=== PATIENT | male | born 1960 | race Caucasian/White ===

== ENCOUNTER 2020-04-05 13:10 | Emergency (ER) | payer SELFPAY ==
[2020-04-05] VITALS (7 sets, daily range): BP systolic 124–168; BP diastolic 69–89; PULSE 72–89; RESP 16–20; TEMP 36.7; O2SAT 94–98; BMI 24.3
--- NOTE | 2020-04-05 13:42 | CTR_ITS ---
PROCEDURE INFORMATION: Exam: CT Angiography Head With Contrast Exam date and time: 04/05/2020 1:56 PM Age: 59 years old Clinical indication: Pain; Headache; Additional info: Syncope/ h/o aneurysms TECHNIQUE: Imaging protocol: Computed tomography angiography of the head with intravenous contrast. 3D rendering (Not supervised by radiologist): MIP and/or 3D reconstructed images were created by the technologist. Radiation optimization: All CT scans at this facility use at least one of these dose optimization techniques: automated exposure control; mA and/or kV adjustment per patient size (includes targeted exams where dose is matched to clinical indication); or iterative reconstruction. Contrast material: OMNI 350; Contrast volume: 95 ml; Contrast route: INTRAVENOUS (IV); COMPARISON: CTA Head/Neck [id number] 01/26/2018 6:49 PM RADIATION DOSE METRICS: Total DLP (mGy-cm): 2137.6 FINDINGS: ANTERIOR CIRCULATION: Right internal carotid artery: Calcified plaques in the right pre cavernous and cavernous carotid produces mild stenosis. Right middle cerebral artery: Unremarkable. No occlusion or significant stenosis. No aneurysm. Right anterior cerebral artery: Unremarkable. No occlusion or significant stenosis. No aneurysm. Left internal carotid artery: Calcified plaque in the left pre cavernous internal carotid produces mild stenosis. The Left middle cerebral artery: Unremarkable. No occlusion or significant stenosis. No aneurysm. Left anterior cerebral artery: Unremarkable. No occlusion or significant stenosis. No aneurysm. POSTERIOR CIRCULATION: Right vertebral artery: Unremarkable. No occlusion or significant stenosis. No aneurysm. Left vertebral artery: Unremarkable. No occlusion or significant stenosis. No aneurysm. Basilar artery: The distal vertebral arteries are patent and join to form a normal basilar artery. Right posterior cerebral artery: The right P1 segment is small. Left posterior cerebral artery: The left P1 segment is widely patent. Right posterior communicating artery: The right posterior communicating artery is patent. Left posterior communicating artery: The left posterior communicating artery is very small. Brain: No definite mass, mass effect, or midline shift. Cerebral ventricles: No ventriculomegaly. Bones/joints: Unremarkable. No acute fracture. Soft tissues: Unremarkable. IMPRESSION: No significant intracranial vascular findings. PROCEDURE INFORMATION: Exam: CT Angiography Neck With Contrast Exam date and time: 04/05/2020 1:56 PM Age: 59 years old Clinical indication: Pain; Headache; Additional info: Syncope/ h/o aneurysms TECHNIQUE: Imaging protocol: Computed tomography angiography of the neck with intravenous contrast. 3D rendering (Not supervised by radiologist): MIP and/or 3D reconstructed images were created by the technologist. Radiation optimization: All CT scans at this facility use at least one of these dose optimization techniques: automated exposure control; mA and/or kV adjustment per patient size (includes targeted exams where dose is matched to clinical indication); or iterative reconstruction. Contrast material: OMNI 350; Contrast volume: 95 ml; Contrast route: INTRAVENOUS (IV); COMPARISON: CTA Head/Neck [id number] 01/26/2018 6:49 PM RADIATION DOSE METRICS: Total DLP (mGy-cm): 2137.6 FINDINGS: Right common carotid artery: No stenosis. No dissection or occlusion. Right internal carotid artery: Insignificant calcified plaque in the right carotid bifurcation. No measurable stenosis. Right external carotid artery: No occlusion or stenosis of the origin. Right vertebral artery: Both vertebral arteries are patent and symmetric. The vessels join to form a normal basilar artery. Left common carotid artery: No stenosis. No dissection or occlusion. Left internal carotid artery: Insignificant calcified plaque in the proximal left internal carotid artery without measurable stenosis. Left external carotid artery: No occlusion or stenosis of the origin. Left vertebral artery: No stenosis. No dissection or occlusion. Subclavian arteries: Since 2018 a focal stenosis in the proximal left subclavian artery has increased from moderate to severe, now 80-89% based on minimum diameter criteria. The stenosis occurs proximal to the vertebral artery origin. Sinuses: Fluid and mucosal thickening is noted in the left maxillary sinus. Nasal cavity: Numerous mid cervical disc spur complexes producing mild central stenosis. No high-grade stenosis. Thyroid: Chronic mixed cystic and solid left thyroid nodule measures up to 1.6 cm. Dental: There are numerous bilateral dental caries. Bones/joints: No acute fracture. Soft tissues: Normal. No significant soft tissue swelling. Lungs: Paraseptal emphysema occurs in the upper lobes. CT/CT angio headneck* [id number] IMPRESSION: 1. Patent carotid and vertebral arteries. 2. Proximal left subclavian artery stenosis is severe, 80-89% 3. Chronic left thyroid nodule, 1.6 cm. Consider ultrasound follow-up if not previously evaluated COMMENTS: Consistent with the [employer]'s Incidental Findings Committee white paper (J Am Jaret Radiol 2015): In patients aged 35 years and older with an incidental thyroid nodule equal to or greater than 1.[address], MRI or extrathyroidal US, further evaluation with dedicated thyroid US is recommended for patients with normal life expectancy and without comorbidities. For smaller nodules without suspicious features, no further evaluation or follow up is recommended. REFERENCES: NASCET CRITERIA. The degree of internal carotid artery stenosis is based on NASCET criteria. Normal is no stenosis. Mild is less than 50% stenosis. Moderate is 50-69% stenosis. Severe is 70% to 99% stenosis. Total occlusion is no detectable patent lumen. Radiation Dose CTDIVOL = (mGy): DLP = 2137.6~2137.6 (mGy-cm)
--- NOTE | 2020-04-05 13:42 | XRR_ITS ---
PROCEDURE INFORMATION: Exam: XR Chest, 1 View Exam date and time: 04/05/2020 2:10 PM Age: 59 years old Clinical indication: Shortness of breath; Additional info: Syncope TECHNIQUE: Imaging protocol: XR of the chest Views: 1 view. COMPARISON: CR Chest 1 [place] [id number] 08/10/2018 6:20 PM FINDINGS: Lungs: Unremarkable. No consolidation. Pleural space: Unremarkable. No pleural effusion. No pneumothorax. Heart/Mediastinum: Unremarkable. No cardiomegaly. Bones/joints: Metallic hardware is seen in the humeral head. No interval changes are present comparing to prior examination. XR/XR chest 1V portable [id number] IMPRESSION: No acute findings.
--- NOTE | 2020-04-05 13:42 | CT_ITS ---
WS: [id number] CT HEAD NONCONTRAST HISTORY: syncope. h/o aneurysms TECHNIQUE: Contiguous axial imaging performed through the brain in 2.5 mm imaging. Bone and soft tiss ue windows. Sagittal and coronal reformats reviewed. All CT scans at [facility] use at le ast one of these dose optimization techniques: automated exposure control; mA and/or kV adjustment pe r patient size (includes targeted exams where dose is matched to clinical indication); or iterative r econstruction. DLP: 863.9 mGy.cm COMPARISON: 09/03/2018 No acute intracranial hemorrhage, midline shift or mass effect. Mild atrophy and mild chronic microvascular ischemic disease. No prior infarcts. Ventricles: Normal size with no hydrocephalus. Paranasal sinuses: Mucoperiosteal thickening in the LEFT maxillary sinus. No air-fluid levels. Mastoid air cells: Well pneumatized. Calvarium and scalp: Skull is intact with no soft tissue edema or swelling. CT/CT head wo con* [id number] IMPRESSION: 1. No acute intracranial edema or hemorrhage. 2. Mild atrophy and mild chronic ischemic disease. Similar to 09/03/2018.
--- NOTE | 2020-04-05 13:44 | ECG_ITS ---
[facility] Test Date: 2020-04-05 Pat Name: Geremias Delatorre Department: Room: Gender: Male Field Hand: : 1960 Requested By: Vidal Marinelli Order Number: [id number] Adelaida MD: Lucrecia Street M.D. Measurements Intervals [place] Rate: 70 P: 75 ME: 155 QRS: 95 QRSD: 86 T: 82 QT: 394 QTc: 425 Interpretive Statements SINUS RHYTHM BORDERLINE RIGHT AXIS DEVIATION [QRS AXIS > 90] Compared to ECG 09/03/2018 15:36:35 No significant changes Electronically Signed On 04-05-2020 21:26:31 MARKET MANAGER by Lucrecia Street M.D. [id number]
--- NOTE | 2020-04-05 14:24 | ED_ITS ---
HPI - Syncope General: Chief Complaint: Syncope Stated Complaint: LOSING VISION, FAINTING Time Seen by Provider: 04/05/20 13:33 History of Present Illness: HPI narrative: The patient is a 59-year-old male with history of multiple brain aneurysms. He comes to the ER today after multiple syncopal episodes today where he says 2 or 3 times today he passed out for 45 minutes. He says he lays there until he can move again and has been told to come into the ER if this happens. He says he has brain surgery scheduled in [place] when he gets his insurance. He noticed pressure in his head and loss of vision and then he passed out. In the ER he is calm and cooperative, A&O x4. He admitted nausea and one vomiting episode during this morning syncopal event MD complaint: loss of consciousness and collapsed Onset (ago): minute(s) (45) Duration of episode: 45 Associated symptoms: Deny abdominal pain, chest pain or headache(s) Review of Systems General: Reports: 10 or more systems reviewed and unremarkable except in HPI and below Const: Denies: fatigue Eyes: Denies: change in vision, blurry vision or eye redness ENMT: Denies: throat pain, swelling of lips/tongue, ear or mastoid pain or nasal congestion Card: Denies: chest pain, palpitations, irregular heart rhythm, edema, dyspnea on exertion or orthopnea Resp: Denies: dyspnea, productive cough or non-productive cough GI: Denies: abdominal pain, diarrhea or GI cramping : Denies: flank pain, urinary frequency or urinary urgency Musc: Denies: neck pain, back pain, extremity pain, joint pain, joint redness, limited range of motion or muscle weakness Skin/Breast: Denies: rash, pruritus, erythema, skin pain or skin tenderness Neuro: Denies: headache(s), numbness in extremities, weakness in extremities, sensory changes, difficulty walking, dizziness, confusion or Slurred speech present Psych: Denies: anxiety or depression Endo: Denies: polyuria All/Imm: Denies: urticaria, throat swelling or tongue swelling Physical Exam Const: COMMON NORMALS: no acute distress, average body habitus, patient oriented x3, no limitations, healthy appearing, alert and well nourished GENERAL APPEARANCE: cooperative, comfortable, well kempt and well developed ORIENTATION/CONSCIOUSNESS: Yes awake, Yes oriented to person, Yes oriented to place and Yes oriented to time HENMT: COMMON NORMALS: normocephalic, external ears normal and Normal external nose present HEAD & SCALP: normal to inspection and normocephalic NOSE: Normal external nose present EXTERNAL EAR: Yes external ears normal MOUTH: Normal oral and palatal mucosa present THROAT: posterior oropharynx normal Eye: COMMON NORMALS: Equal, round and reactive pupils present and EOMs intact bilaterally GENERAL EYE: appearance normal, both eyes and all related structures PUPIL: Yes Equal, round and reactive pupils present Neck/C-Spine: COMMON NORMALS: full ROM, no lymphadenopathy, no meningeal signs and no JVD GENERAL: Yes normal visual inspection Lymph: LYMPHATIC: no lymphadenopathy noted Chest: COMMONS NORMALS: normal inspection of the chest and normal palpation of entire chest wall Resp: COMMON NORMALS: normal respiratory effort, No retractions, No use of accessory muscles, clear to auscultation bilaterally and percussion normal EFFORT & INSPECTION: Yes able to speak in complete sentences AUSCULTATION: clear to auscultation bilaterally PERCUSSION: percussion normal Cardio: COMMON NORMALS: no JVD, regular rate, regular rhythm, S1 normal heart sound present, S2 normal heart sound present and Peripheral pulses 2+ throughout RATE: regular rate RHYTHM: regular rhythm HEART SOUNDS: S1 normal heart sound present and S2 normal heart sound present PERIPHERAL PULSES: Peripheral pulses 2+ throughout GI: COMMON NORMALS: Normal to inspection, nondistended, normoactive bowel sounds present, Soft to palpation, non-tender and no masses INSPECTION: Yes normal to inspection PALPATION: Yes Soft to palpation : COMMON NORMALS: Yes no CVA tenderness BLADDER/KIDNEY EXAM: Yes no CVA tenderness Back/Pelvis: COMMON NORMALS: no CVA tenderness, thoracic and lumbar spine normal to inspection, no thoracic nor lumbar tenderness and thoraco-lumbar ROM normal Extremity: COMMON NORMALS: normal to inspection, full ROM, capillary refill normal, no joint enlargement and no pedal edema GENERAL: Yes normal exam except as noted Neuro: COMMON NORMALS: patient oriented x3, CN's II-XII intact bilaterally, moves all extremities, no focal motor deficits, no sensory deficits noted and gait normal SENSORIUM/ORIENTATION: Yes alert, Yes oriented to person, Yes oriented to place and Yes oriented to time MENINGEAL SIGNS: Yes no meningeal signs Psych: COMMON NORMALS: mental status grossly normal, Normal thought process present, cooperative, normal affect and speech normal APPEARANCE: Yes well kempt ATTITUDE: Yes calm SPEECH: Yes normal speech THOUGHT PROCESS: Normal thought process present Skin: COMMON NORMALS: no rashes or lesions noted GENERAL SKIN EXAM: no rashes or lesions noted Course ED course: The patient says he has aneurysms. Imaging does not show aneurysms but it does show a significant stenosis of his left carotid artery to 90%. This could be a possible cause of his syncopal episodes. We do not have cardiovascular surgery nor vascular surgery upstairs. [facility] un available for transfer. Awaiting [facility] for transfer right now. He has been accepted at [facility] and is awaiting ALS transfer. Reevaluation(s): Reevaluation #1: Patient has been comfortable in room with no syncope. Vital Signs: Vital signs: Vital Signs Temperature 98.1 F 04/05/20 13:17 Pulse Rate 89 04/05/20 19:48 Respiratory Rate 16 04/05/20 19:48 Blood Pressure 131/79 04/05/20 19:48 Pulse Oximetry 96 04/05/20 19:48 MDM - Syncope Lab Data: Labs: Lab Results 04/05/20 04/05/20 04/05/20 Range/Units 14:15 14:15 14:15 WBC 9.0 (4.0-10.0) 10^3/ uL RBC 4.40 (4.1-5.3) 10^6/u L Hgb 14.4 (11.7-16.6) g/dL Hct 43.3 (42.0-52.0) % MCV 98.4 H (80-94) fL MCH 32.7 (28.0-34.0) pg MCHC 33.3 (30.0-36.0) g/dL RDW 14.4 (12.1-15.1) % Plt Count 173 (130-400) 10^3/c mm MPV 11.4 H (7.4-10.4) fL Neut % (Auto) 44.2 % Lymph % (Auto) 33.9 % [place] % (Auto) 10.5 % Eos % (Auto) 10.1 % Baso % (Auto) 1.1 % Neut # (Auto) 3.96 (1.8-7.7) 10^3/u L Lymph # (Auto) 3.0 (0.8-4.8) 10^3/u L [place] # (Auto) 0.9 (0.2-0.9) 10^3/u L Eos # (Auto) 0.9 H (0.0-0.8) 10^3/u L Baso # (Auto) 0.1 (0.0-0.1) 10^3/u L Nucleated RBC % (a uto) 0 % Nucleated RBCs # 0.0 /100WBC Sodium Cancelled Potassium Cancelled Chloride Cancelled Carbon Dioxide Cancelled Anion Gap Cancelled BUN Cancelled Creatinine Cancelled GFR Calculation Cancelled Glucose Cancelled Calculated Osmolal ity Cancelled Calcium Cancelled Total Bilirubin Cancelled AST Cancelled ALT Cancelled Alkaline Phosphata se Cancelled Troponin T Baselin e Cancelled Troponin T 120 Min mohegan (0-15) ng/L Delta Troponin T (0-10) ABS# Total Protein Cancelled Albumin Cancelled Globulin Cancelled TSH Cancelled Urine Color (Yellow) Urine Appearance (CLEAR) Urine pH (5-7) Ur Specific Gravit y (1.005-1.030) Urine Protein (Negative) Urine Glucose (UA) (Normal) Urine Ketones (Negative) Urine Blood (Negative) Urine Nitrate (Negative) Urine Bilirubin (Negative) Urine Urobilinogen (Negative) mg/dL Ur Leukocyte Becca ase (Negative) Urine Opiates Scre en (Negative) ng/mL Ur Barbiturates Sc reen (Negative) ng/mL Ur Phencyclidine S crn (Negative) ng/mL Ur Amphetamines Sc reen (Negative) ng/mL U Benzodiazepines Scrn (Negative) ng/mL Urine Cocaine Scre en (Negative) ng/mL U Marijuana (THC) Screen (Negative) ng/mL Ethyl Alcohol Cancelled 04/05/20 04/05/20 04/05/20 Range/Units 14:55 14:55 15:14 WBC (4.0-10.0) 10^3/ uL RBC (4.1-5.3) 10^6/u L Hgb (11.7-16.6) g/dL Hct (42.0-52.0) % MCV (80-94) fL MCH (28.0-34.0) pg MCHC (30.0-36.0) g/dL RDW (12.1-15.1) % Plt Count (130-400) 10^3/c mm MPV (7.4-10.4) fL Neut % (Auto) % Lymph % (Auto) % [place] % (Auto) % Eos % (Auto) % Baso % (Auto) % Neut # (Auto) (1.8-7.7) 10^3/u L Lymph # (Auto) (0.8-4.8) 10^3/u L [place] # (Auto) (0.2-0.9) 10^3/u L Eos # (Auto) (0.0-0.8) 10^3/u L Baso # (Auto) (0.0-0.1) 10^3/u L Nucleated RBC % (a uto) % Nucleated RBCs # /100WBC Sodium 136 Potassium 4.0 Chloride 101 Carbon Dioxide 27 Anion Gap 12.0 BUN 21 H Creatinine 0.7 GFR Calculation 115.4 Glucose 118 H Calculated Osmolal ity 286 Calcium 9.0 Total Bilirubin 0.6 AST 91 H ALT 79 H Alkaline Phosphata se 131 H Troponin T Baselin e 31 H Troponin T 120 Min mohegan (0-15) ng/L Delta Troponin T (0-10) ABS# Total Protein 6.5 L Albumin 3.4 L Globulin 3.1 TSH 0.59 Urine Color Yellow (Yellow) Urine Appearance Clear (CLEAR) Urine pH 7 (5-7) Ur Specific Gravit y 1.015 (1.005-1.030) Urine Protein Neg (Negative) Urine Glucose (UA) Norm (Normal) Urine Ketones Negative (Negative) Urine Blood Neg (Negative) Urine Nitrate Negative (Negative) Urine Bilirubin Neg (Negative) Urine Urobilinogen Norm (Negative) mg/dL Ur Leukocyte Becca ase Negative (Negative) Urine Opiates Scre en (Negative) ng/mL Ur Barbiturates Sc reen (Negative) ng/mL Ur Phencyclidine S crn (Negative) ng/mL Ur Amphetamines Sc reen (Negative) ng/mL U Benzodiazepines Scrn (Negative) ng/mL Urine Cocaine Scre en (Negative) ng/mL U Marijuana (THC) Screen (Negative) ng/mL Ethyl Alcohol < 10 04/05/20 04/05/20 Range/Units 15:14 16:54 WBC (4.0-10.0) 10^3/ uL RBC (4.1-5.3) 10^6/u L Hgb (11.7-16.6) g/dL Hct (42.0-52.0) % MCV (80-94) fL MCH (28.0-34.0) pg MCHC (30.0-36.0) g/dL RDW (12.1-15.1) % Plt Count (130-400) 10^3/c mm MPV (7.4-10.4) fL Neut % (Auto) % Lymph % (Auto) % [place] % (Auto) % Eos % (Auto) % Baso % (Auto) % Neut # (Auto) (1.8-7.7) 10^3/u L Lymph # (Auto) (0.8-4.8) 10^3/u L [place] # (Auto) (0.2-0.9) 10^3/u L Eos # (Auto) (0.0-0.8) 10^3/u L Baso # (Auto) (0.0-0.1) 10^3/u L Nucleated RBC % (a uto) % Nucleated RBCs # /100WBC Sodium Potassium Chloride Carbon Dioxide Anion Gap BUN Creatinine GFR Calculation Glucose Calculated Osmolal ity Calcium Total Bilirubin AST ALT Alkaline Phosphata se Troponin T Baselin e Troponin T 120 Min mohegan 27.82 H (0-15) ng/L Delta Troponin T -3.18 L (0-10) ABS# Total Protein Albumin Globulin TSH Urine Color (Yellow) Urine Appearance (CLEAR) Urine pH (5-7) Ur Specific Gravit y (1.005-1.030) Urine Protein (Negative) Urine Glucose (UA) (Normal) Urine Ketones (Negative) Urine Blood (Negative) Urine Nitrate (Negative) Urine Bilirubin (Negative) Urine Urobilinogen (Negative) mg/dL Ur Leukocyte Becca ase (Negative) Urine Opiates Scre en Negative (Negative) ng/mL Ur Barbiturates Sc reen Negative (Negative) ng/mL Ur Phencyclidine S crn Negative (Negative) ng/mL Ur Amphetamines Sc reen Positive H (Negative) ng/mL U Benzodiazepines Scrn Negative (Negative) ng/mL Urine Cocaine Scre en Negative (Negative) ng/mL U Marijuana (THC) Screen Positive H (Negative) ng/mL Ethyl Alcohol Discharge Plan Discharge Patient Disposition: Transfer to ED Clinical Impression: Stenosis of left subclavian artery, Vasovagal syncope Condition: Stable Prescriptions: No Action Tylenol 325 mg Tablet 325 - 650 mg PO Q4H PRN (Reason: Pain) RF: 0 Referrals: Cecilia Treviño DO [Primary Care Provider] - Patient Instructions: Syncope Activity Restrictions/Additional Instructions: The patient will be transferred to [facility] for further evaluation by vascular surgeon Dr. Kirby Coding Level of Care Code ED Marketing Technology Specialist for Chg Fwd Exam Comprehensive
[2020-04-05 14:28] LABS: Basophils # 0.1 10^3/uL (0.0-0.1); Basophils % 1.1 %; Eosinophils # 0.9 10^3/uL (0.0-0.8); Eosinophils % 10.1 %; Hematocrit 43.3 % (42.0-52.0); Hemoglobin 14.4 g/dL (11.7-16.6); Lymphocytes % 33.9 %; Mean Corpuscular HGB Conc 33.3 g/dL (30.0-36.0); Mean Corpuscular Hemoglobin 32.7 pg (28.0-34.0); Mean Corpuscular Volume 98.4 fL (80-94); Mean Platelet Volume 11.4 fL (7.4-10.4); Monocytes # 0.9 10^3/uL (0.2-0.9); Monocytes % 10.5 %; Neutrophils # 3.96 10^3/uL (1.8-7.7); Neutrophils % 44.2 %; Nucleated Red Blood Cells % 0 %; Platelet Count 173 10^3/cmm (130-400); Red Cell Distribution Width 14.4 % (12.1-15.1)
[2020-04-05] MEDS: sodium chloride 0.9% 1,000 ML 999 ML IV (14:45)
[2020-04-05 15:31] LABS: Add Urine Microscopic? NO
--- NOTE | 2020-04-05 15:44 | ECG_ITS ---
[facility] Test Date: 2020-04-05 Pat Name: Geremias Delatorre Department: Room: Gender: Male Facilities Locator: : 1960 Requested By: Vidal Marinelli Order Number: [id number] Son MD: Lucrecia Street M.D. Measurements Intervals [place] Rate: 64 P: 75 AR: 158 QRS: 92 QRSD: 85 T: 81 QT: 408 QTc: 423 Interpretive Statements SINUS RHYTHM BORDERLINE RIGHT AXIS DEVIATION [QRS AXIS > 90] Compared to ECG 04/05/2020 13:58:58 No significant changes Electronically Signed On 04-05-2020 21:32:17 MONITOR WORKER by Lucrecia Street M.D. [id number]
[2020-04-05 15:45] LABS: Bilirubin Urine Neg (Negative); Blood Urine Neg (Negative); Glucose Urine UA Norm (Normal); Ketones Urine Negative (Negative); Leukocyte Esterase Urine Negative (Negative); Nitrate Urine Negative (Negative); Protein Urine Neg (Negative); Specific Gravity, Urine 1.015 (1.005-1.030); Urine Appearance Clear (CLEAR); Urine Color Yellow (Yellow); Urobilinogen Urine Norm (Negative); pH Urine 7 (5-7)
[2020-04-05 15:49] LABS: Amphetamines Screen Urine Positive (Negative); Barbiturates Screen Urine Negative (Negative); Benzodiazepines Screen Urine Negative (Negative); Cocaine Screen Urine Negative (Negative); Opiate Screen Urine Negative (Negative); PCP Screen Urine Negative (Negative); THC Screen Urine Positive (Negative)
[2020-04-05 16:06] LABS: Troponin(5th) Baseline 31 ng/L (0-15)
[2020-04-05 16:13] LABS: Alanine Aminotransferase 79 U/L (0-41); Albumin Level 3.4 g/dL (3.5-5.2); Alkaline Phosphatase 131 IU/L (40-130); Aspartate Amino Transferase 91 U/L (0-40); Blood Urea Nitrogen 21 mg/dL (6-20); Carbon Dioxide 27 mmol/L (22-29); Chloride 101 mmol/L (98-107); Globulin 3.1 g/dL (1.3-4.6); Glomerular Filtration Rate 115.4 mL/min (90-130); Glucose 118 mg/dL (65-115); Osmolality Calculated 286 mOsm/kg (285-295); Sodium 136 mmol/L (136-145); Thyroid Stimulating Hormone 0.59 uIU/mL (0.27-4.20); Total Bilirubin 0.6 mg/dL (0.15-1.2); Total Protein 6.5 g/dL (6.6-8.7)
[2020-04-05] MEDS: acetaminophen 325 mg Tablet 650 MG PO (16:16)
[2020-04-05 16:22] LABS: Alcohol Level < 10 mg/dL (0-10)
[2020-04-05] MEDS: iohexol 350 mg/mL 100 mL Btl IV (16:31)
[2020-04-05 17:34] LABS: Troponin 5 2HR 27.82 ng/L (0-15)
[2020-04-05 17:35] LABS: Troponin 5 2HR Delta -3.18 ABS# (0-10)
--- NOTE | 2020-04-05 19:42 | PC.NURSE ---
pt asleep during pt rounding
--- NOTE | 2020-04-05 19:56 | PC.NURSE ---
pt daughter Rafael updated on pt's status. contact # [phone]
[2020-04-05] MEDS: nicotine 21 mg Patch 1 PATCH TRANSDERMA (21:32)
[2020-04-06 00:09] VITALS: BP 117/80; PULSE 82; RESP 18; O2SAT 97
== END 2020-04-06 00:12 ==
PROVIDERS: Emergency Provider Family Medicine; PCP Family Medicine
DX: R55 Syncope and collapse (principal); I77.1 Stricture of artery
CPT/HCPCS: 12345; 70450; 70496; 70498; 71045; 80053; 80306; 80307; 81003; 84443; 84484; 85025; 93005; 96360; 99283; 99285; J7030; Q9967

== ENCOUNTER 2021-01-04 10:58 | Emergency (ER) | payer SELFPAY ==
[2021-01-04 11:18] VITALS: BP 128/75; PULSE 77; RESP 18; TEMP 36.1; O2SAT 98; BMI 26.1
--- NOTE | 2021-01-04 11:29 | XRR_ITS ---
PROCEDURE INFORMATION: Exam: XR Right Wrist Exam date and time: 01/04/2021 11:29 AM Age: 60 years old Clinical indication: Injury or trauma; Fall; Blunt trauma (contusions or hematomas); Wrist; Right; Additional info: Fall injury TECHNIQUE: Imaging protocol: XR Right wrist. Views: 3 or more views. COMPARISON: No relevant prior studies available. FINDINGS: Bones/joints: Right distal radius ORIF hardware noted. Old healed fracture deformity of distal radius seen. An unfused chronic fracture of the ulnar styloid is process is seen. Soft tissues: Normal. XR/XR wrist RT min 3V* [id number] IMPRESSION: Old healed fracture deformity and ORIF hardware noted in the distal radius. Old unfused chronic fracture deformity of the ulnar styloid process. No acute osseous injury.
--- NOTE | 2021-01-04 11:29 | XRR_ITS ---
PROCEDURE INFORMATION: Exam: XR Right Forearm Exam date and time: 01/04/2021 11:29 AM Age: 60 years old Clinical indication: Injury or trauma; Fall; Blunt trauma (contusions or hematomas); Arm, lower; Right; Prior surgery; Additional info: Fall injury TECHNIQUE: Imaging protocol: XR Right forearm. Views: 2 views. COMPARISON: No relevant prior studies available. FINDINGS: Bones/joints: Old healed fracture deformity of the distal radius with ORIF hardware in place noted. No evidence of hardware related complication. Old unfused chronic fracture of the ulnar styloid process is seen. No acute osseous injury identified. Soft tissues: Normal. XR/XR forearm RT 2V [id number] IMPRESSION: 1. Old healed fracture deformity of the distal radius with ORIF hardware in place. 2. Old unfused fracture deformity of the ulnar styloid process.
--- NOTE | 2021-01-04 11:38 | W.ED.EXTPRO ---
HPI - Extremity Problem General: Chief complaint: Extremity Injury, Upper Stated complaint: Pain & Injury to rgt arm Time Seen by Provider: 01/04/21 11:29 History of Present Illness: HPI Narrative: Patient is a 60-year-old male comes to the ED with forearm pain. Patient says just prior to arrival he was walking he tripped going up a step and caught himself with his right arm extended. He then felt pain in his right forearm. He rates the pain currently a 10 out of 10. He has movement in his wrist and fingers and elbow but does endorse some pain with supination and pronation of hand. Pain is located right in the middle of the forearm. Denies any head injury or loss of consciousness. Associated symptoms: Deny chest pain, fever(s) or rash Review of Systems Const: Denies: fever(s), chills or fatigue Eyes: Denies: change in vision or eye discomfort ENMT: Denies: throat pain, odynophagia, nasal discharge or nasal congestion Card: Denies: chest pain, palpitations, edema, swelling of feet/ankles, dyspnea on exertion or orthopnea Resp: Denies: dyspnea, productive cough or non-productive cough GI: Denies: abdominal pain, nausea, vomiting, diarrhea, constipation or hematochezia : Denies: flank pain, difficulty urinating, dysuria or hematuria Musc: Reports: extremity pain (Right forearm); Denies: neck pain, back pain or extremity swelling Skin/Breast: Denies: rash or new lesions Neuro: Denies: headache(s), numbness in extremities or weakness in extremities Physical Exam Const: COMMON NORMALS: no acute distress, patient oriented x3 and alert GENERAL APPEARANCE: cooperative and comfortable HENMT: COMMON NORMALS: normocephalic HEAD & SCALP: normocephalic MOUTH: Normal oral and palatal mucosa present THROAT: posterior oropharynx normal and uvula midline Neck/C-Spine: COMMON NORMALS: supple GENERAL: Yes normal visual inspection Resp: COMMON NORMALS: normal respiratory effort, No retractions, No use of accessory muscles and clear to auscultation bilaterally AUSCULTATION: clear to auscultation bilaterally Cardio: COMMON NORMALS: regular rate, regular rhythm, S1 normal heart sound present, S2 normal heart sound present, No gallops present (Cardio), No clicks present (Cardio), No murmurs present (Cardio) and Peripheral pulses 2+ throughout RATE: regular rate RHYTHM: regular rhythm HEART SOUNDS: S1 normal heart sound present and S2 normal heart sound present PERIPHERAL PULSES: Peripheral pulses 2+ throughout GI: COMMON NORMALS: Normal to inspection, nondistended, normoactive bowel sounds present, Soft to palpation, non-tender and no masses PALPATION: Yes Soft to palpation : COMMON NORMALS: Yes no CVA tenderness BLADDER/KIDNEY EXAM: Yes no CVA tenderness Back/Pelvis: COMMON NORMALS: no CVA tenderness Extremity: COMMON NORMALS: normal to inspection and full ROM Neuro: COMMON NORMALS: patient oriented x3 and moves all extremities SENSORIUM/ORIENTATION: Yes alert Skin: GENERAL SKIN EXAM: dry skin Course Vital Signs: Vital signs: Vital Signs Temperature 97.0 F L 01/04/21 11:18 Pulse Rate 54 L 01/04/21 11:53 Respiratory Rate 16 01/04/21 11:53 Blood Pressure 97/59 01/04/21 11:53 Pulse Oximetry 98 01/04/21 11:53 MDM - Extremity (Nontraumatic) MDM Narrative: Medical decision making narrative: Patient is a 60-year-old male comes to the ED with right forearm pain after fall. Exam was benign. X-ray of right wrist and right forearm showed no acute fractures initial old healing fractures with ORIF hardware in place. Patient was diagnosed with right forearm pain discharged home with Celebrex for pain. Return ED precautions given. Follow-up with PCP in 7 to 10 days for reevaluation. Patient understood agree with plan. Imaging Data^: Xray Ortho: Attestation: I personally reviewed and interpreted this imaging study as follows: Radiologist's impression: [address] [address] XRay Report Signed Patient: Geremias Delatorre Unit #: [id number] : 1960 Age/Sex: 60 / M ADM Date: 01/04/21 Loc: ER Room/Bed: Attending Dr: Ordering Provider/Ordering MD: Mehdi Monge Date of Service: 01/04/21 Procedure(s): XR forearm RT 2V 24793 Accession Number(s): [id number] Report Number: [id number] PROCEDURE INFORMATION: Exam: XR Right Forearm Exam date and time: 01/04/2021 11:29 AM Age: 60 years old Clinical indication: Injury or trauma; Fall; Blunt trauma (contusions or hematomas); Arm, lower; Right; Prior surgery; Additional info: Fall injury TECHNIQUE: Imaging protocol: XR Right forearm. Views: 2 views. COMPARISON: No relevant prior studies available. FINDINGS: Bones/joints: Old healed fracture deformity of the distal radius with ORIF hardware in place noted. No evidence of hardware related complication. Old unfused chronic fracture of the ulnar styloid process is seen. No acute osseous injury identified. Soft tissues: Normal. XR/XR forearm RT 2V 33286 IMPRESSION: 1. Old healed fracture deformity of the distal radius with ORIF hardware in place. 2. Old unfused fracture deformity of the ulnar styloid process. Dictated By: Everardo Hinton Signed By: Everardo Hinton Signed Date/Time: 01/04/21 1259 DD/ [address] [address] XRay Report Signed Patient: Geremias Delatorre Unit #: [id number] : 1960 Age/Sex: 60 / M ADM Date: 01/04/21 Loc: ER Room/Bed: Attending Dr: Ordering Provider/Ordering MD: Mehdi Monge Date of Service: 01/04/21 Procedure(s): XR wrist RT min 3V* 06707 Accession Number(s): [id number] Report Number: [id number] PROCEDURE INFORMATION: Exam: XR Right Wrist Exam date and time: 01/04/2021 11:29 AM Age: 60 years old Clinical indication: Injury or trauma; Fall; Blunt trauma (contusions or hematomas); Wrist; Right; Additional info: Fall injury TECHNIQUE: Imaging protocol: XR Right wrist. Views: 3 or more views. COMPARISON: No relevant prior studies available. FINDINGS: Bones/joints: Right distal radius ORIF hardware noted. Old healed fracture deformity of distal radius seen. An unfused chronic fracture of the ulnar styloid is process is seen. Soft tissues: Normal. XR/XR wrist RT min 3V* 85400 IMPRESSION: Old healed fracture deformity and ORIF hardware noted in the distal radius. Old unfused chronic fracture deformity of the ulnar styloid process. No acute osseous injury. Dictated By: Everardo Hinton Signed By: Everardo Hinton Signed Date/Time: 01/04/21 1256 DD/ 1255 Discharge Plan Discharge Patient Disposition: Home Clinical Impression: Pain in right forearm Condition: Stable Prescriptions: New Celebrex 100 mg capsule 100 mg PO BID PRN (Reason: pain) Qty: 20 RF: 0 No Action Tylenol 325 mg Tablet 325 - 650 mg PO Q4H PRN (Reason: Pain) RF: 0 Discharge Orders: Discharge ED (Routine); Ordered 01/04/21 Ordered By: Mehdi Monge Referrals: Cecilia Treviño DO [Primary Care Provider] - Discharge Diet: Regular Discharge Activity: Resume usual activity Activity Restrictions/Additional Instructions: Follow-up with medical provider as directed. Take medications as prescribed. Return to the ER or your medical provider if condition worsens. Please read and understand discharge instructions. Thank you for choosing [facility] for your healthcare needs today. Please realize this is an emergency room and that we are providing you with a medical screening exam and this may not be complete and all inclusive of all the testing and or work up that you may need to determine your ailment or severity of your illness. It is very important that you follow up as instructed or that you return to the Emergency Department should you have concerns or if your condition changes or worsens in any way. Coding Level of Care Code ED Burglar Alarm Inspector for Priyanka Nunez Exam Comprehensive
[2021-01-04] MEDS: HYDROcodone-acetaminophen 5-325 mg Tablet 1 TAB PO (11:50)
[2021-01-04 11:53] VITALS: BP 97/59; PULSE 54; RESP 16; O2SAT 98
== END 2021-01-04 13:10 | disposition home or self-care (01) ==
PROVIDERS: Emergency Provider Physician Assistant; PCP Family Medicine
DX: M79.631 Pain in right forearm (principal)
CPT/HCPCS: 73090; 73110; 99283

== ENCOUNTER 2021-02-07 23:10 | Emergency (ER) | payer SELFPAY ==
[2021-02-07 23:14] VITALS: BP 115/79; PULSE 74; RESP 18; TEMP 36.9; O2SAT 96; BMI 22.8
--- NOTE | 2021-02-07 23:15 | XRR_ITS ---
PROCEDURE INFORMATION: Exam: XR Chest Exam date and time: 02/07/2021 11:15 PM Age: 60 years old Clinical indication: Shortness of breath; Additional info: SOB TECHNIQUE: Imaging protocol: XR of the chest. Views: 1 view. COMPARISON: CR XR chest 1V portable [id number] 04/05/2020 1:59 PM FINDINGS: Lungs: Emphysematous changes. Bibasilar atelectasis versus minimal infiltrate. Pleural spaces: Unremarkable. No pleural effusion. No pneumothorax. Heart/Mediastinum: Unremarkable. No cardiomegaly. Bones/joints: Unremarkable. XR/XR chest 1V portable [id number] IMPRESSION: 1. Emphysematous changes. 2. Bibasilar atelectasis versus minimal infiltrate. Radiation Dose CTDIVOL = (mGy): DLP = (mGy-cm)
--- NOTE | 2021-02-07 23:16 | ECG_ITS ---
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 Measurements Intervals [place] Rate: 71 P: 63 PA: 159 QRS: 85 QRSD: 88 T: 81 QT: 382 QTc: 415 Interpretive Statements SINUS RHYTHM Compared to ECG 04/05/2020 16:25:41 No significant changes Electronically Signed On 02-08-2021 1:26:[address] M.D. [id number] f
--- NOTE | 2021-02-07 23:19 | ED_ITS ---
HPI - Chest Pain General: Chief Complaint: Chest Pain Stated Complaint: CP Time Seen by Provider: 02/07/21 23:12 Source: patient and EMS Mode of arrival: EMS Limitations: no limitations History of Present Illness: HPI narrative: 60-year-old male who is a chronic smoker history of COPD. He states he has a chronic cough states over last 4 hours been having a sharp left-sided chest pain with his cough. States it is point tender rates his pain a 9 out of 10 is much worse with coughing or deep inspiration. Denies any vomiting denies any shortness of breath and denies any diaphoresis. Associated symptoms: Deny abdominal pain, fever(s), nausea or vomiting Review of Systems Const: Denies: fever(s), chills, body aches or change in appetite Eyes: Denies: blurry vision or eye discomfort ENMT: Denies: throat pain or dental pain Card: Reports: chest pain Resp: Reports: non-productive cough GI: Denies: abdominal pain, nausea, vomiting or diarrhea : Denies: dysuria Musc: Denies: neck pain or back pain Skin/Breast: Denies: rash Neuro: Denies: headache(s) Psych: Denies: depression Venkata/Lymph: Denies: easy bruising All/Imm: Denies: urticaria Physical Exam Const: COMMON NORMALS: no acute distress, patient oriented x3 and healthy appearing HENMT: COMMON NORMALS: normocephalic and atraumatic HEAD & SCALP: normocephalic and atraumatic Eye: COMMON NORMALS: Equal, round and reactive pupils present and EOMs intact bilaterally PUPIL: Yes Equal, round and reactive pupils present Neck/C-Spine: COMMON NORMALS: full ROM and supple Chest: COMMONS NORMALS: normal inspection of the chest OTHER: point tender over left chest Resp: COMMON NORMALS: normal respiratory effort, No retractions, No use of accessory muscles and clear to auscultation bilaterally AUSCULTATION: clear to auscultation bilaterally Cardio: COMMON NORMALS: regular rate, regular rhythm and No murmurs present (Cardio) RATE: regular rate RHYTHM: regular rhythm GI: COMMON NORMALS: Normal to inspection, nondistended, normoactive bowel sounds present, Soft to palpation, non-tender and no masses PALPATION: Yes Soft to palpation Extremity: COMMON NORMALS: normal to inspection and full ROM Neuro: COMMON NORMALS: patient oriented x3, moves all extremities and no focal motor deficits Psych: COMMON NORMALS: mental status grossly normal, Normal thought process present and cooperative THOUGHT PROCESS: Normal thought process present Skin: COMMON NORMALS: no rashes or lesions noted and no wounds GENERAL SKIN EXAM: no rashes or lesions noted Course Vital Signs: Vital signs: Vital Signs Temperature 98.4 F 02/07/21 23:14 Pulse Rate 70 02/08/21 00:17 Respiratory Rate 15 02/08/21 00:17 Blood Pressure 115/79 02/07/21 23:14 Pulse Oximetry 97 02/08/21 00:17 MDM - Chest Pain MDM Narrative: Medical decision making narrative: Patient presents for chest pain that is atypical in nature likely from his chronic cough he has no signs of pneumonia here and is well-appearing with no respiratory distress troponins are negative. He is stable for discharge and is to follow-up PCP and return if worsening. Lab Data: Labs: Lab Results 02/07/21 02/07/21 02/07/21 23:15 23:15 23:15 WBC 10.9 10^3/uL H 10 ^3/uL (4.0-10.0) RBC 4.54 10^6/uL 10^6 /uL (4.1-5.3) Hgb 14.9 g/dL g/dL (11.7-16.6) Hct 44.9 % % (42.0-52.0) MCV 98.9 fl H fl (80-94) MCH 32.8 pg pg (28.0-34.0) MCHC 33.2 g/dL g/dL (30.0-36.0) RDW 13.8 % % (12.1-15.1) Plt Count 257 10^3/cmm 10^3 /cmm (130-400) MPV 11.7 fL H fL (7.4-10.4) Neut % (Auto) 53.0 % % Lymph % (Auto) 27.8 % % [place] % (Auto) 12.9 % % Eos % (Auto) 5.0 % % Baso % (Auto) 0.8 % % Neut # (Auto) 5.77 10^3/uL 10^3 /uL (1.8-7.7) Lymph # (Auto) 3.0 10^3/uL 10^3/ uL (0.8-4.8) [place] # (Auto) 1.4 10^3/uL H 10^ 3/uL (0.2-0.9) Eos # (Auto) 0.5 10^3/uL 10^3/ uL (0.0-0.8) Baso # (Auto) 0.1 10^3/uL 10^3/ uL (0.0-0.1) Nucleated RBC % (a uto) 0 % % Nucleated RBCs # 0.0 /100WBC /100W BC PT 14.30 SECONDS SEC ONDS (12.1-14.9) INR 1.08 (0.8-1.2) D-Dimer 2.07 ug/mIFEU H u g/mIFEU (0-0.59) Sodium 136 mmol/L mmol/L (136-145) Potassium 3.8 mmol/L mmol/L (3.5-5.1) Chloride 100 mmol/L mmol/L (98-107) Carbon Dioxide 26 mmol/L mmol/L (22-29) Anion Gap 13.8 (5-19) BUN 14 mg/dL mg/dL (8-23) Creatinine 0.7 mg/dL mg/dL (0.7-1.2) GFR Calculation 115.0 mL/min mL/m in (90-130) Glucose 105 mg/dL mg/dL (65-115) Calculated Osmolal ity 283 mOsm/kg L mOs m/kg (285-295) Calcium 8.9 mg/dL mg/dL (8.5-10.5) Total Bilirubin 0.6 mg/dL mg/dL (0.15-1.2) AST 57 U/L H U/L (0-40) ALT 45 U/L H U/L (0-41) Alkaline Phosphata se 102 IU/L IU/L (40-130) Troponin T Baselin e Troponin T 120 Min [place] Troponin T Total Protein 7.3 g/dL g/dL (6.6-8.7) Albumin 3.7 g/dL g/dL (3.5-5.2) Globulin 3.6 g/dL g/dL (1.3-4.6) 02/07/21 02/08/21 23:15 01:15 WBC RBC Hgb Hct MCV MCH MCHC RDW Plt Count MPV Neut % (Auto) Lymph % (Auto) [place] % (Auto) Eos % (Auto) Baso % (Auto) Neut # (Auto) Lymph # (Auto) [place] # (Auto) Eos # (Auto) Baso # (Auto) Nucleated RBC % (a uto) Nucleated RBCs # PT INR D-Dimer Sodium Potassium Chloride Carbon Dioxide Anion Gap BUN Creatinine GFR Calculation Glucose Calculated Osmolal ity Calcium Total Bilirubin AST ALT Alkaline Phosphata se Troponin T Baselin e 30 ng/L H ng/L (0-15) Troponin T 120 Min [place] 26.74 ng/L H ng/L (0-15) Delta Troponin T -3.26 ABS# L ABS# (0-10) Total Protein Albumin Globulin Imaging Data^: CT Chest: Attestation: I personally reviewed and interpreted this imaging study as follows: Radiologist's impression: [address] [address] [address] Scan Report Signed Patient: Geremias Delatorre Unit #: [id number] : 1960 Age/Sex: 60 / M ADM Date: 02/07/21 Loc: ER Room/Bed: Attending Dr: Ordering Provider/Ordering MD: Walter Alicia MD Date of Service: 02/07/21 Procedure(s): CT angio chest PE protcl [id number] Accession Number(s): [id number] Report Number: [id number] PROCEDURE INFORMATION: Exam: CTA Chest With Contrast Exam date and time: 02/07/2021 11:46 PM Age: 60 years old Clinical indication: Pain and abnormal findings; Abnormal diagnostic tests; Elevated d-dimer; Chest pressure; Patient HX: C/O chest pain. Elevated d dimer. ; Additional info: SOB TECHNIQUE: Imaging protocol: Computed tomographic angiography of the chest with contrast. 3D rendering (Not supervised by radiologist): MIP and/or 3D reconstructed images were created by the technologist. Radiation optimization: All CT scans at this facility use at least one of these dose optimization techniques: automated exposure control; mA and/or kV adjustment per patient size (includes targeted exams where dose is matched to clinical indication); or iterative reconstruction. Contrast material: OMNI 350; Contrast volume: 84 ml; Contrast route: INTRAVENOUS (IV); COMPARISON: CR (CHEST, ) 02/07/2021 11:30 PM RADIATION DOSE METRICS: Total DLP (mGy-cm): 536.66 FINDINGS: Pulmonary arteries: Normal. No pulmonary emboli. Aorta: Unremarkable. No aortic aneurysm. No aortic dissection. Lungs: Emphysematous changes. Bibasilar atelectasis versus infiltrate. Pleural spaces: Unremarkable. No pneumothorax. No pleural effusion. Heart: Unremarkable. No cardiomegaly. No pericardial effusion. Lymph nodes: Unremarkable. No enlarged lymph nodes. Bones/joints: Unremarkable. No acute fracture. Soft tissues: Unremarkable. CT/CT angio chest PE protcl [id number] IMPRESSION: 1. Negative for pulmonary embolus. 2. Emphysematous changes. 3. Bibasilar atelectasis versus infiltrate. Radiation Dose CTDIVOL = (mGy): DLP = 536.66 (mGy-cm) Dictated By: Scott Andres MD Signed By: Scott Andres MD Signed Date/Time: 02/08/21 0022 DD/ 2346 EKG Data^: EKG 1: Attestation: I personally reviewed and interpreted this EKG as follows: EKG interpretation date: 02/07/21 EKG interpretation time: 23:16 Interpretation: nsr hr [address] or t wave abnormalities qrs 88 qtc 404 Discharge Plan Discharge Patient Disposition: Home Clinical Impression: Chest pain Qualifiers: Chest pain type: unspecified Qualified Code(s): R07.9 - Chest pain, unspecified Condition: Stable Prescriptions: No Action Tylenol 325 mg Tablet 325 - 650 mg PO Q4H PRN (Reason: Pain) RF: 0 Celebrex 100 mg capsule 100 mg PO BID PRN (Reason: pain) Qty: 20 RF: 0 Discharge Orders: Discharge ED (Routine); Ordered 02/08/21 Ordered By: Walter Alicia Referrals: Cecilia Treviño DO [Primary Care Provider] - 1-3 days Discharge Diet: Advance as tolerated Discharge Activity: Resume usual activity Patient Instructions: Chest Pain (ED) Coding Level of Care Code ED Manager Income Tax for Chg Fwd Exam Comprehensive
[2021-02-07 23:26] LABS: Basophils # 0.1 10^3/uL (0.0-0.1); Basophils % 0.8 %; Eosinophils # 0.5 10^3/uL (0.0-0.8); Hematocrit 44.9 % (42.0-52.0); Hemoglobin 14.9 g/dL (11.7-16.6); Lymphocytes % 27.8 %; Mean Corpuscular HGB Conc 33.2 g/dL (30.0-36.0); Mean Corpuscular Hemoglobin 32.8 pg (28.0-34.0); Mean Corpuscular Volume 98.9 fl (80-94); Mean Platelet Volume 11.7 fL (7.4-10.4); Monocytes # 1.4 10^3/uL (0.2-0.9); Monocytes % 12.9 %; Neutrophils # 5.77 10^3/uL (1.8-7.7); Nucleated Red Blood Cells % 0 %; Platelet Count 257 10^3/cmm (130-400); Red Blood Count 4.54 10^6/uL (4.1-5.3); Red Cell Distribution Width 13.8 % (12.1-15.1); White Blood Count 10.9 10^3/uL (4.0-10.0)
[2021-02-07] MEDS: morphine 4 mg/mL SDV 1 mL IVP (23:26)
[2021-02-07] MEDS: ondansetron 2 mg/ML SDV 2 mL 4 MG IVP (23:26)
[2021-02-07 23:31] VITALS: PULSE 72; RESP 20; O2SAT 96
[2021-02-07 23:42] LABS: INR 1.08 (0.8-1.2)
[2021-02-07 23:44] LABS: D Dimer 2.07 ug/mIFEU (0-0.59)
[2021-02-07 23:45] LABS: Alanine Aminotransferase 45 U/L (0-41); Albumin Level 3.7 g/dL (3.5-5.2); Alkaline Phosphatase 102 IU/L (40-130); Anion Gap 13.8 (5-19); Aspartate Amino Transferase 57 U/L (0-40); Blood Urea Nitrogen 14 mg/dL (8-23); Calcium 8.9 mg/dL (8.5-10.5); Carbon Dioxide 26 mmol/L (22-29); Chloride 100 mmol/L (98-107); Globulin 3.6 g/dL (1.3-4.6); Glucose 105 mg/dL (65-115); Osmolality Calculated 283 mOsm/kg (285-295); Potassium 3.8 mmol/L (3.5-5.1); Sodium 136 mmol/L (136-145); Total Bilirubin 0.6 mg/dL (0.15-1.2); Total Protein 7.3 g/dL (6.6-8.7)
--- NOTE | 2021-02-07 23:46 | CTR_ITS ---
PROCEDURE INFORMATION: Exam: CTA Chest With Contrast Exam date and time: 02/07/2021 11:46 PM Age: 60 years old Clinical indication: Pain and abnormal findings; Abnormal diagnostic tests; Elevated d-dimer; Chest pressure; Patient HX: C/O chest pain. Elevated d dimer. ; Additional info: SOB TECHNIQUE: Imaging protocol: Computed tomographic angiography of the chest with contrast. 3D rendering (Not supervised by radiologist): MIP and/or 3D reconstructed images were created by the technologist. Radiation optimization: All CT scans at this facility use at least one of these dose optimization techniques: automated exposure control; mA and/or kV adjustment per patient size (includes targeted exams where dose is matched to clinical indication); or iterative reconstruction. Contrast material: OMNI 350; Contrast volume: 84 ml; Contrast route: INTRAVENOUS (IV); COMPARISON: CR (CHEST, ) 02/07/2021 11:30 PM RADIATION DOSE METRICS: Total DLP (mGy-cm): 536.66 FINDINGS: Pulmonary arteries: Normal. No pulmonary emboli. Aorta: Unremarkable. No aortic aneurysm. No aortic dissection. Lungs: Emphysematous changes. Bibasilar atelectasis versus infiltrate. Pleural spaces: Unremarkable. No pneumothorax. No pleural effusion. Heart: Unremarkable. No cardiomegaly. No pericardial effusion. Lymph nodes: Unremarkable. No enlarged lymph nodes. Bones/joints: Unremarkable. No acute fracture. Soft tissues: Unremarkable. CT/CT angio chest PE protcl [id number] IMPRESSION: 1. Negative for pulmonary embolus. 2. Emphysematous changes. 3. Bibasilar atelectasis versus infiltrate. Radiation Dose CTDIVOL = (mGy): DLP = 536.66 (mGy-cm)
[2021-02-08 00:04] LABS: Troponin(5th) Baseline 30 ng/L (0-15)
[2021-02-08] MEDS: iohexol 350 mg/mL 100 mL Btl IV (00:05)
[2021-02-08 00:17] VITALS: PULSE 70; RESP 15; O2SAT 97
[2021-02-08 01:44] LABS: Troponin 5 2HR 26.74 ng/L (0-15)
[2021-02-08 01:57] LABS: Troponin 5 2HR Delta -3.26 ABS# (0-10)
[2021-02-08 02:10] VITALS: BP 130/98; PULSE 80; RESP 22; O2SAT 92
== END 2021-02-08 02:34 | disposition home or self-care (01) ==
PROVIDERS: Emergency Provider Emergency Medicine; PCP Family Medicine
DX: R07.89 Other chest pain (principal); J44.9 Chronic obstructive pulmonary disease, unspecified; F17.210 Nicotine dependence, cigarettes, uncomplicated
CPT/HCPCS: 71045; 71275; 80053; 84484; 85025; 85378; 85610; 93005; 96374; 96375; 99283; J2270; J2405; Q9967

== ENCOUNTER 2021-02-28 19:34 | Emergency (ER) | payer SELFPAY ==
[2021-02-28 19:36] VITALS: BP 122/78; PULSE 80; RESP 22; TEMP 36.4; O2SAT 96; BMI 26.3
--- NOTE | 2021-02-28 19:43 | ECG_ITS ---
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 Measurements Intervals [place] Rate: 79 P: 76 MD: 151 QRS: 89 QRSD: 84 T: 85 QT: 380 QTc: 436 Interpretive Statements SINUS RHYTHM WITH OCCASIONAL SUPRAVENTRICULAR PREMATURE COMPLEXES POSSIBLE LEFT ATRIAL ENLARGEMENT [-0.1mV P-WAVE IN V1/V2] Compared to ECG 02/07/2021 23:16:30 No significant changes Electronically Signed On 02-28-2021 22:48:18 LABORATORY SAMPLER by Lucrecia Street M.D. [id number]
--- NOTE | 2021-02-28 19:51 | ED_ITS ---
HPI - Chest Pain General: Chief Complaint: Chest Pain Stated Complaint: CP Time Seen by Provider: 02/28/21 19:40 Source: patient and EMS Mode of arrival: EMS Limitations: no limitations History of Present Illness: HPI narrative: 60-year-old male who states he has a history of chronic pain and states he is unable to find a doc here given his pain meds he was getting in [place]. He states that he has been having chest pain over the last day. Patient was seen here 2 weeks ago for chest pain had normal troponins and normal CT of the chest. States pain sharp in nature rates a 10 out of 10 denies any worsening improving factors denies any vomiting or abdominal pain. Denies any diaphoresis or shortness of breath. Associated symptoms: Deny abdominal pain, dyspnea, fever(s), nausea or vomiting Review of Systems Const: Denies: fever(s), chills, body aches or change in appetite Eyes: Denies: blurry vision or eye discomfort ENMT: Denies: throat pain or dental pain Card: Reports: chest pain Resp: Denies: dyspnea GI: Denies: abdominal pain, nausea, vomiting or diarrhea : Denies: dysuria Musc: Denies: neck pain or back pain Skin/Breast: Denies: rash Neuro: Denies: headache(s) Psych: Denies: depression Venkata/Lymph: Denies: easy bruising All/Imm: Denies: urticaria Physical Exam Const: COMMON NORMALS: no acute distress, patient oriented x3 and healthy appearing HENMT: COMMON NORMALS: normocephalic and atraumatic HEAD & SCALP: normocephalic and atraumatic Eye: COMMON NORMALS: Equal, round and reactive pupils present and EOMs intact bilaterally PUPIL: Yes Equal, round and reactive pupils present Neck/C-Spine: COMMON NORMALS: full ROM and supple Chest: COMMONS NORMALS: normal inspection of the chest and normal palpation of entire chest wall Resp: COMMON NORMALS: normal respiratory effort, No retractions, No use of accessory muscles and clear to auscultation bilaterally AUSCULTATION: clear to auscultation bilaterally Cardio: COMMON NORMALS: regular rate, regular rhythm and No murmurs present (Cardio) RATE: regular rate RHYTHM: regular rhythm GI: COMMON NORMALS: Normal to inspection, nondistended, normoactive bowel sounds present, Soft to palpation, non-tender and no masses PALPATION: Yes Soft to palpation Extremity: COMMON NORMALS: normal to inspection and full ROM Neuro: COMMON NORMALS: patient oriented x3, moves all extremities and no focal motor deficits Psych: COMMON NORMALS: mental status grossly normal, Normal thought process present and cooperative THOUGHT PROCESS: Normal thought process present Skin: COMMON NORMALS: no rashes or lesions noted and no wounds GENERAL SKIN EXAM: no rashes or lesions noted Course Vital Signs: Vital signs: Vital Signs Temperature 97.6 F 02/28/21 19:36 Pulse Rate 79 02/28/21 19:54 Respiratory Rate 24 H 02/28/21 20:35 Blood Pressure 122/78 02/28/21 19:54 Pulse Oximetry 94 02/28/21 19:54 MDM - Chest Pain MDM Narrative: Medical decision making narrative: Patient presents here with chest pain atypical in nature he has no signs acute coronary syndrome troponins unchanged from his previous 2 he feels much improved here he is stable for discharge is to follow-up PCP and return if worsening. Lab Data: Labs: Lab Results 02/28/21 02/28/21 02/28/21 19:45 21:29 21:29 WBC 13.1 10^3/uL H 10 ^3/uL (4.0-10.0) RBC 4.94 10^6/uL 10^6 /uL (4.1-5.3) Hgb 15.8 g/dL g/dL (11.7-16.6) Hct 48.0 % % (42.0-52.0) MCV 97.2 fl H fl (80-94) MCH 32.0 pg pg (28.0-34.0) MCHC 32.9 g/dL g/dL (30.0-36.0) RDW 14.5 % % (12.1-15.1) Plt Count 185 10^3/cmm 10^3 /cmm (130-400) MPV 13.2 fL H fL (7.4-10.4) Neut % (Auto) 57.8 % % Lymph % (Auto) 24.7 % % Newberry % (Auto) 9.2 % % Eos % (Auto) 6.4 % % Baso % (Auto) 1.1 % % Neut # (Auto) 7.56 10^3/uL 10^3 /uL (1.8-7.7) Lymph # (Auto) 3.2 10^3/uL 10^3/ uL (0.8-4.8) Newberry # (Auto) 1.2 10^3/uL H 10^ 3/uL (0.2-0.9) Eos # (Auto) 0.8 10^3/uL 10^3/ uL (0.0-0.8) Baso # (Auto) 0.2 10^3/uL H 10^ 3/uL (0.0-0.1) Nucleated RBC % (a uto) 0 % % Nucleated RBCs # 0.0 /100WBC /100W BC Sodium 137 mmol/L mmol/L (136-145) Potassium 4.2 mmol/L mmol/L (3.5-5.1) Chloride 100 mmol/L mmol/L (98-107) Carbon Dioxide 23 mmol/L mmol/L (22-29) Anion Gap 18.2 (5-19) BUN 14 mg/dL mg/dL (8-23) Creatinine 0.7 mg/dL mg/dL (0.7-1.2) GFR Calculation 115.0 mL/min mL/m in (90-130) Glucose 101 mg/dL mg/dL (65-115) Calculated Osmolal ity 285 mOsm/kg mOsm/ kg (285-295) Calcium 7.9 mg/dL L mg/dL (8.5-10.5) Total Bilirubin 0.7 mg/dL mg/dL (0.15-1.2) AST 73 U/L H U/L (0-40) ALT 50 U/L H U/L (0-41) Alkaline Phosphata se 114 IU/L IU/L (40-130) Troponin T Baselin e 28 ng/L H ng/L (0-15) Total Protein 7.4 g/dL g/dL (6.6-8.7) Albumin 3.4 g/dL L g/dL (3.5-5.2) Globulin 4.0 g/dL g/dL (1.3-4.6) Imaging Data^: CXR: Radiologist's impression: [address] [address] XRay Report Signed Patient: Nandini,Eric Unit #: [id number] : [id number] Age/Sex: 60 / M ADM Date: 02/28/21 Loc: ER Room/Bed: Attending Dr: Ordering Provider/Ordering MD: Walter Alicia MD Date of Service: 02/28/21 Procedure(s): XR chest 1V portable [id number] Accession Number(s): [id number] Report Number: [id number] PROCEDURE INFORMATION: Exam: XR Chest Exam date and time: 02/28/2021 8:03 PM Age: 60 years old Clinical indication: Sternal or substernal pain; Prior surgery; Surgery type: Left shoulder; Additional info: Cp TECHNIQUE: Imaging protocol: XR of the chest. Views: 1 view. COMPARISON: CR (CHEST, ) 02/07/2021 11:30 PM FINDINGS: Lungs: Unremarkable. No consolidation. Pleural spaces: Unremarkable. No pleural effusion. No pneumothorax. Heart/Mediastinum: Unremarkable. No cardiomegaly. Bones/joints: Unremarkable. XR/XR chest 1V portable [id number] IMPRESSION: No acute findings. Radiation Dose CTDIVOL = (mGy): DLP = (mGy-cm) Dictated By: Scott Andres MD Signed By: Scott Andres MD Signed Date/Time: 02/28/212030 DD/ 02 EKG Data^: EKG 1: Attestation: I personally reviewed and interpreted this EKG as follows: EKG interpretation date: 02/28/21 EKG interpretation time: 19:40 Interpretation: nsr hr [address] or t wave abnormalities qrs 84 qtc 414 Discharge Plan Discharge Patient Disposition: Home Clinical Impression: Chest pain Qualifiers: Chest pain type: unspecified Qualified Code(s): R07.9 - Chest pain, unspecified Condition: Stable Prescriptions: No Action Tylenol 325 mg Tablet 325 - 650 mg PO Q4H PRN (Reason: Pain) RF: 0 Celebrex 100 mg capsule 100 mg PO BID PRN (Reason: pain) Qty: 20 RF: 0 Discharge Orders: Discharge ED (Routine); Ordered 02/28/21 Ordered By: Walter Alicia Referrals: Lambert,Cecilia, DO [Primary Care Provider] - 1-3 days Discharge Diet: Advance as tolerated Discharge Activity: Resume usual activity Patient Instructions: Chest Pain (ED) Coding Level of Care Code ED Preassembler Printed Circuit Board for Priyanka Fwd Exam Comprehensive
[2021-02-28 19:54] VITALS: BP 122/78; PULSE 79; RESP 19; O2SAT 94
--- NOTE | 2021-02-28 20:03 | XRR_ITS ---
PROCEDURE INFORMATION: Exam: XR Chest Exam date and time: 02/28/2021 8:03 PM Age: 60 years old Clinical indication: Sternal or substernal pain; Prior surgery; Surgery type: Left shoulder; Additional info: Cp TECHNIQUE: Imaging protocol: XR of the chest. Views: 1 view. COMPARISON: CR (CHEST, ) 02/07/2021 11:30 PM FINDINGS: Lungs: Unremarkable. No consolidation. Pleural spaces: Unremarkable. No pleural effusion. No pneumothorax. Heart/Mediastinum: Unremarkable. No cardiomegaly. Bones/joints: Unremarkable. XR/XR chest 1V portable [id number] IMPRESSION: No acute findings. Radiation Dose CTDIVOL = (mGy): DLP = (mGy-cm)
[2021-02-28] MEDS: ondansetron 2 mg/ML SDV 2 mL 4 MG IVP (20:33)
[2021-02-28 20:35] VITALS: RESP 24
[2021-02-28] MEDS: morphine 4 mg/mL SDV 1 mL IVP (20:35)
[2021-02-28 20:43] LABS: Basophils # 0.2 10^3/uL (0.0-0.1); Basophils % 1.1 %; Eosinophils # 0.8 10^3/uL (0.0-0.8); Eosinophils % 6.4 %; Hemoglobin 15.8 g/dL (11.7-16.6); Lymphocytes # 3.2 10^3/uL (0.8-4.8); Lymphocytes % 24.7 %; Mean Corpuscular HGB Conc 32.9 g/dL (30.0-36.0); Mean Corpuscular Volume 97.2 fl (80-94); Mean Platelet Volume 13.2 fL (7.4-10.4); Monocytes # 1.2 10^3/uL (0.2-0.9); Monocytes % 9.2 %; Neutrophils # 7.56 10^3/uL (1.8-7.7); Neutrophils % 57.8 %; Nucleated Red Blood Cells % 0 %; Platelet Count 185 10^3/cmm (130-400); Red Blood Count 4.94 10^6/uL (4.1-5.3); Red Cell Distribution Width 14.5 % (12.1-15.1); White Blood Count 13.1 10^3/uL (4.0-10.0)
[2021-02-28 22:17] LABS: Alanine Aminotransferase 50 U/L (0-41); Albumin Level 3.4 g/dL (3.5-5.2); Alkaline Phosphatase 114 IU/L (40-130); Aspartate Amino Transferase 73 U/L (0-40); Blood Urea Nitrogen 14 mg/dL (8-23); Calcium 7.9 mg/dL (8.5-10.5); Carbon Dioxide 23 mmol/L (22-29); Chloride 100 mmol/L (98-107); Glucose 101 mg/dL (65-115); Osmolality Calculated 285 mOsm/kg (285-295); Sodium 137 mmol/L (136-145); Total Bilirubin 0.7 mg/dL (0.15-1.2); Total Protein 7.4 g/dL (6.6-8.7)
[2021-02-28 22:20] LABS: Anion Gap 18.2 (5-19); Potassium 4.2 mmol/L (3.5-5.1)
[2021-02-28 22:22] LABS: Troponin(5th) Baseline 28 ng/L (0-15)
[2021-02-28 23:27] VITALS: BP 109/78; PULSE 96; RESP 19; O2SAT 96
== END 2021-02-28 23:29 | disposition home or self-care (01) ==
PROVIDERS: Emergency Provider Emergency Medicine; PCP Family Medicine
DX: R07.9 Chest pain, unspecified (principal)
CPT/HCPCS: 71045; 80053; 84484; 85025; 93005; 96374; 96375; 99284; J2270; J2405

== ENCOUNTER 2021-07-20 06:45 | Emergency (ER) | payer SELFPAY ==
[2021-07-20 06:48] VITALS: BP 97/75; PULSE 82; RESP 17; TEMP 36.4; O2SAT 93; BMI 25.1
--- NOTE | 2021-07-20 07:03 | XR_ITS ---
WS: [id number] XR shoulder RT min 2V* [id number] REASON FOR EXAM: pain FINDINGS: Changes of osteoarthritis in the acromioclavicular joint as previously described. Additionally sclerotic rimmed cystic area in the acromial process laterally, not significant. Humerus is intact, no fracture. No fracture of the glenoid or scapula. Glenohumeral joint is intact. There is mild to moderate narrowing with subchondral sclerosis and cyst ic change in the glenoid. There is extensive sclerosis and cystic change in the biceps tuberosity. XR/XR shoulder RT min 2V* [id number] IMPRESSION: No acute abnormality. Changes of osteoarthritis. Significant rotator cuff arthropathy.
--- NOTE | 2021-07-20 07:03 | XR_ITS ---
WS: [id number] [id number] REASON FOR EXAM: pain FINDINGS: No fracture or focal bone lesion. Normal alignment of the acromioclavicular joint. Changes of osteoarthritis in the acromioclavicular joint with joint space narrowing, cyst subchondral sclerosis, and small marginal osteophytes. XR/[place] [id number] IMPRESSION: No acute abnormality.
[2021-07-20 07:06] VITALS: BP 101/73; PULSE 85; RESP 18; O2SAT 96
--- NOTE | 2021-07-20 07:09 | W.ED.EXTPRO ---
HPI - Extremity Problem General: Chief complaint: Extremity Injury, Upper Stated complaint: FALL Time Seen by Provider: 07/20/21 06:58 Source: patient Mode of arrival: EMS Limitations: no limitations History of Present Illness: 60-year-old male presents emergency room via EMS after a fall at home. Patient states he stumbled over a cat complaining of right shoulder and clavicle pain. He states he did hurt his neck a little bit when he fell but he has chronic pain in his neck as well. He did hit his head he had no loss consciousness he does not take any anticoagulants. He was given 100 mcg of fentanyl in route by EMS for his pain and developed some hypoxia which was transient on arrival here when I came to see the patient he was on 2 L/min by nasal cannula we stopped the oxygen he maintained his sats in the mid 90s. He denies any other injuries. Patient reports when he fell he was down for about 15 minutes but he fell about 2 hours ago. MD Complaint: joint pain Onset (ago): hour(s) Pain Consistency: constant Location: right (Clavicle/shoulder) Quality: sharp Radiation: none Relieving factors: immobilization Exacerbating factors: range of motion and palpation Associated symptoms: Deny arthralgias, chest pain, fever(s), myalgias, rash or short of breath Review of Systems Const: Denies: fever(s) ENMT: Denies: throat pain, ear or mastoid pain, nasal discharge or nasal congestion Card: Denies: chest pain Resp: Denies: dyspnea, productive cough or non-productive cough GI: Denies: abdominal pain, nausea or vomiting : Denies: flank pain or dysuria Skin/Breast: Denies: rash PFS ED PFSH: Medical History (Updated 07/20/21 @ 08:12 by Dylan Mcknight DO) Osteoarthritis Surgical History (Updated 07/20/21 @ 07:21 by Dylan Mcknight DO) History of arthroplasty of left shoulder Physical Exam Const: COMMON NORMALS: no acute distress GENERAL APPEARANCE: cooperative and comfortable ORIENTATION/CONSCIOUSNESS: Yes awake, Yes oriented to person, Yes oriented to place and Yes oriented to time HENMT: COMMON NORMALS: normocephalic, atraumatic and hearing grossly normal bilaterally HEAD & SCALP: normocephalic and atraumatic Neck/C-Spine: COMMON NORMALS: no JVD Resp: COMMON NORMALS: normal respiratory effort, No retractions, No use of accessory muscles and clear to auscultation bilaterally AUSCULTATION: clear to auscultation bilaterally Cardio: COMMON NORMALS: no JVD, regular rate, regular rhythm and No murmurs present (Cardio) RATE: regular rate RHYTHM: regular rhythm GI: COMMON NORMALS: Soft to palpation and No hepatosplenomegaly present AUSCULTATION: Yes normoactive bowel sounds PALPATION: Yes Soft to palpation, No Tenderness to palpation present (GI), No Guarding due to palpation present (GI) and Yes No hepatosplenomegaly present Extremity: OTHER: Atrophy with scarring in the left shoulder from previous surgery. There is no deformity of the right shoulder clavicle palpably is intact. No evidence of dislocation no vascular right upper extremity intact pulses palpable sensation normal Neuro: SENSORIUM/ORIENTATION: Yes oriented to person, Yes oriented to place and Yes oriented to time Skin: COMMON NORMALS: no rashes or lesions noted GENERAL SKIN EXAM: no rashes or lesions noted Course Vital Signs: Vital signs: Vital Signs Temperature 97.6 F 07/20/21 06:48 Pulse Rate 92 07/20/21 08:30 Respiratory Rate 18 07/20/21 08:30 Blood Pressure 101/73 07/20/21 07:06 Pulse Oximetry 96 07/20/21 08:30 MDM - Extremity (Nontraumatic) Medical Decision Making No acute fractures on imaging. Patient advised to follow-up as needed return for further problems. Medical Records I reviewed the patient's medical records. Lab Data I reviewed the patient's lab results. Radiology Impressions Clavicle X-Ray 07/20/21 07:03 IMPRESSION: No acute abnormality. Shoulder X-Ray 07/20/21 07:03 IMPRESSION: No acute abnormality. Changes of osteoarthritis. Significant rotator cuff arthropathy. Cervical Spine X-Ray 07/20/21 07:12 IMPRESSION: No acute abnormality. Significant changes of degenerative spondylosis. Discharge Plan Discharge Patient Disposition: Home Clinical Impression: Fall, Acute shoulder pain Condition: Stable Prescriptions: No Action Tylenol 325 mg Tablet 325 - 650 mg PO Q4H PRN (Reason: Pain) 0RF Celebrex 100 mg capsule 100 mg PO BID PRN (Reason: pain) Qty: 20 0RF Discharge Orders: Discharge ED (Routine); Ordered 07/20/21 Ordered By: Dylan Mcknight Referrals: Cecilia Treviño DO [Physician] - Discharge Diet: Usual diet Discharge Activity: Resume usual activity Patient Instructions: Opioid Safety Activity Restrictions/Additional Instructions: Follow up with primary care physician as needed. Coding Level of Care Code ED Coding Machine Operator for Chg Fwd Exam Detailed
--- NOTE | 2021-07-20 07:12 | XR_ITS ---
WS: [id number] XR cervical spine 3V* [id number] REASON FOR EXAM: pain after fall FINDINGS: Straightening of the normal lordosis of the cervical spine. Mild left lateral curvature on the AP vie w. Normal normal odontoid. No vertebral body fracture. Normal facet joint alignment. 2 mm of anterolisthesis of C4 in relation to C3. Degenerative subluxati on. Moderately severe changes of degenerative spondylosis with disc space narrowing and vertebral body os teophytes C4-C7. Significant uncinate osteophytosis C3-C7. Calcified carotid plaque bilaterally. XR/XR cervical spine 3V* [id number] IMPRESSION: No acute abnormality. Significant changes of degenerative spondylosis.
[2021-07-20 08:30] VITALS: PULSE 92; RESP 18; O2SAT 96
== END 2021-07-20 08:31 | disposition home or self-care (01) ==
PROVIDERS: Emergency Provider Family Medicine
DX: M25.511 Pain in right shoulder (principal); W01.0XXA Fall on same level from slipping, tripping and stumbling without subsequent striking against object, initial encounter
CPT/HCPCS: 72040; 73000; 73030; 99283

== ENCOUNTER 2022-03-21 13:08 | Emergency (ER) | payer SELFPAY ==
[2022-03-21 14:36] VITALS: BP 114/78; PULSE 82; RESP 16; TEMP 36.3; O2SAT 97; BMI 22.0
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
== END 2022-03-21 15:35 | disposition home or self-care (01) ==
PROVIDERS: Emergency Provider Physician Assistant
DX: M79.672 Pain in left foot (principal); M79.671 Pain in right foot
CPT/HCPCS: 99282

== ENCOUNTER 2022-05-07 00:33 | Emergency (ER) | payer SELFPAY ==
[2022-05-07 00:35] VITALS: BP 137/100; PULSE 85; RESP 18; TEMP 36.4; O2SAT 96; BMI 16.2
--- NOTE | 2022-05-07 00:37 | USR_ITS ---
PROCEDURE INFORMATION: Exam: US Duplex Left Lower Extremity Veins, Limited Exam date and time: 05/07/2022 12:56 AM Age: 61 years old Clinical indication: Pain; Leg, lower; Left TECHNIQUE: Imaging protocol: Real-time duplex ultrasound of the Left extremity with 2-D vora scale, color Doppler flow and spectral waveform analysis including responses to compression and other maneuvers (when performed) with image documentation. Limited exam focused on the left lower extremity veins. COMPARISON: CR (LOW EXM, ) 05/07/2022 12:42 AM FINDINGS: Left deep veins: Unremarkable. The common femoral, femoral, proximal profunda femoral and popliteal veins are patent without thrombus. Normal Doppler waveforms. Normal compressibility and/or augmentation response. Left superficial veins: Unremarkable. Saphenofemoral junction is patent without thrombus. Soft tissues: Unremarkable. US/CV venous duplex [facility] [id number] IMPRESSION: No evidence of deep vein thrombosis.
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
[2022-05-07] MEDS: HYDROcodone-acetaminophen 7.5-325 mg Tablet 1 TAB PO (00:48)
[2022-05-07 02:04] VITALS: BP 122/94; PULSE 93; RESP 18; O2SAT 92
== END 2022-05-07 02:04 | disposition home or self-care (01) ==
PROVIDERS: Emergency Provider Emergency Medicine
DX: M79.605 Pain in left leg (principal)
CPT/HCPCS: 73562; 73590; 93971; 99284

== ENCOUNTER 2022-05-26 20:13 | Emergency (ER) | payer BC, MEDICAID, SELFPAY ==
[2022-05-26 20:24] VITALS: BP 133/82; PULSE 93; RESP 16; TEMP 36.8; O2SAT 93
--- NOTE | 2022-05-26 20:57 | CTR_ITS ---
PROCEDURE INFORMATION: Exam: CTA Abdominal Aorta and Bilateral Lower Extremities (Run-off) With Contrast Exam date and time: 05/26/2022 10:39 PM Age: 61 years old Clinical indication: Foot pain; Right; Additional info: Rle foot pain, diminished pulses TECHNIQUE: Imaging protocol: Computed tomographic angiography of the of the abdominal aorta, pelvis and bilateral lower extremities with contrast. 3D rendering (Not supervised by radiologist): MIP and/or 3D reconstructed images were created by the technologist. Radiation optimization: All CT scans at this facility use at least one of these dose optimization techniques: automated exposure control; mA and/or kV adjustment per patient size (includes targeted exams where dose is matched to clinical indication); or iterative reconstruction. Contrast material: OMNI 350; Contrast volume: 135 ml; Contrast route: INTRAVENOUS (IV); Other protocol: This patient has received 0 known CTs and 0 known cardiac nuclear medicine studies in the 12 months prior to the current study. COMPARISON: CT abdomen pelvis w con* [id number] 06/10/2018 3:12 PM RADIATION DOSE METRICS: Total DLP (mGy-cm): 1394.94 FINDINGS: Aorta: The infrarenal abdominal aorta measures 2.8 cm maximum size unchanged with stable moderate atherosclerotic changes. No dissection. Celiac trunk and mesenteric arteries: No occlusion or significant stenosis. Renal arteries: No occlusion or significant stenosis. Right iliac arteries: Right common iliac artery aneurysm to 2 cm is unchanged. The right external iliac artery has mild stenosis in its mid to distal portion due to calcified and noncalcified plaque. Right femoral/popliteal arteries: The right superficial femoral artery has multifocal [id number] stenoses in its proximal portion. Heavy calcified atherosclerotic plaque with superficial femoral artery occlusion just above the knee. At the level of the knee there is some opacification of the SFA lumen likely from collaterals . The distal SFA and popliteal artery are occluded. Right infrapopliteal arteries: The right infrapopliteal arteries appear reconstituted likely from collateral flow with adequate runoff to the foot. Left iliac arteries: There is high-grade stenosis of the distal left common iliac artery at the bifurcation. The left internal iliac artery is a small-caliber vessel proximally with more robust caliber distally likely from collateralization. This appears similar to the previous CT. The distal left external iliac artery has multifocal mild irregularity from atherosclerosis. Left femoral/popliteal arteries: The left SFA has mild multifocal irregularity related to atherosclerosis but is patent. There is moderate stenosis of the left popliteal artery focally. Left infrapopliteal arteries: The left infrapopliteal arteries are patent with adequate runoff to the foot. Lungs: There is bibasilar atelectasis or infiltrates. Correlate for pneumonia. Liver: No mass. Gallbladder and bile ducts: Status post cholecystectomy.Stool throughout the colon suggests constipation. No bowel obstruction. Pancreas: Unremarkable. No mass. No ductal dilation. Spleen: Normal. No splenomegaly. Adrenal glands: Normal. No mass. Kidneys and ureters: Normal. No mass. Stomach and bowel: See Gallbladder and bile ducts finding. Appendix: No evidence of appendicitis. Urinary bladder: Nonspecific bladder distention. Reproductive: Prostatomegaly. Intraperitoneal space: Unremarkable. No free air. No significant fluid collection. Lymph nodes: No lymphadenopathy. Bones/joints: No acute fracture. No dislocation. Soft tissues: Unremarkable. CT/CT angio abd aorta runof [id number] IMPRESSION: 1. Occlusion of the distal right superficial femoral artery and the right popliteal artery. The infrapopliteal arteries are reconstituted from collateral with adequate runoff to the foot. 2. Left lower extremity atherosclerotic disease as described without evidence of occlusion. 3. Stable infrarenal abdominal aortic ectasia with stable atherosclerosis. No dissection. 4. Stable right common iliac artery aneurysm. 5. Stable high-grade stenosis distal left common iliac artery at the bifurcation. Stable diminutive left internal iliac artery with distal collateralization. 6. There is bibasilar atelectasis or infiltrates. Correlate for pneumonia.
--- NOTE | 2022-05-26 20:59 | ED_ITS ---
Documented by User: Lew Do MD 05/26/22 23:50 HPI - Extremity Problem General: Chief complaint: Extremity Problem,Nontraumatic Stated complaint: Cramps in Rt leg Time Seen by Provider: 05/26/22 20:52 History of Present Illness: Patient is a 61-year-old male who presents to the ER for evaluation of sudden onset of right lower extremity pain in the distal lower leg and the right foot. Patient's pain started just an hour or 2 before arrival. He denies any known injury or trauma. He states he has had something similar occur in the past but it resolved. Associated symptoms: Deny fever(s) Review of Systems Const: Denies: fever(s), chills, body aches or change in appetite Resp: Denies: dyspnea GI: Denies: abdominal pain, nausea, vomiting or diarrhea PFSH ED PFSH: Medical History Osteoarthritis Surgical History History of arthroplasty of left shoulder Physical Exam Const: COMMON NORMALS: average body habitus, alert and well nourished GENERAL APPEARANCE: cooperative and comfortable HENMT: COMMON NORMALS: normocephalic and atraumatic HEAD & SCALP: normocephalic and atraumatic Eye: COMMON NORMALS: EOMs intact bilaterally and conjunctivae normal CONJUNCTIVA: Yes conjunctivae normal Neck/C-Spine: GENERAL: Yes normal visual inspection, No tracheal deviation and No submandibular swelling Chest: COMMONS NORMALS: normal inspection of the chest Resp: COMMON NORMALS: normal respiratory effort, No retractions and No use of accessory muscles Cardio: OTHER: Patient has strong radial pulses bilaterally and strong DP and PT pulses to the left lower extremity. I am unable to palpate pulses to the right DP and posterior tibialis. GI: COMMON NORMALS: Soft to palpation and non-tender PALPATION: Yes Soft to palpation Extremity: COMMON NORMALS: normal to inspection, full ROM and no pedal edema NARRATIVE EXTREMITY EXAM: Patient has tenderness to palpation to the right lower leg and foot. Neuro: COMMON NORMALS: no focal motor deficits SENSORIUM/ORIENTATION: Yes alert Skin: COMMON NORMALS: no rashes or lesions noted GENERAL SKIN EXAM: no rashes or lesions noted Course Vital Signs: Vital signs: Vital Signs Temperature 98.3 F 05/26/22 20:24 Pulse Rate 81 05/27/22 01:24 Respiratory Rate 18 05/26/22 23:52 Blood Pressure 108/75 05/27/22 01:24 Pulse Oximetry 92 05/27/22 01:24 Oxygen Delivery Me thod 05/27/22 01:24 MDM - Extremity (Nontraumatic) Medical Decision Making Patient is a 61-year-old male with acute onset of right lower extremity pain. On exam I am unable to palpate a pulse in the right lower extremity. He does have strong pulses in the other 3 extremities. Basic labs and a CT angiogram of the abdomen with runoff to the lower extremities was ordered. There was some delay in getting the CT angiogram performed due to patient's contrast allergy. He was premedicated with Solu-Medrol, Benadryl, and Pepcid. CTA was obtained which shows occlusion at the popliteal artery with some reconstitution distally. I do not have a formal read obtained at this time however heparin drip was initiated. Have contacted [facility] in [place] for transfer for acute arterial occlusion. After transmitting images to [facility], they notified us they do not have beds available for transfer. [facility] has been contacted. We will continue heparin drip and work on finding appropriate facility for transfer. Dr. Bowman to assume care pending accepting transfer to outside facility. Lab Data 05/26/22 21:05 05/26/22 21:05 Radiology Impressions Aorta w/Runoff CTA 05/26/22 20:57 IMPRESSION: 1. Occlusion of the distal right superficial femoral artery and the right popliteal artery. The infrapopliteal arteries are reconstituted from collateral with adequate runoff to the foot. 2. Left lower extremity atherosclerotic disease as described without evidence of occlusion. 3. Stable infrarenal abdominal aortic ectasia with stable atherosclerosis. No dissection. 4. Stable right common iliac artery aneurysm. 5. Stable high-grade stenosis distal left common iliac artery at the bifurcation. Stable diminutive left internal iliac artery with distal collateralization. 6. There is bibasilar atelectasis or infiltrates. Correlate for pneumonia. ADDENDUM: 05/26/22 [id number] THIS REPORT CONTAINS FINDINGS THAT MAY BE CRITICAL TO PATIENT CARE. The findings were verbally communicated via telephone conference with Dr. Bowman at 11:57 PM [employer] on 05/26/2022. The findings were acknowledged and understood. Vascuar surgery consultation is recommended. Laboratory Results WBC 13.2 10^3/uL (4.0-10.0) H 05/26/22 21:05 RBC 4.92 10^6/uL (4.1-5.3) 05/26/22 21:05 Hgb 15.4 g/dL (11.7-16.6) 05/26/22 21:05 Hct 47.2 % (42.0-52.0) 05/26/22 21:05 MCV 95.9 fl (80-94) H 05/26/22 21:05 MCH 31.3 pg (28.0-34.0) 05/26/22 21: MCHC 32.6 g/dL (30.0-36.0) 05/26/22 21:05 RDW 13.7 % (12.1-15.1) 05/26/22 21:05 Plt Count 246 10^3/cmm (130-400) 05/26/22 21:05 MPV 10.1 fL (7.4-10.4) 05/26/22 21:05 Neut % (Auto) 62.7 % 05/26/22 21: Lymph % (Auto) 19.8 % 05/26/22 21: Bremer % (Auto) 7.5 % 05/26/22 21: Eos % (Auto) 8.1 % 05/26/22 21: Baso % (Auto) 1.1 % 05/26/22 21: Neut # (Auto) 8.28 10^3/uL (1.8-7.7) H 05/26/22 21:05 Lymph # (Auto) 2.6 10^3/uL (0.8-4.8) 05/26/22 21:05 Bremer # (Auto) 1.0 10^3/uL (0.2-0.9) H 05/26/22 21:05 Eos # (Auto) 1.1 10^3/uL (0.0-0.8) H 05/26/22 21:05 Baso # (Auto) 0.1 10^3/uL (0.0-0.1) 05/26/22 21:05 Nucleated RBC % (auto) 0 % 05/26/22 21:05 Nucleated RBCs # 0.0 /100WBC 05/26/22 21:05 Sodium 131 mmol/L (136-145) L 05/26/22 21:05 Potassium 4.1 mmol/L (3.5-5.1) 05/26/22 21:05 Chloride 94 mmol/L (98-107) L 05/26/22 21:05 Carbon Dioxide 27 mmol/L (22-29) 05/26/22 21:05 Anion Gap 14.1 (5-19) 05/26/22 21:05 BUN 23 mg/dL (8-23) 05/26/22 21:05 Creatinine 0.9 mg/dL (0.7-1.2) 05/26/22 21:05 GFR Calculation 85.8 mL/min (90-130) L 05/26/22 21:05 Glucose 148 mg/dL (65-115) H 05/26/22 21:05 Calculated Osmolality 278 mOsm/kg (285-295) L 05/26/22 21:05 Lactate 1.4 mmol/L (0.5-2.2) 05/26/22 21:15 Calcium 9.1 mg/dL (8.5-10.5) 05/26/22 21:05 Total Bilirubin 0.4 mg/dL (0.15-1.2) 05/26/22 21:05 AST 60 U/L (0-40) H 05/26/22 21:05 ALT 36 U/L (0-41) 05/26/22 21:05 Alkaline Phosphatase 130 U/L (40-130) 05/26/22 21:05 Total Protein 8.1 g/dL (6.6-8.7) 05/26/22 21:05 Albumin 3.3 g/dL (3.5-5.2) L 05/26/22 21:05 Globulin 4.8 g/dL (1.3-4.6) H 05/26/22 21:05 Discharge Plan Discharge Patient Disposition: Xfer Short-Term Hosp Clinical Impression: Acute occlusion of artery of lower extremity Condition: Fair Coding Level of Care Code ED Forensic Specialist for Chg Fwd Documented by User: Bakari Bowman, DO 05/27/22 02:54 HPI - Extremity Problem General: Chief complaint: Extremity Problem,Nontraumatic Stated complaint: Cramps in Rt leg Time Seen by Provider: 05/26/22 20:52 PFSH ED PFSH: Medical History Osteoarthritis Surgical History History of arthroplasty of left shoulder Course Vital Signs: Vital signs: Vital Signs Temperature 98.3 F 05/26/22 20:24 Pulse Rate 81 05/27/22 01:24 Respiratory Rate 18 05/26/22 23:52 Blood Pressure 108/75 05/27/22 01:24 Pulse Oximetry 92 05/27/22 01:24 Oxygen Delivery Me thod 05/27/22 01:24 MDM - Extremity (Nontraumatic) Medical Decision Making Patient is a 61-year-old male with acute onset of right lower extremity pain. On exam I am unable to palpate a pulse in the right lower extremity. He does have strong pulses in the other 3 extremities. Basic labs and a CT angiogram of the abdomen with runoff to the lower extremities was ordered. There was some delay in getting the CT angiogram performed due to patient's contrast allergy. He was premedicated with Solu-Medrol, Benadryl, and Pepcid. CTA was obtained which shows occlusion at the popliteal artery with some reconstitution distally. I do not have a formal read obtained at this time however heparin drip was initiated. Have contacted [facility] in [place] for transfer for acute arterial occlusion. After transmitting images to [facility], they notified us they do not have beds available for transfer. [facility] [place] [facility] contacted. We will continue heparin drip and work on finding appropriate facility for transfer. Dr. Bowman to assume care pending accepting transfer to outside facility. 61-year-old male checked out to me at shift change by the previous physician. We have attempted to contact multiple facilities at this point regarding transfer, including both hospitals in [facility]. I have spoken with a vascular surgeon, Dr. Vázquez, at [facility] in [place] who is agreed to take the patient pending hospitalist acceptance. We will attempt air transfer given time sensitive transfer and long transport times to [place] when we have a bed. Spoke with Dr. Narayan, Hospitalist at [facility] who has accepted the patient. Lab Data 05/26/22 21:05 05/26/22 21:05 Radiology Impressions Aorta w/Runoff CTA 05/26/22 20:57 IMPRESSION: 1. Occlusion of the distal right superficial femoral artery and the right popliteal artery. The infrapopliteal arteries are reconstituted from collateral with adequate runoff to the foot. 2. Left lower extremity atherosclerotic disease as described without evidence of occlusion. 3. Stable infrarenal abdominal aortic ectasia with stable atherosclerosis. No dissection. 4. Stable right common iliac artery aneurysm. 5. Stable high-grade stenosis distal left common iliac artery at the bifurcation. Stable diminutive left internal iliac artery with distal collateralization. 6. There is bibasilar atelectasis or infiltrates. Correlate for pneumonia. ADDENDUM: 05/26/22 [id number] THIS REPORT CONTAINS FINDINGS THAT MAY BE CRITICAL TO PATIENT CARE. The findings were verbally communicated via telephone conference with Dr. Bowman at 11:57 PM [employer] on 05/26/2022. The findings were acknowledged and understood. Vascuar surgery consultation is recommended. Laboratory Results WBC 13.2 10^3/uL (4.0-10.0) H 05/26/22 21: RBC 4.92 10^6/uL (4.1-5.3) 05/26/22 21:05 Hgb 15.4 g/dL (11.7-16.6) 05/26/22 21:05 Hct 47.2 % (42.0-52.0) 05/26/22 21:05 MCV 95.9 fl (80-94) H 05/26/22 21:05 MCH 31.3 pg (28.0-34.0) 05/26/22 21:05 MCHC 32.6 g/dL (30.0-36.0) 05/26/22 21:05 RDW 13.7 % (12.1-15.1) 05/26/22 21:05 Plt Count 246 10^3/cmm (130-400) 05/26/22 21:05 MPV 10.1 fL (7.4-10.4) 05/26/22 21:05 Neut % (Auto) 62.7 % 05/26/22 21:05 Lymph % (Auto) 19.8 % 05/26/22 21:05 Bremer % (Auto) 7.5 % 05/26/22 21:05 Eos % (Auto) 8.1 % 05/26/22 21:05 Baso % (Auto) 1.1 % 05/26/22 21:05 Neut # (Auto) 8.28 10^3/uL (1.8-7.7) H 05/26/22 21:05 Lymph # (Auto) 2.6 10^3/uL (0.8-4.8) 05/26/22 21:05 Bremer # (Auto) 1.0 10^3/uL (0.2-0.9) H 05/26/22 21:05 Eos # (Auto) 1.1 10^3/uL (0.0-0.8) H 05/26/22 21:05 Baso # (Auto) 0.1 10^3/uL (0.0-0.1) 05/26/22 21:05 Nucleated RBC % (auto) 0 % 05/26/22 21:05 Nucleated RBCs # 0.0 /100WBC 05/26/22 21:05 Sodium 131 mmol/L (136-145) L 05/26/22 21:05 Potassium 4.1 mmol/L (3.5-5.1) 05/26/22 21:05 Chloride 94 mmol/L (98-107) L 05/26/22 21:05 Carbon Dioxide 27 mmol/L (22-29) 05/26/22 21:05 Anion Gap 14.1 (5-19) 05/26/22 21:05 BUN 23 mg/dL (8-23) 05/26/22 21:05 Creatinine 0.9 mg/dL (0.7-1.2) 05/26/22 21:05 GFR Calculation 85.8 mL/min (90-130) L 05/26/22 21:05 Glucose 148 mg/dL (65-115) H 05/26/22 21:05 Calculated Osmolality 278 mOsm/kg (285-295) L 05/26/22 21:05 Lactate 1.4 mmol/L (0.5-2.2) 05/26/22 21:15 Calcium 9.1 mg/dL (8.5-10.5) 05/26/22 21:05 Total Bilirubin 0.4 mg/dL (0.15-1.2) 05/26/22 21:05 AST 60 U/L (0-40) H 05/26/22 21:05 ALT 36 U/L (0-41) 05/26/22 21:05 Alkaline Phosphatase 130 U/L (40-130) 05/26/22 21:05 Total Protein 8.1 g/dL (6.6-8.7) 05/26/22 21:05 Albumin 3.3 g/dL (3.5-5.2) L 05/26/22 21:05 Globulin 4.8 g/dL (1.3-4.6) H 05/26/22 21:05 Critical Care Time Critical Care Time: Critical Care Time: Yes Total Critical Care Time: 40 Attestation: This case had a high probability of a clinically significant, sudden, or life threatening deterioration of this patient's condition which required my full and direct attention, intervention and personal management. Discharge Plan Discharge Patient Disposition: Xfer Short-Term Hosp Clinical Impression: Acute occlusion of artery of lower extremity Condition: Fair Coding Level of Care Code ED Forensic Specialist for Priyanka Nunez
[2022-05-26 21:14] LABS: Basophils # 0.1 10^3/uL (0.0-0.1); Basophils % 1.1 %; Eosinophils # 1.1 10^3/uL (0.0-0.8); Eosinophils % 8.1 %; Hematocrit 47.2 % (42.0-52.0); Hemoglobin 15.4 g/dL (11.7-16.6); Lymphocytes # 2.6 10^3/uL (0.8-4.8); Lymphocytes % 19.8 %; Mean Corpuscular HGB Conc 32.6 g/dL (30.0-36.0); Mean Corpuscular Hemoglobin 31.3 pg (28.0-34.0); Mean Corpuscular Volume 95.9 fl (80-94); Mean Platelet Volume 10.1 fL (7.4-10.4); Monocytes % 7.5 %; Neutrophils # 8.28 10^3/uL (1.8-7.7); Neutrophils % 62.7 %; Nucleated Red Blood Cells % 0 %; Platelet Count 246 10^3/cmm (130-400); Red Blood Count 4.92 10^6/uL (4.1-5.3); Red Cell Distribution Width 13.7 % (12.1-15.1); White Blood Count 13.2 10^3/uL (4.0-10.0)
[2022-05-26] MEDS: sodium chloride 0.9% 1,000 ML 999 ML IV (21:14)
[2022-05-26 21:15] VITALS: RESP 18
[2022-05-26] MEDS: morphine 4 mg/mL SDV 1 mL IVP (21:15)
[2022-05-26] MEDS: ondansetron 2 mg/ML SDV 2 mL 4 MG IVP (21:15)
[2022-05-26] MEDS: diphenhydrAMINE 50 mg/mL SDV 1mL IVP (21:21)
[2022-05-26] MEDS: famotidine 20 mg/2 mL INJ 40 MG IVP (21:26)
[2022-05-26 21:34] LABS: Alanine Aminotransferase 36 U/L (0-41); Albumin Level 3.3 g/dL (3.5-5.2); Alkaline Phosphatase 130 U/L (40-130); Anion Gap 14.1 (5-19); Aspartate Amino Transferase 60 U/L (0-40); Blood Urea Nitrogen 23 mg/dL (8-23); Calcium 9.1 mg/dL (8.5-10.5); Carbon Dioxide 27 mmol/L (22-29); Chloride 94 mmol/L (98-107); Globulin 4.8 g/dL (1.3-4.6); Glomerular Filtration Rate 85.8 mL/min (90-130); Glucose 148 mg/dL (65-115); Osmolality Calculated 278 mOsm/kg (285-295); Potassium 4.1 mmol/L (3.5-5.1); Sodium 131 mmol/L (136-145); Total Bilirubin 0.4 mg/dL (0.15-1.2); Total Protein 8.1 g/dL (6.6-8.7)
[2022-05-26 21:42] LABS: Lactate (Lactic Acid level) 1.4 mmol/L (0.5-2.2)
[2022-05-26 22:06] VITALS: BP 148/99; PULSE 85; RESP 18; O2SAT 94
[2022-05-26] MEDS: iohexol 350 mg/mL 500 mL Btl (per mL) IV (22:36)
[2022-05-26] MEDS: heparin drip 25,000 UNIT/500 ML PREMIX 18.48 UNIT IV (23:47)
[2022-05-26] MEDS: heparin 5,000 unit/mL INJ 1 mL IV (23:48)
[2022-05-26 23:52] VITALS: BP 111/89; PULSE 77; RESP 18; O2SAT 92
--- NOTE | 2022-05-26 23:53 | PC.NURSE ---
Patient resting in bed, asking for food and drink. Spoke to Dr. Do who stated patient needs to be NPO until patient is transferred. Patient advised and verbalized understanding.
[2022-05-27 00:46] VITALS: BP 102/77; PULSE 85; O2SAT 93
[2022-05-27 01:24] VITALS: BP 108/75; PULSE 81; O2SAT 92
--- NOTE | 2022-05-27 01:39 | PC.NURSE ---
THIS NURSE ASSUMED CARE AT 0139 05/27/22.
[2022-05-27 02:55] VITALS: BP 113/80; PULSE 84; RESP 16; O2SAT 93
== END 2022-05-27 04:21 | disposition short-term general hospital (02) ==
PROVIDERS: Student in an Organized Health Care Education/Training Program; Emergency Provider Emergency Medicine
DX: I70.201 Unspecified atherosclerosis of native arteries of extremities, right leg (principal)
CPT/HCPCS: 75635; 80053; 83605; 85025; 96365; 96366; 96375; 99285; J1200; J1644; J2270; J2405; J2930; J3490; J7030; Q9967

== ENCOUNTER 2022-06-14 13:31 | Emergency (ER) | payer BC, MEDICAID, SELFPAY ==
[2022-06-14 13:37] VITALS: BP 103/67; PULSE 85; RESP 18; TEMP 36.7; O2SAT 96
--- NOTE | 2022-06-14 14:55 | ED_ITS ---
HPI - Extremity Problem General: Chief complaint: Extremity Problem,Nontraumatic Stated complaint: Post leg surgery on Right leg/ pain Time Seen by Provider: 06/14/22 14:55 History of Present Illness: Mr. Delatorre is a 61-year-old gentleman presenting to the emergency department for concern over postoperative changes. He was transferred on 05/26/2022 for acute arterial occlusion and apparently and it appears underwent some sort bypass procedure. Per note review this was at [facility] in [place]. He underwent surgical procedure likely bypass graft and had been doing well postoperatively. This morning he woke up with increased redness, swelling, pain. He denies known provoking event. He denies signs of general illness. Intensity is moderate to severe. Worse with p alpation and movement. He does endorse worsening distal swelling as well. No other specific changes in health, exacerbating, or alleviating factors identified. Onset (ago): hour(s) Pain Consistency: constant Location: right and lower extremity Quality: aching Radiation: distal Exacerbating factors: range of motion, walking and palpation Associated symptoms: Reports other Review of Systems General: Reports: 10 or more systems reviewed and unremarkable except in HPI and below PFSH ED PFSH: Medical History Osteoarthritis Surgical History History of arthroplasty of left shoulder Physical Exam Const: COMMON NORMALS: alert GENERAL APPEARANCE: cooperative and well developed HENMT: COMMON NORMALS: normocephalic and atraumatic HEAD & SCALP: normocephalic and atraumatic Eye: COMMON NORMALS: conjunctivae normal CONJUNCTIVA: Yes conjunctivae normal SCLERA: sclerae normal Neck/C-Spine: COMMON NORMALS: supple GENERAL: Yes trachea midline Resp: COMMON NORMALS: normal respiratory effort EFFORT & INSPECTION: Yes able to speak in complete sentences Cardio: COMMON NORMALS: regular rate and regular rhythm RATE: regular rate RHYTHM: regular rhythm GI: COMMON NORMALS: Soft to palpation PALPATION: Yes Soft to palpation and No Tenderness to palpation present (GI) PERCUSSION: normal to percussion Extremity: NARRATIVE EXTREMITY EXAM: There are postsurgical changes in the right lower extremity with surgical shiv closure. There is erythema diffusely in addition to swelling and induration more proximally with what appears to be drainage. Erythema tracks superiorly to the top of the incision. Tender to palpation. Warm. Distally GENERAL: Yes normal exam except as noted and Yes edema Neuro: COMMON NORMALS: moves all extremities SENSORIUM/ORIENTATION: Yes alert and No Orientation impaired Psych: COMMON NORMALS: mental status grossly normal and Normal thought process present THOUGHT PROCESS: Normal thought process present Skin: NARRATIVE SKIN EXAM: See extremity Course Vital Signs: Vital signs: Vital Signs Temperature 98.0 F 06/14/22 13:37 Pulse Rate 85 06/14/22 13:37 Respiratory Rate 18 06/14/22 13:37 Blood Pressure 103/67 06/14/22 13:37 Pulse Oximetry 96 06/14/22 13:37 Oxygen Delivery Me thod 06/14/22 13:37 MDM - Extremity (Nontraumatic) Medical Decision Making 61-year-old gentleman with complex recent past medical history presenting with concern over increased pain, redness, swelling. Exam as above with erythema and induration with tenderness. Distal CMS intact. Patient is nontoxic in appearance. Labs notable for leukocytosis, normal hemoglobin and platelet count. Metabolic panel without significant derangement, transaminitis similar to prior. CRP is negative with elevated ESR. CTA demonstrates fluid collection without peripheral enhancement. No occlusion of graft. Incidental findings discussed with patient. I discussed this case with vascular surgery on-call at performing facility. No indication for transfer at this time. Plan to treat for superficial infection with strict return precautions and plan for follow-up. Patient improved with analgesia, also questionably has reaction to contrast and so received pretreatment without evidence of allergic reaction postcontrast administration, first dose of antibiotics given. Most likely etiology of patient's symptoms is superficial skin infection in a postoperative site. The results of ED evaluation were discussed with the patient including prescriptions and/or symptomatic cares (if applicable) including appropriate and responsible use, followup plan, and return precautions. The patient verbalized understanding and felt safe for discharge. Medical Records I reviewed the patient's medical records. Lab Data I reviewed the patient's lab results. 06/14/22 15:40 06/14/22 15:40 Radiology Impressions Aorta w/Runoff CTA 06/14/22 15:16 IMPRESSION: 1. Right inguinal surgical shiv with a 4.7 by 10 cm fluid collection in the right inguinal region subcutaneous fat without peripheral enhancement suggestive of a postsurgical seroma, infection is not excluded. Additionally, somewhat localized fluid is seen throughout the right medial thigh measuring up to 3.3 cm in diameter deep to surgical shiv in the subcutaneous fat likely reflecting a seroma, negative for peripheral contrast enhancement seen, infection is not excluded. 2. Right femoropopliteal bypass graft is seen which appears patent. 3. Left common iliac artery 60-70% luminal narrowing secondary to after plaque. 4. Right 6.8 cm Garza's cyst. 5. Emphysematous changes. 6. Bibasilar atelectasis versus infiltrate. 7. Hepatic steatosis. 8. Cholecystectomy. 9. Constipation. 10. Right [place] mid superficial femoral artery somewhat long segment large amount of eccentric atherosclerotic calcification with at least 90% luminal narrowing in places. Laboratory Results WBC 12.0 10^3/uL (4.0-10.0) H 06/14/22 15:40 RBC 4.39 10^6/uL (4.1-5.3) 06/14/22 15:40 Hgb 13.8 g/dL (11.7-16.6) 06/14/22 15:40 Hct 42.5 % (42.0-52.0) 06/14/22 15:40 MCV 96.8 fl (80-94) H 06/14/22 15:40 MCH 31.4 pg (28.0-34.0) 06/14/22 15:40 MCHC 32.5 g/dL (30.0-36.0) 06/14/22 15:40 RDW 15.1 % (12.1-15.1) 06/14/22 15:40 Plt Count 314 10^3/cmm (130-400) 06/14/22 15:40 MPV 10.1 fL (7.4-10.4) 06/14/22 15:40 Neut % (Auto) 62.8 % 06/14/22 15:40 Lymph % (Auto) 20.1 % 06/14/22 15:40 [place] % (Auto) 8.6 % 06/14/22 15:40 Eos % (Auto) 7.0 % 06/14/22 15:40 Baso % (Auto) 0.9 % 06/14/22 15:40 Neut # (Auto) 7.54 10^3/uL (1.8-7.7) 06/14/22 15:40 Lymph # (Auto) 2.4 10^3/uL (0.8-4.8) 06/14/22 15:40 [place]rill # (Auto) 1.0 10^3/uL (0.2-0.9) H 06/14/22 15:40 Eos # (Auto) 0.8 10^3/uL (0.0-0.8) 06/14/22 15:40 Baso # (Auto) 0.1 10^3/uL (0.0-0.1) 06/14/22 15:40 Nucleated RBC % (auto) 0 % 06/14/22 15:40 Nucleated RBCs # 0.0 /100WBC 06/14/22 15:40 ESR 30 mm/hr (0-10) H 06/14/22 15:40 PT 13.80 SECONDS (12.1-14.9) 06/14/22 15:40 INR 1.03 (0.8-1.2) 06/14/22 15:40 APTT 29.0 SECONDS (23.9-36.7) 06/14/22 15:40 Sodium 137 mmol/L (136-145) 06/14/22 15:40 Potassium 4.0 mmol/L (3.5-5.1) 06/14/22 15:40 Chloride 99 mmol/L (98-107) 06/14/22 15:40 Carbon Dioxide 26 mmol/L (22-29) 06/14/22 15:40 Anion Gap 16.0 (5-19) 06/14/22 15:40 BUN 15 mg/dL (8-23) 06/14/22 15:40 Creatinine 0.8 mg/dL (0.7-1.2) 06/14/22 15:40 GFR Calculation 98.3 mL/min (90-130) 06/14/22 15:40 Glucose 100 mg/dL (65-115) 06/14/22 15:40 Calculated Osmolality 285 mOsm/kg (285-295) 06/14/22 15:40 Lactic Acid 1.6 mmol/L (0.5-2.2) 06/14/22 15:40 Calcium 9.2 mg/dL (8.5-10.5) 06/14/22 15:40 Total Bilirubin 0.5 mg/dL (0.15-1.2) 06/14/22 15:40 AST 73 U/L (0-40) H 06/14/22 15:40 ALT 47 U/L (0-41) H 06/14/22 15:40 Alkaline Phosphatase 134 U/L (40-130) H 06/14/22 15:40 C-Reactive Protein 3.0 mg/L (0.0-4.9) 06/14/22 15:40 Total Protein 8.0 g/dL (6.6-8.7) 06/14/22 15:40 Albumin 3.5 g/dL (3.5-5.2) 06/14/22 15:40 Globulin 4.5 g/dL (1.3-4.6) 06/14/22 15:40 Discharge Plan Discharge Patient Disposition: Home Clinical Impression: Cellulitis, Post-operative state Condition: Stable Prescriptions: New oxycodone 5 mg tablet 5 mg PO Q4H PRN (Reason: pain) Qty: 20 0RF No Action Flexeril 10 mg Tablet 10 mg PO BID PRN (Reason: Muscle Spasm) Lipitor 40 mg Tablet 40 mg PO BEDTIME [place] 5-325 mg Tablet 1 tab PO TID PRN (Reason: Pain) Rx Instructions: RX FILLED 06/13/22 #12 4D/S amoxicillin-pot clavulanate 875-125 mg tablet 1 tab PO BID Qty: 14 0RF naproxen 500 mg tablet 500 mg PO BID Qty: 14 0RF hydrocodone-acetaminophen 5-325 mg tablet 1 tab PO Q8H PRN (Reason: pain (scale score 7-10)) Qty: 10 0RF Discharge Orders: Discharge ED (Routine); Ordered 06/14/22 Ordered By: Tai Mukherjee Discharge Diet: Usual diet Discharge Activity: Limit activity as instructed Patient Instructions: Cellulitis (ED), Opioid Safety Activity Restrictions/Additional Instructions: Thank you for visiting the emergency department. You were seen and evaluated for leg swelling and redness. The most likely cause of your symptoms is superficial infection. As discussed you do have some deeper fluid collections though these do not appear infected at this time. I will prescribe antibiotics. Take these as prescribed. I will also prescribe oxycodone for pain. Use this cautiously as it is an opioid. You may use [id number] medications such as acetaminophen and ibuprofen for pain however please do not exceed the daily recommended dosage as listed on the packaging and please keep in mind that many namebrand medications contain the same active ingredients. Please avoid these medications if previously instructed to do so by another physician due to other underlying medical condition. Please follow all instructions given previously by your operating surgeon and hospitalist. Please follow-up with vascular surgery, call on Friday for an appointment and update. Please return immediately to the emergency department for worsening symptoms, fevers or other signs of systemic illness, or anything else that you are concerned about and feel needs emergency department evaluation. Coding Level of Care Code ED [employer] for Priyanka Nunez
--- NOTE | 2022-06-14 15:16 | CTR_ITS ---
PROCEDURE INFORMATION: Exam: CTA Abdominal Aorta and Bilateral Lower Extremities (Run-off) With Contrast Exam date and time: 06/14/2022 4:24 PM Age: 61 years old Clinical indication: Other: Drainage at surgical site; Prior surgery; Surgery date: 3-7 days post-operative; Surgery type: Femoral stents; Additional info: Post bypass, rle pain, swelling, redness, ? post op infection TECHNIQUE: Imaging protocol: Computed tomographic angiography of the of the abdominal aorta, pelvis and bilateral lower extremities with contrast. 3D rendering (Not supervised by radiologist): MIP and/or 3D reconstructed images were created by the technologist. Radiation optimization: All CT scans at this facility use at least one of these dose optimization techniques: automated exposure control; mA and/or kV adjustment per patient size (includes targeted exams where dose is matched to clinical indication); or iterative reconstruction. Contrast material: OMNI 350; Contrast volume: 100 ml; Contrast route: INTRAVENOUS (IV); REPORTING DATA: Count of CT and Cardiac NM exams in prior 12 months: This patient has received [address] and 0 known cardiac nuclear medicine studies in the 12 months prior to the current study. COMPARISON: CT angio abd aorta runof [id number] 05/26/2022 10:39 PM RADIATION DOSE METRICS: Total DLP (mGy-cm): 606.69 FINDINGS: Aorta: No aortic aneurysm. No aortic dissection. Celiac trunk and mesenteric arteries: No occlusion or significant stenosis. Renal arteries: No occlusion or significant stenosis. Right iliac arteries: No occlusion or significant stenosis. Right femoral/popliteal arteries: Right [place] mid superficial femoral artery somewhat long segment large amount of eccentric atherosclerotic calcification with at least 90% luminal narrowing in places. Right infrapopliteal arteries: No occlusion or significant stenosis. Left iliac arteries: Left common iliac artery 60-70% luminal narrowing secondary to after plaque. Left femoral/popliteal arteries: No occlusion or significant stenosis. Left infrapopliteal arteries: No occlusion or significant stenosis. Other arteries: Right femoropopliteal bypass graft is seen which appears patent. Lungs: Emphysematous changes. Bibasilar atelectasis versus infiltrate. Liver: Hepatic steatosis. Gallbladder and bile ducts: Cholecystectomy. Pancreas: Unremarkable. No mass. No ductal dilation. Spleen: Normal. No splenomegaly. Adrenal glands: Normal. No mass. Kidneys and ureters: Normal. No mass. Stomach and bowel: Constipation. Appendix: No evidence of appendicitis. Urinary bladder: Unremarkable. No mass. Reproductive: Unremarkable as visualized. Intraperitoneal space: Unremarkable. No free air. No significant fluid collection. Lymph nodes: No lymphadenopathy. Bones/joints: No acute fracture. No dislocation. Soft tissues: Right inguinal surgical shiv with a 4.7 by 10 cm fluid collection in the right inguinal region subcutaneous fat without peripheral enhancement suggestive of a postsurgical seroma, infection is not excluded. Additionally, somewhat localized fluid is seen throughout the right medial thigh measuring up to 3.3 cm in diameter deep to surgical shiv in the subcutaneous fat likely reflecting a seroma, negative for peripheral contrast enhancement seen, infection is not excluded. Other findings: Right 6.[address]/CT angio abd aorta runof [id number] IMPRESSION: 1. Right inguinal surgical shiv with a 4.7 by 10 cm fluid collection in the right inguinal region subcutaneous fat without peripheral enhancement suggestive of a postsurgical seroma, infection is not excluded. Additionally, somewhat localized fluid is seen throughout the right medial thigh measuring up to 3.3 cm in diameter deep to surgical shiv in the subcutaneous fat likely reflecting a seroma, negative for peripheral contrast enhancement seen, infection is not excluded. 2. Right femoropopliteal bypass graft is seen which appears patent. 3. Left common iliac artery 60-70% luminal narrowing secondary to after plaque. 4. Right 6.8 cm Garza's cyst. 5. Emphysematous changes. 6. Bibasilar atelectasis versus infiltrate. 7. Hepatic steatosis. 8. Cholecystectomy. 9. Constipation. 10. Right unga mid superficial femoral artery somewhat long segment large amount of eccentric atherosclerotic calcification with at least 90% luminal narrowing in places.
[2022-06-14] MEDS: famotidine 20 mg/2 mL INJ 40 MG IVP (15:45)
[2022-06-14] MEDS: diphenhydrAMINE 50 mg/mL SDV 1mL IVP (15:45)
[2022-06-14] MEDS: morphine 4 mg/mL SDV 1 mL IVP (15:46)
[2022-06-14 15:48] LABS: Basophils # 0.1 10^3/uL (0.0-0.1); Basophils % 0.9 %; Eosinophils # 0.8 10^3/uL (0.0-0.8); Hematocrit 42.5 % (42.0-52.0); Hemoglobin 13.8 g/dL (11.7-16.6); Lymphocytes # 2.4 10^3/uL (0.8-4.8); Lymphocytes % 20.1 %; Mean Corpuscular HGB Conc 32.5 g/dL (30.0-36.0); Mean Corpuscular Hemoglobin 31.4 pg (28.0-34.0); Mean Corpuscular Volume 96.8 fl (80-94); Mean Platelet Volume 10.1 fL (7.4-10.4); Monocytes % 8.6 %; Neutrophils # 7.54 10^3/uL (1.8-7.7); Neutrophils % 62.8 %; Nucleated Red Blood Cells % 0 %; Platelet Count 314 10^3/cmm (130-400); Red Blood Count 4.39 10^6/uL (4.1-5.3); Red Cell Distribution Width 15.1 % (12.1-15.1)
--- NOTE | 2022-06-14 16:00 | PC.NURSE ---
Able to dopples pedal pulses
[2022-06-14 16:12] LABS: Lactic Sepsis W/Reflex 1.6 mmol/L (0.5-2.2)
[2022-06-14 16:13] LABS: Alanine Aminotransferase 47 U/L (0-41); Albumin Level 3.5 g/dL (3.5-5.2); Alkaline Phosphatase 134 U/L (40-130); Aspartate Amino Transferase 73 U/L (0-40); Blood Urea Nitrogen 15 mg/dL (8-23); Calcium 9.2 mg/dL (8.5-10.5); Carbon Dioxide 26 mmol/L (22-29); Chloride 99 mmol/L (98-107); Globulin 4.5 g/dL (1.3-4.6); Glomerular Filtration Rate 98.3 mL/min (90-130); Glucose 100 mg/dL (65-115); INR 1.03 (0.8-1.2); Osmolality Calculated 285 mOsm/kg (285-295); Sodium 137 mmol/L (136-145); Total Bilirubin 0.5 mg/dL (0.15-1.2)
[2022-06-14 16:23] LABS: Erythrocyte Sedimentation Rate 30 mm/hr (0-10)
[2022-06-14] MEDS: iohexol 350 mg/mL 500 mL Btl (per mL) IV (16:30)
[2022-06-14] MEDS: clindamycin 600 MG/50 ML PREMIX 100 MG IV (18:48)
--- NOTE | 2022-06-20 14:21 | DCPLANNER ---
Addendum entered by Charissa Stein 06/20/22 14:22: lodging facilities manager called patient due to no primary care physician. lodging facilities manager called phone number [phone], phone is not accepting calls at this time. Original Note: 06.19.22 - TCM called patient due to no primary care physician - no answer at this time
== END 2022-06-14 20:01 | disposition home or self-care (01) ==
PROVIDERS: Emergency Provider Emergency Medicine
DX: L03.115 Cellulitis of right lower limb (principal); Z98.890 Other specified postprocedural states
CPT/HCPCS: 36415; 75635; 80053; 83605; 85025; 85610; 85651; 85730; 86140; 87040; 96365; 96375; 99285; J1200; J2270; J2930; J3490; Q9967

== ENCOUNTER 2022-06-24 20:45 | Emergency (ER) | payer BC, MEDICAID, SELFPAY ==
[2022-06-24 21:01] VITALS: BP 112/64; PULSE 91; RESP 16; TEMP 36.6; O2SAT 92
--- NOTE | 2022-06-24 23:15 | W.ED.EXTPRO ---
HPI - Extremity Problem General: Chief complaint: Extremity Problem,Nontraumatic Stated complaint: 50 Jason in Leg Pain Time Seen by Provider: 06/24/22 22:57 History of Present Illness: 61-year-old male patient comes in today for complaints of tenderness along his incision line of his femoral bypass surgery of the right lower extremity. Patient denies any fever. Patient reports some mild redness. Patient appears nontoxic. Patient appears in no acute distress. Patient has a long history of osteoarthritis and peripheral vascular disease. Associated symptoms: Deny chest pain, fever(s) or rash Review of Systems Const: Denies: fever(s) ENMT: Denies: throat pain Card: Denies: chest pain Resp: Denies: dyspnea Musc: Reports: extremity pain Skin/Breast: Denies: rash Neuro: Denies: headache(s) PFSH ED PFSH: Medical History Osteoarthritis Surgical History History of arthroplasty of left shoulder Physical Exam Const: COMMON NORMALS: alert HENMT: COMMON NORMALS: normocephalic HEAD & SCALP: normocephalic Neck/C-Spine: COMMON NORMALS: full ROM Resp: COMMON NORMALS: normal respiratory effort and clear to auscultation bilaterally AUSCULTATION: clear to auscultation bilaterally Cardio: COMMON NORMALS: regular rate and regular rhythm RATE: regular rate RHYTHM: regular rhythm GI: COMMON NORMALS: non-tender Back/Pelvis: COMMON NORMALS: thoracic and lumbar spine normal to inspection Extremity: RIGHT LOWER EXTREMITY: Yes upper leg (Mild redness at the distal part of the upper leg along incision) Right upper leg: Yes inspection, Yes palpation and Yes neurovascular exam Neuro: SENSORIUM/ORIENTATION: Yes alert Skin: COMMON NORMALS: turgor normal GENERAL SKIN EXAM: turgor normal Course Vital Signs: Vital signs: Vital Signs Temperature 97.8 F 06/24/22 21:01 Pulse Rate 101 H 06/24/22 23:45 Respiratory Rate 18 06/24/22 23:45 Blood Pressure 112/64 06/24/22 21:01 Pulse Oximetry 97 06/24/22 23:45 Oxygen Delivery Me thod 06/24/22 21:01 MDM - Extremity (Nontraumatic) Medical Decision Making 61-year-old male patient comes in today for complaints of pain and discomfort along his incision line of his femoral bypass surgery. On exam the incision is well approximated. Redness extends approximately 1 cm on each side of the incision line. In the area patient has tenderness there is mild swelling which may be suggestive of abscess formation, seroma, or small hematoma. Vital signs are normal. Differential diagnosis includes abscess, seroma, hematoma, wound infection. We will go ahead and cover with Augmentin for possible wound infection. More likely suspect a seroma versus hematoma along the area of concern. Patient was written for some naproxen and hydrocodone for his discomfort. Patient is scheduled to see his surgeon this Friday. Recommend return to the ER for high fever or new concerns. Patient reported understanding and agreed to plan with need to keep appointment with surgeon. Discharge Plan Discharge Patient Disposition: Home Clinical Impression: Abnormal surgical wound Qualifiers: Encounter type: subsequent encounter Qualified Code(s): T81.9XXD - Unspecified complication of procedure, subsequent encounter Condition: Stable Prescriptions: New amoxicillin-pot clavulanate 875-125 mg tablet 1 tab PO BID Qty: 14 0RF naproxen 500 mg tablet 500 mg PO BID Qty: 14 0RF hydrocodone-acetaminophen 5-325 mg tablet 1 tab PO Q8H PRN (Reason: pain (scale score 7-10)) Qty: 10 0RF No Action Flexeril 10 mg Tablet 10 mg PO BID PRN (Reason: Muscle Spasm) Lipitor 40 mg Tablet 40 mg PO BEDTIME [place] 5-325 mg Tablet 1 tab PO TID PRN (Reason: Pain) Rx Instructions: RX FILLED 06/13/22 #12 4D/S oxycodone 5 mg tablet 5 mg PO Q4H PRN (Reason: pain) Qty: 20 0RF Discharge Orders: Discharge ED (Routine); Ordered 06/24/22 Ordered By: Hans Schultz Discharge Diet: Usual diet Discharge Activity: Increase activity as tolerated Patient Instructions: Opioid Safety, Pain Management Activity Restrictions/Additional Instructions: Continue medications as directed. Drink plenty of water and fluids. Follow-up with surgeon at scheduled appointment on Friday. Return to ED for new concerns. Coding Level of Care Code ED [employer] Worker for Priyanka Nunez
[2022-06-24] MEDS: amoxicillin-clav 875-125 mg Tablet 1 TAB PO (23:40)
[2022-06-24] MEDS: HYDROcodone-acetaminophen 5-325 mg Tablet 1 TAB PO (23:40)
[2022-06-24] MEDS: naproxen 500 mg Tablet PO (23:40)
[2022-06-24 23:45] VITALS: PULSE 101; RESP 18; O2SAT 97
--- NOTE | 2022-06-25 17:11 | DCPLANNER ---
Addendum entered by Charissa Stein 06/26/22 13:14: data systems manager called patient due to primary care physician - no answer at this time. Original Note: TCM called patient due to no primary care physician - no answer at this time
== END 2022-06-24 23:46 | disposition home or self-care (01) ==
PROVIDERS: Emergency Provider Nurse Practitioner Family
DX: T81.89XA Other complications of procedures, not elsewhere classified, initial encounter (principal); Y83.2 Surgical operation with anastomosis, bypass or graft as the cause of abnormal reaction of the patient, or of later complication, without mention of misadventure at the time of the procedure
CPT/HCPCS: 99283

== ENCOUNTER 2022-06-29 19:04 | Emergency (ER) | payer BC, MEDICAID, SELFPAY ==
[2022-06-29 19:09] VITALS: BP 132/101; PULSE 97; RESP 18; TEMP 36.6; O2SAT 96; BMI 24.0
--- NOTE | 2022-06-29 19:35 | ED_ITS ---
HPI - Extremity Problem General: Chief complaint: Extremity Injury, Lower Stated complaint: PAIN IN LEGS POST SURGERY Time Seen by Provider: 06/29/22 19:23 History of Present Illness: 61-year-old male patient comes in today for complaints of discomfort to his incision line from his surgery. Patient appears nontoxic. Patient appears no acute distress. Patient had a femoral bypass approximately 1 month ago. Jason have been removed. Patient reports some increased pain in the area of the incision of his mid thigh. Patient denied any fever. Patient reports no other discomfort. Associated symptoms: Deny chest pain or fever(s) Review of Systems General: Reports: 10 or more systems reviewed and unremarkable except in HPI and below Const: Denies: fever(s) Card: Denies: chest pain Resp: Denies: dyspnea Musc: Reports: extremity pain PFS ED PFSH: Medical History Osteoarthritis Surgical History History of arthroplasty of left shoulder Physical Exam Const: COMMON NORMALS: alert HENMT: COMMON NORMALS: normocephalic HEAD & SCALP: normocephalic Neck/C-Spine: COMMON NORMALS: full ROM Resp: COMMON NORMALS: normal respiratory effort Cardio: COMMON NORMALS: regular rate and regular rhythm RATE: regular rate RHYTHM: regular rhythm GI: COMMON NORMALS: Soft to palpation and non-tender PALPATION: Yes Soft to palpation Extremity: RIGHT LOWER EXTREMITY: Yes upper leg (Well-healed incision line with no redness or induration) Neuro: SENSORIUM/ORIENTATION: Yes alert Skin: WOUNDS: Yes wounds noted (Well-healed surgical incision) Course Vital Signs: Vital signs: Vital Signs Temperature 97.8 F 06/29/22 19:09 Pulse Rate 97 06/29/22 19:09 Respiratory Rate 18 06/29/22 19:09 Blood Pressure 132/101 06/29/22 19:09 Pulse Oximetry 96 06/29/22 19:09 MDM - Extremity (Nontraumatic) Medical Decision Making 61-year-old male patient comes in today with discomfort to the mid thigh on the right leg along his surgical incision line. On exam there is a dry scab to the area but no signs of induration or redness. Distal pulses intact. Differential diagnosis malingering, surgical incision infection, neuralgia. Suspect some mild neuralgia secondary to his surgical incision. Recommended tramadol 1 tablet 3 times a day as needed for severe pain. Recommend ice or heat for further comfort. Follow-up with primary care for further instructions. No signs of infection or serious illnesses noted. Discharge Plan Discharge Patient Disposition: Home Clinical Impression: Leg pain, right Condition: Stable Prescriptions: New tramadol 50 mg tablet 50 mg PO TID PRN (Reason: pain (scale score 7-10)) Qty: 10 0RF Discontinued hydrocodone-acetaminophen [[place]] 5-325 mg Tablet 1 tab PO TID PRN (Reason: Pain) Rx Instructions: RX FILLED 06/13/22 #12 4D/S oxycodone 5 mg tablet 5 mg PO Q4H PRN (Reason: pain) Qty: 20 0RF hydrocodone-acetaminophen 5-325 mg tablet 1 tab PO Q8H PRN (Reason: pain (scale score 7-10)) Qty: 10 0RF No Action Flexeril 10 mg Tablet 10 mg PO BID PRN (Reason: Muscle Spasm) Lipitor 40 mg Tablet 40 mg PO BEDTIME amoxicillin-pot clavulanate 875-125 mg tablet 1 tab PO BID Qty: 14 0RF naproxen 500 mg tablet 500 mg PO BID Qty: 14 0RF Discharge Orders: Discharge ED (Routine); Ordered 06/29/22 Ordered By: Hans Schultz Discharge Diet: Usual diet Discharge Activity: Increase activity as tolerated Patient Instructions: Opioid Safety, Pain Management Activity Restrictions/Additional Instructions: Home and rest. Activity as tolerated. Use acetaminophen or ibuprofen to control pain. Use tramadol for severe pain. Follow-up with primary care for further instruction. Return to ED for new concerns. Coding Level of Care Code ED Instructional Designer for Priyanka Nunez
[2022-06-29] MEDS: TRAMadol 50 mg Tablet PO (19:53)
--- NOTE | 2022-07-02 15:12 | DCPLANNER ---
Addendum entered by Charissa Stein 07/03/22 15:05: logistics engineering manager called patient due to no primary care physician - phone number [phone] - not accepting calls at this time Original Note: logistics engineering manager called patient due to no primary care physician - phone number [phone] - not accepting calls at this time
== END 2022-06-29 19:55 | disposition home or self-care (01) ==
PROVIDERS: Emergency Provider Nurse Practitioner Family
DX: M79.651 Pain in right thigh (principal); Z98.890 Other specified postprocedural states
CPT/HCPCS: 99283

== ENCOUNTER 2023-01-20 06:26 | Emergency (ER) | payer BC, MEDICAID, SELFPAY ==
[2023-01-20 06:27] VITALS: BP 145/90; PULSE 77; RESP 16; TEMP 36.7; O2SAT 96; BMI 24.0
--- NOTE | 2023-01-20 06:38 | ED_ITS ---
HPI - Syncope General: Chief Complaint: Syncope Stated Complaint: SYNCOPE Time Seen by Provider: 01/20/23 06:38 Source: patient Mode of arrival: EMS History of Present Illness: 62-year-old male presents emergency room with several syncopal episodes. States he passed out several times this morning and has a headache and head pressure. Reports he has been dizzy. He had 2 episodes ambulance was called. Patient states he have a history of brain aneurysm although there is no past medical history in our charts to support this. On arrival here he is awake and alert has no focal neurologic deficits. MD complaint: loss of consciousness Onset (ago): minute(s) Prodromal symptoms: headache and lightheaded Witnessed: Yes - by Bystander Injuries sustained associated with event: none Associated symptoms: Reports headache(s), lightheadedness and weakness; Deny abdominal pain, chest pain, fever(s) or nausea Treatments prior to arrival: none Review of Systems Const: Denies: fever(s) or chills Card: Reports: lightheadedness; Denies: chest pain Resp: Denies: dyspnea GI: Denies: abdominal pain or nausea : Denies: dysuria, urinary frequency or urinary urgency Musc: Denies: neck pain or back pain Skin/Breast: Denies: rash Neuro: Reports: headache(s) PFS ED PFSH: Medical History Osteoarthritis Surgical History History of arthroplasty of left shoulder Social History Substance/Drug Use: current Physical Exam Const: GENERAL APPEARANCE: cooperative and comfortable ORIENTATION/CONSCIOUSNESS: Yes awake, Yes oriented to person, Yes oriented to place and Yes oriented to time HENMT: COMMON NORMALS: normocephalic, atraumatic and hearing grossly normal bilaterally HEAD & SCALP: normocephalic and atraumatic Resp: COMMON NORMALS: normal respiratory effort, No retractions, No use of accessory muscles and clear to auscultation bilaterally AUSCULTATION: clear to auscultation bilaterally Cardio: COMMON NORMALS: regular rate, regular rhythm and No murmurs present (Cardio) RATE: regular rate RHYTHM: regular rhythm GI: COMMON NORMALS: Soft to palpation and No hepatosplenomegaly present AUSCULTATION: Yes normoactive bowel sounds PALPATION: Yes Soft to palpation, No Tenderness to palpation present (GI), No Guarding due to palpation present (GI) and Yes No hepatosplenomegaly present Extremity: COMMON NORMALS: normal to inspection, capillary refill normal, no clubbing, cyanosis or edema, no calf tenderness and no pedal edema Neuro: SENSORIUM/ORIENTATION: Yes oriented to person, Yes oriented to place and Yes oriented to time OTHER: Normal exam cranial nerves II 12 grossly intact no focal neurologic deficits are noted. Skin: COMMON NORMALS: no rashes or lesions noted GENERAL SKIN EXAM: no rashes or lesions noted Course Vital Signs: Vital signs: Vital Signs Temperature 98.1 F 01/20/23 06:27 Pulse Rate 66 01/20/23 07:15 Respiratory Rate 16 01/20/23 06:27 Blood Pressure 126/76 01/20/23 07:15 Pulse Oximetry 96 01/20/23 06:27 Oxygen Delivery Me thod Room Air 01/20/23 06:27 MDM - Syncope Medical Decision Making He has had similar episodes in the past this episode today occurred after he stood up shortly after he had woken up with. He is feeling much better his vital signs are stable. We will discharge patient home he is not having any chest discomfort. He no longer has the headache. Neurologically is intact return if he has further problems. He did have some mild hypokalemia which was treated with potassium supplement today. Differential Diagnosis Likely syncope due to orthostatic hypotension and vasovagal syncope Medical Records I reviewed the patient's medical records. Lab Data I reviewed the patient's lab results. 01/20/23 06:10 01/20/23 06:10 Laboratory Results WBC 8.46 10^3/uL (3.29-11.43) 01/20/23 06:10 RBC 4.88 10^6/uL (3.85-5.65) 01/20/23 06:10 Hgb 15.50 g/dL (11.27-16.99) 01/20/23 06:10 Hct 47.4 % (37-53) 01/20/23 06:10 MCV 97.1 fl (82-101) 01/20/23 06:10 MCH 31.8 pg (27-33) 01/20/23 06:10 MCHC 32.7 g/dL (30-55) 01/20/23 06:10 RDW 14.2 % (12.1-15.1) 01/20/23 06:10 Plt Count 233 10^3/cmm (157-399) 01/20/23 06:10 MPV 10.6 fL (7.4-10.4) H 01/20/23 06:10 Neut % (Auto) 61.8 % 01/20/23 06:10 Lymph % (Auto) 24.0 % 01/20/23 06:10 [place] % (Auto) 7.6 % 01/20/23 06:10 Eos % (Auto) 5.0 % 01/20/23 06:10 Baso % (Auto) 1.4 % 01/20/23 06:10 Neut # (Auto) 5.23 10^3/uL (1.8-7.7) 01/20/23 06:10 Lymph # (Auto) 2.0 10^3/uL (0.8-4.8) 01/20/23 06:10 [place] # (Auto) 0.6 10^3/uL (0.2-0.9) 01/20/23 06:10 Eos # (Auto) 0.4 10^3/uL (0.0-0.8) 01/20/23 06:10 Baso # (Auto) 0.1 10^3/uL (0.0-0.1) 01/20/23 06:10 Nucleated RBC % (auto) 0 % 01/20/23 06:10 Nucleated RBCs # 0.0 /100WBC 01/20/23 06:10 Sodium 134 mmol/L (136-145) L 01/20/23 06:10 Potassium 3.1 mmol/L (3.5-5.1) L 01/20/23 06:10 Chloride 94 mmol/L (98-107) L 01/20/23 06:10 Carbon Dioxide 31 mmol/L (22-29) H 01/20/23 06:10 Anion Gap 12.1 (5-19) 01/20/23 06:10 BUN 19 mg/dL (8-23) 01/20/23 06:10 Creatinine 1.1 mg/dL (0.7-1.2) 01/20/23 06:10 GFR Calculation 67.8 mL/min (90-130) L 01/20/23 06:10 Glucose 83 mg/dL (65-115) 01/20/23 06:10 Calculated Osmolality 279 mOsm/kg (285-295) L 01/20/23 06:10 Calcium 9.4 mg/dL (8.5-10.5) 01/20/23 06:10 Total Bilirubin 0.5 mg/dL (0.15-1.2) 01/20/23 06:10 AST 50 U/L (0-40) H 01/20/23 06:10 ALT 31 U/L (0-41) 01/20/23 06:10 Alkaline Phosphatase 120 U/L (40-130) 01/20/23 06:10 Troponin T Baseline 43 ng/L (0-15) H 01/20/23 06:10 Troponin T 120 Minute 35.52 ng/L (0-15) H 01/20/23 08:12 Delta Troponin T -7.48 ABS# (0-10) L 01/20/23 08:12 Total Protein 9.1 g/dL (6.6-8.7) H 01/20/23 06:10 Albumin 3.7 g/dL (3.5-5.2) 01/20/23 06:10 Globulin 5.4 g/dL (1.3-4.6) H 01/20/23 06:10 Urine Color Yellow (Yellow) 01/20/23 08:00 Urine Appearance Clear (CLEAR) 01/20/23 08:00 Urine pH 6 (5-7) 01/20/23 08:00 Ur Specific [place] 1.010 (1.005-1.030) 01/20/23 08:00 Urine Protein Neg (Negative) 01/20/23 08:00 Urine Glucose (UA) Norm (Normal) 01/20/23 08:00 Urine Ketones Negative (Negative) 01/20/23 08:00 Urine Blood Neg (Negative) 01/20/23 08:00 Urine Nitrate Negative (Negative) 01/20/23 08:00 Urine Bilirubin Neg (Negative) 01/20/23 08:00 Urine Urobilinogen 1 mg/dL (Negative) H 01/20/23 08:00 Ur Leukocyte Esterase Negative (Negative) 01/20/23 08:00 All radiology interpretation(s) finalized by discharge Discharge Plan Discharge Patient Disposition: Home Clinical Impression: Syncope due to orthostatic hypotension Condition: Stable Prescriptions: No Action Tylenol Ex Str Rapid Release 500 mg Tablet 1,000 mg PO Q6H PRN (Reason: Pain) Discharge Orders: Discharge ED (Routine); Ordered 01/20/23 Ordered By: Dylan Mcknight Discharge Diet: Usual diet Discharge Activity: Increase activity as tolerated Patient Instructions: Opioid Safety, Pain Management Activity Restrictions/Additional Instructions: Recommend you establish with a primary care doctor. If you have further problems return. Increase fluid intake. Coding Level of Care Code ED Pulverizer for Priyanka Nunez
[2023-01-20 06:56] LABS: Basophils # 0.1 10^3/uL (0.0-0.1); Basophils % 1.4 %; Eosinophils # 0.4 10^3/uL (0.0-0.8); Hematocrit 47.4 % (37-53); Mean Corpuscular HGB Conc 32.7 g/dL (30-55); Mean Corpuscular Hemoglobin 31.8 pg (27-33); Mean Corpuscular Volume 97.1 fl (82-101); Mean Platelet Volume 10.6 fL (7.4-10.4); Monocytes # 0.6 10^3/uL (0.2-0.9); Monocytes % 7.6 %; Neutrophils # 5.23 10^3/uL (1.8-7.7); Neutrophils % 61.8 %; Nucleated Red Blood Cells % 0 %; Platelet Count 233 10^3/cmm (157-399); Red Blood Count 4.88 10^6/uL (3.85-5.65); Red Cell Distribution Width 14.2 % (12.1-15.1); White Blood Count 8.46 10^3/uL (3.29-11.43)
--- NOTE | 2023-01-20 06:58 | CT_ITS ---
WS: [id number] CT HEAD NONCONTRAST HISTORY: Syncope TECHNIQUE: Contiguous axial imaging performed through the brain in 2.5 mm imaging. Bone and soft tiss ue windows. Sagittal and coronal reformats reviewed. All CT scans at [facility] use at least one of these dose optimization techniques: automated exposure control; mA and/or kV adjustment per pa tient size (includes targeted exams where dose is matched to clinical indication); or iterative recon struction. DLP: 1250.21 mGy.cm COMPARISON: 04/05/2020 No acute intracranial hemorrhage, midline shift or mass effect. Mild atrophy and small vessel ischemic disease. Note prior infarcts. Ventricles: Normal size with no hydrocephalus. No inferior displacement of the cerebellar tonsils. Paranasal sinuses: As visualized are clear. Mastoid air cells: Well pneumatized. Calvarium and scalp: Skull is intact with no soft tissue edema or swelling. IMPRESSION: 1. No acute intracranial hemorrhage or edema. 2. Mild atrophy and small vessel ischemic disease. Stable since 04/05/2020.
[2023-01-20 07:03] LABS: Alanine Aminotransferase 31 U/L (0-41); Albumin Level 3.7 g/dL (3.5-5.2); Alkaline Phosphatase 120 U/L (40-130); Anion Gap 12.1 (5-19); Aspartate Amino Transferase 50 U/L (0-40); Blood Urea Nitrogen 19 mg/dL (8-23); Calcium 9.4 mg/dL (8.5-10.5); Carbon Dioxide 31 mmol/L (22-29); Chloride 94 mmol/L (98-107); Globulin 5.4 g/dL (1.3-4.6); Glomerular Filtration Rate 67.8 mL/min (90-130); Glucose 83 mg/dL (65-115); Osmolality Calculated 279 mOsm/kg (285-295); Potassium 3.1 mmol/L (3.5-5.1); Sodium 134 mmol/L (136-145); Total Bilirubin 0.5 mg/dL (0.15-1.2); Total Protein 9.1 g/dL (6.6-8.7)
--- NOTE | 2023-01-20 07:06 | ECG_ITS ---
[facility] Test Date: 2023-01-20 Pat Name: Geremias Delatorre Department: Room: Gender: Male Cnmt: : 1960 Requested By: Dylan Castaneda Order Number: [id number] Adelaida MD: Chau Paulino M.D. Measurements Intervals [place] Rate: 65 P: 67 DC: 161 QRS: 89 QRSD: 88 T: 83 QT: 427 QTc: 446 Interpretive Statements SINUS RHYTHM Compared to ECG 01/20/2023 06:39:05 No significant changes Electronically Signed On 01-20-2023 8:23:42 CDT by Chau Paulino M.D. [id number]
[2023-01-20 07:07] LABS: Troponin(5th) Baseline 43 ng/L (0-15)
[2023-01-20 07:15] VITALS: BP 126/76; BP 126/80; BP 135/81; PULSE 66; PULSE 74; PULSE 77
[2023-01-20] MEDS: potassium chloride oral liq 20 mEq/15 mL UDC 40 MEQ PO (07:38)
[2023-01-20 08:11] LABS: Add Urine Microscopic? NO; Charge for UA Resulting for Rev
[2023-01-20 08:20] LABS: Bilirubin Urine Neg (Negative); Blood Urine Neg (Negative); Glucose Urine UA Norm (Normal); Ketones Urine Negative (Negative); Leukocyte Esterase Urine Negative (Negative); Nitrate Urine Negative (Negative); Protein Urine Neg (Negative); Urine Appearance Clear (CLEAR); Urine Color Yellow (Yellow); Urobilinogen Urine 1 mg/dL (Negative); pH Urine 6 (5-7)
--- NOTE | 2023-01-20 08:31 | PC.PHAR ---
PT STATES HE TAKES NO RX MEDICATIONS-
[2023-01-20 08:41] LABS: Troponin 5 2HR 35.52 ng/L (0-15)
--- NOTE | 2023-01-20 08:41 | ECG_ITS ---
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 Measurements Intervals [place] Rate: 66 P: 66 MN: 163 QRS: 89 QRSD: 91 T: 80 QT: 417 QTc: 437 Interpretive Statements SINUS RHYTHM Compared to ECG 02/28/2021 19:40:51 No significant changes Electronically Signed On 01-20-2023 10:00:08 CDT by Osiris Doherty M.D. [id number]
[2023-01-20 08:46] LABS: Troponin 5 2HR Delta -7.48 ABS# (0-10)
== END 2023-01-20 09:29 | disposition home or self-care (01) ==
PROVIDERS: Emergency Provider Family Medicine
DX: I95.1 Orthostatic hypotension (principal)
CPT/HCPCS: 70450; 80053; 81003; 84484; 85025; 93005; 99285

== ENCOUNTER 2023-02-09 17:09 | Emergency (ER) | payer BC, MEDICAID, SELFPAY ==
[2023-02-09 17:09] VITALS: BP 159/96; PULSE 87; TEMP 37.1; O2SAT 97; BMI 25.5
--- NOTE | 2023-02-09 17:12 | ECG_ITS ---
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 Measurements Intervals [place] Rate: 77 P: 74 RI: 160 QRS: 89 QRSD: 84 T: 84 QT: 389 QTc: 442 Interpretive Statements SINUS RHYTHM Compared to ECG 01/20/2023 07:06:58 No significant changes Electronically Signed On 02-10-2023 7:35:24 CDT by Chau Paulino M.D. [id number]
--- NOTE | 2023-02-09 17:13 | XRR_ITS ---
PROCEDURE INFORMATION: Exam: XR Chest Exam date and time: 02/09/2023 5:35 PM Age: 62 years old Clinical indication: Chest pressure; Patient HX: Left anterior chest pain; HTN TECHNIQUE: Imaging protocol: Radiologic exam of the chest. Views: 1 view. COMPARISON: CR XR chest 1V portable [id number] 02/28/2021 8:10 PM FINDINGS: Lungs: Emphysematous changes. Bibasilar atelectasis. Pleural spaces: Unremarkable. No pleural effusion. No pneumothorax. Heart/Mediastinum: Unremarkable. No cardiomegaly. Bones/joints: Unremarkable. XR/XR chest 1V portable [id number] IMPRESSION: 1. Emphysematous changes. 2. Bibasilar atelectasis.
--- NOTE | 2023-02-09 17:20 | ED_ITS ---
Documented by User: Joseph Carvajal MD 02/09/23 18:28 HPI - Chest Pain General: Chief Complaint: Chest Pain Stated Complaint: CHEST PAIN Time Seen by Provider: 02/09/23 17:13 History of Present Illness: 62-year-old male presents emerged department complaints of left anterior chest pain. He states that his chest pain started this morning when he woke up at approximately 9 AM. He states that his chest pain currently is a 7 out of 10 sharp and stabbing. He states that he did smoke marijuana yesterday and took Sudafed cold medicine 2 days ago. He does appear to be very nervous and jittery at present. He denies shortness of breath, he denies nausea or vomiting. He states he does not see doctors and does not take any other medications. Review of Systems General: Reports: 10 or more systems reviewed and unremarkable except in HPI and below Card: Reports: chest pain [facility] ED PFSH: Medical History Osteoarthritis Surgical History History of arthroplasty of left shoulder Social History Substance/Drug Use: current Physical Exam Const: COMMON NORMALS: no acute distress, patient oriented x3 and alert HENMT: COMMON NORMALS: normocephalic and moist oral mucous membranes HEAD & SCALP: normocephalic Eye: COMMON NORMALS: Equal, round and reactive pupils present and EOMs intact bilaterally PUPIL: Yes Equal, round and reactive pupils present Neck/C-Spine: COMMON NORMALS: full ROM and supple Chest: COMMONS NORMALS: normal inspection of the chest and normal palpation of entire chest wall Resp: COMMON NORMALS: normal respiratory effort and clear to auscultation bilaterally AUSCULTATION: clear to auscultation bilaterally Cardio: COMMON NORMALS: regular rate, regular rhythm, S1 normal heart sound present, S2 normal heart sound present and Peripheral pulses 2+ throughout RATE: regular rate RHYTHM: regular rhythm HEART SOUNDS: S1 normal heart sound present and S2 normal heart sound present PERIPHERAL PULSES: Peripheral pulses 2+ throughout GI: COMMON NORMALS: Normal to inspection, nondistended, normoactive bowel sounds present, Soft to palpation and non-tender PALPATION: Yes Soft to palpation : COMMON NORMALS: Yes no CVA tenderness BLADDER/KIDNEY EXAM: Yes no CVA t enderness Back/Pelvis: COMMON NORMALS: no CVA tenderness and thoracic and lumbar spine normal to inspection Extremity: COMMON NORMALS: normal to inspection, full ROM and capillary refill normal Neuro: COMMON NORMALS: patient oriented x3, moves all extremities, no focal motor deficits and no sensory deficits noted SENSORIUM/ORIENTATION: Yes alert Psych: MOOD & AFFECT: Yes anxious Skin: COMMON NORMALS: no rashes or lesions noted GENERAL SKIN EXAM: no rashes or lesions noted Course ED course: Remainder the patient's care transferred to Dr. Bowman the oncoming ER physician. Vital Signs: Vital signs: Vital Signs Temperature 98.7 F 02/09/23 17:09 Pulse Rate 70 02/09/23 19:56 Respiratory Rate 14 02/09/23 18:45 Blood Pressure 154/99 02/09/23 19:56 Pulse Oximetry 100 02/09/23 19:56 Oxygen Delivery Me thod Room Air 02/09/23 17:09 MDM - Chest Pain Medical Decision Making Physical exam completed and documented, given the patient's presentation I will obtain a twelve-lead EKG to evaluate for cardiac abnormality. I will obtain a CBC, CMP cardiac enzymes and a chest x-ray. I will provide him cardioprotective dose aspirin as well as an inch of nitroglycerin for vasodilatation-and attempts to help lower his blood pressure and increase coronary artery blood flow. Lab Data 02/09/23 17:00 02/09/23 17:46 Radiology Impressions Chest X-Ray 02/09/23 17:13 IMPRESSION: 1. Emphysematous changes. 2. Bibasilar atelectasis. Laboratory Results WBC 9.30 10^3/uL (3.29-11.43) 02/09/23 17:00 RBC 4.53 10^6/uL (3.85-5.65) 02/09/23 17:00 Hgb 14.50 g/dL (11.27-16.99) 02/09/23 17:00 Hct 43.4 % (37-53) 02/09/23 17:00 MCV 95.8 fl (82-101) 02/09/23 17:00 MCH 32.0 pg (27-33) 02/09/23 17:00 MCHC 33.4 g/dL (30-55) 02/09/23 17:00 RDW 14.8 % (12.1-15.1) 02/09/23 17:00 Plt Count 240 10^3/cmm (157-399) 02/09/23 17:00 MPV 10.9 fL (7.4-10.4) H 02/09/23 17:00 Neut % (Auto) 57.5 % 02/09/23 17:00 Lymph % (Auto) 24.5 % 02/09/23 17:00 [place] % (Auto) 8.8 % 02/09/23 17:00 Eos % (Auto) 7.7 % 02/09/23 17:00 Baso % (Auto) 1.2 % 02/09/23 17:00 Neut # (Auto) 5.34 10^3/uL (1.8-7.7) 02/09/23 17:00 Lymph # (Auto) 2.3 10^3/uL (0.8-4.8) 02/09/23 17:00 [place] # (Auto) 0.8 10^3/uL (0.2-0.9) 02/09/23 17:00 Eos # (Auto) 0.7 10^3/uL (0.0-0.8) 02/09/23 17:00 Baso # (Auto) 0.1 10^3/uL (0.0-0.1) 02/09/23 17:00 Nucleated RBC % (auto) 0 % 02/09/23 17:00 Nucleated RBCs # 0.0 /100WBC 02/09/23 17:00 PT 14.00 SECONDS (12.1-14.9) 02/09/23 17:46 INR 1.04 (0.8-1.2) 02/09/23 17:46 APTT 31.8 SECONDS (23.9-36.7) 02/09/23 17:46 Sodium 136 mmol/L (136-145) 02/09/23 17:46 Potassium 3.6 mmol/L (3.5-5.1) 02/09/23 17:46 Chloride 99 mmol/L (98-107) 02/09/23 17:46 Carbon Dioxide 28 mmol/L (22-29) 02/09/23 17:46 Anion Gap 12.6 (5-19) 02/09/23 17:46 BUN 12 mg/dL (8-23) 02/09/23 17:46 Creatinine 0.8 mg/dL (0.7-1.2) 02/09/23 17:46 GFR Calculation 98.0 mL/min (90-130) 02/09/23 17:46 Glucose 88 mg/dL (65-115) 02/09/23 17:46 Calculated Osmolality 281 mOsm/kg (285-295) L 02/09/23 17:46 Calcium 8.8 mg/dL (8.5-10.5) 02/09/23 17:46 Total Bilirubin 0.6 mg/dL (0.15-1.2) 02/09/23 17:46 AST 52 U/L (0-40) H 02/09/23 17:46 ALT 32 U/L (0-41) 02/09/23 17:46 Alkaline Phosphatase 126 U/L (40-130) 02/09/23 17:46 Troponin T Baseline 32 ng/L (0-15) H 02/09/23 17:46 Troponin T 120 Minute 32.21 ng/L (0-15) H 02/09/23 19:47 Delta Troponin T 0.21 ABS# (0-10) 02/09/23 19:47 NT-Pro-B Natriuret Pep 599 pg/mL (0-125) H 02/09/23 17:46 Total Protein 7.9 g/dL (6.6-8.7) 02/09/23 17:46 Albumin 3.3 g/dL (3.5-5.2) L 02/09/23 17:46 Globulin 4.6 g/dL (1.3-4.6) 02/09/23 17:46 Urine Color Yellow (Yellow) 02/09/23 18:38 Urine Appearance Clear (CLEAR) 02/09/23 18:38 Urine pH 7 (5-7) 02/09/23 18:38 Ur Specific [place] 1.005 (1.005-1.030) 02/09/23 18:38 Urine Protein Neg (Negative) 02/09/23 18:38 Urine Glucose (UA) Norm (Normal) 02/09/23 18:38 Urine Ketones Negative (Negative) 02/09/23 18:38 Urine Blood Neg (Negative) 02/09/23 18:38 Urine Nitrate Negative (Negative) 02/09/23 18:38 Urine Bilirubin Neg (Negative) 02/09/23 18:38 Urine Urobilinogen 1 mg/dL (Negative) H 02/09/23 18:38 Ur Leukocyte Esterase Negative (Negative) 02/09/23 18:38 Urine Opiates Screen Negative ng/mL (Negative) 02/09/23 18:38 Ur Barbiturates Screen Negative ng/mL (Negative) 02/09/23 18:38 Ur Phencyclidine Scrn Negative ng/mL (Negative) 02/09/23 18:38 Ur Amphetamines Screen Positive ng/mL (Negative) H 02/09/23 18:38 U Benzodiazepines Scrn Negative ng/mL (Negative) 02/09/23 18:38 Urine Cocaine Screen Negative ng/mL (Negative) 02/09/23 18:38 U Marijuana (THC) Screen Positive ng/mL (Negative) H 02/09/23 18:38 All radiology interpretation(s) finalized by discharge Discharge Plan Discharge Patient Disposition: Home Clinical Impression: Chest pain Condition: Stable Prescriptions: No Action Tylenol Ex Str Rapid Release 500 mg Tablet 1,000 mg PO Q6H PRN (Reason: Pain) Discharge Orders: Discharge ED (Routine); Ordered 02/09/23 Ordered By: Bakari Bowman Patient Instructions: Chest Pain (ED) Activity Restrictions/Additional Instructions: Abstain from the use of any stimulants such as amphetamines, pseudoephedrine, etc. as they can cause coronary artery spasm and give you chest pain. Follow-up with your doctor. Call tomorrow for an appointment. Return for any new symptoms. Coding Level of Care Code ED Solar Energy Technician for Chg Fwd Documented by User: Bakari Bowman DO 02/09/23 20:58 HPI - Chest Pain General: Chief Complaint: Chest Pain Stated Complaint: CHEST PAIN Time Seen by Provider: 02/09/23 17:13 [facility] ED [facility]: Medical History Osteoarthritis Surgical History History of arthroplasty of left shoulder Social History Substance/Drug Use: current Course Vital Signs: Vital signs: Vital Signs Temperature 98.7 F 02/09/23 17:09 Pulse Rate 70 02/09/23 19:56 Respiratory Rate 14 02/09/23 18:45 Blood Pressure 154/99 02/09/23 19:56 Pulse Oximetry 100 02/09/23 19:56 Oxygen Delivery Me thod Room Air 02/09/23 17:09 MDM - Chest Pain Medical Decision Making Physical exam completed and documented, given the patient's presentation I will obtain a twelve-lead EKG to evaluate for cardiac abnormality. I will obtain a CBC, CMP cardiac enzymes and a chest x-ray. I will provide him cardioprotective dose aspirin as well as an inch of nitroglycerin for vasodilatation-and attempts to help lower his blood pressure and increase coronary artery blood flow. 60-year-old male checked out to me by Dr. Carvajal at shift change. This gentleman has had chest discomfort. He was also complaining of muscle spasms. His drug screen is positive for methamphetamines. Marijuana as well. Otherwise his laboratory is not terribly remarkable. Baseline troponin was 32 with a 32 at 2 hours indicating a nonsignificant delta. EKG shows a normal sinus rhythm, rate of 75, normal axis and intervals with no acute ST changes. Chest x-ray is negative for acute change. He will be allowed discharge. Follow-up as an outpatient. Lab Data 02/09/23 17:00 02/09/23 17:46 Radiology Impressions Chest X-Ray 02/09/23 17:13 IMPRESSION: 1. Emphysematous changes. 2. Bibasilar atelectasis. Laboratory Results WBC 9.30 10^3/uL (3.29-11.43) 02/09/23 17:00 RBC 4.53 10^6/uL (3.85-5.65) 02/09/23 17:00 Hgb 14.50 g/dL (11.27-16.99) 02/09/23 17:00 Hct 43.4 % (37-53) 02/09/23 17:00 MCV 95.8 fl (82-101) 02/09/23 17:00 MCH 32.0 pg (27-33) 02/09/23 17:00 MCHC 33.4 g/dL (30-55) 02/09/23 17:00 RDW 14.8 % (12.1-15.1) 02/09/23 17:00 Plt Count 240 10^3/cmm (157-399) 02/09/23 17:00 MPV 10.9 fL (7.4-10.4) H 02/09/23 17:00 Neut % (Auto) 57.5 % 02/09/23 17:00 Lymph % (Auto) 24.5 % 02/09/23 17:00 [place] % (Auto) 8.8 % 02/09/23 17:00 Eos % (Auto) 7.7 % 02/09/23 17:00 Baso % (Auto) 1.2 % 02/09/23 17:00 Neut # (Auto) 5.34 10^3/uL (1.8-7.7) 02/09/23 17:00 Lymph # (Auto) 2.3 10^3/uL (0.8-4.8) 02/09/23 17:00 [place] # (Auto) 0.8 10^3/uL (0.2-0.9) 02/09/23 17:00 Eos # (Auto) 0.7 10^3/uL (0.0-0.8) 02/09/23 17:00 Baso # (Auto) 0.1 10^3/uL (0.0-0.1) 02/09/23 17:00 Nucleated RBC % (auto) 0 % 02/09/23 17:00 Nucleated RBCs # 0.0 /100WBC 02/09/23 17:00 PT 14.00 SECONDS (12.1-14.9) 02/09/23 17:46 INR 1.04 (0.8-1.2) 02/09/23 17:46 APTT 31.8 SECONDS (23.9-36.7) 02/09/23 17:46 Sodium 136 mmol/L (136-145) 02/09/23 17:46 Potassium 3.6 mmol/L (3.5-5.1) 02/09/23 17:46 Chloride 99 mmol/L (98-107) 02/09/23 17:46 Carbon Dioxide 28 mmol/L (22-29) 02/09/23 17:46 Anion Gap 12.6 (5-19) 02/09/23 17:46 BUN 12 mg/dL (8-23) 02/09/23 17:46 Creatinine 0.8 mg/dL (0.7-1.2) 02/09/23 17:46 GFR Calculation 98.0 mL/min (90-130) 02/09/23 17:46 Glucose 88 mg/dL (65-115) 02/09/23 17:46 Calculated Osmolality 281 mOsm/kg (285-295) L 02/09/23 17:46 Calcium 8.8 mg/dL (8.5-10.5) 02/09/23 17:46 Total Bilirubin 0.6 mg/dL (0.15-1.2) 02/09/23 17:46 AST 52 U/L (0-40) H 02/09/23 17:46 ALT 32 U/L (0-41) 02/09/23 17:46 Alkaline Phosphatase 126 U/L (40-130) 02/09/23 17:46 Troponin T Baseline 32 ng/L (0-15) H 02/09/23 17:46 Troponin T 120 Minute 32.21 ng/L (0-15) H 02/09/23 19:47 Delta Troponin T 0.21 ABS# (0-10) 02/09/23 19:47 NT-Pro-B Natriuret Pep 599 pg/mL (0-125) H 02/09/23 17:46 Total Protein 7.9 g/dL (6.6-8.7) 02/09/23 17:46 Albumin 3.3 g/dL (3.5-5.2) L 02/09/23 17:46 Globulin 4.6 g/dL (1.3-4.6) 02/09/23 17:46 Urine Color Yellow (Yellow) 02/09/23 18:38 Urine Appearance Clear (CLEAR) 02/09/23 18:38 Urine pH 7 (5-7) 02/09/23 18:38 Ur Specific [place] 1.005 (1.005-1.030) 02/09/23 18:38 Urine Protein Neg (Negative) 02/09/23 18:38 Urine Glucose (UA) Norm (Normal) 02/09/23 18:38 Urine Ketones Negative (Negative) 02/09/23 18:38 Urine Blood Neg (Negative) 02/09/23 18:38 Urine Nitrate Negative (Negative) 02/09/23 18:38 Urine Bilirubin Neg (Negative) 02/09/23 18:38 Urine Urobilinogen 1 mg/dL (Negative) H 02/09/23 18:38 Ur Leukocyte Esterase Negative (Negative) 02/09/23 18:38 Urine Opiates Screen Negative ng/mL (Negative) 02/09/23 18:38 Ur Barbiturates Screen Negative ng/mL (Negative) 02/09/23 18:38 Ur Phencyclidine Scrn Negative ng/mL (Negative) 02/09/23 18:38 Ur Amphetamines Screen Positive ng/mL (Negative) H 02/09/23 18:38 U Benzodiazepines Scrn Negative ng/mL (Negative) 02/09/23 18:38 Urine Cocaine Screen Negative ng/mL (Negative) 02/09/23 18:38 U Marijuana (THC) Screen Positive ng/mL (Negative) H 02/09/23 18:38 Discharge Plan Discharge Patient Disposition: Home Clinical Impression: Chest pain Condition: Stable Prescriptions: No Action Tylenol Ex Str Rapid Release 500 mg Tablet 1,000 mg PO Q6H PRN (Reason: Pain) Discharge Orders: Discharge ED (Routine); Ordered 02/09/23 Ordered By: Bakari Bowman Patient Instructions: Chest Pain (ED) Activity Restrictions/Additional Instructions: Abstain from the use of any stimulants such as amphetamines, pseudoephedrine, etc. as they can cause coronary artery spasm and give you chest pain. Follow-up with your doctor. Call tomorrow for an appointment. Return for any new symptoms. Coding Level of Care Code ED [employer] for Priyanka Nunez
[2023-02-09 17:34] LABS: Basophils # 0.1 10^3/uL (0.0-0.1); Basophils % 1.2 %; Eosinophils # 0.7 10^3/uL (0.0-0.8); Eosinophils % 7.7 %; Hematocrit 43.4 % (37-53); Lymphocytes # 2.3 10^3/uL (0.8-4.8); Lymphocytes % 24.5 %; Mean Corpuscular HGB Conc 33.4 g/dL (30-55); Mean Corpuscular Volume 95.8 fl (82-101); Mean Platelet Volume 10.9 fL (7.4-10.4); Monocytes # 0.8 10^3/uL (0.2-0.9); Monocytes % 8.8 %; Neutrophils # 5.34 10^3/uL (1.8-7.7); Neutrophils % 57.5 %; Nucleated Red Blood Cells % 0 %; Platelet Count 240 10^3/cmm (157-399); Red Blood Count 4.53 10^6/uL (3.85-5.65); Red Cell Distribution Width 14.8 % (12.1-15.1)
[2023-02-09 17:49] VITALS: BP 169/116; PULSE 89; RESP 22; O2SAT 98
[2023-02-09 18:03] LABS: INR 1.04 (0.8-1.2)
[2023-02-09 18:04] LABS: Partial Thromboplastin Time 31.8 SECONDS (23.9-36.7)
[2023-02-09 18:13] LABS: Troponin(5th) Baseline 32 ng/L (0-15)
[2023-02-09 18:25] LABS: Alanine Aminotransferase 32 U/L (0-41); Albumin Level 3.3 g/dL (3.5-5.2); Alkaline Phosphatase 126 U/L (40-130); Anion Gap 12.6 (5-19); Aspartate Amino Transferase 52 U/L (0-40); Blood Urea Nitrogen 12 mg/dL (8-23); Calcium 8.8 mg/dL (8.5-10.5); Carbon Dioxide 28 mmol/L (22-29); Chloride 99 mmol/L (98-107); Globulin 4.6 g/dL (1.3-4.6); Glucose 88 mg/dL (65-115); NT Pro B Type Natriuretic Pept 599 pg/mL (0-125); Osmolality Calculated 281 mOsm/kg (285-295); Potassium 3.6 mmol/L (3.5-5.1); Sodium 136 mmol/L (136-145); Total Bilirubin 0.6 mg/dL (0.15-1.2); Total Protein 7.9 g/dL (6.6-8.7)
[2023-02-09 18:45] VITALS: BP 142/84; PULSE 94; RESP 14; O2SAT 99
[2023-02-09 18:45] LABS: Add Urine Microscopic? NO; Charge for UA Resulting for Rev
[2023-02-09 18:57] LABS: Bilirubin Urine Neg (Negative); Blood Urine Neg (Negative); Glucose Urine UA Norm (Normal); Ketones Urine Negative (Negative); Leukocyte Esterase Urine Negative (Negative); Nitrate Urine Negative (Negative); Protein Urine Neg (Negative); Specific Gravity, Urine 1.005 (1.005-1.030); Urine Appearance Clear (CLEAR); Urine Color Yellow (Yellow); Urobilinogen Urine 1 mg/dL (Negative); pH Urine 7 (5-7)
[2023-02-09 19:07] LABS: Amphetamines Screen Urine Positive (Negative); Barbiturates Screen Urine Negative (Negative); Benzodiazepines Screen Urine Negative (Negative); Cocaine Screen Urine Negative (Negative); Opiate Screen Urine Negative (Negative); PCP Screen Urine Negative (Negative); THC Screen Urine Positive (Negative)
--- NOTE | 2023-02-09 19:13 | ECG_ITS ---
[facility] Test Date: 2023-02-09 Pat Name: Geremias Delatorre Department: Room: Gender: Male Licensed And Certified Midwife: : 1960 Requested By: Joseph Carvajal Order Number: [id number] Adelaida MD: Chau Paulino M.D. Measurements Intervals [place] Rate: 74 P: 66 [place]: 156 QRS: 84 QRSD: 86 T: 80 QT: 411 QTc: 458 Interpretive Statements SINUS RHYTHM Compared to ECG 01/20/2023 07:06:58 No significant changes Electronically Signed On 02-10-2023 7:36:47 CDT by Chau Paulino M.D. [id number]
[2023-02-09] MEDS: haloperidol inj 5 mg/mL INJ 1 mL IM (19:16)
[2023-02-09 19:56] VITALS: BP 154/99; PULSE 70; O2SAT 100
--- NOTE | 2023-02-09 19:59 | PC.NURSE ---
pt care this nurse took over car of pt at 1900
[2023-02-09 20:31] LABS: Troponin 5 2HR 32.21 ng/L (0-15)
[2023-02-09 20:33] LABS: Troponin 5 2HR Delta 0.21 ABS# (0-10)
[2023-02-09 21:00] VITALS: BP 154/99; PULSE 79; RESP 17; O2SAT 98
--- NOTE | 2023-02-09 21:17 | PC.NURSE ---
pt care this nurse spoke with blanka graves and since pt is lethargic from the haldol, she stated it was ok to wait for him to wake up. pt on monitor and resting with eyes closed with resp even.
[2023-02-09 23:25] VITALS: BP 134/81; PULSE 71; O2SAT 98
== END 2023-02-09 23:28 | disposition home or self-care (01) ==
PROVIDERS: Internal Medicine; Emergency Provider Emergency Medicine
DX: R07.9 Chest pain, unspecified (principal)
CPT/HCPCS: 36415; 71045; 80053; 80306; 81003; 83880; 84484; 85025; 85610; 85730; 93005; 96372; 99285; J1630

== ENCOUNTER 2023-02-20 08:00 | Emergency (ER) | payer BC, MEDICAID, SELFPAY ==
--- NOTE | 2023-02-20 07:59 | ED_ITS ---
HPI - SOB/Dyspnea General: Chief Complaint: Shortness of Breath/Dyspnea Stated Complaint: SOB Source: patient Mode of arrival: ambulatory History of Present Illness: HPI Narrative: 60-year-old male presents emergency room complaining of left-sided rib pain he fell yesterday. Landed on a pipe on his left ribs he has previously had injury to that. He did strike his head, states he was knocked out briefly. He told the nurses he had been knocked out he had told me he had no other injuries. He also told me it happened a week ago initially after the nurses note when I went back and talk to him he did state it happened yesterday when he tripped on some metal outside. He is worried because he previously had an injury to his left ribs. MD elicited complaint: shortness of breath Associated symptoms: Deny abdominal pain, chest pain or fever(s) Review of Systems Const: Denies: fever(s) or chills Card: Denies: chest pain Resp: Denies: dyspnea GI: Denies: abdominal pain : Denies: dysuria, urinary frequency or urinary urgency Musc: Denies: neck pain or back pain Skin/Breast: Denies: rash PFS ED PFSH: Medical History Osteoarthritis Surgical History History of arthroplasty of left shoulder Social History Substance/Drug Use: current Physical Exam Const: COMMON NORMALS: no acute distress GENERAL APPEARANCE: cooperative and comfortable ORIENTATION/CONSCIOUSNESS: Yes awake, Yes oriented to person, Yes oriented to place and Yes oriented to time HENMT: COMMON NORMALS: normocephalic, atraumatic and hearing grossly normal bilaterally HEAD & SCALP: normocephalic and atraumatic Resp: COMMON NORMALS: normal respiratory effort, No retractions, No use of accessory muscles and clear to auscultation bilaterally AUSCULTATION: clear to auscultation bilaterally Cardio: COMMON NORMALS: regular rate, regular rhythm and No murmurs present (Cardio) RATE: regular rate RHYTHM: regular rhythm GI: COMMON NORMALS: Soft to palpation and No hepatosplenomegaly present AUSCULTATION: Yes normoactive bowel sounds PALPATION: Yes Soft to palpation, No Tenderness to palpation present (GI), No Guarding due to palpation present (GI) and Yes No hepatosplenomegaly present Extremity: COMMON NORMALS: normal to inspection, capillary refill normal, no clubbing, cyanosis or edema, no calf tenderness and no pedal edema Neuro: SENSORIUM/ORIENTATION: Yes oriented to person, Yes oriented to place and Yes oriented to time Skin: COMMON NORMALS: no rashes or lesions noted GENERAL SKIN EXAM: no rash es or lesions noted Course Vital Signs: Vital signs: Vital Signs Pulse Rate 70 02/20/23 11:12 Respiratory Rate 16 02/20/23 11:12 Blood Pressure 125/89 02/20/23 11:12 Pulse Oximetry 95 02/20/23 11:12 Oxygen Delivery Me thod Room Air 02/20/23 09:57 MDM - SOB/Dyspnea Medical Decision Making No acute fractures no bruising no sign of laceration no rash no sign of zoster. We will discharge patient home diclofenac to use. Follow-up as needed. No instrumentation of the left wrist but there is instrumentation to to what appears to have been a proximal humerus fracture. I first went and seen the patient he had told me this it happened last week he had no other injuries in the nurses triage note which was placed later as I reviewed the chart and states that happened yesterday and he did hit his head and was knocked out. I discussed this with the patient he confirmed that his will CT head prior to discharge. CT done discussed with Dr. Sanchez there is an area in the frontal lobes that appears abnormal there is no active bleeding no skull fracture. He has no focal deficits at this time. His NIH score is 0. Start aspirin daily. I discussed Dr. Sanchez he has no focal deficits the fall yesterday hit the back of his head she said this is also possible this may be a mass. She recommends that we get an MRI with and without as an outpatient. Medical Records I reviewed the patient's medical records. Lab Data I reviewed the patient's lab results. 02/20/23 08:05 02/20/23 08:05 Labs/Radiology: Laboratory Results WBC 9.73 10^3/uL (3.29-11.43) 02/20/23 08:05 RBC 4.66 10^6/uL (3.85-5.65) 02/20/23 08:05 Hgb 14.70 g/dL (11.27-16.99) 02/20/23 08:05 Hct 45.5 % (37-53) 02/20/23 08:05 MCV 97.6 fl (82-101) 02/20/23 08:05 MCH 31.5 pg (27-33) 02/20/23 08:05 MCHC 32.3 g/dL (30-55) 02/20/23 08:05 RDW 14.8 % (12.1-15.1) 02/20/23 08:05 Plt Count 192 10^3/cmm (157-399) 02/20/23 08:05 MPV 10.4 fL (7.4-10.4) 02/20/23 08:05 Neut % (Auto) 47.8 % 02/20/23 08:05 Lymph % (Auto) 28.1 % 02/20/23 08:05 [place] % (Auto) 10.6 % 02/20/23 08:05 Eos % (Auto) 11.9 % 02/20/23 08:05 Baso % (Auto) 1.3 % 02/20/23 08:05 Neut # (Auto) 4.65 10^3/uL (1.8-7.7) 02/20/23 08:05 Lymph # (Auto) 2.7 10^3/uL (0.8-4.8) 02/20/23 08:05 [place] # (Auto) 1.0 10^3/uL (0.2-0.9) H 02/20/23 08:05 Eos # (Auto) 1.2 10^3/uL (0.0-0.8) H 02/20/23 08:05 Baso # (Auto) 0.1 10^3/uL (0.0-0.1) 02/20/23 08:05 Nucleated RBC % (auto) 0 % 02/20/23 08:05 Nucleated RBCs # 0.0 /100WBC 02/20/23 08:05 Sodium 135 mmol/L (136-145) L 02/20/23 08:05 Potassium 4.0 mmol/L (3.5-5.1) 02/20/23 08:05 Chloride 100 mmol/L (98-107) 02/20/23 08:05 Carbon Dioxide 28 mmol/L (22-29) 02/20/23 08:05 Anion Gap 11.0 (5-19) 02/20/23 08:05 BUN 18 mg/dL (8-23) 02/20/23 08:05 Creatinine 0.9 mg/dL (0.7-1.2) 02/20/23 08:05 GFR Calculation 85.5 mL/min (90-130) L 02/20/23 08:05 Glucose 116 mg/dL (65-115) H 02/20/23 08:05 Calculated Osmolality 283 mOsm/kg (285-295) L 02/20/23 08:05 Calcium 8.9 mg/dL (8.5-10.5) 02/20/23 08:05 Total Bilirubin 0.8 mg/dL (0.15-1.2) 02/20/23 08:05 AST 56 U/L (0-40) H 02/20/23 08:05 ALT 35 U/L (0-41) 02/20/23 08:05 Alkaline Phosphatase 111 U/L (40-130) 02/20/23 08:05 Total Protein 8.1 g/dL (6.6-8.7) 02/20/23 08:05 Albumin 3.4 g/dL (3.5-5.2) L 02/20/23 08:05 Globulin 4.7 g/dL (1.3-4.6) H 02/20/23 08:05 All radiology interpretation(s) finalized by discharge Discharge Plan Discharge Patient Disposition: Home Clinical Impression: Rib pain on left side, Abnormal CT of the head Condition: Stable Prescriptions: New diclofenac sodium 75 mg tablet,delayed release (DR/EC) 75 mg PO Q12H PRN (Reason: pain) Qty: 20 0RF albuterol sulfate 90 mcg/actuation HFA aerosol inhaler 2 inh INHALATION Q4H PRN (Reason: shortness of breath or wheezing) Qty: 18 0RF No Action acetaminophen [Tylenol Ex Str Rapid Release] 500 mg Tablet 1,000 mg PO Q6H PRN (Reason: Pain) Discharge Orders: Discharge ED (Routine); Ordered 02/20/23 Ordered By: Dylan Mcknight Discharge Diet: Usual diet Discharge Activity: Increase activity as tolerated Patient Instructions: Opioid Safety, Pain Management Activity Restrictions/Additional Instructions: Thank you for choosing [facility] for your healthcare needs today. Please realize this is an emergency room and that we are providing you with a medical screening exam and this may not be complete and all inclusive of all the testing and or work up that you may need to determine your ailment or severity of your illness. It is very important that you follow up as instructed or that you return to the Emergency Department should you have concerns or if your condition changes or worsens in any way. Use diclofenac ice or heat for the left-sided rib pain as needed Coding Level of Care Code ED Automobile Mechanic Radiator for Priyanka Nunez
[2023-02-20 08:00] VITALS: BP 162/109; PULSE 69; RESP 17; O2SAT 97; BMI 24.3
[2023-02-20 08:13] LABS: Basophils # 0.1 10^3/uL (0.0-0.1); Basophils % 1.3 %; Eosinophils # 1.2 10^3/uL (0.0-0.8); Eosinophils % 11.9 %; Hematocrit 45.5 % (37-53); Lymphocytes # 2.7 10^3/uL (0.8-4.8); Lymphocytes % 28.1 %; Mean Corpuscular HGB Conc 32.3 g/dL (30-55); Mean Corpuscular Hemoglobin 31.5 pg (27-33); Mean Corpuscular Volume 97.6 fl (82-101); Mean Platelet Volume 10.4 fL (7.4-10.4); Monocytes % 10.6 %; Neutrophils # 4.65 10^3/uL (1.8-7.7); Neutrophils % 47.8 %; Nucleated Red Blood Cells % 0 %; Platelet Count 192 10^3/cmm (157-399); Red Blood Count 4.66 10^6/uL (3.85-5.65); Red Cell Distribution Width 14.8 % (12.1-15.1); White Blood Count 9.73 10^3/uL (3.29-11.43)
--- NOTE | 2023-02-20 08:14 | XR_ITS ---
WS: [id number] Chest with left rib detail, 4 views, 02/20/2023 Clinical Data: pain Comparison: Portable chest, 02/09/2023 Findings: The lungs show no nodules, masses, or effusions. The heart is normal. No pneumonia or pneumothorax is seen. The aortic arch and descending thoracic aorta show tortuosity. There are monitor leads on the chest wall. There is internal fixation of an old fracture of the left humeral head and neck. There is deformity of the left glenohumeral articulation. There is deformity of the undersurface of t he midshaft of the left clavicle and the coracoid process. The ribs are intact. No rib fractures seen. No subcutaneous emphysema is present. Impression: 1. Atherosclerosis. 2. Negative for left rib fracture.
[2023-02-20 08:19] VITALS: BP 162/106; PULSE 65; RESP 18; O2SAT 96
[2023-02-20 08:25] VITALS: PULSE 81; RESP 16; O2SAT 96
[2023-02-20] MEDS: ipratropium-albuterol 3 mL Neb INHALATION (08:27)
[2023-02-20 08:28] VITALS: PULSE 76
[2023-02-20 08:35] LABS: Alanine Aminotransferase 35 U/L (0-41); Albumin Level 3.4 g/dL (3.5-5.2); Alkaline Phosphatase 111 U/L (40-130); Aspartate Amino Transferase 56 U/L (0-40); Blood Urea Nitrogen 18 mg/dL (8-23); Calcium 8.9 mg/dL (8.5-10.5); Carbon Dioxide 28 mmol/L (22-29); Chloride 100 mmol/L (98-107); Creatinine Clr Calc Pharmacy 87.0966; Globulin 4.7 g/dL (1.3-4.6); Glomerular Filtration Rate 85.5 mL/min (90-130); Glucose 116 mg/dL (65-115); Osmolality Calculated 283 mOsm/kg (285-295); Sodium 135 mmol/L (136-145); Total Bilirubin 0.8 mg/dL (0.15-1.2); Total Protein 8.1 g/dL (6.6-8.7)
[2023-02-20] MEDS: ketorolac 30 mg/mL INJ IVP (08:37)
[2023-02-20 09:57] VITALS: BP 162/109; PULSE 63; RESP 18; O2SAT 96
--- NOTE | 2023-02-20 10:14 | CT_ITS ---
WS: [id number] CT HEAD NONCONTRAST HISTORY: trauma TECHNIQUE: Contiguous axial imaging performed through the brain in 2.5 mm imaging. Bone and soft tiss ue windows. Sagittal and coronal reformats reviewed. All CT scans at [facility] use at least one of these dose optimization techniques: automated exposure control; mA and/or kV adjustment per pa tient size (includes targeted exams where dose is matched to clinical indication); or iterative recon struction. DLP: 1146.60 mGy.cm COMPARISON: 11/19/2017, 01/20/2023 No acute intracranial hemorrhage. There is a new area of decreased attenuation in the LEFT frontal lo be suspicious for a subacute to acute infarct. Mild atrophy and mild small vessel ischemic disease otherwise. Small lacunar infarcts in the internal capsules. Ventricles: Normal size with no hydrocephalus. No inferior displacement of the cerebellar tonsils. Tiny lacunar infarct in the LEFT cerebellum. Paranasal sinuses: Mucoperiosteal thickening in the LEFT maxillary sinus with air-fluid level. Mastoid air cells: Well pneumatized. Calvarium and scalp: Skull is intact with no soft tissue edema or swelling. IMPRESSION: 1. No acute intracranial hemorrhage or edema. 2. New area of decreased attenuation in the LEFT frontal lobe. Suspicious for acute to subacute infar ct. Recommend further evaluation by MRI brain with diffusion imaging. 3. Mild atrophy and small vessel ischemic disease.
[2023-02-20 11:12] VITALS: BP 125/89; PULSE 70; RESP 16; O2SAT 95
--- NOTE | 2023-02-20 11:15 | PC.NURSE ---
DR. GAFFNEY NOTIFIED OF CT RESULTS. ORDERED FOR PATIENT TO BE DISCHARGED HOME AND PATIENT TO HAVE OUTPATIENT MRI WITH PCP.
== END 2023-02-20 11:13 | disposition home or self-care (01) ==
PROVIDERS: Emergency Provider Family Medicine
DX: R07.81 Pleurodynia (principal); R93.0 Abnormal findings on diagnostic imaging of skull and head, not elsewhere classified
CPT/HCPCS: 70450; 71101; 80053; 85025; 94640; 96374; 99285; J1885

== ENCOUNTER 2023-05-30 07:41 | Observation (INO) | payer BC, MEDICAID, SELFPAY ==
[2023-05-30] VITALS (30 sets, daily range): BP systolic 86–136; BP diastolic 65–88; PULSE 69–109; RESP 14–31; TEMP 36.6–37; O2SAT 91–98
--- NOTE | 2023-05-30 07:45 | ED_ITS ---
HPI - Chest Pain 2 General: Chief Complaint: Chest Pain Stated Complaint: flu like symptoms, chest pain Time Seen by Provider: 05/30/23 07:43 Source: patient Mode of arrival: EMS History of Present Illness: 62-year-old male presents emergency room with increasing shortness of breath nausea vomiting some chest discomfort. Patient is not usually on oxygen not requiring 3 L by nasal cannula. Symptoms began yesterday has had some nausea vomiting and loose stool with that as well. On arrival he is wheezing and rhonchi. MD complaint: chest pain Onset (ago): day(s) (1) Timing of current episode: constant Onset: during rest Quality: tightness and aching Relieving factors: nothing Exacerbating factors: nothing Associated symptoms: Reports dyspnea and fever(s); Deny abdominal pain, diaphoresis, leg edema, nausea, palpitations, sense of impending doom, syncope or vomiting Review of Systems 2 Const: Reports: fever(s); Denies: chills or diaphoresis Card: Denies: chest pain, palpitations or syncope Resp: Reports: dyspnea GI: Denies: abdominal pain, nausea or vomiting : Denies: dysuria, urinary frequency or urinary urgency Musc: Denies: neck pain or back pain Skin/Breast: Denies: rash PFSH ED 2 PFSH: Medical History Methamphetamine use Elevated troponin Transaminitis Hyponatremia Influenza A COPD with acute exacerbation Acute respiratory failure with hypoxemia Irritable bowel syndrome Peripheral vascular disease CVA (cerebral vascular accident) Tobacco dependency Amphetamine use COPD (chronic obstructive pulmonary disease) Osteoarthritis Surgical History History of arthroplasty of left shoulder Family History Other Cancer Stroke Social History Smoking and tobacco/nicotine status: current every day tobacco/nicotine user Alcohol intake: never Substance/Drug Use: current Physical Exam 2 Const: GENERAL APPEARANCE: cooperative and comfortable O RIENTATION/CONSCIOUSNESS: Yes awake, Yes oriented to person, Yes oriented to place and Yes oriented to time HENMT: COMMON NORMALS: normocephalic, atraumatic and hearing grossly normal bilaterally HEAD & SCALP: normocephalic and atraumatic Resp: COMMON NORMALS: normal respiratory effort, No retractions and No use of accessory muscles AUSCULTATION: rhonchi and wheezes Cardio: COMMON NORMALS: regular rate, regular rhythm and No murmurs present (Cardio) RATE: regular rate RHYTHM: regular rhythm GI: COMMON NORMALS: Soft to palpation and No hepatosplenomegaly present A USCULTATION: Yes normoactive bowel sounds PALPATION: Yes Soft to palpation, No Tenderness to palpation present (GI), No Guarding due to palpation present (GI) and Yes No hepatosplenomegaly present Extremity: COMMON NORMALS: normal to inspection, capillary refill normal, no clubbing, cyanosis or edema, no calf tenderness and no pedal edema Neuro: SENSORIUM/ORIENTATION: Yes oriented to person, Yes oriented to place and Yes oriented to time Skin: COMMON NORMALS: no rashes or lesions noted GENERAL SKIN EXAM: no rashes or lesions noted Course 2 Vital Signs: Vital signs: Vital Signs Temperature 97.4 F L 05/31/23 11:26 Pulse Rate 73 05/31/23 11:26 Respiratory Rate 18 05/31/23 11:26 Blood Pressure 140/92 05/31/23 11:26 Pulse Oximetry 94 05/31/23 11:26 Oxygen Delivery Me thod Room Air 05/31/23 08:26 Oxygen Flow Rate 2 05/30/23 22:56 MDM - Chest Pain Medical Decision Making Influenza A With hypoxia no secondary pneumonias at this time. Suspect patient has some underlying COPD that complicating his influenza. Will admit started on Tamiflu he has been given Rocephin Zithromax also given nebulizers which did help. Discussed with hospitalist orders written Medical Records I reviewed the patient's medical records. Lab Data I reviewed the patient's lab results. 05/31/23 02:50 05/31/23 02:50 Laboratory Results WBC 8.80 10^3/uL (3.29-11.43) 05/30/23 07:53 RBC 5.34 10^6/uL (3.85-5.65) 05/30/23 07:53 Hgb 17.20 g/dL (11.27-16.99) H 05/30/23 07:53 Hct 50.7 % (37-53) 05/30/23 07:53 MCV 94.9 fl (82-101) 05/30/23 07:53 MCH 32.2 pg (27-33) 05/30/23 07:53 MCHC 33.9 g/dL (30-55) 05/30/23 07:53 RDW 14.4 % (12.1-15.1) 05/30/23 07:53 Plt Count 177 10^3/cmm (157-399) 05/30/23 07:53 MPV 11.1 fL (7.4-10.4) H 05/30/23 07:53 Neut % (Auto) 79.8 % 05/30/23 07:53 Lymph % (Auto) 11.6 % 05/30/23 07:53 [place] % (Auto) 7.4 % 05/30/23 07:53 Eos % (Auto) 0.2 % 05/30/23 07:53 Baso % (Auto) 0.7 % 05/30/23 07:53 Neut # (Auto) 7.02 10^3/uL (1.8-7.7) 05/30/23 07:53 Lymph # (Auto) 1.0 10^3/uL (0.8-4.8) 05/30/23 07:53 [place] # (Auto) 0.7 10^3/uL (0.2-0.9) 05/30/23 07:53 Eos # (Auto) 0.0 10^3/uL (0.0-0.8) 05/30/23 07:53 Baso # (Auto) 0.1 10^3/uL (0.0-0.1) 05/30/23 07:53 Nucleated RBC % (auto) 0 % 05/30/23 07:53 Nucleated RBCs # 0.0 /100WBC 05/30/23 07:53 Sodium 125 mmol/L (136-145) L 05/30/23 07:53 Potassium 3.8 mmol/L (3.5-5.1) 05/30/23 07:53 Chloride 87 mmol/L (98-107) L 05/30/23 07:53 Carbon Dioxide 25 mmol/L (22-29) 05/30/23 07:53 Anion Gap 16.8 (5-19) 05/30/23 07:53 BUN 24 mg/dL (8-23) H 05/30/23 07:53 Creatinine 1.1 mg/dL (0.7-1.2) 05/30/23 07:53 GFR Calculation 67.8 mL/min (90-130) L 05/30/23 07:53 Glucose 129 mg/dL (65-115) H 05/30/23 07:53 Calculated Osmolality 266 mOsm/kg (285-295) L 05/30/23 07:53 Lactic Acid 2.2 mmol/L (0.5-2.2) 05/30/23 09:50 Calcium 8.5 mg/dL (8.5-10.5) 05/30/23 07:53 Total Bilirubin 1.1 mg/dL (0.15-1.2) 05/30/23 07:53 AST 117 U/L (0-40) H 05/30/23 07:53 ALT 70 U/L (0-41) H 05/30/23 07:53 Alkaline Phosphatase 100 U/L (40-130) 05/30/23 07:53 Troponin T Baseline 51 ng/L (0-15) H 05/30/23 07:53 Troponin T 120 Minute 48.29 ng/L (0-15) H 05/30/23 09:50 Delta Troponin T -2.71 ABS# (0-10) L 05/30/23 09:50 NT-Pro-B Natriuret Pep 1236 pg/mL (0-125) H 05/30/23 07:53 Total Protein 8.3 g/dL (6.6-8.7) 05/30/23 07:53 Albumin 3.6 g/dL (3.5-5.2) 05/30/23 07:53 Globulin 4.7 g/dL (1.3-4.6) H 05/30/23 07:53 TSH 0.31 uIU/mL (0.27-4.20) 05/30/23 07:53 Random Cortisol 36.42 ug/dL (2.47-19.5) H 05/30/23 07:53 Urine Color Yellow (Yellow) 05/30/23 10:23 Urine Appearance Clear (CLEAR) 05/30/23 10:23 Urine pH 6 (5-7) 05/30/23 10:23 Ur Specific [place] 1.015 (1.005-1.030) 05/30/23 10:23 Urine Protein Neg (Negative) 05/30/23 10:23 Urine Glucose (UA) Norm (Normal) 05/30/23 10:23 Urine Ketones Negative (Negative) 05/30/23 10:23 Urine Blood Neg (Negative) 05/30/23 10:23 Urine Nitrate Negative (Negative) 05/30/23 10:23 Urine Bilirubin Neg (Negative) 05/30/23 10:23 Urine Urobilinogen 1 mg/dL (Negative) H 05/30/23 10:23 Ur Leukocyte Esterase Negative (Negative) 05/30/23 10:23 Coronavirus 229E (PCR) Not detected (NOT DETECT) 05/30/23 08:10 Hepatitis A IgM Ab Non-reactive (Nonreactive) 05/30/23 07:53 Hep Bs Antigen Non-reactive (Nonreactive) 05/30/23 07:53 Hep B Core IgM Ab Non-reactive (Nonreactive) 05/30/23 07:53 Hepatitis C Antibody Reactive (Nonreactive) H 05/30/23 07:53 HCV RNA (PCR) IUs/ml 4.43 Log IU/mL (NOT DETECTED) H 05/30/23 10:35 HCV RNA (PCR) IU log10 05186 IU/mL (NOT DETECTED) H 05/30/23 10:35 Influenza A (H1) PCR Not detected (NOT DETECT) 05/30/23 10:13 Influ A (H1/09) PCR Not detected (NOT DETECT) 05/30/23 10:13 Influenza A (H3) PCR Detected (NOT DETECT) A 05/30/23 10:13 Influenza Type A Ag positive (Negative) H 05/30/23 08:10 Influenza Type A (PCR) Detected (NOT DETECT) A 05/30/23 10:13 Influenza Type B Ag negative (Negative) 05/30/23 08:10 Influenza Type B (PCR) Not detected (NOT DETECT) 05/30/23 10:13 SARS-CoV-2 (PCR) Not detected (NOT DETECT) 05/30/23 08:10 All radiology interpretation(s) finalized by discharge Discharge Plan Discharge Patient Disposition: Placed in Observation Admit Provider: Antwon Monroy Clinical Impression: Influenza A, Acute exacerbation of chronic obstructive pulmonary disease, Elevated troponin I level, Transaminitis Coding Level of Care Code ED Front Office Manager for Priyanka Nunez
--- NOTE | 2023-05-30 07:47 | ECG_ITS ---
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 Measurements Intervals [place] Rate: 106 P: 83 [place]: 139 QRS: 91 QRSD: 86 T: 79 QT: 304 QTc: 404 Interpretive Statements SINUS TACHYCARDIA POSSIBLE LEFT ATRIAL ENLARGEMENT [-0.1mV P-WAVE IN V1/V2] BORDERLINE RIGHT AXIS DEVIATION [QRS AXIS > 90] ABNORMAL RHYTHM ECG Compared to ECG 02/09/2023 19:14:43 Sinus rhythm no longer present Electronically Signed On 05-30-2023 9:59:42 SOLID WASTE COLLECTION WORKER by Chau Paulino M.D. [id number]
--- NOTE | 2023-05-30 08:01 | XR_ITS ---
WS: [id number] Portable AP upright chest, 05/30/2023 Clinical Data: dyspnea/cough Comparison: Chest with left rib detail, 02/20/2023 Findings: No nodules, masses or effusions are seen. The heart is normal. The pulmonary vascularity is not increased. No pneumonia or pneumothorax is seen. The aortic arch and descending thoracic aorta s how tortuosity and calcification. There is internal fixation of an old left proximal humeral fracture . There is osteoarthritis of the left glenohumeral joint. Monitor leads are on the chest wall. Impression: Atherosclerosis.
[2023-05-30 08:05] LABS: Basophils # 0.1 10^3/uL (0.0-0.1); Basophils % 0.7 %; Eosinophils % 0.2 %; Hematocrit 50.7 % (37-53); Lymphocytes % 11.6 %; Mean Corpuscular HGB Conc 33.9 g/dL (30-55); Mean Corpuscular Hemoglobin 32.2 pg (27-33); Mean Corpuscular Volume 94.9 fl (82-101); Mean Platelet Volume 11.1 fL (7.4-10.4); Monocytes # 0.7 10^3/uL (0.2-0.9); Monocytes % 7.4 %; Neutrophils # 7.02 10^3/uL (1.8-7.7); Neutrophils % 79.8 %; Nucleated Red Blood Cells % 0 %; Platelet Count 177 10^3/cmm (157-399); Red Blood Count 5.34 10^6/uL (3.85-5.65); Red Cell Distribution Width 14.4 % (12.1-15.1)
[2023-05-30] MEDS: dexamethasone 10 mg/mL INJ IM (08:13)
[2023-05-30 08:24] LABS: Troponin(5th) Baseline 51 ng/L (0-15)
--- NOTE | 2023-05-30 08:24 | PC.NURSE ---
Medication Delay: antibiotics delayed d/t needing blood cultures @2084
[2023-05-30 08:26] LABS: Alanine Aminotransferase 70 U/L (0-41); Albumin Level 3.6 g/dL (3.5-5.2); Alkaline Phosphatase 100 U/L (40-130); Anion Gap 16.8 (5-19); Aspartate Amino Transferase 117 U/L (0-40); Blood Urea Nitrogen 24 mg/dL (8-23); Calcium 8.5 mg/dL (8.5-10.5); Carbon Dioxide 25 mmol/L (22-29); Chloride 87 mmol/L (98-107); Globulin 4.7 g/dL (1.3-4.6); Glomerular Filtration Rate 67.8 mL/min (90-130); Glucose 129 mg/dL (65-115); Osmolality Calculated 266 mOsm/kg (285-295); Potassium 3.8 mmol/L (3.5-5.1); Sodium 125 mmol/L (136-145); Total Bilirubin 1.1 mg/dL (0.15-1.2); Total Protein 8.3 g/dL (6.6-8.7)
[2023-05-30 08:29] LABS: Influenza A by IFA positive (Negative); Influenza B by IFA negative (Negative)
[2023-05-30] MEDS: ipratropium-albuterol 3 mL Neb INHALATION ×3 (08:52→20:51)
--- NOTE | 2023-05-30 09:14 | PC.NURSE ---
Medication Delay: antibiotics delayed d/t blood cultures not being drawn @3259
[2023-05-30] MEDS: cefTRIAXone 1,000 MG in sodium chloride 0.9% (plus) 50 ML 100 MG IV (09:42)
[2023-05-30] MEDS: azithromycin 500 MG in sodium chloride 0.9% 250 ML 250 MG IV (09:45)
--- NOTE | 2023-05-30 09:45 | ECG_ITS ---
[facility] Test Date: 2023-05-30 Pat Name: Geremias Delatorre Department: Room: Gender: Male Manager Apple: : 1960 Requested By: Dylan Castaneda Order Number: [id number] Adelaida MD: Chau Paulino M.D. Measurements Intervals [place] Rate: 89 P: 67 [place]: 158 QRS: 88 QRSD: 83 T: 81 QT: 346 QTc: 421 Interpretive Statements SINUS RHYTHM WITH OCCASIONAL SUPRAVENTRICULAR PREMATURE COMPLEXES Compared to ECG 05/30/2023 07:47:29 Sinus tachycardia no longer present Electronically Signed On 05-30-2023 10:22:46 INSIDE CHANNEL ACCOUNT MANAGER by Chau Paulino M.D. [id number]
--- NOTE | 2023-05-30 09:49 | PM.HP ---
Providers/Chief Complaint Admitting Physician: Antwon Monroy MD, hospitalist Chief Complaint: flu like symptoms, chest pain History of Present Illness Geremias Delatorre is a 62 year old male presented to the emergency department with 1 day history of cough, body aches including chest with coughing, chills, congestion. He denies any ill contacts. He was worried he had the flu. He reports he has been wheezing. Some vomiting, nausea, and loose stool. Reports past history of COPD. Does not typically use any oxygen. In the emergency department he was requiring 3 L. In the emergency department he received a shot of Rocephin, Tamiflu was ordered, dexamethasone was given, a breathing treatment was given, and a fluid bolus was given. Zithromax was also initiated. Review of Systems General: Reports: 10 or more systems reviewed and unremarkable except in HPI and below Card: Reports: chest pain (With coughing and with palpation) Resp: Reports: productive cough GI: Reports: nausea and vomiting; Denies: abdominal pain Medications/Allergies Home Medications Medication Instructions Recorded Confirmed Last Taken Type acetaminophen 500 mg tablet 1,000 mg PO Q6H PRN Pain 01/20/23 05/30/23 Unknown History albuterol sulfate 90 mcg/actuation 2 inh inhalation Q4H PRN shortness 02/20/23 Unknown Rx aerosol inhaler of breath or wheezing #18 grams diclofenac sodium 75 mg 75 mg PO Q12H PRN pain #20 tabs 02/20/23 Unknown Rx tablet,delayed release Allergies Allergy/AdvReac Type Severity Reaction Status Date / Time iodine Allergy ALGY-Anaphy Verified 05/30/23 07:50 laxis shellfish derived Allergy ALGY-Anaphy Verified 05/30/23 07:50 laxis PFSH Acute PFSH: Medical History (Updated 05/30/23 @ 10:02 by Antwon Monroy MD) Irritable bowel syndrome Peripheral vascular disease CVA (cerebral vascular accident) Tobacco dependency Amphetamine use COPD (chronic obstructive pulmonary disease) Osteoarthritis Surgical History History of arthroplasty of left shoulder Family History (Updated 05/30/23 @ 09:52 by Antwon Monroy MD) Other Cancer Stroke Social History (Updated 05/30/23 @ 09:53 by Antwon Monroy MD) Smoking and tobacco/nicotine status: current every day tobacco/nicotine user Alcohol intake: never Substance/Drug Use: current Substance/Drug use type: Marijuana and Methamphetamine Other PFSH information: Supplemental [facility] Information: History of right femoral-popliteal bypass Vitals/I&O/Wt Last Vital Signs Temp 98.6 F 05/30/23 07:42 Pulse 91 05/30/23 08:57 Resp 16 05/30/23 08:53 BP 115/88 05/30/23 08:38 Pulse Ox 94 05/30/23 08:53 O2 Del Method Nasal Cannula 05/30/23 08:53 O2 Flow Rate 3 05/30/23 08:53 Weight last 48 hrs Weight 73.936 kg Physical Exam Narrative: General exam demonstrates a white male, currently on 3 L of oxygen, in no distress HEENT: Atraumatic normocephalic. Oropharynx clear Neck is supple no lymphadenopathy thyromegaly Cardiovascular regular rate and rhythm, no murmur Lungs few faint expiratory wheezes. Diminished breath sounds are noted bilaterally Abdomen is soft nontender with positive bowel sounds. No obvious organomegaly exams deferred Extremities no sinus clubbing edema, cap refill brisk Skin no rash Neuro no obvious focal deficits. Data 05/30/23 07:53 05/30/23 07:53 Other Labs: I have ordered a cortisol, TSH, BNP on blood in lab LFTs demonstrated AST 117, ALT of 70 Troponin baseline is 51 Albumin and calcium are normal Influenza A is positive Urinalysis is ordered Coronavirus PCR is pending Chest x-ray by my read no infiltrate, hardware left shoulder, atherosclerosis EKG by my read sinus tachycardia with a rate of 105, borderline right axis deviation, biphasic P wave in V1 possibly consistent with left atrial enlargement. A&P Assessment and plan (1) Acute respiratory failure with hypoxemia: Patient presents with acute respiratory failure with hypoxemia requiring 3 L of oxygen Wean oxygen as tolerated This is likely secondary to COPD exacerbation, influenza Consider ABG should patient show any worsening (2) COPD with acute exacerbation: Continue prednisone 40 mg a day. He received dexamethasone in the emergency department IM DuoNeb every 6 hours scheduled Budesonide twice daily Encouraged abstaining from tobacco (3) Influenza A: Patient with positive influenza A Tylenol as needed Tamiflu twice daily for 5 days (4) Hyponatremia: Patient has hyponatremia. He has had some hyponatremia in the past. He appears hypovolemic currently, but does have a history of drug use and elevated BNP in the past. Check TSH and cortisol Check BMP He has received a fluid bolus in the ER Continue normal saline at 100 cc an hour and check BMP approximately 4 PM. CBC, CMP, magnesium in the morning (5) Transaminitis: Patient with significant transaminitis. Check hepatitis panel Recheck LFTs in the morning (6) Elevated troponin: I suspect this is a type II elevation Serial troponins (7) Methamphetamine use: Encourage him to discontinue methamphetamine use as well as tobacco use Monitor for withdrawal Plan Past history of CVA. Past history of vascular disease with peripheral vascular disease. Initiate statin, aspirin Other medical problems outlined in past medical history Full code Lovenox for DVT prophylaxis, Protonix for GI prophylaxis Attestations Medical Necessity Statement*: Will require less than 2 midnight stay for evaluation and treatment of influenza A, with hyponatremia. It is possible with his acute illness that he will improve to a degree he could be discharged tomorrow. Diagnoses Acute respiratory failure with hypoxemia J96.01 COPD with acute exacerbation J44.1 Influenza A J10.1 Hyponatremia E87.1 Transaminitis R74.01 Elevated troponin R79.89 Methamphetamine use F15.10 Time Spent (min) 64
[2023-05-30 10:09] LABS: Adenovirus Not Detected (NOT DETECT); Chlamydia Pneumoniae Not Detected (NOT DETECT); Coronavirus 229E,HKU1,NL63,OC4 Not Detected (NOT DETECT); Human Metapneumovirus Not Detected (NOT DETECT); Human Rhinovirus/Enterovirus Not Detected (NOT DETECT); Influenza A Detected (NOT DETECT); Influenza A H1 Not Detected (NOT DETECT); Influenza A H1-2009 Not Detected (NOT DETECT); Influenza A H3 Detected (NOT DETECT); Influenza B Not Detected (NOT DETECT); Mycoplasma Pneumoniae Not Detected (NOT DETECT); Parainfluenza Virus Type 1 Not Detected (NOT DETECT); Parainfluenza Virus Type 2 Not Detected (NOT DETECT); Parainfluenza Virus Type 3 Not Detected (NOT DETECT); Parainfluenza Virus Type 4 Not Detected (NOT DETECT); Respiratory Syncytial Virus A Not Detected (NOT DETECT); Respiratory Syncytial Virus B Not Detected (NOT DETECT); SARS-COV-2 Not Detected (NOT DETECT)
[2023-05-30 10:13] LABS: Influenza A Detected (NOT DETECT); Influenza A H1 Not Detected (NOT DETECT); Influenza A H1-2009 Not Detected (NOT DETECT); Influenza A H3 Detected (NOT DETECT); Influenza B Not Detected (NOT DETECT); Results from Genmark
[2023-05-30 10:21] LABS: Cortisol Random 36.42 ug/dL (2.47-19.5); NT Pro B Type Natriuretic Pept 1236 pg/mL (0-125); Thyroid Stimulating Hormone 0.31 uIU/mL (0.27-4.20)
[2023-05-30 10:28] LABS: Hepatitis A Antibody IgM Non-Reactive (Nonreactive); Hepatitis B Core IgM Non-Reactive (Nonreactive); Hepatitis B Surface Antigen Non-Reactive (Nonreactive); Hepatitis C Virus Antibody Reactive (Nonreactive)
[2023-05-30 10:30] LABS: Troponin 5 2HR 48.29 ng/L (0-15)
[2023-05-30 10:32] LABS: Add Urine Microscopic? NO; Charge for UA Resulting for Rev
[2023-05-30 10:33] LABS: Lactic Sepsis W/Reflex 2.2 mmol/L (0.5-2.2)
[2023-05-30 10:35] LABS: Troponin 5 2HR Delta -2.71 ABS# (0-10)
[2023-05-30 10:39] LABS: Bilirubin Urine Neg (Negative); Blood Urine Neg (Negative); Glucose Urine UA Norm (Normal); Ketones Urine Negative (Negative); Leukocyte Esterase Urine Negative (Negative); Nitrate Urine Negative (Negative); Protein Urine Neg (Negative); Specific Gravity, Urine 1.015 (1.005-1.030); Urine Appearance Clear (CLEAR); Urine Color Yellow (Yellow); Urobilinogen Urine 1 mg/dL (Negative); pH Urine 6 (5-7)
--- NOTE | 2023-05-30 11:36 | USCV_ITS ---
Geremias Delatorre Age: 62 Gender: M : 1960 Exam Date: 05/30/2023 18:15 Ordering Phys: Antwon Monroy MD Technologist: Jose R Tiwari [place]am [place] [facility] [place]ication: elevated bnp BP: 136 / 77 HR: Rhythm: Sinus Technical Quality: Adequate MEASUREMENTS (Male / Female) Normal Values DOPPLER AV Peak Velocity 104.0 cm/s MV Area PHT 3.5 cm squared Mitral E to A Ratio 0.7 PV Peak Velocity 44.7 cm/s FINDINGS Left Ventricle Normal left ventricular size, systolic function and wall thickness, with no regional wall motion abnormalities. Grade I/IV diastolic dysfunction (abnormal relaxation filling pattern), normal to mildly elevated filling pressures. Left ventricular ejection fraction is estimated at 65 %. Right Ventricle Normal right ventricular size and systolic function. Normal right ventricular systolic pressure. Right Atrium The right atrium is normal in size. Left Atrium The left atrium is normal in size. Mitral Valve Structurally normal mitral valve. Trace mitral valve regurgitation. Aortic Valve Structurally normal aortic valve without significant sclerosis or stenosis. There is no aortic regurgitation. Tricuspid Valve Structurally normal tricuspid valve without significant stenosis or regurgitation. Pulmonary artery systolic pressure is normal. Pulmonic Valve Pulmonic valve not well visualized. Pericardium Normal pericardium without effusion. Aorta Normal ascending aorta dimension. IVC The inferior vena cava appears normal. CONCLUSIONS Normal left ventricular size, systolic function and wall thickness, with no regional wall motion abnormalities. Grade I/IV diastolic dysfunction (abnormal relaxation filling pattern), normal to mildly elevated filling pressures. Left ventricular ejection fraction is estimated at 65 %. Structurally normal mitral valve. Trace mitral valve regurgitation. Previous study 01/27/2018. There has been no change. Dr. Amarjit Issa MD (Electronically Signed) Final Date: 31 May 2023 07:47 S
[2023-05-30 11:54] LABS: Reflex Lactate Order REFLEX LACTIC ORDERD
[2023-05-30] MEDS: sodium chloride 0.9% 1,000 ML 50 ML IV (12:41)
[2023-05-30] MEDS: enoxaparin 40 mg/0.4 mL Syringe SUBCUT (12:44)
[2023-05-30] MEDS: aspirin 81 mg EC Tablet PO (12:44)
[2023-05-30] MEDS: atorvastatin 40 mg Tablet PO (12:44)
--- NOTE | 2023-05-30 13:22 | ECG_ITS ---
[facility] Test Date: 2023-05-30 Pat Name: Geremias Delatorre Department: Room: 270 Gender: Male Preparer Making Department: : 1960 Requested By: Dylan Castaneda Order Number: [id number] Adelaida MD: Chau Paulino M.D. Measurements Intervals [place] Rate: 77 P: 74 [place]: 157 QRS: 88 QRSD: 88 T: 81 QT: 384 QTc: 436 Interpretive Statements SINUS RHYTHM Compared to ECG 05/30/2023 10:06:15 No significant changes Electronically Signed On 05-30-2023 14:01:19 ENGINEERING COORDINATOR by Chau Paulino M.D. [id number]
[2023-05-30 13:49] LABS: Lactic Acid level (Lactate) 2.3 mmol/L (0.5-2.2)
[2023-05-30 13:51] LABS: Troponin 5 6HR 41.02 ng/L (0-15)
[2023-05-30] MEDS: oseltamivir phosphate 75 mg Capsule PO (17:15)
[2023-05-30 18:32] LABS: Blood Urea Nitrogen 23 mg/dL (8-23); Calcium 8.1 mg/dL (8.5-10.5); Carbon Dioxide 22 mmol/L (22-29); Chloride 97 mmol/L (98-107); Glucose 204 mg/dL (65-115); Osmolality Calculated 278 mOsm/kg (285-295); Sodium 129 mmol/L (136-145)
[2023-05-30 18:38] LABS: Anion Gap 13.9 (5-19); Potassium 3.9 mmol/L (3.5-5.1)
[2023-05-30] MEDS: budesonide 0.5 mg/2 mL Neb INHALATION (20:51)
[2023-05-31] VITALS (8 sets, daily range): BP systolic 85–140; BP diastolic 59–92; PULSE 68–86; RESP 17–19; TEMP 36.3–36.6; O2SAT 91–96
[2023-05-31] MEDS: acetaminophen 325 mg Tablet 650 MG PO (02:40)
[2023-05-31 03:03] LABS: Basophils % 0.1 %; Hematocrit 45.2 % (37-53); Lymphocytes # 1.2 10^3/uL (0.8-4.8); Lymphocytes % 7.1 %; Mean Corpuscular HGB Conc 33.8 g/dL (30-55); Mean Corpuscular Volume 94.6 fl (82-101); Mean Platelet Volume 10.8 fL (7.4-10.4); Monocytes # 1.1 10^3/uL (0.2-0.9); Monocytes % 6.8 %; Neutrophils # 14.07 10^3/uL (1.8-7.7); Neutrophils % 85.6 %; Nucleated Red Blood Cells % 0 %; Platelet Count 174 10^3/cmm (157-399); Red Blood Count 4.78 10^6/uL (3.85-5.65); Red Cell Distribution Width 14.6 % (12.1-15.1); White Blood Count 16.42 10^3/uL (3.29-11.43)
[2023-05-31] MEDS: ipratropium-albuterol 3 mL Neb INHALATION ×2 (03:18→08:21)
[2023-05-31 03:25] LABS: Alanine Aminotransferase 52 U/L (0-41); Alkaline Phosphatase 81 U/L (40-130); Anion Gap 14.4 (5-19); Aspartate Amino Transferase 70 U/L (0-40); Blood Urea Nitrogen 23 mg/dL (8-23); Calcium 8.1 mg/dL (8.5-10.5); Carbon Dioxide 21 mmol/L (22-29); Chloride 99 mmol/L (98-107); Globulin 4.3 g/dL (1.3-4.6); Glucose 168 mg/dL (65-115); Osmolality Calculated 280 mOsm/kg (285-295); Potassium 3.4 mmol/L (3.5-5.1); Sodium 131 mmol/L (136-145); Total Bilirubin 0.5 mg/dL (0.15-1.2); Total Protein 7.3 g/dL (6.6-8.7)
[2023-05-31] MEDS: budesonide 0.5 mg/2 mL Neb INHALATION (08:21)
--- NOTE | 2023-05-31 09:28 | PM.DCS ---
Discharge Providers Date of Admission: 05/30/23 11:19 Date of Discharge: May 31, 2023 Attending Provider at Admission: Antwon Monroy MD Attending Provider at Discharge: Ida Salcedo MD Diagnoses at Discharge Discharge Diagnosis (1) Acute respiratory failure with hypoxemia: Status: Acute (2) COPD with acute exacerbation: Status: Acute (3) Influenza A: Status: Acute (4) Hyponatremia: Status: Acute (5) Transaminitis: Status: Acute (6) Elevated troponin: Status: Acute (7) Methamphetamine use: Status: Acute Reason for Visit Reason for Visit: flu like symptoms, chest pain Hospital Course Hospital Course 62-year male who was admitted for management evaluation of viral pneumonia he was requiring 2 to 3 L of oxygen during my evaluation he is on room air saturating well hemodynamically stable, patient is wanting to go home, he has been afebrile home oxygen evaluation unremarkable, I will discharge him home with antibiotics, Tamiflu he is very anxious wants to leave the hospital, has influenza A, echo shows preserved ejection fraction clinically he looks dehydrated no sign of heart failure, troponin trending down. His leukocytosis is likely steroid-induced. Patient does not want to stay 1 more day in the hospital it is in the best interest of patient that I prescribed him antibiotics and Tamiflu at the time of discharge. He has not qualified for oxygen at the time of discharge. He seems to have chronic abnormal transaminases, please note we have requested hepatitis panel which is pending I will ask him to follow-up with his PCP for this Physical Exam Narrative: Awake and alert Currently on room air Pleasant cooperative Dehydrated GCS 15 Nonfocal neuroexam Discharge Data Studies Completed and Pending Completed Studies During Hospitalization Category Date Time Status XR chest 1V portable [id number] Stat Exams 05/30/23 08:01 Completed CV. echo complete* [id number] Routine Ultrasound 05/30/23 11:36 Completed Pending at discharge Category Date Time Status Blood Culture Stat Lab 05/30/23 09:46 Results Hepatitis C RNA Viral Load Qnt Routine Lab 05/30/23 10:35 Received Sputum Culture and Gram Stain Stat Lab 05/30/23 12:49 Received Laboratory Results WBC 16.42 10^3/uL (3.29-11.43) H 05/31/23 02:50 RBC 4.78 10^6/uL (3.85-5.65) 05/31/23 02:50 Hgb 15.30 g/dL (11.27-16.99) 05/31/23 02:50 Hct 45.2 % (37-53) 05/31/23 02:50 MCV 94.6 fl (82-101) 05/31/23 02:50 MCH 32.0 pg (27-33) 05/31/23 02:50 MCHC 33.8 g/dL (30-55) 05/31/23 02:50 RDW 14.6 % (12.1-15.1) 05/31/23 02:50 Plt Count 174 10^3/cmm (157-399) 05/31/23 02:50 MPV 10.8 fL (7.4-10.4) H 05/31/23 02:50 Neut % (Auto) 85.6 % 05/31/23 02:50 Lymph % (Auto) 7.1 % 05/31/23 02:50 [place] % (Auto) 6.8 % 05/31/23 02:50 Eos % (Auto) 0.0 % 05/31/23 02:50 Baso % (Auto) 0.1 % 05/31/23 02:50 Neut # (Auto) 14.07 10^3/uL (1.8-7.7) H 05/31/23 02:50 Lymph # (Auto) 1.2 10^3/uL (0.8-4.8) 05/31/23 02:50 [place] # (Auto) 1.1 10^3/uL (0.2-0.9) H 05/31/23 02:50 Eos # (Auto) 0.0 10^3/uL (0.0-0.8) 05/31/23 02:50 Baso # (Auto) 0.0 10^3/uL (0.0-0.1) 05/31/23 02:50 Nucleated RBC % (auto) 0 % 05/31/23 02:50 Nucleated RBCs # 0.0 /100WBC 05/31/23 02:50 Sodium 131 mmol/L (136-145) L 05/31/23 02:50 Potassium 3.4 mmol/L (3.5-5.1) L 05/31/23 02:50 Chloride 99 mmol/L (98-107) 05/31/23 02:50 Carbon Dioxide 21 mmol/L (22-29) L 05/31/23 02:50 Anion Gap 14.4 (5-19) 05/31/23 02:50 BUN 23 mg/dL (8-23) 05/31/23 02:50 Creatinine 0.8 mg/dL (0.7-1.2) 05/31/23 02:50 GFR Calculation 98.0 mL/min (90-130) 05/31/23 02:50 Glucose 168 mg/dL (65-115) H 05/31/23 02:50 Calculated Osmolality 280 mOsm/kg (285-295) L 05/31/23 02:50 Lactic Acid 2.2 mmol/L (0.5-2.2) 05/30/23 09:50 Lactic Acid (Sepsis) 2.3 mmol/L (0.5-2.2) H 05/30/23 13:14 Calcium 8.1 mg/dL (8.5-10.5) L 05/31/23 02:50 Magnesium 2.0 mg/dL (1.7-2.3) 05/31/23 02:50 Total Bilirubin 0.5 mg/dL (0.15-1.2) 05/31/23 02:50 AST 70 U/L (0-40) H 05/31/23 02:50 ALT 52 U/L (0-41) H 05/31/23 02:50 Alkaline Phosphatase 81 U/L (40-130) 05/31/23 02:50 Troponin T Baseline 51 ng/L (0-15) H 05/30/23 07:53 Troponin T 120 Minute 48.29 ng/L (0-15) H 05/30/23 09:50 Delta Troponin T -2.71 ABS# (0-10) L 05/30/23 09:50 Troponin T Hi Sens 6Hr 41.02 ng/L (0-15) H 05/30/23 13:14 Troponin T Hi Sens 6Hr Delta -9.98 ng/L (0-12) L 05/30/23 13:14 NT-Pro-B Natriuret Pep 1236 pg/mL (0-125) H 05/30/23 07:53 Total Protein 7.3 g/dL (6.6-8.7) 05/31/23 02:50 Albumin 3.0 g/dL (3.5-5.2) L 05/31/23 02:50 Globulin 4.3 g/dL (1.3-4.6) 05/31/23 02:50 TSH 0.31 uIU/mL (0.27-4.20) 05/30/23 07:53 Random Cortisol 36.42 ug/dL (2.47-19.5) H 05/30/23 07:53 Urine Color Yellow (Yellow) 05/30/23 10:23 Urine Appearance Clear (CLEAR) 05/30/23 10:23 Urine pH 6 (5-7) 05/30/23 10:23 Ur Specific [place] 1.015 (1.005-1.030) 05/30/23 10:23 Urine Protein Neg (Negative) 05/30/23 10:23 Urine Glucose (UA) Norm (Normal) 05/30/23 10:23 Urine Ketones Negative (Negative) 05/30/23 10:23 Urine Blood Neg (Negative) 05/30/23 10:23 Urine Nitrate Negative (Negative) 05/30/23 10:23 Urine Bilirubin Neg (Negative) 05/30/23 10:23 Urine Urobilinogen 1 mg/dL (Negative) H 05/30/23 10:23 Ur Leukocyte Esterase Negative (Negative) 05/30/23 10:23 Coronavirus 229E (PCR) Not detected (NOT DETECT) 05/30/23 08:10 Hepatitis A IgM Ab Non-reactive (Nonreactive) 05/30/23 07:53 Hep Bs Antigen Non-reactive (Nonreactive) 05/30/23 07:53 Hep B Core IgM Ab Non-reactive (Nonreactive) 05/30/23 07:53 Hepatitis C Antibody Reactive (Nonreactive) H 05/30/23 07:53 Influenza A (H1) PCR Not detected (NOT DETECT) 05/30/23 10:13 Influ A (H1/09) PCR Not detected (NOT DETECT) 05/30/23 10:13 Influenza A (H3) PCR Detected (NOT DETECT) A 05/30/23 10:13 Influenza Type A Ag positive (Negative) H 05/30/23 08:10 Influenza Type A (PCR) Detected (NOT DETECT) A 05/30/23 10:13 Influenza Type B Ag negative (Negative) 05/30/23 08:10 Influenza Type B (PCR) Not detected (NOT DETECT) 05/30/23 10:13 SARS-CoV-2 (PCR) Not detected (NOT DETECT) 05/30/23 08:10 Vitals Last Vital Signs Temp 97.4 F L 05/31/23 08:26 Pulse 73 05/31/23 08:26 Resp 18 05/31/23 08:26 BP 140/92 05/31/23 08:26 Pulse Ox 96 05/31/23 08:32 O2 Del Method Room Air 05/31/23 08:26 O2 Flow Rate 2 05/30/23 22:56 Discharge Plan Discharge Patient Disposition: Home Condition: Stable Prescriptions: New oseltamivir 75 mg Capsule 75 mg PO BID Qty: 6 0RF levofloxacin 750 mg tablet 750 mg PO DAILY 3 Days Qty: 3 0RF Continued acetaminophen [Tylenol Ex Str Rapid Release] 500 mg Tablet 1,000 mg PO Q6H PRN (Reason: Pain) Discharge Orders: Discharge Order (Routine); Ordered 05/31/23 Ordered By: Ida Salcedo Referrals: Pramod Cross MD [Physician] - 7-10 days (We have notified your physician's clinic of the need for a follow-up appointment to be scheduled. If you have not heard from them within the next 2 business days, please call them directly. ) Patient Instructions: Opioid Safety Discharge Attestations Time Spent in Discharge Care*: greater than 30 min Quality Metrics Clinical Quality Measures [ No reported AMI, CVA or VTE this stay] Coding Level of Care Code Acute Code for [facility] Fwd Diagnoses Acute respiratory failure with hypoxemia J96.01 COPD with acute exacerbation J44.1 Influenza A J10.1 Hyponatremia E87.1 Transaminitis R74.01 Elevated troponin R79.89 Methamphetamine use F15.10
[2023-05-31] MEDS: predniSONE 20 mg Tablet 40 MG PO (09:37)
[2023-05-31] MEDS: pantoprazole DR 40 mg Tablet PO (09:37)
[2023-05-31] MEDS: aspirin 81 mg EC Tablet PO (09:37)
[2023-05-31] MEDS: oseltamivir phosphate 75 mg Capsule PO (09:37)
[2023-06-02 13:54] LABS: HEP C RNA Viral Load Quant 26900 IU/mL (NOT DETECTED); HEP C RNA Viral Load Quant 4.43 Log IU/mL (NOT DETECTED)
== END 2023-05-31 11:10 | disposition home or self-care (01) ==
LOC: ER 10:44 → MEDSURG 10:54
PROVIDERS: Admitting Provider Internal Medicine; Emergency Provider Family Medicine; Visit Provider Internal Medicine
DX: J10.1 Influenza due to other identified influenza virus with other respiratory manifestations (principal); J96.01 Acute respiratory failure with hypoxia; J44.1 Chronic obstructive pulmonary disease with (acute) exacerbation; E87.1 Hypo-osmolality and hyponatremia; R74.01 Elevation of levels of liver transaminase levels; R79.89 Other specified abnormal findings of blood chemistry; F15.10 Other stimulant abuse, uncomplicated; E86.0 Dehydration; Z86.73 Personal history of transient ischemic attack (TIA), and cerebral infarction without residual deficits
CPT/HCPCS: 36415; 71045; 80048; 80053; 80074; 81003; 82533; 83605; 83735; 83880; 84443; 84484; 85025; 87040; 87070; 87077; 87186; 87205; 87522; 87631; 87635; 87804; 93005; 93306; 94640; 94760; 96365; 96367; 96372; 99285; G0378; J0456; J0696; J1100; J1650; J7030; J7050; J7512; J7626

== ENCOUNTER 2023-07-07 12:19 | Observation (INO) | payer BC, MEDICAID, SELFPAY ==
[2023-07-07 12:24] VITALS: BP 127/87; PULSE 92; TEMP 37; O2SAT 92
--- NOTE | 2023-07-07 12:35 | CT_ITS ---
WS: [id number] Exam: CT head wo con* [id number] Date/Time of Exam: 07/07/2023 12:42 PM Reason For Exam: ams DLP: 1089.[address] scans at [facility] use at least one of these dose optimization techniques: automated e xposure control; mA and/or kV adjustment per patient size (includes targeted exams where dose is matc hed to clinical indication); or iterative reconstruction. Comparison 02/20/2023. No sign of space-occupying mass or acute intracranial bleed. The ventricles and basal cisterns are no rmal in appearance. No extra-axial fluid collections are seen. The paranasal sinuses are clear. The m astoids are unremarkable in appearance. The skull is intact. IMPRESSION: 1. No acute finding.
--- NOTE | 2023-07-07 12:45 | PC.PHAR ---
pt states takes no prescription medications pt states he no longer has the ventolin inhaler ext shows last filled 02/21/23 16d/s-pt had rxs written for lisinopril 10mg daily, levaquin 750mg daily for 3 days and tamiflu as directed all written 05/31/23 pt never picked up -
--- NOTE | 2023-07-07 12:46 | ECG_ITS ---
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 Measurements Intervals [place] Rate: 75 P: 62 [place]: 155 QRS: 84 QRSD: 85 T: 80 QT: 378 QTc: 425 Interpretive Statements SINUS RHYTHM POSSIBLE LEFT ATRIAL ENLARGEMENT [-0.1mV P-WAVE IN V1/V2] Compared to ECG 05/30/2023 13:22:04 No significant changes Electronically Signed On 07-07-2023 21:51:01 CDT by Chau Paulino M.D. [id number]
--- NOTE | 2023-07-07 12:49 | ED.C_ITS ---
HPI - Psych 2 General: Chief Complaint: Psychiatric Symptoms Stated Complaint: 96 hold Time Seen by Provider: 07/07/23 12:23 Source: patient and police Limitations: no limitations History of Present Illness: 63-year-old male is brought here by cristy llanes on a 96-hour hold. Per patient he states that he is confused this morning and did not know how to get home in place and found him and brought him over to [facility] was confused there and they put him under 96-hour hold and brought him here. Patient states he did take a nap and states he feels much improved he knows where he lives he knows his name knows the year. He denies any SI or HI. Associated symptoms: Deny depression Review of Systems 2 Const: Denies: fever(s), chills, body aches or change in appetite Eyes: Denies: blurry vision or eye discomfort ENMT: Denies: throat pain or dental pain Card: Denies: chest pain Resp: Denies: dyspnea GI: Denies: abdominal pain, nausea, vomiting or diarrhea Musc: Denies: neck pain or back pain Skin/Breast: Denies: rash Neuro: Reports: confusion; Denies: headache(s) Psych: Denies: depression PFSH ED 2 PFSH: Medical History Methamphetamine use Elevated troponin Transaminitis Hyponatremia Influenza A COPD with acute exacerbation Acute respiratory failure with hypoxemia Irritable bowel syndrome Peripheral vascular disease CVA (cerebral vascular accident) Tobacco dependency Amphetamine use COPD (chronic obstructive pulmonary disease) Osteoarthritis Surgical History History of arthroplasty of left shoulder Family History Other Cancer Stroke Social History Smoking and tobacco/nicotine status: current every day tobacco/nicotine user Alcohol intake: never Substance/Drug Use: current Course 2 Vital Signs: Vital signs: Vital Signs Temperature 98.6 F 07/07/23 12:24 Pulse Rate 92 07/07/23 12:24 Blood Pressure 127/87 07/07/23 12:24 Pulse Oximetry 92 07/07/23 12:24 Oxygen Delivery Me thod Room Air 07/07/23 12:24 MDM - Psych Medical Decision Making Patient presents here with. Confusion this morning patient is now awake and alert answering my questions appropriately he does have an elevated ammonia could be having some hepatic encephalopathy. He was placed on a 96-hour hold but has not psychotic suicidal or homicidal I am having psychiatry evaluate him as well I spoke to the hospitalist will admit for observation at this time. Medical Records I reviewed the patient's medical records. Lab Data I reviewed the patient's lab results. 07/07/23 13:26 07/07/23 13:26 Radiology Impressions Chest X-Ray 07/07/23 12:53 IMPRESSION: No acute findings. Laboratory Results WBC 10.26 10^3/uL (3.29-11.43) 07/07/23 13:26 RBC 4.93 10^6/uL (3.85-5.65) 07/07/23 13:26 Hgb 15.90 g/dL (11.27-16.99) 07/07/23 13:26 Hct 47.5 % (37-53) 07/07/23 13:26 MCV 96.3 fl (82-101) 07/07/23 13:26 MCH 32.3 pg (27-33) 07/07/23 13:26 MCHC 33.5 g/dL (30-55) 07/07/23 13:26 RDW 15.2 % (12.1-15.1) H 07/07/23 13:26 Plt Count 160 10^3/cmm (157-399) 07/07/23 13:26 MPV 11.1 fL (7.4-10.4) H 07/07/23 13:26 Neut % (Auto) 55.1 % 07/07/23 13:26 Lymph % (Auto) 24.1 % 07/07/23 13:26 [place] % (Auto) 9.6 % 07/07/23 13:26 Eos % (Auto) 9.8 % 07/07/23 13:26 Baso % (Auto) 1.1 % 07/07/23 13:26 Neut # (Auto) 5.66 10^3/uL (1.8-7.7) 07/07/23 13:26 Lymph # (Auto) 2.5 10^3/uL (0.8-4.8) 07/07/23 13:26 [place] # (Auto) 1.0 10^3/uL (0.2-0.9) H 07/07/23 13:26 Eos # (Auto) 1.0 10^3/uL (0.0-0.8) H 07/07/23 13:26 Baso # (Auto) 0.1 10^3/uL (0.0-0.1) 07/07/23 13:26 Nucleated RBC % (auto) 0 % 07/07/23 13:26 Nucleated RBCs # 0.0 /100WBC 07/07/23 13:26 Sodium 136 mmol/L (136-145) 07/07/23 13:26 Potassium 3.8 mmol/L (3.5-5.1) 07/07/23 13:26 Chloride 103 mmol/L (98-107) 07/07/23 13:26 Carbon Dioxide 24 mmol/L (22-29) 07/07/23 13:26 Anion Gap 12.8 (5-19) 07/07/23 13:26 BUN 16 mg/dL (8-23) 07/07/23 13:26 Creatinine 0.8 mg/dL (0.7-1.2) 07/07/23 13:26 GFR Calculation 98.0 mL/min (90-130) 07/07/23 13:26 Glucose 153 mg/dL (65-115) H 07/07/23 13:26 Calculated Osmolality 286 mOsm/kg (285-295) 07/07/23 13:26 Calcium 9.0 mg/dL (8.5-10.5) 07/07/23 13:26 Total Bilirubin 0.6 mg/dL (0.15-1.2) 07/07/23 13:26 AST 94 U/L (0-40) H 07/07/23 13:26 ALT 63 U/L (0-41) H 07/07/23 13:26 Alkaline Phosphatase 138 U/L (40-130) H 07/07/23 13:26 Ammonia 79 umol/L (16-60) H 07/07/23 13:26 Total Protein 7.7 g/dL (6.6-8.7) 07/07/23 13:26 Albumin 3.5 g/dL (3.5-5.2) 07/07/23 13:26 Globulin 4.2 g/dL (1.3-4.6) 07/07/23 13:26 Urine Color Yellow (Yellow) 07/07/23 14:34 Urine Appearance Hazy (CLEAR) A 07/07/23 14:34 Urine pH 6 (5-7) 07/07/23 14:34 Ur Specific [place] 1.025 (1.005-1.030) 07/07/23 14:34 Urine Protein Neg (Negative) 07/07/23 14:34 Urine Glucose (UA) Norm (Normal) 07/07/23 14:34 Urine Ketones 1+ (Negative) H 07/07/23 14:34 Urine Blood Neg (Negative) 07/07/23 14:34 Urine Nitrate Negative (Negative) 07/07/23 14:34 Urine Bilirubin Neg (Negative) 07/07/23 14:34 Urine Urobilinogen Norm mg/dL (Negative) 07/07/23 14:34 Ur Leukocyte Esterase 1+ (Negative) H 07/07/23 14:34 Urine RBC 0-4 /hpf (0-2) H 07/07/23 14:34 Urine WBC 5-10 /hpf (0-5) H 07/07/23 14:34 Ur Squamous Epith Cells 15-25 /hpf (0-5) H 07/07/23 14:34 Amorphous Sediment Trace /hpf 07/07/23 14:34 Urine Bacteria Trace /hpf (NONE) 07/07/23 14:34 Urine Mucus 1+ /hpf 07/07/23 14:34 Salicylates < 0.3 mg/dL (3-10) L 07/07/23 13:26 Urine Opiates Screen Negative ng/mL (Negative) 07/07/23 14:34 Acetaminophen < 5.0 ug/mL (10-30) L 07/07/23 13:26 Ur Barbiturates Screen Negative ng/mL (Negative) 07/07/23 14:34 Ur Phencyclidine Scrn Negative ng/mL (Negative) 07/07/23 14:34 Ur Amphetamines Screen Negative ng/mL (Negative) 07/07/23 14:34 U Benzodiazepines Scrn Negative ng/mL (Negative) 07/07/23 14:34 Urine Cocaine Screen Negative ng/mL (Negative) 07/07/23 14:34 U Marijuana (THC) Screen Positive ng/mL (Negative) H 07/07/23 14:34 Ethyl Alcohol < 10 mg/dL (0-10) 07/07/23 13:26 All radiology interpretation(s) finalized by discharge EKG Data EKG 1: I personally reviewed and interpreted this EKG as follows: EKG interpretation date: 07/07/23 EKG interpretation time: 12:46 Interpretation: nsr hr [address] or t wave abnormalities qrs 85 qtc 407 Discharge Plan Discharge Patient Disposition: Placed in Observation Clinical Impression: Encephalopathy, hepatic, Confusion Condition: Stable Prescriptions: No Action acetaminophen 500 mg Tablet 1,000 mg PO Q6H PRN (Reason: Pain) Coding Level of Care Code ED Liquor Grinding Mill Operator for Priyanka Nunez
--- NOTE | 2023-07-07 12:53 | XRR_ITS ---
PROCEDURE INFORMATION: Exam: XR Chest Exam date and time: 07/07/2023 1:14 PM Age: 62 years old Clinical indication: Shortness of breath; Additional info: SOB TECHNIQUE: Imaging protocol: Radiologic exam of the chest. Views: 1 view. COMPARISON: CR XR chest 1V portable [id number] 05/30/2023 8:14 AM FINDINGS: Lungs: Unremarkable. No consolidation. Pleural spaces: Unremarkable. No pleural effusion. No pneumothorax. Heart/Mediastinum: Unremarkable. No cardiomegaly. Bones/joints: Screw plate at proximal left humerus. Degenerative changes through the thoracic spine. Nonacute left rib fracture. XR/XR chest 1V portable [id number] IMPRESSION: No acute findings.
[2023-07-07 13:35] LABS: Basophils # 0.1 10^3/uL (0.0-0.1); Basophils % 1.1 %; Eosinophils % 9.8 %; Hematocrit 47.5 % (37-53); Lymphocytes # 2.5 10^3/uL (0.8-4.8); Lymphocytes % 24.1 %; Mean Corpuscular HGB Conc 33.5 g/dL (30-55); Mean Corpuscular Hemoglobin 32.3 pg (27-33); Mean Corpuscular Volume 96.3 fl (82-101); Mean Platelet Volume 11.1 fL (7.4-10.4); Monocytes % 9.6 %; Neutrophils # 5.66 10^3/uL (1.8-7.7); Neutrophils % 55.1 %; Nucleated Red Blood Cells % 0 %; Platelet Count 160 10^3/cmm (157-399); Red Blood Count 4.93 10^6/uL (3.85-5.65); Red Cell Distribution Width 15.2 % (12.1-15.1); White Blood Count 10.26 10^3/uL (3.29-11.43)
[2023-07-07 13:52] LABS: Alanine Aminotransferase 63 U/L (0-41); Albumin Level 3.5 g/dL (3.5-5.2); Alkaline Phosphatase 138 U/L (40-130); Aspartate Amino Transferase 94 U/L (0-40); Blood Urea Nitrogen 16 mg/dL (8-23); Carbon Dioxide 24 mmol/L (22-29); Chloride 103 mmol/L (98-107); Creatinine Clr Calc Pharmacy 97.4924; Globulin 4.2 g/dL (1.3-4.6); Glucose 153 mg/dL (65-115); Osmolality Calculated 286 mOsm/kg (285-295); Sodium 136 mmol/L (136-145); Total Bilirubin 0.6 mg/dL (0.15-1.2); Total Protein 7.7 g/dL (6.6-8.7)
[2023-07-07 13:53] LABS: Ammonia 79 umol/L (16-60); Salicylate < 0.3 mg/dL (3-10)
[2023-07-07 13:56] LABS: Acetaminophen < 5.0 ug/mL (10-30); Alcohol Level < 10 mg/dL (0-10)
[2023-07-07 13:59] LABS: Anion Gap 12.8 (5-19); Potassium 3.8 mmol/L (3.5-5.1)
--- NOTE | 2023-07-07 14:39 | P.HP_ITS ---
Providers/Chief Complaint 2 Chief Complaint: 96 hold History of Present Illness Geremias Delatorre is a 62 year old male Past medical history of irritable bowel syndrome, stroke, amphetamine use, COPD, peripheral vascular disease, smoker, known hepatitis C in the past presented to the hospital today after being sent from [facility] because he forgot where his home was. He was placed on a 96-hour hold by [facility] intent to the hospital since he was confused. He states that he was confused this morning and did not know how to get home and he was brought and took him to [facility] and from there he was sent to the ER. He took a nap and he says he feels a lot better. Patient is now alert oriented x 4. Denies any suicidal ideation. Denies chest pain, shortness of breath, depression, nausea, vomiting, diarrhea, constipation. ED course: 127/87, 92, 8.6, saturating 92% on room air. Alcohol level less than 10. White count normal, AST ALT 94, 63, alkaline phosphatase 138, ammonia 79, UA shows 5-10 WBC, 15-25 epithelial squamous cells. Urine drug screen positive for marijuana EKG shows sinus rhythm. Head CT negative for any acute intracranial process. Medications/Allergies Home Medications Medication Instructions Recorded Confirmed Last Taken Type acetaminophen 500 mg tablet 1,000 mg PO Q6H PRN Pain 01/20/23 07/07/23 Unknown History Allergies Allergy/AdvReac Type Severity Reaction Status Date / Time iodine Allergy ALGY-Anaphy Verified 05/30/23 07:50 laxis shellfish derived Allergy ALGY-Anaphy Verified 05/30/23 07:50 laxis PFSH Acute 2 PFSH: Medical History Methamphetamine use Elevated troponin Transaminitis Hyponatremia Influenza A COPD with acute exacerbation Acute respiratory failure with hypoxemia Irritable bowel syndrome Peripheral vascular disease CVA (cerebral vascular accident) Tobacco dependency Amphetamine use COPD (chronic obstructive pulmonary disease) Osteoarthritis Surgical History History of arthroplasty of left shoulder Family History Other Cancer Stroke Social History Smoking and tobacco/nicotine status: current every day tobacco/nicotine user Alcohol intake: never Substance/Drug Use: current Vitals/I&O/Wt Last Vital Signs Temp 98.6 F 07/07/23 12:24 Pulse 92 07/07/23 12:24 BP 127/87 07/07/23 12:24 Pulse Ox 92 07/07/23 12:24 O2 Del Method Room Air 07/07/23 12:24 Weight last 48 hrs Weight 73.936 kg Physical Exam 2 Narrative: General: Alert oriented x3, patient seen sitting up in bed appearing comfortable. HEENT: Normocephalic, atraumatic, EOMI, breathing room air Cardio: Regular rate rhythm, normal S1-S2, Respiratory: Good bilateral air entry, no wheezes no rhonchi appreciated GI: Abdomen soft, nontender, nondistended, bowel sounds + Behavior: Appropriate and cooperative Extremities: No edema bilateral lower extremities Data 07/07/23 13:26 07/07/23 13:26 A&P Assessment and plan (1) Transaminitis: (2) Altered mental status: (3) Increased ammonia level: Plan #Altered mental status/confusion earlier in the day which has self resolved without any intervention #Placed on 96-hour hold by [facility] #Elevated ammonia #History of hep C in the past #Chronic transaminitis #History of osteoarthritis #History of COPD #Smoker ? I will hold off on adding lactulose secondary to elevated ammonia since patient is asymptomatic. ? Psychiatry consulted. ? Will check hepatitis panel, hep C viral load ? Check CT abdomen pelvis with IV contrast ? With history of hep C most likely patient has underlying liver disease and that can explain elevated ammonia. ? Check vitamin B12 level ? Check TSH ? No home medications noted. ? Continue to monitor vitals in the hospital. ? Offer nicotine patch Full code DVT prophylaxis: Heparin SQ twice daily Attestations 2 Medical Necessity Statement*: Observation. Expect less than 48-hour stay. Diagnoses Transaminitis R74.01 Altered mental status R41.82 Increased ammonia level R79.89
[2023-07-07 14:52] LABS: Add Urine Microscopic? YES; Amorphous Sediment Urine TRACE /hpf; Amphetamines Screen Urine Negative (Negative); Bacteria Urine TRACE /hpf; Barbiturates Screen Urine Negative (Negative); Benzodiazepines Screen Urine Negative (Negative); Bilirubin Urine Neg (Negative); Blood Urine Neg (Negative); Cocaine Screen Urine Negative (Negative); Glucose Urine UA Norm (Normal); Ketones Urine 1+ (Negative); Leukocyte Esterase Urine 1+ (Negative); Mucus Urine 1+ /hpf; Nitrate Urine Negative (Negative); Opiate Screen Urine Negative (Negative); PCP Screen Urine Negative (Negative); Protein Urine Neg (Negative); RBC Urine 0-4 /hpf (0-2); Specific Gravity, Urine 1.025 (1.005-1.030); Squamous Epithelial Cell Urine 15-25 /hpf (0-5); THC Screen Urine Positive (Negative); Urine Appearance Hazy (CLEAR); Urine Color Yellow (Yellow); Urobilinogen Urine Norm (Negative); pH Urine 6 (5-7)
[2023-07-07 14:53] LABS: Add Urine Culture? No
--- NOTE | 2023-07-07 14:59 | CT_ITS ---
WS: [id number] Exam: CT abdomen pelvis wo alejo [id number] Date/Time of Exam: 07/07/2023 3:31 PM Reason For Exam: elevated ammonia, liver enzymes DLP: 507.[address] scans at [facility] use at least one of these dose optimization techniques: automated e xposure control; mA and/or kV adjustment per patient size (includes targeted exams where dose is matc hed to clinical indication); or iterative reconstruction. Lower lung zones are clear. The liver is somewhat lobulated in contour that might indicate hepatic ci rrhosis. No intrahepatic ductal dilatation. The stomach is distended with food and fluid. The pancrea s is unremarkable. The gallbladder is surgically absent. Adrenal glands and kidneys are unremarkable. The spleen is small. Small bowel loops are normal in caliber. Large amount of retained stool in the colon. Normal appendix visualized. No free air. No lymphadenopathy. No ascites. Mild aneurysmal dilat ation of the infrarenal abdominal aorta measuring 3.1 cm in greatest diameter. There is a graft in th e RIGHT external iliac artery. There is no mass or lymphadenopathy in the pelvis. Extensive atheroscl erotic disease of the abdominal aorta and major branches in the abdomen and pelvis. Moderate distenti on of urinary bladder. Vascular anastomosis at the RIGHT common femoral artery. Severe degenerative c hange and dextroscoliosis of the lumbar spine. IMPRESSION: 1. No mass, lymphadenopathy or ascites in the abdomen or pelvis. 2. Mild aneurysmal dilatation of the infrarenal abdominal aorta measuring 3.1 cm in greatest diameter . 3. A graft is noted in the RIGHT external iliac artery appearing to extend to the RIGHT common femora l artery. No obvious complication. 4. Constipation. Advanced degenerative change and scoliosis of the lumbar spine. 5. Findings in the liver that may indicate hepatic cirrhosis.
[2023-07-07 15:48] LABS: Thyroid Stimulating Hormone 1.28 uIU/mL (0.27-4.20); Vitamin B12 917 pg/mL (232-1245)
[2023-07-07 15:50] LABS: Hepatitis A Antibody IgM Non-Reactive (Nonreactive); Hepatitis B Core AB, Total Reactive (Nonreactive); Hepatitis B Surface AB 902.5 (11.5-1000); Hepatitis B Surface Antigen Non-Reactive (Nonreactive); Hepatitis C Virus Antibody Reactive (Nonreactive)
[2023-07-07 16:00] VITALS: BMI 24.0
--- NOTE | 2023-07-07 17:00 | PC.NURSE ---
Spoke with Senior Loss Control Specialist - Chelita about patient being on a 96 hour hold. Chelita states, That patient is not on a 96 hour hold. Patient was brought to the floor. Paperwork for resending of the 96 hour hold not with the patient. Patient placed with a one on one until paper work received on the floor.
[2023-07-07 17:27] VITALS: BP 120/78; PULSE 85; RESP 20; TEMP 36.5; O2SAT 95
[2023-07-07] MEDS: heparin 5,000 unit/mL INJ 1 mL 5000 UNIT SUBCUT (17:41)
[2023-07-07] MEDS: sodium chloride 0.9% 1,000 ML 75 ML IV (17:42)
[2023-07-07 18:15] VITALS: PULSE 96; RESP 16; O2SAT 93
[2023-07-07 18:48] LABS: Procalcitonin 0.17 ng/mL (0-0.5)
[2023-07-07 19:01] LABS: Add Urine Microscopic? NO; Charge for UA Resulting for Rev
[2023-07-07 19:09] LABS: Bilirubin Urine Neg (Negative); Blood Urine Neg (Negative); Glucose Urine UA Norm (Normal); Ketones Urine Negative (Negative); Leukocyte Esterase Urine Negative (Negative); Nitrate Urine Negative (Negative); Protein Urine Neg (Negative); Urine Appearance Clear (CLEAR); Urine Color Straw (Yellow); Urobilinogen Urine 1 mg/dL (Negative); pH Urine 7 (5-7)
[2023-07-07 19:47] VITALS: BP 125/79; PULSE 78; RESP 17; TEMP 37; O2SAT 96
[2023-07-08] VITALS: BP 111/74; PULSE 85; RESP 16; O2SAT 94
[2023-07-08 04:43] VITALS: BP 135/90; PULSE 62; RESP 18; O2SAT 97
[2023-07-08 05:17] LABS: Basophils # 0.2 10^3/uL (0.0-0.1); Basophils % 1.6 %; Eosinophils # 1.4 10^3/uL (0.0-0.8); Eosinophils % 12.2 %; Hematocrit 48.2 % (37-53); Lymphocytes # 3.3 10^3/uL (0.8-4.8); Lymphocytes % 29.8 %; Mean Corpuscular HGB Conc 33.8 g/dL (30-55); Mean Corpuscular Hemoglobin 32.3 pg (27-33); Mean Corpuscular Volume 95.4 fl (82-101); Mean Platelet Volume 10.5 fL (7.4-10.4); Monocytes # 1.1 10^3/uL (0.2-0.9); Monocytes % 9.6 %; Neutrophils # 5.19 10^3/uL (1.8-7.7); Neutrophils % 46.4 %; Nucleated Red Blood Cells % 0 %; Platelet Count 160 10^3/cmm (157-399); Red Blood Count 5.05 10^6/uL (3.85-5.65); Red Cell Distribution Width 15.4 % (12.1-15.1); White Blood Count 11.19 10^3/uL (3.29-11.43)
[2023-07-08 05:32] LABS: INR 1.01 (0.8-1.2)
[2023-07-08] MEDS: heparin 5,000 unit/mL INJ 1 mL 5000 UNIT SUBCUT (05:35)
[2023-07-08 05:46] LABS: Alanine Aminotransferase 66 U/L (0-41); Albumin Level 3.3 g/dL (3.5-5.2); Alkaline Phosphatase 136 U/L (40-130); Aspartate Amino Transferase 106 U/L (0-40); Blood Urea Nitrogen 15 mg/dL (8-23); Calcium 8.6 mg/dL (8.5-10.5); Carbon Dioxide 23 mmol/L (22-29); Chloride 104 mmol/L (98-107); Globulin 4.1 g/dL (1.3-4.6); Glucose 98 mg/dL (65-115); Osmolality Calculated 283 mOsm/kg (285-295); Phosphorus 2.7 mg/dL (2.5-4.5); Sodium 136 mmol/L (136-145); Total Bilirubin 0.7 mg/dL (0.15-1.2); Total Protein 7.4 g/dL (6.6-8.7)
[2023-07-08] MEDS: sodium chloride 0.9% 1,000 ML 75 ML IV (07:28)
[2023-07-08 08:00] VITALS: BP 131/82; PULSE 75; RESP 20; TEMP 36.2; O2SAT 94
[2023-07-08 10:00] VITALS: PULSE 90; RESP 16; O2SAT 96
--- NOTE | 2023-07-08 10:04 | PC.CHAP ---
Pastoral Care Encounter/Spiritual Assessment Type of Contact [] Declined load blocker visit [] Patient/Family/Request visit [] Outpatient visit [] Follow-up visit [] Physician referral [] Code/Alert [] Routine visit [] Staff referral [] Actively dying [x] Patient sleeping [] Family support [] [] Out of room [] Palliative care [] [] Receiving care in room [] Pre-surgical visit [] Trauma [] Long length of stay [] ICU visit [] Other: Relational/Emotional Strength [] Patient feels connected with others/family/visitors/staff [] Distress [] Loneliness/isolation [] Abandonment Spirituality of Patient [] Person of Bernadette [] Attends Religion of their Bernadette [] Believes in Prayer [] Reads Bible or Rastafari materials [] There are Spiritual issues to be addressed Underwriting Support Specialist Interventions [] Prayer [] Active listening [] Non-anxious presence [] Spiritual/emotional support [] Crisis/trauma care [] Spiritual counseling [] Bereavement support [] Provided bereavement packet [] Provided Bible/devotional materials [] Provided toy/stuffed animal, coloring book to patient or family member [] Provided Communion [] Anointing/[place] [] Salvation [] Completed spiritual assessment [] Other: Impact on Illness or Injury [] Angry [] Fearful [] Anxious [] Often cries [] Exhaustion [] Unable to work [] Unable to attend zoroastrian [] Unable to walk/stand [] Unable to read [] Unable to drive [] Unable to eat/drink [] Unable to sleep [] Unable to be with family [] Patient intubated [] Other: Summary Time spent with patient
--- NOTE | 2023-07-08 11:45 | P.DS_ITS ---
Discharge Providers Date of Admission: 07/07/23 17:27 Date of Discharge: July 08, 2023 Attending Provider at Admission: Heena Wang MD Attending Provider at Discharge: Heena Wang MD Diagnoses at Discharge Discharge Diagnosis (1) Transaminitis: Status: Acute (2) Altered mental status: Status: Acute (3) Increased ammonia level: Status: Acute Reason for Visit Reason for Visit: 96 hold Hospital Course Hospital Course Patient was admitted and he was wondering on the street and forgot where he lives. He was taken to [facility] and then from there placed on a 96-hour hold and brought to the hospital. After coming to hospital his ammonia level was noted to be 79. Patient demonstrated no episodes of confusion. He was alert and oriented x 4. After he took a nap and woke up he felt better and was back to his baseline. He was appropriate and had capacity to make his decisions. He was admitted for observation since he was on a 96-hour hold. The 96-hour hold was rescinded by ER doctor later on in the day. Patient does have a known history of hepatitis C which has been untreated in the past. CT abdomen pelvis was done which showed possible liver cirrhosis. He does have chronically elevated liver enzymes as well. He will need a primary care doctor and GI referral at discharge for further management of above. At this time he is well compensated. No sign of ascites. I have not started him on any medication. For his COPD I have given him albuterol inhaler at discharge. COPD is stable. Lungs are clear to auscultation bilaterally no wheezes no rhonchi. He is constipated for which I gave him lactulose x 1. Discussed with Dr. Bautista over the phone as well. Patient is not psychotic at this time. He has capacity to make his decisions. Upon my assessment he is not hallucinating and is very appropriate. He will be set up with a ride at discharge and will be straight in stable condition with follow-ups with primary care doctor. Primary care doctor has been set up for him. However I also noticed that at his last visit he was set up an appointment with but patient never showed up to the appointment. He again has been set up with Dr. Muñiz at discharge today. Patient is well aware that he needs further workup and treatment of his liver disease. He states he will see his primary care doctor and will discuss with them for further care. He would like to go home today. Physical Exam Narrative: General: Alert oriented x3, patient seen sitting up in bed appearing comfor table. HEENT: Normocephalic, atraumatic, EOMI, breathing room air Cardio: Regular rate rhythm, normal S1-S2, Respiratory: Good bilateral air entry, no wheezes no rhonchi appreciated GI: Abdomen soft, nontender, nondistended, bowel sounds + Behavior: Appropriate and cooperative Extremities: No edema bilateral lower extremities Discharge Data Studies Completed and Pending Completed Studies During Hospitalization Category Date Time Status CT abdomen pelvis wo con [id number] Stat Cat Scan 07/07/23 14:[address] head wo con* [id number] Stat Cat Scan 07/07/23 12:35 Completed CXRP [XR chest 1V portable [id number]] Stat Exams 07/07/23 12:53 Completed Pending at discharge Category Date Time Status Hepatitis C RNA Viral Load Qnt Routine Lab 07/07/23 13:26 Received Radiology Impressions Chest X-Ray 07/07/23 12:53 IMPRESSION: No acute findings. Laboratory Results WBC 11.19 10^3/uL (3.29-11.43) 07/08/23 05:07 RBC 5.05 10^6/uL (3.85-5.65) 07/08/23 05:07 Hgb 16.30 g/dL (11.27-16.99) 07/08/23 05:07 Hct 48.2 % (37-53) 07/08/23 05:07 MCV 95.4 fl (82-101) 07/08/23 05:07 MCH 32.3 pg (27-33) 07/08/23 05:07 MCHC 33.8 g/dL (30-55) 07/08/23 05:07 RDW 15.4 % (12.1-15.1) H 07/08/23 05:07 Plt Count 160 10^3/cmm (157-399) 07/08/23 05:07 MPV 10.5 fL (7.4-10.4) H 07/08/23 05:07 Neut % (Auto) 46.4 % 07/08/23 05:07 Lymph % (Auto) 29.8 % 07/08/23 05:07 Schleicher % (Auto) 9.6 % 07/08/23 05:07 Eos % (Auto) 12.2 % 07/08/23 05:07 Baso % (Auto) 1.6 % 07/08/23 05:07 Neut # (Auto) 5.19 10^3/uL (1.8-7.7) 07/08/23 05:07 Lymph # (Auto) 3.3 10^3/uL (0.8-4.8) 07/08/23 05:07 Schleicher # (Auto) 1.1 10^3/uL (0.2-0.9) H 07/08/23 05:07 Eos # (Auto) 1.4 10^3/uL (0.0-0.8) H 07/08/23 05:07 Baso # (Auto) 0.2 10^3/uL (0.0-0.1) H 07/08/23 05:07 Nucleated RBC % (auto) 0 % 07/08/23 05:07 Nucleated RBCs # 0.0 /100WBC 07/08/23 05:07 PT 13.60 SECONDS (12.1-14.9) 07/08/23 05:07 INR 1.01 (0.8-1.2) 07/08/23 05:07 Sodium 136 mmol/L (136-145) 07/08/23 05:07 Potassium 4.0 mmol/L (3.5-5.1) 07/08/23 05:07 Chloride 104 mmol/L (98-107) 07/08/23 05:07 Carbon Dioxide 23 mmol/L (22-29) 07/08/23 05:07 Anion Gap 13.0 (5-19) 07/08/23 05:07 BUN 15 mg/dL (8-23) 07/08/23 05:07 Creatinine 0.8 mg/dL (0.7-1.2) 07/08/23 05:07 GFR Calculation 98.0 mL/min (90-130) 07/08/23 05:07 Glucose 98 mg/dL (65-115) 07/08/23 05:07 Calculated Osmolality 283 mOsm/kg (285-295) L 07/08/23 05:07 Calcium 8.6 mg/dL (8.5-10.5) 07/08/23 05:07 Phosphorus 2.7 mg/dL (2.5-4.5) 07/08/23 05:07 Magnesium 2.0 mg/dL (1.7-2.3) 07/08/23 05:07 Total Bilirubin 0.7 mg/dL (0.15-1.2) 07/08/23 05:07 AST 106 U/L (0-40) H 07/08/23 05:07 ALT 66 U/L (0-41) H 07/08/23 05:07 Alkaline Phosphatase 136 U/L (40-130) H 07/08/23 05:07 Ammonia 79 umol/L (16-60) H 07/07/23 13:26 Total Protein 7.4 g/dL (6.6-8.7) 07/08/23 05:07 Albumin 3.3 g/dL (3.5-5.2) L 07/08/23 05:07 Globulin 4.1 g/dL (1.3-4.6) 07/08/23 05:07 Vitamin B12 917 pg/mL (232-1245) 07/07/23 13:26 Procalcitonin 0.17 ng/mL (0-0.5) 07/07/23 13:26 TSH 1.28 uIU/mL (0.27-4.20) 07/07/23 13:26 Urine Color Straw (Yellow) 07/07/23 18:56 Urine Appearance Clear (CLEAR) 07/07/23 18:56 Urine pH 7 (5-7) 07/07/23 18:56 Ur Specific Show Low 1.010 (1.005-1.030) 07/07/23 18:56 Urine Protein Neg (Negative) 07/07/23 18:56 Urine Glucose (UA) Norm (Normal) 07/07/23 18:56 Urine Ketones Negative (Negative) 07/07/23 18:56 Urine Blood Neg (Negative) 07/07/23 18:56 Urine Nitrate Negative (Negative) 07/07/23 18:56 Urine Bilirubin Neg (Negative) 07/07/23 18:56 Urine Urobilinogen 1 mg/dL (Negative) H 07/07/23 18:56 Ur Leukocyte Esterase Negative (Negative) 07/07/23 18:56 Urine RBC 0-4 /hpf (0-2) H 07/07/23 14:34 Urine WBC 5-10 /hpf (0-5) H 07/07/23 14:34 Ur Squamous Epith Cells 15-25 /hpf (0-5) H 07/07/23 14:34 Amorphous Sediment Trace /hpf 07/07/23 14:34 Urine Bacteria Trace /hpf (NONE) 07/07/23 14:34 Urine Mucus 1+ /hpf 07/07/23 14:34 Salicylates < 0.3 mg/dL (3-10) L 07/07/23 13:26 Urine Opiates Screen Negative ng/mL (Negative) 07/07/23 14:34 Acetaminophen < 5.0 ug/mL (10-30) L 07/07/23 13:26 Ur Barbiturates Screen Negative ng/mL (Negative) 07/07/23 14:34 Ur Phencyclidine Scrn Negative ng/mL (Negative) 07/07/23 14:34 Ur Amphetamines Screen Negative ng/mL (Negative) 07/07/23 14:34 U Benzodiazepines Scrn Negative ng/mL (Negative) 07/07/23 14:34 Urine Cocaine Screen Negative ng/mL (Negative) 07/07/23 14:34 U Marijuana (THC) Screen Positive ng/mL (Negative) H 07/07/23 14:34 Ethyl Alcohol < 10 mg/dL (0-10) 07/07/23 13:26 Hepatitis A IgM Ab Non-reactive (Nonreactive) 07/07/23 13:26 Hep Bs Antigen Non-reactive (Nonreactive) 07/07/23 13:26 Hep Bs Antibody 902.5 (11.5-1000) 07/07/23 13:26 Hep B Core Total Ab Reactive (Nonreactive) H 07/07/23 13:26 Hepatitis C Antibody Reactive (Nonreactive) H 07/07/23 13:26 HCV RNA Qnt PCR Amp&Det Cancelled 07/07/23 16:36 HCV RNA (PCR) IUs/ml Cancelled 07/07/23 16:36 HCV RNA (PCR) IU log10 Cancelled 07/07/23 16:36 Vitals Last Vital Signs Temp 97.1 F L 07/08/23 08:00 Pulse 90 07/08/23 10:00 Resp 16 07/08/23 10:00 BP 131/82 07/08/23 08:00 Pulse Ox 96 07/08/23 10:00 O2 Del Method Room Air 07/08/23 10:00 Discharge Plan Discharge Patient Disposition: Home Condition: Stable Prescriptions: New albuterol sulfate 90 mcg/actuation aerosol powdr breath activated 2 inh inhalation Q4H PRN (Reason: shortness of breath or wheezing) Qty: 1 0RF Discontinued acetaminophen 500 mg Tablet 1,000 mg PO Q6H PRN (Reason: Pain) Discharge Orders: Discharge Order (Routine); Ordered 07/08/23 Ordered By: Heena Wang Referrals: Alexy Muñiz MD [Physician] - 07/15/23 10:00 am Discharge Diet: Regular Discharge Activity: Resume usual activity Patient Instructions: Albuterol (By mouth), Hepatitis C, Hepatic Encephalopathy (GEN), Opioid Safety Activity Restrictions/Additional Instructions: Please follow up with your primary care doctor for further treatment option regarding hepatitis C. You may also need gastroenterology referral for further workup of liver disease. Discharge Attestations Time Spent in Discharge Care*: greater than 30 min Quality Metrics Clinical Quality Measures [ No reported AMI, CVA or VTE this stay] Coding Level of Care Code Acute Code for Chg Fwd Diagnoses Transaminitis R74.01 Altered mental status R41.82 Increased ammonia level R79.89
[2023-07-08 12:37] VITALS: BP 114/74; PULSE 76; RESP 18; TEMP 36.2; O2SAT 96
[2023-07-08] MEDS: lactulose oral liq 20 gm/30 mL UDC 10 GM PO (12:57)
--- NOTE | 2023-07-08 13:20 | PC.NURSE ---
D/C pending transportation and meds to beds.
--- NOTE | 2023-07-08 13:37 | PC.NURSE ---
Pt is also awaiting a change of clothes to be [facility].
--- NOTE | 2023-07-08 14:24 | PC.SOCIAL ---
Spoke with Dr. Wang about PA being needed for albuterol; telephone orders received to change medications to ventolin 2inhalations Q4H PRN for SOB. Telephone order given to [facility] pharmacy-[facility].
[2023-07-08 15:03] LABS: HEP C RNA Viral Load Quant 2380000 IU/mL (NOT DETECTED); HEP C RNA Viral Load Quant 6.38 Log IU/mL (NOT DETECTED)
== END 2023-07-08 15:04 | disposition home or self-care (01) ==
LOC: ER 15:03 → MEDSURG 07-08 06:45
PROVIDERS: Admitting Provider Internal Medicine; Emergency Provider Emergency Medicine; Visit Provider Internal Medicine
DX: R74.01 Elevation of levels of liver transaminase levels (principal); R41.82 Altered mental status, unspecified; R79.89 Other specified abnormal findings of blood chemistry; Z86.73 Personal history of transient ischemic attack (TIA), and cerebral infarction without residual deficits; F15.90 Other stimulant use, unspecified, uncomplicated; I73.9 Peripheral vascular disease, unspecified; F17.200 Nicotine dependence, unspecified, uncomplicated; Z86.19 Personal history of other infectious and parasitic diseases; M19.90 Unspecified osteoarthritis, unspecified site
CPT/HCPCS: 36415; 70450; 71045; 74176; 80053; 80306; 80307; 81001; 81003; 82140; 82607; 83735; 84100; 84145; 84443; 85025; 85610; 86705; 86706; 86709; 86803; 87340; 87522; 93005; 96360; 96361; 96372; 99285; G0378; J1644; J7030

== ENCOUNTER 2023-07-31 14:55 | Emergency (ER) | payer BC, MEDICAID, SELFPAY ==
[2023-07-31 15:07] VITALS: BP 148/84; PULSE 78; RESP 16; TEMP 36.7; O2SAT 94
--- NOTE | 2023-07-31 15:07 | CTR_ITS ---
PROCEDURE INFORMATION: Exam: CT Abdomen And Pelvis Without Contrast Exam date and time: 07/31/2023 3:24 PM Age: 62 years old Clinical indication: Abdominal pain; Flank; Right; Additional info: Flank pain TECHNIQUE: Imaging protocol: Computed tomography of the abdomen and pelvis without contrast. Radiation optimization: All CT scans at this facility use at least one of these dose optimization techniques: automated exposure control; mA and/or kV adjustment per patient size (includes targeted exams where dose is matched to clinical indication); or iterative reconstruction. COMPARISON: CT abdomen pelvis wo con [id number] 07/07/2023 3:31 PM RADIATION DOSE METRICS: Total DLP (mGy-cm): 417.23 FINDINGS: Lungs: There is subsegmental atelectasis in the lung bases. Liver: There is a nodular contour of the liver, most conspicuous along the left lobe on coronal images. There is no focal liver abnormality. The liver is mildly enlarged. Gallbladder and bile ducts: The gallbladder is absent. There is no intrahepatic or extrahepatic bile duct dilation. Pancreas: There is mild atrophy of the pancreas. Spleen: The spleen is unremarkable. Adrenal glands: The adrenal glands are unremarkable. Kidneys and ureters: There is no hydronephrosis or stones. There is a subcentimeter cyst in each kidney. Kidneys are otherwise morphologically normal. Stomach and bowel: The stomach is unremarkable. The small bowel is nondilated. The colon is diffusely mildly stool distended. There is no sign of colonic inflammation. Appendix: The appendix is normal. Intraperitoneal space: There is no free air or significant intraperitoneal free fluid. Vasculature: There is moderate aortic atherosclerotic disease. There is a 3.7 cm infrarenal abdominal aortic aneurysm, stable since 07/07/2023. There are small gastric and mesenteric varices. Right iliac artery graft noted. Lymph nodes: There is no lymphadenopathy in the retroperitoneum, mesentery, pelvis or inguinal regions. Urinary bladder: There is mild diffuse bladder wall thickening suggesting muscular hypertrophy. Reproductive: The prostate and seminal vesicles are unremarkable. Bones/joints: There is severe multilevel degenerative disease in the lumbar spine. There are chronic bilateral L5 pars defects with grade 1 anterolisthesis of L5 on S1. There is mild degenerative disease of both hips. The bony pelvis is intact. There is moderate broad-based convex right scoliosis of the lumbar spine centered at L2-L3. Soft tissues: The abdominal wall is intact. CT/CT kidney stone [id number] IMPRESSION: 1. Cirrhotic morphology of the liver. Mild hepatomegaly. 2. Probable portal hypertension. Upper abdominal varices are present. No splenomegaly. No ascites. 3. Mildly diffusely stool distended colon. This finding would support a clinical diagnosis of constipation. 4. Stable 3.7 cm infrarenal abdominal aortic aneurysm. Recommend follow-up imaging in 2 years. 5. Incidental findings above. COMMENTS: Consistent with the [employer]'s Incidental Findings Committee white paper (J Am Jaret Radiol 2018): Any incidental renal lesion less than 1 cm or classified as too small to characterize, or any incidental cystic renal lesion characterized as simple-appearing, is likely benign. No follow-up imaging is recommended for these lesions per consensus recommendations based on imaging criteria.
--- NOTE | 2023-07-31 15:08 | ED_ITS ---
HPI - Back Pain/Injury General: Chief Complaint: Back Pain/Injury Stated Complaint: low back pain Time Seen by Provider: 07/31/23 15:01 Source: patient and EMS Mode of arrival: EMS Limitations: no limitations History of Present Illness: 62-year-old male is here from [facility] he has had sharp right-sided low back pain the last 2 days he states he was worse today states that sharp stabbing pain denies any radiation denies any injuries and concerned he may have a kidney stone he had no vomiting diarrhea. He is resting comfortably currently Associated symptoms: Deny abdominal pain, chills, fever(s), nausea or vomiting Review of Systems Const: Denies: fever(s), chills, body aches or change in appetite ENMT: Denies: throat pain or dental pain Card: Denies: chest pain Resp: Denies: dyspnea GI: Denies: abdominal pain, nausea, vomiting or diarrhea Musc: Reports: back pain; Denies: neck pain Skin/Breast: Denies: rash Neuro: Denies: headache(s) PFSH ED PFSH: Medical History Hepatitis C test positive Methamphetamine use Elevated troponin Transaminitis Hyponatremia Influenza A COPD with acute exacerbation Acute respiratory failure with hypoxemia Irritable bowel syndrome Peripheral vascular disease CVA (cerebral vascular accident) Tobacco dependency Amphetamine use COPD (chronic obstructive pulmonary disease) Osteoarthritis Surgical History History of arthroplasty of left shoulder Family History Other Cancer Stroke Social History Smoking and tobacco/nicotine status: current every day tobacco/nicotine user Alcohol intake: never Substance/Drug Use: current Physical Exam Const: COMMON NORMALS: no acute distress, patient oriented x3 and healthy appearing HENMT: COMMON NORMALS: normocephalic and atraumatic HEAD & SCALP: normocephalic and atraumatic Eye: COMMON NORMALS: Equal, round and reactive pupils present and EOMs intact bilaterally PUPIL: Yes Equal, round and reactive pupils present Neck/C-Spine: COMMON NORMALS: full ROM and supple Chest: COMMONS NORMALS: normal inspection of the chest and normal palpation of entire chest wall Resp: COMMON NORMALS: normal respiratory effort, No retractions, No use of accessory muscles and clear to auscultation bilaterally AUSCULTATION: clear to auscultation bilaterally Cardio: COMMON NORMALS: regular rate, regular rhythm and No murmurs present (Cardio) RATE: regular rate RHYTHM: regular rhythm GI: COMMON NORMALS: Normal to inspection, nondistended, normoactive bowel sounds present, Soft to palpation, non-tender and no masses PALPATION: Yes Soft to palpation Extremity: COMMON NORMALS: normal to inspection and full ROM Neuro: COMMON NORMALS: patient oriented x3, moves all extremities and no focal motor deficits Psych: COMMON NORMALS: mental status grossly normal, Normal thought process present and cooperative THOUGHT PROCESS: Normal thought process present Skin: COMMON NORMALS: no rashes or lesions noted and no wounds GENERAL SKIN EXAM: no rashes or lesions noted Course Vital Signs: Vital signs: Vital Signs Temperature 98.0 F 07/31/23 15:07 Pulse Rate 78 07/31/23 15:07 Respiratory Rate 16 07/31/23 15:07 Blood Pressure 148/84 07/31/23 15:07 Pulse Oximetry 94 07/31/23 15:07 Oxygen Delivery Me thod Room Air 07/31/23 15:07 MDM - Back Pain/Injury Medical Decision Making Patient presents here with back pains likely muscular in nature CT showed no kidney stone he is well-appearing here he is stable for discharge back to [facility]. Medical Records I reviewed the patient's medical records. Labs Radiology Impressions Abdomen/Pelvis CT 07/31/23 15:07 IMPRESSION: 1. Cirrhotic morphology of the liver. Mild hepatomegaly. 2. Probable portal hypertension. Upper abdominal varices are present. No splenomegaly. No ascites. 3. Mildly diffusely stool distended colon. This finding would support a clinical diagnosis of constipation. 4. Stable 3.7 cm infrarenal abdominal aortic aneurysm. Recommend follow-up imaging in 2 years. 5. Incidental findings above. COMMENTS: Consistent with the [employer]'s Incidental Findings Committee white paper (J Am Jaret Radiol 2018): Any incidental renal lesion less than 1 cm or classified as too small to characterize, or any incidental cystic renal lesion characterized as simple-appearing, is likely benign. No follow-up imaging is recommended for these lesions per consensus recommendations based on imaging criteria. Laboratory Results Urine Color Yellow (Yellow) 07/31/23 15:15 Urine Appearance Sl hazy (CLEAR) A 07/31/23 15:15 Urine pH 6 (5-7) 07/31/23 15:15 Ur Specific [place] 1.015 (1.005-1.030) 07/31/23 15:15 Urine Protein Neg (Negative) 07/31/23 15:15 Urine Glucose (UA) Norm (Normal) 07/31/23 15:15 Urine Ketones Negative (Negative) 07/31/23 15:15 Urine Blood Neg (Negative) 07/31/23 15:15 Urine Nitrate Negative (Negative) 07/31/23 15:15 Urine Bilirubin Neg (Negative) 07/31/23 15:15 Urine Urobilinogen 8 mg/dL (Negative) H 07/31/23 15:15 Ur Leukocyte Esterase Negative (Negative) 07/31/23 15:15 Urine RBC 0-4 /hpf (0-2) H 07/31/23 15:15 Urine WBC 0-4 /hpf (0-5) H 07/31/23 15:15 Ur Squamous Epith Cells 5-10 /hpf (0-5) H 07/31/23 15:15 Amorphous Sediment Not Reportable 07/31/23 15:15 Urine Bacteria Trace /hpf (NONE) 07/31/23 15:15 All radiology interpretation(s) finalized by discharge Discharge Plan Discharge Patient Disposition: Home Clinical Impression: Low back pain Condition: Stable Prescriptions: No Action albuterol sulfate 90 mcg/actuation aerosol powdr breath activated 2 inh inhalation Q4H PRN (Reason: shortness of breath or wheezing) Qty: 1 0RF Discharge Orders: Discharge ED (Routine); Ordered 07/31/23 Ordered By: Walter Alicia Discharge Diet: Advance as tolerated Discharge Activity: Resume usual activity Patient Instructions: Back Pain (ED) Coding Level of Care Code ED Biomechanical Engineer for Priyanka Nunez
[2023-07-31] MEDS: ketorolac 30 mg/mL INJ IM (15:16)
[2023-07-31 15:45] LABS: Bilirubin Urine Neg (Negative); Blood Urine Neg (Negative); Glucose Urine UA Norm (Normal); Ketones Urine Negative (Negative); Leukocyte Esterase Urine Negative (Negative); Nitrate Urine Negative (Negative); Protein Urine Neg (Negative); Specific Gravity, Urine 1.015 (1.005-1.030); Urine Appearance SL Hazy (CLEAR); Urine Color Yellow (Yellow); Urobilinogen Urine 8 mg/dL (Negative); pH Urine 6 (5-7)
[2023-07-31 15:46] LABS: Add Urine Culture? No; Add Urine Microscopic? YES; Bacteria Urine TRACE /hpf; RBC Urine 0-4 /hpf (0-2); WBC Urine 0-4 /hpf (0-5)
== END 2023-07-31 16:18 | disposition home or self-care (01) ==
PROVIDERS: Emergency Provider Emergency Medicine
DX: M54.50 Low back pain, unspecified (principal); Z72.0 Tobacco use; Z86.19 Personal history of other infectious and parasitic diseases; J44.9 Chronic obstructive pulmonary disease, unspecified; Z86.73 Personal history of transient ischemic attack (TIA), and cerebral infarction without residual deficits
CPT/HCPCS: 74176; 81001; 96372; 99284; J1885

== ENCOUNTER 2023-08-25 23:42 | Emergency (ER) | payer BC, MEDICAID, SELFPAY ==
[2023-08-25 23:43] VITALS: BP 186/103; PULSE 74; RESP 15; TEMP 36.7; O2SAT 98; BMI 25.1
--- NOTE | 2023-08-26 00:07 | CTR_ITS ---
PROCEDURE INFORMATION: Exam: CT Abdomen And Pelvis Without Contrast Exam date and time: 08/26/2023 12:20 AM Age: 63 years old Clinical indication: Abdominal tenderness; Additional info: Abd pain TECHNIQUE: Imaging protocol: Computed tomography of the abdomen and pelvis without contrast. Radiation optimization: All CT scans at this facility use at least one of these dose optimization techniques: automated exposure control; mA and/or kV adjustment per patient size (includes targeted exams where dose is matched to clinical indication); or iterative reconstruction. COMPARISON: CT kidney stone [id number] 07/31/2023 3:24 PM RADIATION DOSE METRICS: Total DLP (mGy-cm): 467.8 FINDINGS: Lungs: Bibasilar scarring/atelectasis. Heart: Base of heart is unremarkable as visualized. Coronary arteries: Heavy coronary calcified atherosclerotic disease. Liver: Mild hepatomegaly. Undulating contour of the liver. Gallbladder and bile ducts: Status post cholecystectomy. Pancreas: Normal. No ductal dilation. Spleen: Normal. No splenomegaly. Adrenal glands: Normal. No mass. Kidneys and ureters: Stable bilateral benign renal cysts. Stomach and bowel: Moderate colonic stool burden. Fecalization of small bowel with scattered air-fluid levels. Appendix: No evidence of appendicitis. Intraperitoneal space: Unremarkable. No free air. No significant fluid collection. Vasculature: Severe calcified atherosclerotic disease of the visualized aorta and its major branches. Patient is status post right iliac bypass grafting. 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 Again demonstrated is infrarenal aortic aneurysm measuring 3.2 x 3.6 cm. There has been no change in short interval imaging. No significant surrounding inflammatory change. Stable upper abdominal varices. Lymph nodes: Unremarkable. No enlarged lymph nodes. Urinary bladder: Bladder is distended without focal wall abnormality. Reproductive: Unremarkable as visualized. Bones/joints: Severe degenerative change of the visualized osseous structures. Bilateral L5 pars defects. Grade 1 anterolisthesis of L5 on S1. Soft tissues: Unremarkable. CT/CT abdomen pelvis wo con [id number] IMPRESSION: 1. Nonspecific findings suggest gastroenteritis. Correlate with patient history and physical exam. 2. No nephrolithiasis. 3. Findings support cirrhosis and portal hypertension similar to prior comparisons. 4. Additional stable findings as above.
[2023-08-26] MEDS: ondansetron 2 mg/ML SDV 2 mL 4 MG IVP (00:29)
[2023-08-26] MEDS: ketorolac 60 mg/2 mL INJ 30 MG IVP (00:30)
[2023-08-26 00:35] LABS: Basophils # 0.1 10^3/uL (0.0-0.1); Basophils % 1.4 %; Eosinophils # 0.9 10^3/uL (0.0-0.8); Eosinophils % 10.3 %; Hematocrit 47.7 % (37-53); Lymphocytes # 3.5 10^3/uL (0.8-4.8); Lymphocytes % 38.8 %; Mean Corpuscular HGB Conc 34.4 g/dL (30-55); Mean Corpuscular Hemoglobin 32.9 pg (27-33); Mean Corpuscular Volume 95.8 fl (82-101); Mean Platelet Volume 11.4 fL (7.4-10.4); Monocytes % 11.3 %; Neutrophils # 3.47 10^3/uL (1.8-7.7); Nucleated Red Blood Cells % 0 %; Platelet Count 170 10^3/cmm (157-399); Red Blood Count 4.98 10^6/uL (3.85-5.65); Red Cell Distribution Width 14.3 % (12.1-15.1); White Blood Count 9.13 10^3/uL (3.29-11.43)
[2023-08-26 00:37] LABS: INR 0.97 (0.8-1.2)
[2023-08-26 00:37] LABS: Add Urine Microscopic? NO; Charge for UA Resulting for Rev
[2023-08-26 00:38] LABS: Partial Thromboplastin Time 28.4 SECONDS (23.9-36.7)
--- NOTE | 2023-08-26 00:40 | W.ED.BACK ---
Documented by User: BARBARA Perdomo 08/26/23 00:45 HPI - Back Pain/Injury General: Chief Complaint: Back Pain/Injury Stated Complaint: BACK PAIN Time Seen by Provider: 08/25/23 23:50 Source: patient Mode of arrival: ambulatory Limitations: no limitations History of Present Illness: Patient is a 63-year-old male who presents to the emergency department under police custody due to right back pain chronically. Was seen in July for the same complaint. He was discharged back to long-term at that time with low back pain as his condition was stable and abdominal CT at that time showed multiple chronic findings. He is not reporting any urinary symptoms at this time, and states that his pain is in his kidney or liver. He does have a history of hepatitis as well as cirrhosis and esophageal varices. He is noting some associated nausea at this time, denies any vomiting, changes in bowel habits, chest pain, shortness of breath, or other symptoms. He notes he has not taken anything for the pain. MD elicited complaint: back pain Pertinent past history: prior back pain Timing: constant Similar Symptoms Previously: Yes Location: right flank and right upper back Radiation: none Exacerbating factors: none Relieving factors: none Associated symptoms: Reports nausea; Deny abdominal pain, chills, dysuria, fever(s), urinary urgency or vomiting Review of Systems General: Reports: 10 or more systems reviewed and unremarkable except in HPI and below Const: Denies: fever(s), chills, change in appetite, change in weight or diaphoresis ENMT: Denies: throat pain or hoarseness Card: Denies: chest pain, palpitations or lightheadedness Resp: Denies: dyspnea, productive cough or wheezing GI: Reports: nausea; Denies: abdominal pain, vomiting, diarrhea, constipation, bloating, change in stool character or hematochezia : Reports: flank pain; Denies: difficulty urinating, dysuria, urinary frequency or urinary urgency Musc: Reports: back pain; Denies: neck pain Skin/Breast: Denies: rash or new lesions Neuro: Denies: headache(s) or dizziness PFS ED PFSH: Medical History Hepatitis C test positive Methamphetamine use Elevated troponin Transaminitis Hyponatremia Influenza A COPD with acute exacerbation Acute respiratory failure with hypoxemia Irritable bowel syndrome Peripheral vascular disease CVA (cerebral vascular accident) Tobacco dependency Amphetamine use COPD (chronic obstructive pulmonary disease) Osteoarthritis Surgical History History of arthroplasty of left shoulder Family History Other Cancer Stroke Social History Smoking and tobacco/nicotine status: current every day tobacco/nicotine user Alcohol intake: never Substance/Drug Use: current Physical Exam Const: COMMON NORMALS: no acute distress, average body habitus, patient oriented x3, no limitations and alert GENERAL APPEARANCE: cooperative, disheveled and appears older than stated age ORIENTATION/CONSCIOUSNESS: Yes awake HENMT: COMMON NORMALS: normocephalic, atraumatic, hearing grossly normal bilaterally, external ears normal, Normal external nose present, Normal nasal mucous membranes and turbinates present and moist oral mucous membranes HEAD & SCALP: normocephalic and atraumatic NOSE: Normal external nose present and Normal nasal mucous membranes and turbinates present EXTERNAL EAR: Yes external ears normal Eye: COMMON NORMALS: Equal, round and reactive pupils present, EOMs intact bilaterally, conjunctivae normal and normal visual duran by confrontation CONJUNCTIVA: Yes conjunctivae normal PUPIL: Yes Equal, round and reactive pupils present Neck/C-Spine: COMMON NORMALS: full ROM, supple, no meningeal signs and no JVD Resp: COMMON NORMALS: normal respiratory effort, No retractions, No use of accessory muscles and clear to auscultation bilaterally AUSCULTATION: clear to auscultation bilaterally, no crackles, no rales, no rhonchi and no wheezes Cardio: COMMON NORMALS: no JVD, regular rate, regular rhythm, S1 normal heart sound present, S2 normal heart sound present, No gallops present (Cardio), No clicks present (Cardio), No murmurs present (Cardio), No rub (Cardio) and Peripheral pulses 2+ throughout RATE: regular rate RHYTHM: regular rhythm HEART SOUNDS: S1 normal heart sound present and S2 normal heart sound present PERIPHERAL PULSES: Peripheral pulses 2+ throughout GI: COMMON NORMALS: Normal to inspection, nondistended, normoactive bowel sounds present, Soft to palpation, non-tender, No hepatosplenomegaly present and no masses AUSCULTATION: Yes normoactive bowel sounds PALPATION: Yes Soft to palpation, No Guarding due to palpation present (GI), No Rigid due to palpation and Yes No hepatosplenomegaly present RECTAL EXAM: Yes deferred : BLADDER/KIDNEY EXAM: Yes CVA tenderness on the right Back/Pelvis: GENERAL BACK: Yes CVA tenderness Extremity: COMMON NORMALS: normal to inspection and full ROM Neuro: COMMON NORMALS: patient oriented x3, moves all extremities, no focal motor deficits and no sensory deficits noted SENSORIUM/ORIENTATION: Yes alert MENINGEAL SIGNS: Yes no meningeal signs Psych: COMMON NORMALS: mental status grossly normal, cooperative and speech normal SPEECH: Yes normal speech Skin: COMMON NORMALS: no rashes or lesions noted GENERAL SKIN EXAM: no rashes or lesions noted Course Vital Signs: Vital signs: Vital Signs Temperature 98.1 F 08/25/23 23:43 Pulse Rate 72 08/26/23 03:57 Respiratory Rate 16 08/26/23 03:57 Blood Pressure 147/118 08/26/23 03:57 Pulse Oximetry 94 08/26/23 03:57 Oxygen Delivery Me thod Room Air 08/26/23 03:00 MDM - Back Pain/Injury Labs 08/26/23 00:17 08/26/23 00:17 Radiology Impressions Abdomen/Pelvis CT 08/26/23 00:07 IMPRESSION: 1. Nonspecific findings suggest gastroenteritis. Correlate with patient history and physical exam. 2. No nephrolithiasis. 3. Findings support cirrhosis and portal hypertension similar to prior comparisons. 4. Additional stable findings as above. Laboratory Results WBC 9.13 10^3/uL (3.29-11.43) 08/26/23 00:17 RBC 4.98 10^6/uL (3.85-5.65) 08/26/23 00:17 Hgb 16.40 g/dL (11.27-16.99) 08/26/23 00:17 Hct 47.7 % (37-53) 08/26/23 00:17 MCV 95.8 fl (82-101) 08/26/23 00:17 MCH 32.9 pg (27-33) 08/26/23 00:17 MCHC 34.4 g/dL (30-55) 08/26/23 00:17 RDW 14.3 % (12.1-15.1) 08/26/23 00:17 Plt Count 170 10^3/cmm (157-399) 08/26/23 00:17 MPV 11.4 fL (7.4-10.4) H 08/26/23 00:17 Neut % (Auto) 38.0 % 08/26/23 00:17 Lymph % (Auto) 38.8 % 08/26/23 00:17 [place] % (Auto) 11.3 % 08/26/23 00:17 Eos % (Auto) 10.3 % 08/26/23 00:17 Baso % (Auto) 1.4 % 08/26/23 00:17 Neut # (Auto) 3.47 10^3/uL (1.8-7.7) 08/26/23 00:17 Lymph # (Auto) 3.5 10^3/uL (0.8-4.8) 08/26/23 00:17 [place] # (Auto) 1.0 10^3/uL (0.2-0.9) H 08/26/23 00:17 Eos # (Auto) 0.9 10^3/uL (0.0-0.8) H 08/26/23 00:17 Baso # (Auto) 0.1 10^3/uL (0.0-0.1) 08/26/23 00:17 Nucleated RBC % (auto) 0 % 08/26/23 00:17 Nucleated RBCs # 0.0 /100WBC 08/26/23 00:17 PT 13.10 SECONDS (12.1-14.9) 08/26/23 00:17 INR 0.97 (0.8-1.2) 08/26/23 00:17 APTT 28.4 SECONDS (23.9-36.7) 08/26/23 00:17 Sodium 136 mmol/L (136-145) 08/26/23 00:17 Potassium 3.9 mmol/L (3.5-5.1) 08/26/23 00:17 Chloride 99 mmol/L (98-107) 08/26/23 00:17 Carbon Dioxide 26 mmol/L (22-29) 08/26/23 00:17 Anion Gap 14.9 (5-19) 08/26/23 00:17 BUN 19 mg/dL (8-23) 08/26/23 00:17 Creatinine 0.8 mg/dL (0.7-1.2) 08/26/23 00:17 GFR Calculation 97.6 mL/min (90-130) 08/26/23 00:17 Glucose 87 mg/dL (65-115) 08/26/23 00:17 Calculated Osmolality 284 mOsm/kg (285-295) L 08/26/23 00:17 Calcium 9.7 mg/dL (8.5-10.5) 08/26/23 00:17 Total Bilirubin 0.8 mg/dL (0.15-1.2) 08/26/23 00:17 AST 135 U/L (0-40) H 08/26/23 00:17 ALT 150 U/L (0-41) H 08/26/23 00:17 Alkaline Phosphatase 114 U/L (40-130) 08/26/23 00:17 Total Protein 8.7 g/dL (6.6-8.7) 08/26/23 00:17 Albumin 4.2 g/dL (3.5-5.2) 08/26/23 00:17 Globulin 4.5 g/dL (1.3-4.6) 08/26/23 00:17 Lipase 40 U/L (13-60) 08/26/23 00:17 Urine Color Light yellow (Yellow) 08/26/23 00:34 Urine Appearance Clear (CLEAR) 08/26/23 00:34 Urine pH 7 (5-7) 08/26/23 00:34 Ur Specific [place] 1.010 (1.005-1.030) 08/26/23 00:34 Urine Protein Neg (Negative) 08/26/23 00:34 Urine Glucose (UA) Norm (Normal) 08/26/23 00:34 Urine Ketones Negative (Negative) 08/26/23 00:34 Urine Blood Neg (Negative) 08/26/23:34 Urine Nitrate Negative (Negative) 08/26/23 00:34 Urine Bilirubin Neg (Negative) 08/26/23 00:34 Urine Urobilinogen Neg mg/dL (Negative) 08/26/23 00:34 Ur Leukocyte Esterase Negative (Negative) 08/26/23 00:34 Discharge Plan Discharge Patient Disposition: Home Clinical Impression: Back pain Condition: Stable Prescriptions: New meloxicam 15 mg tablet 15 mg PO DAILY Qty: 14 0RF No Action albuterol sulfate 90 mcg/actuation aerosol powdr breath activated 2 inh inhalation Q4H PRN (Reason: shortness of breath or wheezing) Qty: 1 0RF diclofenac sodium 50 mg tablet,delayed release (DR/EC) 50 mg PO Q12H Qty: 20 0RF Discharge Orders: Discharge ED (Routine); Ordered 08/26/23 Ordered By: Marky Perez Discharge Diet: Usual diet Discharge Activity: Resume usual activity Patient Instructions: Back Pain (ED) Sign Out Sign Out Data: Patient Sign Out occurred on 08/26/23 at 01:08. Patient's care was discussed, and care was transferred from BARBARA Perdomo to Marky Perez MD. Coding Level of Care Code ED Paratransit Operator for Chg Fwd Documented by User: Marky Perez MD 09/06/23 15:45 HPI - Back Pain/Injury General: Chief Complaint: Back Pain/Injury Stated Complaint: BACK PAIN Time Seen by Provider: 08/25/23 23:50 [facility] ED PFSH: Medical History Hepatitis C test positive Methamphetamine use Elevated troponin Transaminitis Hyponatremia Influenza A COPD with acute exacerbation Acute respiratory failure with hypoxemia Irritable bowel syndrome Peripheral vascular disease CVA (cerebral vascular accident) Tobacco dependency Amphetamine use COPD (chronic obstructive pulmonary disease) Osteoarthritis Surgical History History of arthroplasty of left shoulder Family History Other Cancer Stroke Social History Smoking and tobacco/nicotine status: current every day tobacco/nicotine user Alcohol intake: never Substance/Drug Use: current Course Vital Signs: Vital signs: Vital Signs Temperature 98.1 F 05/13/24 23:43 Pulse Rate 72 08/26/23 03:57 Respiratory Rate 16 08/26/23 03:57 Blood Pressure 147/118 08/26/23 03:57 Pulse Oximetry 94 08/26/23 03:57 Oxygen Delivery Me thod Room Air 08/26/23 03:00 MDM - Back Pain/Injury Medical Decision Making Patient here again with low back pain. CT scan unremarkable shows gastritis though personally reviewed it and think more of a constipation type issue. This is patient's third visit in a few months here in the ER for the same complaint. Will prescribe Mobic to try for take 2 weeks to see if it helps. Refills would need to be taken on by primary care. Differential Diagnosis Likely lumbar radiculopathy, strain of lumbar region, pyelonephritis, thoracic back pain, AAA and discitis; Unlikely sciatica or renal colic Medical Records I reviewed the patient's medical records. Labs I reviewed the patient's lab results. 08/26/23 00:17 08/26/23 00:17 Radiology Impressions Abdomen/Pelvis CT 08/26/23 00:07 IMPRESSION: 1. Nonspecific findings suggest gastroenteritis. Correlate with patient history and physical exam. 2. No nephrolithiasis. 3. Findings support cirrhosis and portal hypertension similar to prior comparisons. 4. Additional stable findings as above. Laboratory Results WBC 9.13 10^3/uL (3.29-11.43) 08/26/23 00:17 RBC 4.98 10^6/uL (3.85-5.65) 08/26/23 00:17 Hgb 16.40 g/dL (11.27-16.99) 08/26/23 00:17 Hct 47.7 % (37-53) 08/26/23 00:17 MCV 95.8 fl (82-101) 08/26/23 00:17 MCH 32.9 pg (27-33) 08/26/23 00:17 MCHC 34.4 g/dL (30-55) 08/26/23 00:17 RDW 14.3 % (12.1-15.1) 08/26/23 00:17 Plt Count 170 10^3/cmm (157-399) 08/26/23 00:17 MPV 11.4 fL (7.4-10.4) H 08/26/23 00:17 Neut % (Auto) 38.0 % 08/26/23 00:17 Lymph % (Auto) 38.8 % 08/26/23 00:17 [place] % (Auto) 11.3 % 08/26/23 00:17 Eos % (Auto) 10.3 % 08/26/23 00:17 Baso % (Auto) 1.4 % 08/26/23 00:17 Neut # (Auto) 3.47 10^3/uL (1.8-7.7) 08/26/23 00:17 Lymph # (Auto) 3.5 10^3/uL (0.8-4.8) 08/26/23 00:17 [place] # (Auto) 1.0 10^3/uL (0.2-0.9) H 08/26/23 00:17 Eos # (Auto) 0.9 10^3/uL (0.0-0.8) H 08/26/23 00:17 Baso # (Auto) 0.1 10^3/uL (0.0-0.1) 08/26/23 00:17 Nucleated RBC % (auto) 0 % 08/26/23 00:17 Nucleated RBCs # 0.0 /100WBC 08/26/23 00:17 PT 13.10 SECONDS (12.1-14.9) 08/26/23 00:17 INR 0.97 (0.8-1.2) 08/26/23 00:17 APTT 28.4 SECONDS (23.9-36.7) 08/26/23 00:17 Sodium 136 mmol/L (136-145) 08/26/23 00:17 Potassium 3.9 mmol/L (3.5-5.1) 08/26/23 00:17 Chloride 99 mmol/L (98-107) 08/26/23 00:17 Carbon Dioxide 26 mmol/L (22-29) 08/26/23 00:17 Anion Gap 14.9 (5-19) 08/26/23 00:17 BUN 19 mg/dL (8-23) 08/26/23 00:17 Creatinine 0.8 mg/dL (0.7-1.2) 08/26/23 00:17 GFR Calculation 97.6 mL/min (90-130) 08/26/23 00:17 Glucose 87 mg/dL (65-115) 08/26/23 00:17 Calculated Osmolality 284 mOsm/kg (285-295) L 08/26/23 00:17 Calcium 9.7 mg/dL (8.5-10.5) 08/26/23 00:17 Total Bilirubin 0.8 mg/dL (0.15-1.2) 08/26/23 00:17 AST 135 U/L (0-40) H 08/26/23 00:17 ALT 150 U/L (0-41) H 08/26/23 00:17 Alkaline Phosphatase 114 U/L (40-130) 08/26/23 00:17 Total Protein 8.7 g/dL (6.6-8.7) 08/26/23 00:17 Albumin 4.2 g/dL (3.5-5.2) 08/26/23 00:17 Globulin 4.5 g/dL (1.3-4.6) 08/26/23 00:17 Lipase 40 U/L (13-60) 08/26/23 00:17 Urine Color Light yellow (Yellow) 08/26/23 00:34 Urine Appearance Clear (CLEAR) 08/26/23 00:34 Urine pH 7 (5-7) 08/26/23 00:34 Ur Specific [place] 1.010 (1.005-1.030) 08/26/23 00:34 Urine Protein Neg (Negative) 08/26/23 00:34 Urine Glucose (UA) Norm (Normal) 08/26/23 00:34 Urine Ketones Negative (Negative) 08/26/23 00:34 Urine Blood Neg (Negative) 08/26/23 00:34 Urine Nitrate Negative (Negative) 08/26/23 00:34 Urine Bilirubin Neg (Negative) 08/26/23 00:34 Urine Urobilinogen Neg mg/dL (Negative) 08/26/23 00:34 Ur Leukocyte Esterase Negative (Negative) 08/26/23 00:34 All radiology interpretation(s) finalized by discharge ED provider radiology interpretation(s): Personal review of the CT abdomen pelvis shows no acute abnormality, Discharge Plan Discharge Patient Disposition: Home Clinical Impression: Back pain Condition: Stable Prescriptions: New meloxicam 15 mg tablet 15 mg PO DAILY Qty: 14 0RF No Action albuterol sulfate 90 mcg/actuation aerosol powdr breath activated 2 inh inhalation Q4H PRN (Reason: shortness of breath or wheezing) Qty: 1 0RF diclofenac sodium 50 mg tablet,delayed release (DR/EC) 50 mg PO Q12H Qty: 20 0RF Discharge Orders: Discharge ED (Routine); Ordered 08/26/23 Ordered By: Marky Perez Discharge Diet: Usual diet Discharge Activity: Resume usual activity Patient Instructions: Back Pain (ED) Sign Out Sign Out Data: Patient Sign Out occurred on 08/26/23 at 01:08. Patient's care was discussed, and care was transferred from BARBARA Perdomo to Marky Perez MD. Coding Level of Care Code ED Paratransit Operator for Priyanka Nunez
[2023-08-26 00:45] LABS: Bilirubin Urine Neg (Negative); Blood Urine Neg (Negative); Glucose Urine UA Norm (Normal); Ketones Urine Negative (Negative); Leukocyte Esterase Urine Negative (Negative); Nitrate Urine Negative (Negative); Protein Urine Neg (Negative); Urine Appearance Clear (CLEAR); Urine Color Light yellow (Yellow); Urobilinogen Urine Neg (Negative); pH Urine 7 (5-7)
[2023-08-26 00:46] VITALS: BP 164/98; PULSE 66; O2SAT 97
[2023-08-26 00:48] LABS: Alanine Aminotransferase 150 U/L (0-41); Albumin Level 4.2 g/dL (3.5-5.2); Alkaline Phosphatase 114 U/L (40-130); Anion Gap 14.9 (5-19); Aspartate Amino Transferase 135 U/L (0-40); Blood Urea Nitrogen 19 mg/dL (8-23); Calcium 9.7 mg/dL (8.5-10.5); Carbon Dioxide 26 mmol/L (22-29); Chloride 99 mmol/L (98-107); Creatinine Clr Calc Pharmacy 97.9403; Globulin 4.5 g/dL (1.3-4.6); Glomerular Filtration Rate 97.6 mL/min (90-130); Glucose 87 mg/dL (65-115); Lipase 40 U/L (13-60); Osmolality Calculated 284 mOsm/kg (285-295); Potassium 3.9 mmol/L (3.5-5.1); Sodium 136 mmol/L (136-145); Total Bilirubin 0.8 mg/dL (0.15-1.2); Total Protein 8.7 g/dL (6.6-8.7)
[2023-08-26 01:00] VITALS: BP 155/95; PULSE 73; O2SAT 93
[2023-08-26 02:30] VITALS: BP 146/102; PULSE 74; O2SAT 99
[2023-08-26 03:00] VITALS: BP 144/102; PULSE 78; O2SAT 96
[2023-08-26 03:57] VITALS: BP 147/118; PULSE 72; RESP 16; O2SAT 94
== END 2023-08-26 04:01 | disposition home or self-care (01) ==
PROVIDERS: Physician Assistant; Emergency Provider Emergency Medicine
DX: M54.50 Low back pain, unspecified (principal); Z86.19 Personal history of other infectious and parasitic diseases; J44.9 Chronic obstructive pulmonary disease, unspecified; Z86.73 Personal history of transient ischemic attack (TIA), and cerebral infarction without residual deficits; Z72.0 Tobacco use
CPT/HCPCS: 36415; 74176; 80053; 81003; 83690; 85025; 85610; 85730; 96374; 96375; 99285; J1885; J2405

== ENCOUNTER 2023-09-02 19:34 | Emergency (ER) | payer BC, MEDICAID, SELFPAY ==
[2023-09-02 19:37] VITALS: BP 143/87; PULSE 79; RESP 18; TEMP 36.6; O2SAT 96; BMI 25.1
--- NOTE | 2023-09-02 19:38 | CTR_ITS ---
PROCEDURE INFORMATION: Exam: CT Abdomen And Pelvis Without Contrast Exam date and time: 09/02/2023 7:58 PM Age: 63 years old Clinical indication: Abdominal pain; Additional info: Flank pain TECHNIQUE: Imaging protocol: Computed tomography of the abdomen and pelvis without contrast. Radiation optimization: All CT scans at this facility use at least one of these dose optimization techniques: automated exposure control; mA and/or kV adjustment per patient size (includes targeted exams where dose is matched to clinical indication); or iterative reconstruction. COMPARISON: CT abdomen pelvis wo con [id number] 08/26/2023 12:20 AM RADIATION DOSE METRICS: Total DLP (mGy-cm): 393.5 FINDINGS: Liver: Enlarged liver with lobular contours compatible with cirrh the osis. No definite focal intrahepatic lesions are seen on this noncontrast exam. Gallbladder and bile ducts: The gallbladder has been removed. Pancreas: No intraparenchymal lesions are seen. No ductal dilation. Spleen: No intraparenchymal lesions are seen. No splenomegaly. Adrenal glands: Normal. No mass. Kidneys and ureters: No solid intraparenchymal soft tissue lesion. No hydronephrosis. Similar appearing mild to moderate atrophic changes of the right kidney and benign-appearing subcentimeter low attenuating bilateral renal cysts. Stomach and bowel: No pathologic bowel dilatation. No obstruction. Redemonstration of moderate colonic stool burden along with fecalization of the small bowel contents. Appendix: The appendix is not inflamed. Intraperitoneal space: No free air. No abnormal walled-off fluid collection. Vasculature: The vasculature is incompletely and suboptimally evaluated on this noncontrast exam. Redemonstration of severe atheromatous changes within the aorta and its major branching vessels. Redemonstration of right iliac bypass graft. Redemonstration of similar-appearing periportal and perigastric varices. Lymph nodes: No pathologically enlarged lymph nodes. Urinary bladder: Unremarkable as visualized. Reproductive: Unremarkable as visualized. Bones/joints: Severe degenerative changes of the partially imaged spine resulting in up to severe stenosis of the neural foramina at multiple levels and severe spinal canal stenosis at L3-L4 and L4-L5. Redemonstration of bilateral L5 pars defects and grade 1 anterolisthesis of L5 in relation to S1. Soft tissues: Very small fat containing umbilical hernia. Other findings: No acute findings within the imaged portions of the lower thorax. CT/CT abdomen pelvis wo con [id number] IMPRESSION: 1. No acute findings within the abdomen or pelvis. 2. No renal, ureteral, or urinary bladder calculi. No hydroureter or hydronephrosis. No overt perinephric or periureteral stranding/inflammatory changes. 3. Redemonstration of moderate colonic stool burden along with fecalization of the small bowel contents. Findings are compatible with delayed transit time/constipation. Correlate and follow-up as clinically indicated. 4. Severe degenerative changes of the partially imaged spine and other chronic/incidental findings as described above. COMMENTS: Consistent with the [employer]'s Incidental Findings Committee white paper (J Am Jaret Radiol 2018): Any incidental renal lesion less than 1 cm or classified as too small to characterize, or any incidental cystic renal lesion characterized as simple-appearing, is likely benign. No follow-up imaging is recommended for these lesions per consensus recommendations based on imaging criteria.
[2023-09-02 19:44] VITALS: BP 143/87; RESP 16; O2SAT 97
--- NOTE | 2023-09-02 19:57 | W.ED.ABDPA2 ---
HPI - Abdominal Pain General: Chief Complaint: Abdominal Pain Stated Complaint: kidney pain Time Seen by Provider: 09/02/23 19:36 History of Present Illness: 53-year-old man who presents from [facility] with right-sided flank pain. He says he thinks it is his kidney. He says it feels deep. However he also says it hurts worse with different movements. No nausea or vomiting. No dysuria. No saddle numbness, no urinary retention or incontinence, no focal motor deficit, no sensory deficit. no recent fever. no cough. no shortness of breath. no chest pain. no abdominal pain. no nausea or vomiting. no dysuria. no altered mental status. no edema. Review of Systems Narrative: Constitutional symptoms: Negative except as documented in HPI. Skin symptoms: Negative except as documented in HPI. Eye symptoms: Negative except as documented in HPI. ENMT symptoms: Negative except as documented in HPI. Respiratory symptoms: Negative except as documented in HPI. Cardiovascular symptoms: Negative except as documented in HPI. Gastrointestinal symptoms: Negative except as documented in HPI. Genitourinary symptoms: Negative except as documented in HPI. Musculoskeletal symptoms: Negative except as documented in HPI. Neurologic symptoms: Negative except as documented in HPI. Psychiatric symptoms: Negative except as documented in HPI. Endocrine symptoms: Negative except as documented in HPI. PFSH ED PFSH: Medical History Hepatitis C test positive Methamphetamine use Elevated troponin Transaminitis Hyponatremia Influenza A COPD with acute exacerbation Acute respiratory failure with hypoxemia Irritable bowel syndrome Peripheral vascular disease CVA (cerebral vascular accident) Tobacco dependency Amphetamine use COPD (chronic obstructive pulmonary disease) Osteoarthritis Surgical History History of arthroplasty of left shoulder Family History Other Cancer Stroke Social History Smoking and tobacco/nicotine status: current every day tobacco/nicotine user Alcohol intake: never Substance/Drug Use: current Physical Exam Narrative: EXAM NARRATIVE: General: Alert, no acute distress. Skin: Warm, dry. Head: Normocephalic, atraumatic. Neck: Supple, trachea midline. Eye: Extraocular movements are intact. Ears, nose, mouth and throat: mucosa moist. Cardiovascular: Regular, Normal peripheral perfusion. Respiratory: Lungs are clear to auscultation, respirations are non-labored, breath sounds are equal, Symmetrical chest wall expansion. Gastrointestinal: Soft, Nontender, Non distended, Normal bowel sounds. Musculoskeletal: Normal ROM, no deformity. Neurological: Alert and oriented, No focal neurological deficit observed. Psychiatric: Cooperative, appropriate mood & affect. Course Vital Signs: Vital signs: Vital Signs Temperature 97.9 F 09/02/23 19:37 Pulse Rate 76 09/02/23 21:09 Respiratory Rate 18 09/02/23 21:09 Blood Pressure 143/87 09/02/23 19:44 Pulse Oximetry 96 09/02/23 21:09 Oxygen Delivery Me thod Room Air 09/02/23 21:09 MDM - Abdominal Pain Medical Decision Making Medical decision making: Differential diagnosis including but not limited to and based on the above HPI, review of systems and physical exam: Patient with flank pain which is most likely musculoskeletal but rule out UTI and kidney stones. Orders placed to evaluate differential diagnosis based on the above differential, HPI and physical exam Lab Review: Laboratory results were reviewed and interpreted by myself the emergency room physician. Lab work is unremarkable. No leukocytosis. No anemia. BUN and creatinine are 22 and 0.9. Urinalysis is negative. CT of the abdomen pelvis without contrast: No acute process. No stones. No hydronephrosis. This was reviewed and interpreted by myself the emergency room physician. I also reviewed the radiology report. I reviewed the patient's medical record. Reexamination: Patient remained stable. He is receiving Toradol in the emergency room. Home with some diclofenac. Assessment and plan: Musculoskeletal back pain - Discharged home - Discussed findings and plan with patient. Answered any questions. - All laboratory values were reviewed and interpreted personally by myself, the ER physician - All imaging was reviewed and interpreted personally by myself, the ER physician. - Evaluation and treatment of this problem were appropriate in the emergency setting Lab Data 09/02/23 20:55 09/02/23 20:55 Labs/Radiology: Radiology Impressions Abdomen/Pelvis CT 09/02/23 19:38 IMPRESSION: 1. No acute findings within the abdomen or pelvis. 2. No renal, ureteral, or urinary bladder calculi. No hydroureter or hydronephrosis. No overt perinephric or periureteral stranding/inflammatory changes. 3. Redemonstration of moderate colonic stool burden along with fecalization of the small bowel contents. Findings are compatible with delayed transit time/constipation. Correlate and follow-up as clinically indicated. 4. Severe degenerative changes of the partially imaged spine and other chronic/incidental findings as described above. COMMENTS: Consistent with the [employer]'s Incidental Findings Committee white paper (J Am Jaret Radiol 2018): Any incidental renal lesion less than 1 cm or classified as too small to characterize, or any incidental cystic renal lesion characterized as simple-appearing, is likely benign. No follow-up imaging is recommended for these lesions per consensus recommendations based on imaging criteria. Laboratory Results WBC 7.82 10^3/uL (3.29-11.43) 09/02/23 20:55 RBC 5.14 10^6/uL (3.85-5.65) 09/02/23 20:55 Hgb 16.80 g/dL (11.27-16.99) 09/02/23 20:55 Hct 49.3 % (37-53) 09/02/23 20:55 MCV 95.9 fl (82-101) 09/02/23 20:55 MCH 32.7 pg (27-33) 09/02/23 20:55 MCHC 34.1 g/dL (30-55) 09/02/23 20:55 RDW 14.1 % (12.1-15.1) 09/02/23 20:55 Plt Count 143 10^3/cmm (157-399) L 09/02/23 20:55 MPV 11.6 fL (7.4-10.4) H 09/02/23 20:55 Neut % (Auto) 38.9 % 09/02/23 20:55 Lymph % (Auto) 37.6 % 09/02/23 20:55 [place] % (Auto) 12.0 % 09/02/23 20:55 Eos % (Auto) 10.0 % 09/02/23 20:55 Baso % (Auto) 1.2 % 09/02/23 20:55 Neut # (Auto) 3.05 10^3/uL (1.8-7.7) 09/02/23 20:55 Lymph # (Auto) 2.9 10^3/uL (0.8-4.8) 09/02/23 20:55 [place] # (Auto) 0.9 10^3/uL (0.2-0.9) 09/02/23 20:55 Eos # (Auto) 0.8 10^3/uL (0.0-0.8) 09/02/23 20:55 Baso # (Auto) 0.1 10^3/uL (0.0-0.1) 09/02/23 20:55 Nucleated RBC % (auto) 0 % 09/02/23 20:55 Nucleated RBCs # 0.0 /100WBC 09/02/23 20:55 Sodium 138 mmol/L (136-145) 09/02/23 20:55 Potassium 4.1 mmol/L (3.5-5.1) 09/02/23 20:55 Chloride 103 mmol/L (98-107) 09/02/23 20:55 Carbon Dioxide 26 mmol/L (22-29) 09/02/23 20:55 Anion Gap 13.1 (5-19) 09/02/23 20:55 BUN 22 mg/dL (8-23) 09/02/23 20:55 Creatinine 0.9 mg/dL (0.7-1.2) 09/02/23 20:55 GFR Calculation 85.2 mL/min (90-130) L 09/02/23 20:55 Glucose 89 mg/dL (65-115) 09/02/23 20:55 Calculated Osmolality 289 mOsm/kg (285-295) 09/02/23 20:55 Calcium 9.3 mg/dL (8.5-10.5) 09/02/23 20:55 Total Bilirubin 0.5 mg/dL (0.15-1.2) 09/02/23 20:55 AST 134 U/L (0-40) H 09/02/23 20:55 ALT 153 U/L (0-41) H 09/02/23 20:55 Alkaline Phosphatase 127 U/L (40-130) 09/02/23 20:55 C-Reactive Protein 3.0 mg/L (0.0-4.9) 09/02/23 20:55 Total Protein 8.3 g/dL (6.6-8.7) 09/02/23 20:55 Albumin 4.0 g/dL (3.5-5.2) 09/02/23 20:55 Globulin 4.3 g/dL (1.3-4.6) 09/02/23 20:55 Urine Color Yellow (Yellow) 09/02/23 20:24 Urine Appearance Clear (CLEAR) 09/02/23 20:24 Urine pH 6 (5-7) 09/02/23 20:24 Ur Specific [place] 1.020 (1.005-1.030) 09/02/23 20:24 Urine Protein Neg (Negative) 09/02/23 20:24 Urine Glucose (UA) Norm (Normal) 09/02/23 20:24 Urine Ketones Negative (Negative) 09/02/23 20:24 Urine Blood Neg (Negative) 09/02/23 20:24 Urine Nitrate Negative (Negative) 09/02/23 20:24 Urine Bilirubin Neg (Negative) 09/02/23 20:24 Urine Urobilinogen 1 mg/dL (Negative) H 09/02/23 20:24 Ur Leukocyte Esterase Negative (Negative) 09/02/23 20:24 Urine RBC 0-4 /hpf (0-2) H 09/02/23 20:24 Urine WBC 0-4 /hpf (0-5) H 09/02/23 20:24 Ur Squamous Epith Cells 0-4 /hpf (0-5) H 09/02/23 20:24 Amorphous Sediment Not Reportable 09/02/23 20:24 Urine Bacteria Trace /hpf (NONE) 09/02/23 20:24 All radiology interpretation(s) finalized by discharge Discharge Plan Discharge Patient Disposition: Home Clinical Impression: Back pain Condition: Stable Prescriptions: New diclofenac sodium 50 mg tablet,delayed release (DR/EC) 50 mg PO Q12H Qty: 20 0RF No Action meloxicam 15 mg tablet 15 mg PO DAILY Qty: 14 0RF albuterol sulfate 90 mcg/actuation aerosol powdr breath activated 2 inh inhalation Q4H PRN (Reason: shortness of breath or wheezing) Qty: 1 0RF Discharge Orders: Discharge ED (Routine); Ordered 09/02/23 Ordered By: Ai Amezquita Discharge Diet: Usual diet Discharge Activity: Increase activity as tolerated Patient Instructions: Back Pain (ED) Activity Restrictions/Additional Instructions: Thank you for choosing [facility] for your healthcare needs today. Please realize this is an emergency room and that we are providing you with a medical screening exam and this may not be complete and all inclusive of all the testing and or work up that you may need to determine your ailment or severity of your illness. You have been screened and evaluated and felt safe for discharge. Health conditions do change or evolve sometimes and as such it is important that you follow up with your Primary Doctor to be re checked, 3-5 days is a general good time frame for follow up. You are always welcome to return to the ED for re assessment if your symptoms are worsening or you have new concerns Coding Level of Care Code ED Technical Adjuster for Priyanka Nunez
[2023-09-02 20:54] LABS: Bilirubin Urine Neg (Negative); Blood Urine Neg (Negative); Glucose Urine UA Norm (Normal); Ketones Urine Negative (Negative); Leukocyte Esterase Urine Negative (Negative); Nitrate Urine Negative (Negative); Protein Urine Neg (Negative); Urine Appearance Clear (CLEAR); Urine Color Yellow (Yellow); Urobilinogen Urine 1 mg/dL (Negative); pH Urine 6 (5-7)
[2023-09-02 20:55] LABS: Add Urine Culture? No; Bacteria Urine TRACE /hpf; RBC Urine 0-4 /hpf (0-2); Squamous Epithelial Cell Urine 0-4 /hpf (0-5); WBC Urine 0-4 /hpf (0-5)
[2023-09-02 21:06] LABS: Basophils # 0.1 10^3/uL (0.0-0.1); Basophils % 1.2 %; Eosinophils # 0.8 10^3/uL (0.0-0.8); Hematocrit 49.3 % (37-53); Lymphocytes # 2.9 10^3/uL (0.8-4.8); Lymphocytes % 37.6 %; Mean Corpuscular HGB Conc 34.1 g/dL (30-55); Mean Corpuscular Hemoglobin 32.7 pg (27-33); Mean Corpuscular Volume 95.9 fl (82-101); Mean Platelet Volume 11.6 fL (7.4-10.4); Monocytes # 0.9 10^3/uL (0.2-0.9); Neutrophils # 3.05 10^3/uL (1.8-7.7); Neutrophils % 38.9 %; Nucleated Red Blood Cells % 0 %; Platelet Count 143 10^3/cmm (157-399); Red Blood Count 5.14 10^6/uL (3.85-5.65); Red Cell Distribution Width 14.1 % (12.1-15.1); White Blood Count 7.82 10^3/uL (3.29-11.43)
[2023-09-02 21:09] VITALS: PULSE 76; RESP 18; O2SAT 96
[2023-09-02 21:23] LABS: Alanine Aminotransferase 153 U/L (0-41); Alkaline Phosphatase 127 U/L (40-130); Anion Gap 13.1 (5-19); Aspartate Amino Transferase 134 U/L (0-40); Blood Urea Nitrogen 22 mg/dL (8-23); Calcium 9.3 mg/dL (8.5-10.5); Carbon Dioxide 26 mmol/L (22-29); Chloride 103 mmol/L (98-107); Globulin 4.3 g/dL (1.3-4.6); Glomerular Filtration Rate 85.2 mL/min (90-130); Glucose 89 mg/dL (65-115); Osmolality Calculated 289 mOsm/kg (285-295); Potassium 4.1 mmol/L (3.5-5.1); Sodium 138 mmol/L (136-145); Total Bilirubin 0.5 mg/dL (0.15-1.2); Total Protein 8.3 g/dL (6.6-8.7)
[2023-09-02] MEDS: ketorolac 60 mg/2 mL INJ IM (21:38)
[2023-09-02 21:47] VITALS: PULSE 74; O2SAT 96
== END 2023-09-02 21:51 | disposition home or self-care (01) ==
PROVIDERS: Emergency Provider Emergency Medicine
DX: M54.9 Dorsalgia, unspecified (principal)
CPT/HCPCS: 36415; 74176; 80053; 81001; 85025; 86140; 96372; 99284; J1885

== ENCOUNTER 2023-09-12 18:50 | Emergency (ER) | payer BC, MEDICAID, SELFPAY ==
[2023-09-12 19:04] VITALS: PULSE 75; RESP 16; TEMP 36.7; O2SAT 94
--- NOTE | 2023-09-12 19:15 | XRR_ITS ---
PROCEDURE INFORMATION: Exam: XR Right Clavicle, Complete Exam date and time: 09/12/2023 7:18 PM Age: 63 years old Clinical indication: Injury or trauma; Patient HX: RT clavicle/shoulder pain post fall TECHNIQUE: Imaging protocol: Radiologic exam of the right clavicle. Complete exam. Views: Any number of views. COMPARISON: CR (CHEST, ) 09/12/2023 7:18 PM FINDINGS: Bones/joints: Moderate acromioclavicular joint osteoarthritis. Humeral head elevation likely reflecting rotator cuff pathology. Soft tissues: Normal. XR/[place] [id number] IMPRESSION: 1. Moderate acromioclavicular joint osteoarthritis. 2. Humeral head elevation likely reflecting rotator cuff pathology.
--- NOTE | 2023-09-12 19:15 | XRR_ITS ---
PROCEDURE INFORMATION: Exam: XR Right Shoulder Exam date and time: 09/12/2023 7:18 PM Age: 63 years old Clinical indication: Injury or trauma; Patient HX: RT clavicle/shoulder pain post fall TECHNIQUE: Imaging protocol: Radiologic exam of the right shoulder. Views: 2 or more views. COMPARISON: CR (CHEST, ) 09/12/2023 7:18 PM FINDINGS: Bones/joints: Moderate acromioclavicular joint osteoarthritis. Humeral head elevation likely reflecting rotator cuff pathology. Soft tissues: Normal. XR/XR shoulder RT min 2V* [id number] IMPRESSION: 1. Moderate acromioclavicular joint osteoarthritis. 2. Humeral head elevation likely reflecting rotator cuff pathology.
--- NOTE | 2023-09-12 19:21 | ED_ITS ---
Documented by User: BARBARA Perdomo 09/12/23 20:57 HPI - Extremity Problem General: Chief complaint: Extremity Injury, Upper Stated complaint: FALL Time Seen by Provider: 09/12/23 19:12 Source: patient Mode of arrival: EMS Limitations: no limitations History of Present Illness: Patient is a 63-year-old male brought into the emergency department accompanied by police for a fall in the shower tonight. Patient comes from skilled nursing where he states he slipped in the shower and struck his right shoulder on the metal bench. He arrives with obvious deformity to the right clavicle, no previous surgeries or injuries to that shoulder. No symptoms prior to fall, states he just simply slipped and fell. Has not taken anything for pain at this time. Pain worse with range of motion of the right extremity, as well as palpation. MD Complaint: joint pain (Plus deformity) Onset (ago): minute(s) Pain Consistency: constant Location: right Associated symptoms: Deny chest pain, fever(s) or rash Review of Systems General: Reports: 10 or more systems reviewed and unremarkable except in HPI and below Const: Denies: fever(s), chills or fatigue Eyes: Denies: change in vision ENMT: Denies: throat pain, ear or mastoid pain or nasal discharge Card: Denies: chest pain, palpitations, swelling of feet/ankles or lightheadedness Resp: Denies: dyspnea, productive cough or wheezing GI: Denies: abdominal pain, nausea, vomiting, diarrhea or constipation : Denies: flank pain, difficulty urinating, dysuria or urinary frequency Musc: Reports: joint pain (Right shoulder/clavicle); Denies: neck pain or back pain Skin/Breast: Denies: rash Neuro: Denies: headache(s), numbness in extremities or weakness in extremities PFSH ED PFSH: Medical History Hepatitis C test positive Methamphetamine use Elevated troponin Transaminitis Hyponatremia Influenza A COPD with acute exacerbation Acute respiratory failure with hypoxemia Irritable bowel syndrome Peripheral vascular disease CVA (cerebral vascular accident) Tobacco dependency Amphetamine use COPD (chronic obstructive pulmonary disease) Osteoarthritis Surgical History History of arthroplasty of left shoulder Family History Other Cancer Stroke Social History Smoking and tobacco/nicotine status: current every day tobacco/nicotine user Alcohol intake: never Substance/Drug Use: current Physical Exam Const: COMMON NORMALS: no acute distress, patient oriented x3 and no limitations GENERAL APPEARANCE: cooperative, comfortable and well developed ORIENTATION/CONSCIOUSNESS: Yes awake, Yes oriented to person, Yes oriented to place and Yes oriented to time HENMT: COMMON NORMALS: normocephalic, atraumatic and hearing grossly normal bilaterally HEAD & SCALP: normocephalic and atraumatic Eye: COMMON NORMALS: Equal, round and reactive pupils present, EOMs intact bilaterally and conjunctivae normal CONJUNCTIVA: Yes conjunctivae normal PUPIL: Yes Equal, round and reactive pupils present Neck/C-Spine: COMMON NORMALS: full ROM, supple and no JVD Resp: COMMON NORMALS: normal respiratory effort, No retractions, No use of accessory muscles and clear to auscultation bilaterally AUSCULTATION: clear to auscultation bilaterally Cardio: COMMON NORMALS: no JVD, regular rate, regular rhythm, No clicks present (Cardio), No murmurs present (Cardio) and No rub (Cardio) RATE: regular rate RHYTHM: regular rhythm Back/Pelvis: COMMON NORMALS: thoracic and lumbar spine normal to inspection, no thoracic nor lumbar tenderness and thoraco-lumbar ROM normal Extremity: NARRATIVE EXTREMITY EXAM: Limited range of motion of the right arm from pain. Obvious deformity noted to the right clavicle. Tender to palpation over this area. Neuro: COMMON NORMALS: patient oriented x3, moves all extremities, no focal motor deficits and no sensory deficits noted SENSORIUM/ORIENTATION: Yes oriented to person, Yes oriented to place and Yes oriented to time Psych: COMMON NORMALS: mental status grossly normal and Normal thought process present THOUGHT PROCESS: Normal thought process present Skin: COMMON NORMALS: no rashes or lesions noted GENERAL SKIN EXAM: no rashes or lesions noted Course Vital Signs: Vital signs: Vital Signs Temperature 98.1 F 09/12/23 21:14 Pulse Rate 75 09/12/23 21:14 Respiratory Rate 16 09/12/23 21:14 Pulse Oximetry 94 09/12/23 21:14 Oxygen Delivery Me thod Room Air 09/12/23 19:04 MDM - Extremity (Nontraumatic) Medical Decision Making Patient brought to the emergency department from skilled nursing for a fall in the shower, complaining of right shoulder pain. There was evidence on physical exam of deformity to the right clavicle, though upon further review this appears chronic in nature. He has recent imaging that, when comparing current imaging, there is no change from prior. However, will place him in a sling for comfort and have him follow-up with orthopedics. He will continue to take his pain medications at home. Reasons to return discussed and patient will be discharged back to skilled nursing. Lab Data Radiology Impressions Clavicle X-Ray 09/12/23 19:15 IMPRESSION: 1. Moderate acromioclavicular joint osteoarthritis. 2. Humeral head elevation likely reflecting rotator cuff pathology. Shoulder X-Ray 09/12/23 19:15 IMPRESSION: 1. Moderate acromioclavicular joint osteoarthritis. 2. Humeral head elevation likely reflecting rotator cuff pathology. Chest X-Ray 09/12/23 19:41 IMPRESSION: 1. Bibasilar atelectasis versus minimal infiltrate 2. Emphysematous changes. All radiology interpretation(s) finalized by discharge Discharge Plan Discharge Patient Disposition: Home Clinical Impression: Contusion of right shoulder Qualifiers: Encounter type: initial encounter Qualified Code(s): S40.011A - Contusion of right shoulder, initial encounter Condition: Stable Prescriptions: No Action meloxicam 15 mg tablet 15 mg PO DAILY Qty: 14 0RF albuterol sulfate 90 mcg/actuation aerosol powdr breath activated 2 inh inhalation Q4H PRN (Reason: shortness of breath or wheezing) Qty: 1 0RF diclofenac sodium 50 mg tablet,delayed release (DR/EC) 50 mg PO Q12H Qty: 20 0RF Discharge Orders: Discharge ED (Routine); Ordered 09/12/23 Ordered By: Marcelino Parker Discharge Diet: Usual diet Discharge Activity: Limit activity as instructed Patient Instructions: Shoulder Pain (ED) Activity Restrictions/Additional Instructions: Sling as instructed. Follow-up with orthopedics as discussed. Continue pain medications at home that you already have. Return with any new or worsening symptoms. Coding Level of Care Code ED Territory Sales Executive for Michelleg Fwd Documented by User: Dylan Mcknight DO 09/15/23 16:47 HPI - Extremity Problem General: Chief complaint: Extremity Injury, Upper Stated complaint: FALL Time Seen by Provider: 09/12/23 19:12 PFSH ED PFSH: Medical History Hepatitis C test positive Methamphetamine use Elevated troponin Transaminitis Hyponatremia Influenza A COPD with acute exacerbation Acute respiratory failure with hypoxemia Irritable bowel syndrome Peripheral vascular disease CVA (cerebral vascular accident) Tobacco dependency Amphetamine use COPD (chronic obstructive pulmonary disease) Osteoarthritis Surgical History History of arthroplasty of left shoulder Family History Other Cancer Stroke Social History Smoking and tobacco/nicotine status: current every day tobacco/nicotine user Alcohol intake: never Substance/Drug Use: current Course Vital Signs: Vital signs: Vital Signs Temperature 98.1 F 09/12/23 21:14 Pulse Rate 75 09/12/23 21:14 Respiratory Rate 16 09/12/23 21:14 Pulse Oximetry 94 09/12/23 21:14 Oxygen Delivery Me thod Room Air 09/12/23 19:04 MDM - Extremity (Nontraumatic) Medical Decision Making Patient brought to the emergency department from skilled nursing for a fall in the shower, complaining of right shoulder pain. There was evidence on physical exam of deformity to the right clavicle, though upon further review this appears chronic in nature. He has recent imaging that, when comparing current imaging, there is no change from prior. However, will place him in a sling for comfort and have him follow-up with orthopedics. He will continue to take his pain medications at home. Reasons to return discussed and patient will be discharged back to skilled nursing. Chart reviewed Lab Data Radiology Impressions Clavicle X-Ray 09/12/23 19:15 IMPRESSION: 1. Moderate acromioclavicular joint osteoarthritis. 2. Humeral head elevation likely reflecting rotator cuff pathology. Shoulder X-Ray 09/12/23 19:15 IMPRESSION: 1. Moderate acromioclavicular joint osteoarthritis. 2. Humeral head elevation likely reflecting rotator cuff pathology. Chest X-Ray 09/12/23 19:41 IMPRESSION: 1. Bibasilar atelectasis versus minimal infiltrate 2. Emphysematous changes. Discharge Plan Discharge Patient Disposition: Home Clinical Impression: Contusion of right shoulder Qualifiers: Encounter type: initial encounter Qualified Code(s): S40.011A - Contusion of ri ght shoulder, initial encounter Condition: Stable Prescriptions: No Action meloxicam 15 mg tablet 15 mg PO DAILY Qty: 14 0RF albuterol sulfate 90 mcg/actuation aerosol powdr breath activated 2 inh inhalation Q4H PRN (Reason: shortness of breath or wheezing) Qty: 1 0RF diclofenac sodium 50 mg tablet,delayed release (DR/EC) 50 mg PO Q12H Qty: 20 0RF Discharge Orders: Discharge ED (Routine); Ordered 09/12/23 Ordered By: Marcelino Parker Discharge Diet: Usual diet Discharge Activity: Limit activity as instructed Patient Instructions: Shoulder Pain (ED) Activity Restrictions/Additional Instructions: Sling as instructed. Follow-up with orthopedics as discussed. Continue pain medications at home that you already have. Return with any new or worsening symptoms. Coding Level of Care Code ED Territory Sales Executive for Priyanka Nunez
[2023-09-12] MEDS: ketorolac 60 mg/2 mL INJ IM (19:32)
--- NOTE | 2023-09-12 19:41 | XRR_ITS ---
PROCEDURE INFORMATION: Exam: XR Chest Exam date and time: 09/12/2023 8:05 PM Age: 63 years old Clinical indication: Injury or trauma; Fall; Other: Pain; Additional info: Clavicle deformity TECHNIQUE: Imaging protocol: Radiologic exam of the chest. Views: 1 view. COMPARISON: CR XR chest 1V portable [id number] 07/07/2023 1:14 PM FINDINGS: Lungs: Bibasilar atelectasis versus minimal infiltrate. Emphysematous changes. Pleural spaces: Unremarkable. No pleural effusion. No pneumothorax. Heart/Mediastinum: Unremarkable. No cardiomegaly. Bones/joints: Unremarkable. XR/XR chest 1V portable [id number] IMPRESSION: 1. Bibasilar atelectasis versus minimal infiltrate 2. Emphysematous changes.
[2023-09-12 21:14] VITALS: PULSE 75; RESP 16; TEMP 36.7; O2SAT 94
--- NOTE | 2023-09-15 07:38 | DCPLANNER ---
message sent to ortho for er f/u
== END 2023-09-12 21:17 | disposition home or self-care (01) ==
PROVIDERS: Emergency Provider Physician Assistant
DX: S40.011A Contusion of right shoulder, initial encounter (principal); Z86.19 Personal history of other infectious and parasitic diseases; J44.9 Chronic obstructive pulmonary disease, unspecified; Z86.73 Personal history of transient ischemic attack (TIA), and cerebral infarction without residual deficits; Z72.0 Tobacco use; W18.2XXA Fall in (into) shower or empty bathtub, initial encounter; Y92.142 Bathroom in prison as the place of occurrence of the external cause
CPT/HCPCS: 71045; 73000; 73030; 96372; 99284; J1885

== ENCOUNTER 2023-09-21 19:10 | Emergency (ER) | payer BC, MEDICAID, SELFPAY ==
[2023-09-21 19:11] VITALS: BP 139/91; PULSE 73; RESP 18; TEMP 36.6; O2SAT 96; BMI 25.1
--- NOTE | 2023-09-21 19:14 | W.ED.CHESTPA ---
HPI - Chest Pain General: Chief Complaint: Chest Pain Stated Complaint: CP Time Seen by Provider: 09/21/23 19:13 History of Present Illness: 63-year-old male patient comes in today with complaints of chest pain that started about an hour and a half prior to arrival. Patient was given some ibuprofen and Benadryl at the group home. Patient was given aspirin and nitro and route by EMS. EKG showed a sinus rhythm with a regular rate in the 70s. Patient reports a history of coronary artery disease. Patient's other history includes methamphetamine use disorder, COPD, and hepatitis C. Review of Systems General: Reports: 10 or more systems reviewed and unremarkable except in HPI and below Card: Reports: chest pain [facility] ED PFSH: Medical History Hepatitis C test positive Methamphetamine use Elevated troponin Transaminitis Hyponatremia Influenza A COPD with acute exacerbation Acute respiratory failure with hypoxemia Irritable bowel syndrome Peripheral vascular disease CVA (cerebral vascular accident) Tobacco dependency Amphetamine use COPD (chronic obstructive pulmonary disease) Osteoarthritis Surgical History History of arthroplasty of left shoulder Family History Other Cancer Stroke Social History Smoking and tobacco/nicotine status: current every day tobacco/nicotine user Alcohol intake: never Substance/Drug Use: current Physical Exam Const: COMMON NORMALS: alert HENMT: COMMON NORMALS: normocephalic HEAD & SCALP: normocephalic Neck/C-Spine: COMMON NORMALS: full ROM Resp: COMMON NORMALS: normal respiratory effort and clear to auscultation bilaterally AUSCULTATION: clear to auscultation bilaterally Cardio: COMMON NORMALS: regular rate and regular rhythm RATE: regular rate RHYTHM: regular rhythm GI: COMMON NORMALS: Soft to palpation and non-tender PALPATION: Yes Soft to palpation Back/Pelvis: COMMON NORMALS: thoracic and lumbar spine normal to inspection Extremity: COMMON NORMALS: full ROM Neuro: SENSORIUM/ORIENTATION: Yes alert Skin: COMMON NORMALS: turgor normal GENERAL SKIN EXAM: turgor normal Course Vital Signs: Vital signs: Vital Signs Temperature 97.9 F 09/21/23 19:11 Pulse Rate 80 09/21/23 20:45 Respiratory Rate 20 H 09/21/23 20:45 Blood Pressure 139/91 09/21/23 19:11 Pulse Oximetry 95 09/21/23 20:45 Oxygen Delivery Me thod Room Air 09/21/23 20:45 MDM - Chest Pain Medical Decision Making 63-year-old male comes in today for complaints of chest pain. On exam respirations are even. Lungs are clear to auscultation. Abdomen soft. No edema is noted in extremities. Vital signs are normal. Differential diagnosis includes not limited to ACS, substance use disorder, anxiety, pneumonia, malingering. CBC, CMP was unremarkable. Patient's first troponin was 48 his second troponin was 40. Patient BNP was 490. These seem to be patient's baseline of these labs. Chest x-ray was unremarkable. Reviewed exam with patient with recommendation for treatment and follow-up. Patient reported understanding agreed to plan. Lab Data 09/21/23 20:21 09/21/23 20:42 Radiology Impressions Chest X-Ray 09/21/23 19:22 IMPRESSION: Basilar opacities likely reflect atelectasis though left basilar consolidation not excluded based on radiograph. Follow-up as indicated. Laboratory Results WBC 8.23 10^3/uL (3.29-11.43) 09/21/23 20:21 RBC 4.08 10^6/uL (3.85-5.65) 09/21/23 20:21 Hgb 14.00 g/dL (11.27-16.99) 09/21/23 20:21 Hct 39.5 % (37-53) 09/21/23 20:21 MCV 96.8 fl (82-101) 09/21/23 20:21 MCH 34.3 pg (27-33) H 09/21/23 20:21 MCHC 35.4 g/dL (30-55) 09/21/23 20:21 RDW 14.7 % (12.1-15.1) 09/21/23 20:21 Plt Count 258 10^3/cmm (157-399) 09/21/23 20:21 MPV 12.4 fL (7.4-10.4) H 09/21/23 20:21 Neut % (Auto) 49.6 % 09/21/23 20:21 Lymph % (Auto) 25.8 % 09/21/23 20:21 [place] % (Auto) 11.5 % 09/21/23 20:21 Eos % (Auto) 11.9 % 09/21/23 20:21 Baso % (Auto) 1.0 % 09/21/23 20:21 Neut # (Auto) 4.08 10^3/uL (1.8-7.7) 09/21/23 20:21 Lymph # (Auto) 2.1 10^3/uL (0.8-4.8) 09/21/23 20:21 [place] # (Auto) 1.0 10^3/uL (0.2-0.9) H 09/21/23 20:21 Eos # (Auto) 1.0 10^3/uL (0.0-0.8) H 09/21/23 20:21 Baso # (Auto) 0.1 10^3/uL (0.0-0.1) 09/21/23 20:21 Nucleated RBC % (auto) 0 % 09/21/23 20:21 Nucleated RBCs # 0.0 /100WBC 09/21/23 20:21 PT 13.60 SECONDS (12.1-14.9) 09/21/23 20:21 INR 1.01 (0.8-1.2) 09/21/23 20:21 APTT 27.8 SECONDS (23.9-36.7) 09/21/23 20:21 Sodium 140 mmol/L (136-145) 09/21/23 20:42 Potassium 3.8 mmol/L (3.5-5.1) 09/21/23 20:42 Chloride 106 mmol/L (98-107) 09/21/23 20:42 Carbon Dioxide 26 mmol/L (22-29) 09/21/23 20:42 Anion Gap 11.8 (5-19) 09/21/23 20:42 BUN 15 mg/dL (8-23) 09/21/23 20:42 Creatinine 0.8 mg/dL (0.7-1.2) 09/21/23 20:42 GFR Calculation 97.6 mL/min (90-130) 09/21/23 20:42 Glucose 98 mg/dL (65-115) 09/21/23 20:42 Calculated Osmolality 291 mOsm/kg (285-295) 09/21/23 20:42 Calcium 8.5 mg/dL (8.5-10.5) 09/21/23 20:42 Total Bilirubin 0.4 mg/dL (0.15-1.2) 09/21/23 20:42 AST 67 U/L (0-40) H 09/21/23 20:42 ALT 73 U/L (0-41) H 09/21/23 20:42 Alkaline Phosphatase 79 U/L (40-130) 09/21/23 20:42 Troponin T Baseline 48 ng/L (0-15) H 09/21/23 20:21 Troponin T 120 Minute 40.88 ng/L (0-15) H 09/21/23 22:21 Delta Troponin T -7.12 ABS# (0-10) L 09/21/23 22:21 NT-Pro-B Natriuret Pep 490 pg/mL (0-125) H 09/21/23 20:42 Total Protein 6.4 g/dL (6.6-8.7) L 09/21/23 20:42 Albumin 3.3 g/dL (3.5-5.2) L 09/21/23 20:42 Globulin 3.1 g/dL (1.3-4.6) 09/21/23 20:42 Lipase 44 U/L (13-60) 09/21/23 20:42 All radiology interpretation(s) finalized by discharge EKG Data EKG 1: I personally reviewed and interpreted this EKG as follows: EKG interpretation date: 09/21/23 EKG interpretation time: 19:23 Prior EKG tracings: not available for review Interpretation: EKG shows sinus rhythm with regular rate at [address] elevation or ectopy is noted. No prior exam was available for immediate comparison. Computer generated interpretation: Sinus rhythm, normal EKG, unconfirmed report. EKG 2: I personally reviewed and interpreted this EKG as follows: EKG interpretation date: 09/21/23 EKG interpretation time: 21:50 Prior EKG tracings: available for review Interpretation: EKG shows a sinus rhythm with a regular rate at [address] elevation or ectopy is noted. No change from prior exam. Computer generated interpretation: Sinus rhythm, normal EKG, unconfirmed report. Discharge Plan Discharge Patient Disposition: Home Clinical Impression: Chest pain Qualifiers: Chest pain type: unspecified Qualified Code(s): R07.9 - Chest pain, unspecified Condition: Stable Prescriptions: No Action meloxicam 15 mg tablet 15 mg PO DAILY Qty: 14 0RF albuterol sulfate 90 mcg/actuation aerosol powdr breath activated 2 inh inhalation Q4H PRN (Reason: shortness of breath or wheezing) Qty: 1 0RF diclofenac sodium 50 mg tablet,delayed release (DR/EC) 50 mg PO Q12H Qty: 20 0RF Discharge Orders: Discharge ED (Routine); Ordered 09/21/23 Ordered By: Hans Schultz Discharge Diet: Usual diet Patient Instructions: Chest Pain (ED) Activity Restrictions/Additional Instructions: Follow-up with primary care or client application support specialist for further evaluation and treatment. Return to ED for new concerns. Use acetaminophen and/or ibuprofen for pain. Coding Level of Care Code ED Specialty Development Consultant for Priyanka Nunez
--- NOTE | 2023-09-21 19:22 | XRR_ITS ---
PROCEDURE INFORMATION: Exam: XR Chest Exam date and time: 09/21/2023 7:23 PM Age: 63 years old Clinical indication: Angina pectoris; Patient HX: Chest pain TECHNIQUE: Imaging protocol: Radiologic exam of the chest. Views: 1 view. COMPARISON: CR (CHEST, ) 09/12/2023 8:05 PM FINDINGS: Lungs: Mild increased density in the lung bases likely related to atelectasis. Left basilar opacities could represent consolidation. Pleural spaces: No pleural effusion or pneumothorax. Heart/Mediastinum: The cardiomediastinal silhouette is within normal limits. Bones/joints: No acute osseous abnormalities are seen. XR/XR chest 1V portable [id number] IMPRESSION: Basilar opacities likely reflect atelectasis though left basilar consolidation not excluded based on radiograph. Follow-up as indicated.
--- NOTE | 2023-09-21 19:22 | ECG_ITS ---
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 Measurements Intervals [place] Rate: 70 P: 59 RI: 163 QRS: 81 QRSD: 92 T: 80 QT: 408 QTc: 441 Interpretive Statements SINUS RHYTHM Compared to ECG 07/07/2023 12:46:02 No significant changes Electronically Signed On 09-21-2023 20:30:[address] M.D. [id number] f
[2023-09-21 20:35] LABS: Basophils # 0.1 10^3/uL (0.0-0.1); Eosinophils % 11.9 %; Hematocrit 39.5 % (37-53); Lymphocytes # 2.1 10^3/uL (0.8-4.8); Lymphocytes % 25.8 %; Mean Corpuscular HGB Conc 35.4 g/dL (30-55); Mean Corpuscular Hemoglobin 34.3 pg (27-33); Mean Corpuscular Volume 96.8 fl (82-101); Mean Platelet Volume 12.4 fL (7.4-10.4); Monocytes % 11.5 %; Neutrophils # 4.08 10^3/uL (1.8-7.7); Neutrophils % 49.6 %; Nucleated Red Blood Cells % 0 %; Platelet Count 258 10^3/cmm (157-399); Red Blood Count 4.08 10^6/uL (3.85-5.65); Red Cell Distribution Width 14.7 % (12.1-15.1); White Blood Count 8.23 10^3/uL (3.29-11.43)
[2023-09-21 20:45] VITALS: PULSE 80; RESP 20; O2SAT 95
[2023-09-21 20:46] LABS: Troponin(5th) Baseline 48 ng/L (0-15)
[2023-09-21 20:55] LABS: INR 1.01 (0.8-1.2); Partial Thromboplastin Time 27.8 SECONDS (23.9-36.7)
[2023-09-21 21:16] LABS: Alanine Aminotransferase 73 U/L (0-41); Albumin Level 3.3 g/dL (3.5-5.2); Alkaline Phosphatase 79 U/L (40-130); Anion Gap 11.8 (5-19); Aspartate Amino Transferase 67 U/L (0-40); Blood Urea Nitrogen 15 mg/dL (8-23); Calcium 8.5 mg/dL (8.5-10.5); Carbon Dioxide 26 mmol/L (22-29); Chloride 106 mmol/L (98-107); Creatinine Clr Calc Pharmacy 97.9403; Globulin 3.1 g/dL (1.3-4.6); Glomerular Filtration Rate 97.6 mL/min (90-130); Glucose 98 mg/dL (65-115); Lipase 44 U/L (13-60); NT Pro B Type Natriuretic Pept 490 pg/mL (0-125); Osmolality Calculated 291 mOsm/kg (285-295); Potassium 3.8 mmol/L (3.5-5.1); Sodium 140 mmol/L (136-145); Total Bilirubin 0.4 mg/dL (0.15-1.2); Total Protein 6.4 g/dL (6.6-8.7)
--- NOTE | 2023-09-21 21:22 | ECG_ITS ---
[facility] Test Date: 2023-09-21 Pat Name: Geremias Delatorre Department: Room: Gender: Male Size Changer: : 1960 Requested By: Hans Nam Order Number: [id number] Adelaida MD: Lucrecia Street M.D. Measurements Intervals [place] Rate: 74 P: 61 NV: 160 QRS: 85 QRSD: 89 T: 83 QT: 412 QTc: 459 Interpretive Statements SINUS RHYTHM Compared to ECG 09/21/2023 19:16:43 No significant changes Electronically Signed On 09-22-2023 19:05:[address] M.D. [id number]
[2023-09-21 22:53] LABS: Troponin 5 2HR 40.88 ng/L (0-15)
[2023-09-21 22:56] LABS: Troponin 5 2HR Delta -7.12 ABS# (0-10)
[2023-09-21 23:16] VITALS: PULSE 71; RESP 13; O2SAT 94
== END 2023-09-21 23:12 | disposition home or self-care (01) ==
PROVIDERS: Emergency Provider Nurse Practitioner Family
DX: R07.9 Chest pain, unspecified (principal); Z72.0 Tobacco use; Z86.19 Personal history of other infectious and parasitic diseases; J44.9 Chronic obstructive pulmonary disease, unspecified; Z86.73 Personal history of transient ischemic attack (TIA), and cerebral infarction without residual deficits
CPT/HCPCS: 71045; 80053; 83690; 83880; 84484; 85025; 85610; 85730; 93005; 99285

== ENCOUNTER 2023-10-09 15:40 | Emergency (ER) | payer BC, MEDICAID, SELFPAY ==
[2023-10-09 15:45] VITALS: BP 178/101; PULSE 74; RESP 16; TEMP 36.8; O2SAT 96; BMI 25.1
--- NOTE | 2023-10-09 15:46 | XRR_ITS ---
PROCEDURE INFORMATION: Exam: XR Chest Exam date and time: 10/09/2023 4:10 PM Age: 63 years old Clinical indication: Cough and dyspnea; Additional info: Dyspnea/cough TECHNIQUE: Imaging protocol: Radiologic exam of the chest. Views: 1 view. COMPARISON: CR (CHEST, ) 09/21/2023 7:23 PM FINDINGS: Lungs: No large focal consolidation. Pleural spaces: No large pleural effusion. No distinct pneumothorax. Heart/Mediastinum: Cardiomediastinal silhouette is midline and normal in size. Bones/joints: Osseous structures are unchanged, including chronic changes of the left shoulder and postsurgical changes of the left humerus, partially imaged. XR/XR chest 1V portable [id number] IMPRESSION: No acute cardiopulmonary findings.
--- NOTE | 2023-10-09 15:49 | ECG_ITS ---
[facility] Test Date: 2023-10-09 Pat Name: Geremias Delatorre Department: Room: Gender: Male Concrete Tile Machine Operator: : 1960 Requested By: Dylan Castaneda Order Number: [id number] Adelaida MD: Lucrecia Street M.D. Measurements Intervals [place] Rate: 62 P: 77 MN: 169 QRS: 85 QRSD: 81 T: 82 QT: 402 QTc: 408 Interpretive Statements SINUS RHYTHM Compared to ECG 09/21/2023 21:40:51 No significant changes Electronically Signed On 10-10-2023 20:36:[address] M[address]D. [id number]
[2023-10-09 16:00] VITALS: BP 171/95; PULSE 71; RESP 16; O2SAT 96
[2023-10-09 16:06] LABS: Basophils # 0.2 10^3/uL (0.0-0.1); Basophils % 1.7 %; Eosinophils # 1.1 10^3/uL (0.0-0.8); Eosinophils % 12.8 %; Hematocrit 45.5 % (37-53); Lymphocytes # 2.9 10^3/uL (0.8-4.8); Lymphocytes % 33.4 %; Mean Corpuscular HGB Conc 33.6 g/dL (30-55); Mean Corpuscular Hemoglobin 33.5 pg (27-33); Mean Corpuscular Volume 99.6 fl (82-101); Mean Platelet Volume 11.4 fL (7.4-10.4); Monocytes % 11.7 %; Neutrophils # 3.49 10^3/uL (1.8-7.7); Neutrophils % 40.1 %; Nucleated Red Blood Cells % 0 %; Platelet Count 158 10^3/cmm (157-399); Red Blood Count 4.57 10^6/uL (3.85-5.65); White Blood Count 8.73 10^3/uL (3.29-11.43)
--- NOTE | 2023-10-09 16:15 | W.ED.CHESTPA ---
HPI - Chest Pain General: Chief Complaint: Chest Pain Stated Complaint: cp Time Seen by Provider: 10/09/23 15:45 Source: patient Mode of arrival: other History of Present Illness: 63-year-old male presents emergency room with complaints of chest discomfort. Chest pain began at rest. No associated diaphoresis or shortness of breath he relates he a history of coronary artery disease. In reviewing his chart however there is no indication that he has had any stents placed in the past and has not had a coronary artery bypass graft. He has had peripheral artery disease and had a bypass for right iliac stenosis. He has had prior ER visits for complaints of chest pain no previous stress test that I can find in the current record. He does not recall having previous angiogram or stress test. He does state he has previously had an AK in the past he had an echocardiogram that showed some diastolic dysfunction with no wall motion abnormalities. MD complaint: chest pain Timing of current episode: episodic Prior episodes: Yes Onset: during rest Quality: aching and heaviness Relieving factors: nothing Exacerbating factors: nothing Associated symptoms: Deny abdominal pain, diaphoresis, dyspnea, fever(s), leg edema, nausea, palpitations, sense of impending doom, syncope or vomiting Review of Systems Const: Denies: fever(s), chills, fatigue, malaise or diaphoresis Card: Reports: chest pain; Denies: palpitations, irregular heart rhythm, edema, swelling of feet/ankles or syncope Resp: Denies: dyspnea GI: Denies: abdominal pain, nausea or vomiting : Denies: dysuria, urinary frequency or urinary urgency Musc: Denies: neck pain or back pain Skin/Breast: Denies: rash [facility] ED PFSH: Medical History Hepatitis C test positive Methamphetamine use Elevated troponin Transaminitis Hyponatremia Influenza A COPD with acute exacerbation Acute respiratory failure with hypoxemia Irritable bowel syndrome Peripheral vascular disease CVA (cerebral vascular accident) Tobacco dependency Amphetamine use COPD (chronic obstructive pulmonary disease) Osteoarthritis Surgical History History of arthroplasty of left shoulder Family History Other Cancer Stroke Social History (Reviewed 10/09/23 @ 16:16 by KHANG William Smoking and tobacco/nicotine status: current every day tobacco/nicotine user Alcohol intake: never Substance/Drug Use: current Physical Exam Const: COMMON NORMALS: no acute distress GENERAL APPEARANCE: cooperative and comfortable ORIENTATION/CONSCIOUSNESS: Yes awake, Yes oriented to person, Yes oriented to place and Yes oriented to time HENMT: COMMON NORMALS: normocephalic, atraumatic and hearing grossly normal bilaterally HEAD & SCALP: normocephalic and atraumatic Resp: COMMON NORMALS: normal respiratory effort, No retractions, No use of accessory muscles and clear to auscultation bilaterally AUSCULTATION: clear to auscultation bilaterally Cardio: COMMON NORMALS: regular rate, regular rhythm and No murmurs present (Cardio) RATE: regular rate RHYTHM: regular rhythm GI: COMMON NORMALS: Soft to palpation and No hepatosplenomegaly present AUSCULTATION: Yes normoactive bowel sounds PALPATION: Yes Soft to palpation, No Tenderness to palpation present (GI), No Guarding due to palpation present (GI) and Yes No hepatosplenomegaly present Extremity: COMMON NORMALS: normal to inspection, capillary refill normal, no clubbing, cyanosis or edema, no calf tenderness and no pedal edema Neuro: SENSORIUM/ORIENTATION: Yes oriented to person, Yes oriented to place and Yes oriented to time Skin: COMMON NORMALS: no rashes or lesions noted GENERAL SKIN EXAM: no rashes or lesions noted Course Vital Signs: Vital signs: Vital Signs Temperature 98.3 F 10/09/23 15:45 Pulse Rate 64 10/09/23 18:00 Respiratory Rate 16 10/09/23 18:00 Blood Pressure 162/110 10/09/23 18:00 Pulse Oximetry 97 10/09/23 18:00 Oxygen Delivery Me thod Room Air 10/09/23 15:45 MDM - Chest Pain Medical Decision Making EKG shows no acute changes to pressure seconds EKG. Normal ST segments. Cardiac enzymes did not trend positive. At this point recommend starting on Imdur 30 mg daily and baby continue baby aspirin daily. Will set him up for cardiac stress past. Medical Records I reviewed the patient's medical records. Lab Data I reviewed the patient's lab results. 10/09/23 15:58 10/09/23 15:58 Radiology Impressions Chest X-Ray 10/09/23 15:46 IMPRESSION: No acute cardiopulmonary findings. Laboratory Results WBC 8.73 10^3/uL (3.29-11.43) 10/09/23 15:58 RBC 4.57 10^6/uL (3.85-5.65) 10/09/23 15:58 Hgb 15.30 g/dL (11.27-16.99) 10/09/23 15:58 Hct 45.5 % (37-53) 10/09/23 15:58 MCV 99.6 fl (82-101) 10/09/23 15:58 MCH 33.5 pg (27-33) H 10/09/23 15:58 MCHC 33.6 g/dL (30-55) 10/09/23 15:58 RDW 14.0 % (12.1-15.1) 10/09/23 15:58 Plt Count 158 10^3/cmm (157-399) 10/09/23 15:58 MPV 11.4 fL (7.4-10.4) H 10/09/23 15:58 Neut % (Auto) 40.1 % 10/09/23 15:58 Lymph % (Auto) 33.4 % 10/09/23 15:58 [place] % (Auto) 11.7 % 10/09/23 15:58 Eos % (Auto) 12.8 % 10/09/23 15:58 Baso % (Auto) 1.7 % 10/09/23 15:58 Neut # (Auto) 3.49 10^3/uL (1.8-7.7) 10/09/23 15:58 Lymph # (Auto) 2.9 10^3/uL (0.8-4.8) 10/09/23 15:58 [place] # (Auto) 1.0 10^3/uL (0.2-0.9) H 10/09/23 15:58 Eos # (Auto) 1.1 10^3/uL (0.0-0.8) H 10/09/23 15:58 Baso # (Auto) 0.2 10^3/uL (0.0-0.1) H 10/09/23 15:58 Nucleated RBC % (auto) 0 % 10/09/23 15:58 Nucleated RBCs # 0.0 /100WBC 10/09/23 15:58 Sodium 139 mmol/L (136-145) 10/09/23 15:58 Potassium 4.9 mmol/L (3.5-5.1) 10/09/23 15:58 Chloride 105 mmol/L (98-107) 10/09/23 15:58 Carbon Dioxide 21 mmol/L (22-29) L 10/09/23 15:58 Anion Gap 19.9 (5-19) H 10/09/23 15:58 BUN 26 mg/dL (8-23) H 10/09/23 15:58 Creatinine 0.9 mg/dL (0.7-1.2) 10/09/23 15:58 GFR Calculation 85.2 mL/min (90-130) L 10/09/23 15:58 Glucose 85 mg/dL (65-115) 10/09/23 15:58 Calculated Osmolality 292 mOsm/kg (285-295) 10/09/23 15:58 Calcium 9.4 mg/dL (8.5-10.5) 10/09/23 15:58 Total Bilirubin 0.5 mg/dL (0.15-1.2) 10/09/23 15:58 AST 124 U/L (0-40) H 10/09/23 15:58 ALT 138 U/L (0-41) H 10/09/23 15:58 Alkaline Phosphatase 108 U/L (40-130) 10/09/23 15:58 Troponin T Baseline 33 ng/L (0-15) H 10/09/23 15:58 Troponin T 120 Minute 32.66 ng/L (0-15) H 10/09/23 17:30 Delta Troponin T -0.34 ABS# (0-10) L 10/09/23 17:30 Total Protein 7.9 g/dL (6.6-8.7) 10/09/23 15:58 Albumin 3.9 g/dL (3.5-5.2) 10/09/23 15:58 Globulin 4.0 g/dL (1.3-4.6) 10/09/23 15:58 Urine Color Yellow (Yellow) 10/09/23 16:30 Urine Appearance Clear (CLEAR) 10/09/23 16:30 Urine pH 6 (5-7) 10/09/23 16:30 Ur Specific [place] 1.020 (1.005-1.030) 10/09/23 16:30 Urine Protein Neg (Negative) 10/09/23 16:30 Urine Glucose (UA) Norm (Normal) 10/09/23 16:30 Urine Ketones Negative (Negative) 10/09/23 16:30 Urine Blood Neg (Negative) 10/09/23 16:30 Urine Nitrate Negative 10/09/23 16:30 Urine Bilirubin Neg (Negative) 10/09/23 16:30 Urine Urobilinogen 1 mg/dL (Negative) H 10/09/23 16:30 Ur Leukocyte Esterase Negative (Negative) 10/09/23 16:30 All radiology interpretation(s) finalized by discharge Discharge Plan Discharge Patient Disposition: Home Clinical Impression: Atypical chest pain Condition: Stable Prescriptions: New aspirin 81 mg tablet,delayed release (DR/EC) 81 mg PO DAILY Qty: 30 0RF isosorbide mononitrate 30 mg tablet extended release 24 hr 30 mg PO DAILY Qty: 30 0RF No Action meloxicam 15 mg tablet 15 mg PO DAILY Qty: 14 0RF albuterol sulfate 90 mcg/actuation aerosol powdr breath activated 2 inh inhalation Q4H PRN (Reason: shortness of breath or wheezing) Qty: 1 0RF diclofenac sodium 50 mg tablet,delayed release (DR/EC) 50 mg PO Q12H Qty: 20 0RF Discharge Orders: Discharge ED (Routine); Ordered 10/09/23 Ordered By: Dylan Mcknight Discharge Diet: Usual diet Discharge Activity: Limit activity as instructed Patient Instructions: Opioid Safety, Pain Management Activity Restrictions/Additional Instructions: Thank you for choosing [facility] for your healthcare needs today. It is very important that you follow up as instructed or that you return to the Emergency Department should you have concerns or if your condition changes or worsens in any way. You were seen today with complaint of chest discomfort. Your EKG did not show any acute EKG changes your cardiac enzymes did not show significant abnormality. Recommend you start on isosorbide mononitrate once daily as well as baby aspirin daily. In addition to this we will set you up for an outpatient Lexiscan sestamibi stress test. Coding Level of Care Code ED Pole Shaver for Priyanka Nunez
[2023-10-09 16:30] VITALS: BP 151/92; PULSE 65; RESP 18; O2SAT 95
[2023-10-09 16:33] LABS: Troponin(5th) Baseline 33 ng/L (0-15)
[2023-10-09 16:37] LABS: Albumin Level 3.9 g/dL (3.5-5.2); Alkaline Phosphatase 108 U/L (40-130); Blood Urea Nitrogen 26 mg/dL (8-23); Calcium 9.4 mg/dL (8.5-10.5); Carbon Dioxide 21 mmol/L (22-29); Chloride 105 mmol/L (98-107); Glomerular Filtration Rate 85.2 mL/min (90-130); Glucose 85 mg/dL (65-115); Osmolality Calculated 292 mOsm/kg (285-295); Sodium 139 mmol/L (136-145); Total Bilirubin 0.5 mg/dL (0.15-1.2); Total Protein 7.9 g/dL (6.6-8.7)
[2023-10-09 16:44] LABS: Add Urine Microscopic? NO; Charge for UA Resulting for Rev
[2023-10-09 16:57] LABS: Alanine Aminotransferase 138 U/L (0-41); Aspartate Amino Transferase 124 U/L (0-40); Potassium 4.9 mmol/L (3.5-5.1)
[2023-10-09 16:58] LABS: Anion Gap 19.9 (5-19)
[2023-10-09 17:02] LABS: Bilirubin Urine Neg (Negative); Blood Urine Neg (Negative); Glucose Urine UA Norm (Normal); Ketones Urine Negative (Negative); Leukocyte Esterase Urine Negative (Negative); Nitrate Urine Negative; Protein Urine Neg (Negative); Urine Appearance Clear (CLEAR); Urine Color Yellow (Yellow); Urobilinogen Urine 1 mg/dL (Negative); pH Urine 6 (5-7)
--- NOTE | 2023-10-09 17:46 | ECG_ITS ---
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 Measurements Intervals [place] Rate: 63 P: 59 AR: 166 QRS: 78 QRSD: 85 T: 81 QT: 420 QTc: 432 Interpretive Statements SINUS RHYTHM WITH SINUS ARRHYTHMIA Compared to ECG 10/09/2023 15:49:50 No significant changes Electronically Signed On 10-10-2023 20:47:[address] M.D. [id number]
[2023-10-09 17:52] LABS: Troponin 5 2HR 32.66 ng/L (0-15)
[2023-10-09 17:53] LABS: Troponin 5 2HR Delta -0.34 ABS# (0-10)
[2023-10-09 18:00] VITALS: BP 162/110; PULSE 64; RESP 16; O2SAT 97
== END 2023-10-09 18:19 | disposition home or self-care (01) ==
PROVIDERS: Emergency Provider Family Medicine
DX: R07.89 Other chest pain (principal); Z72.0 Tobacco use; Z86.19 Personal history of other infectious and parasitic diseases; J44.9 Chronic obstructive pulmonary disease, unspecified; Z86.73 Personal history of transient ischemic attack (TIA), and cerebral infarction without residual deficits
CPT/HCPCS: 36415; 71045; 80053; 81003; 84484; 85025; 93005; 99285

== ENCOUNTER 2023-10-30 08:41 | Outpatient (CLI) | payer BC, MEDICAID, SELFPAY ==
--- NOTE | 2023-10-30 | ECG_ITS ---
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 Interpretive Statements NAME OF STUDY: LEXISCAN SESTAMIBI STRESS TEST INDICATION: Chest Pain PROCEDURE: At the baseline, the EKG revealed normal sinus rhythm. No [facility] [place] ST-T changes. Because of the baseline artifact, EKG interpretation is difficult. The baseline heart was 60 bpm with a blood pressue of 150/104 mm of Hg Lexiscan was infused over a period of 20 seconds. A total of 0.4 milligrams of Lexiscan was infused. The stress phase was continued for a total of 5 minutes. Heart rate at the end of the stress phase was 78 bpm with a blood pressure was not taken. The EKG at the peak infusion revealed no significant changes. Sestamibi was injected 20 seconds after the Lexiscan infusion. Heart rate at the end of the recovery phase was 76 bpm with a blood pressure of 120/75 mm of Hg. CONCLUSION: 1. No significant EKG changes with the LexiScan infusion 2. No LexiScan induced chest pain or cardiac arrhythmia 3. Normal blood pressure and heart rate response 4. Sestamibi/sestamibi perfusion scan pending; see separate report. Electronically Signed On 10-30-2023 23:17:[address] M.D. [id number]
[2023-10-30 08:46] VITALS: BMI 24.3
--- NOTE | 2023-10-30 08:50 | NMCV_ITS ---
NM jessica perf SPECT r/s* [id number] Nandini, Geremias Age: 63 Gender: M : 1960 Exam Date: 10/30/2023 08:50 Ordering Phys: Dylan Mcknight DO Technologist: NADIA Pérez Exam Location: [facility] Indications: CP STRESS TEST Please see separate stress test report in [facility] for full findings IMAGE PROTOCOL Rest/Stress 1 Lexiscan Day Radiopharmaceutical Dose (mCi) Administration Site Administered by Rest: Tc-99m 10.9 IV NADIA Pérez Stress:Tc-99m 32.6 IV NADIA Pérez Rest: 30-Oct-2023 60 Discovery 630 Stress: 30-Oct-2023 30 Discovery 630 0.4mg Lexiscan. Images obtained in supine and prone position. SPECT RESULTS Technical Quality: Good Raw Data Analysis: Normal Image Corrections: No attenuation or motion correction applied Summed Stress Score: 0 Summed Rest Score: 4 Summed Difference Score: 0 PERFUSION FINDINGS Uniform myocardial tracer uptake with no significant perfusion abnormalities. FUNCTIONAL RESULTS (calculated via Gated SPECT) Stress Image LV EF (%): 71 Stress EDV (mL):76 TID: 1.02 Stress ESV (mL):22 FUNCTIONAL FINDINGS: Segmental wall motion analysis revealing no gross wall motion abnormalities IMPRESSIONS 1. Myocardial perfusion imaging revealing fairly uniform myocardial tracer uptake with no significant perfusion abnormalities 2. Normal LV ejection fraction 3. LV wall motion analysis revealing no gross wall motion abnormalities. 4. Normal LV volume Low probability for coronary ischemia, based on the above findings Dr Lucrecia Street MD FAC (Electronically Signed) Final Date: 30 October 2023 19:54 S
[2023-10-30] MEDS: regadenoson 0.4 Mg/5 ml Syringe IVP (10:40)
[2023-10-30 11:25] VITALS: BP 154/89; PULSE 72
== END 2023-10-30 08:42 | disposition home or self-care (01) ==
LOC: CDL 08:42
PROVIDERS: Visit Provider Family Medicine
DX: R07.89 Other chest pain (principal)
CPT/HCPCS: 36415; 78452; 93017; 96374; A9500; J2785

== ENCOUNTER 2023-11-04 15:57 | Emergency (ER) | payer BC, MEDICAID, SELFPAY ==
--- NOTE | 2023-11-04 15:59 | XRR_ITS ---
PROCEDURE INFORMATION: Exam: XR Chest Exam date and time: 11/04/2023 4:23 PM Age: 63 years old Clinical indication: Pain; Angina pectoris; Additional info: Cp TECHNIQUE: Imaging protocol: Radiologic exam of the chest. Views: 1 view. COMPARISON: CR XR chest 1V portable [id number] 10/09/2023 4:10 PM FINDINGS: Airway: The airways are patent. Lungs: Lung hyperlucency, favoring emphysema. There are multiple punctate pulmonary parenchymal calcifications, consistent with remote granulomatous organism exposure. No consolidations. Pleural spaces: No pleural effusions or pneumothorax. Heart/Mediastinum: Heart is of normal size and morphology. Vasculature: Calcified aortic knob. Bones/joints: Partially seen left humeral fixation hardware. Severe osteoarthritis of the left glenohumeral joint. Mild degenerative changes of the right acromioclavicular joint. Mild degenerative changes of the left acromioclavicular joint. There is no evidence of acutely displaced skeletal fractures. There is no evidence of joint dislocation. Diffuse thoracic spondylosis. XR/XR chest 1V portable [id number] IMPRESSION: No acute thoracic pathology.
--- NOTE | 2023-11-04 16:00 | ECG_ITS ---
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 Measurements Intervals [place] Rate: 92 P: 76 ND: 163 QRS: 91 QRSD: 86 T: 76 QT: 338 QTc: 418 Interpretive Statements SINUS RHYTHM BORDERLINE RIGHT AXIS DEVIATION [QRS AXIS > 90] Compared to ECG 10/09/2023 17:40:09 Sinus arrhythmia no longer present Electronically Signed On 11-04-2023 16:29:47 CDT by Chau Paulino M.D. [id number]
[2023-11-04 16:07] VITALS: BP 112/81; PULSE 104; RESP 16; TEMP 36.8; O2SAT 97
--- NOTE | 2023-11-04 16:19 | ED_ITS ---
HPI - Chest Pain 2 General: Chief Complaint: Chest Pain Stated Complaint: Chest Pain Time Seen by Provider: 11/04/23 16:12 Source: patient Mode of arrival: ambulatory Limitations: no limitations History of Present Illness: 63-year-old male who is here from detention s tates he having a sharp chest pain over the last few hours. States pain is currently a 3 out of 10 he denies any vomiting or diarrhea he denies any fevers. He denies any radiation of his pain denies any diaphoresis Associated symptoms: Deny abdominal pain, dyspnea, fever(s), nausea or vomiting Review of Systems 2 Const: Denies: fever(s), chills, body aches or change in appetite ENMT: Denies: throat pain or dental pain Card: Reports: chest pain Resp: Denies: dyspnea GI: Denies: abdominal pain, nausea, vomiting or diarrhea : Denies: dysuria Musc: Denies: neck pain or back pain Skin/Breast: Denies: rash Neuro: Denies: headache(s) PFSH ED 2 PFSH: Medical History Hepatitis C test positive Methamphetamine use Elevated troponin Transaminitis Hyponatremia Influenza A COPD with acute exacerbation Acute respiratory failure with hypoxemia Irritable bowel syndrome Peripheral vascular disease CVA (cerebral vascular accident) Tobacco dependency Amphetamine use COPD (chronic obstructive pulmonary disease) Osteoarthritis Surgical History History of arthroplasty of left shoulder Family History Other Cancer Stroke Social History Smoking and tobacco/nicotine status: current every day tobacco/nicotine user Alcohol intake: never Substance/Drug Use: current Physical Exam 2 Const: COMMON NORMALS: no acute distress, patient oriented x3 and healthy appearing HENMT: COMMON NORMALS: normocephalic and atraumatic HEAD & SCALP: n ormocephalic and atraumatic Eye: COMMON NORMALS: Equal, round and reactive pupils present and EOMs intact bilaterally PUPIL: Yes Equal, round and reactive pupils present Neck/C-Spine: COMMON NORMALS: full ROM and supple Chest: COMMONS NORMALS: normal inspection of the chest and normal palpation of entire chest wall Resp: COMMON NORMALS: normal respiratory effort, No retractions, No use of accessory muscles and clear to auscultation bilaterally AUSCULTATION: clear to auscultation bilaterally Cardio: COMMON NORMALS: regular rate, regular rhythm and No murmurs present (Cardio) RATE: regular rate RHYTHM: regular rhythm GI: COMMON NORMALS: Normal to inspection, nondistended, normoactive bowel sounds present, Soft to palpation, non-tender and no masses PALPATION: Yes Soft to palpation Extremity: COMMON NORMALS: normal to inspection and full ROM Neuro: COMMON NORMALS: patient oriented x3, moves all extremities and no focal motor deficits Psych: COMMON NORMALS: mental status grossly normal, Normal thought process present and cooperative THOUGHT PROCESS: Normal thought process present Skin: COMMON NORMALS: no rashes or lesions noted and no wounds GENERAL SKIN EXAM: no rashes or lesions noted Course 2 Vital Signs: Vital signs: Vital Signs Temperature 98.2 F 11/04/23 16:07 Pulse Rate 68 11/04/23 18:00 Respiratory Rate 16 11/04/23 16:07 Blood Pressure 131/78 11/04/23 18:00 Pulse Oximetry 98 11/04/23 18:00 Oxygen Delivery Me thod Room Air 11/04/23 18:00 MDM - Chest Pain Medical Decision Making Patient presents here with chest pains atypical in nature to her troponin went down he has no signs of pulmonary embolism we will or dissection or acute coronary syndrome he is stable for discharge back to detention. Medical Records I reviewed the patient's medical records. Lab Data I reviewed the patient's lab results. 11/04/23 16:15 11/04/23 16:15 Radiology Impressions Chest X-Ray 11/04/23 15:59 IMPRESSION: No acute thoracic pathology. Laboratory Results WBC 8.16 10^3/uL (3.29-11.43) 11/04/23 16:15 RBC 4.52 10^6/uL (3.85-5.65) 11/04/23 16:15 Hgb 15.30 g/dL (11.27-16.99) 11/04/23 16:15 Hct 44.3 % (37-53) 11/04/23 16:15 MCV 98.0 fl (82-101) 11/04/23 16:15 MCH 33.8 pg (27-33) H 11/04/23 16:15 MCHC 34.5 g/dL (30-55) 11/04/23 16:15 RDW 13.6 % (12.1-15.1) 11/04/23 16:15 Plt Count 173 10^3/cmm (157-399) 11/04/23 16:15 MPV 12.0 fL (7.4-10.4) H 11/04/23 16:15 Neut % (Auto) 42.8 % 11/04/23 16:15 Lymph % (Auto) 31.1 % 11/04/23 16:15 [place] % (Auto) 12.1 % 11/04/23 16:15 Eos % (Auto) 12.5 % 11/04/23 16:15 Baso % (Auto) 1.1 % 11/04/23 16:15 Neut # (Auto) 3.49 10^3/uL (1.8-7.7) 11/04/23 16:15 Lymph # (Auto) 2.5 10^3/uL (0.8-4.8) 11/04/23 16:15 [place] # (Auto) 1.0 10^3/uL (0.2-0.9) H 11/04/23 16:15 Eos # (Auto) 1.0 10^3/uL (0.0-0.8) H 11/04/23 16:15 Baso # (Auto) 0.1 10^3/uL (0.0-0.1) 11/04/23 16:15 Nucleated RBC % (auto) 0 % 11/04/23 16:15 Nucleated RBCs # 0.0 /100WBC 11/04/23 16:15 Sodium 142 mmol/L (136-145) 11/04/23 16:15 Potassium 4.6 mmol/L (3.5-5.1) 11/04/23 16:15 Chloride 106 mmol/L (98-107) 11/04/23 16:15 Carbon Dioxide 22 mmol/L (22-29) 11/04/23 16:15 Anion Gap 18.6 (5-19) 11/04/23 16:15 BUN 27 mg/dL (8-23) H 11/04/23 16:15 Creatinine 1.0 mg/dL (0.7-1.2) 11/04/23 16:15 GFR Calculation 75.5 mL/min (90-130) L 11/04/23 16:15 Glucose 98 mg/dL (65-115) 11/04/23 16:15 Calculated Osmolality 299 mOsm/kg (285-295) H 11/04/23 16:15 Calcium 9.2 mg/dL (8.5-10.5) 11/04/23 16:15 Total Bilirubin 0.5 mg/dL (0.15-1.2) 11/04/23 16:15 AST 121 U/L (0-40) H 11/04/23 16:15 ALT 148 U/L (0-41) H 11/04/23 16:15 Alkaline Phosphatase 96 U/L (40-130) 11/04/23 16:15 Troponin T Baseline 34 ng/L (0-15) H 11/04/23 16:15 Troponin T 120 Minute 32.26 ng/L (0-15) H 11/04/23 18:07 Delta Troponin T -1.74 ABS# (0-10) L 11/04/23 18:07 Total Protein 7.5 g/dL (6.6-8.7) 11/04/23 16:15 Albumin 3.8 g/dL (3.5-5.2) 11/04/23 16:15 Globulin 3.7 g/dL (1.3-4.6) 11/04/23 16:15 Lipase 31 U/L (13-60) 11/04/23 16:15 All radiology interpretation(s) finalized by discharge EKG Data EKG 1: I personally reviewed and interpreted this EKG as follows: EKG interpretation date: 11/04/23 EKG interpretation time: 15:59 Interpretation: nsr hr [address] or t wave abnormalities qrs 86 qtc 387 Discharge Plan Discharge Patient Disposition: Home Clinical Impression: Chest pain Condition: Stable Prescriptions: No Action meloxicam 15 mg tablet 15 mg PO DAILY Qty: 14 0RF albuterol sulfate 90 mcg/actuation aerosol powdr breath activated 2 inh inhalation Q4H PRN (Reason: shortness of breath or wheezing) Qty: 1 0RF diclofenac sodium 50 mg tablet,delayed release (DR/EC) 50 mg PO Q12H Qty: 20 0RF aspirin 81 mg tablet,delayed release (DR/EC) 81 mg PO DAILY Qty: 30 0RF isosorbide mononitrate 30 mg tablet extended release 24 hr 30 mg PO DAILY Qty: 30 0RF Discharge Orders: Discharge ED (Routine); Ordered 11/04/23 Ordered By: Walter Alicia Discharge Diet: Advance as tolerated Discharge Activity: Resume usual activity Patient Instructions: Chest Pain (ED) Coding Level of Care Code ED Fruit Harvester Machine Operator for Priyanka Nunez
[2023-11-04 16:34] LABS: Basophils # 0.1 10^3/uL (0.0-0.1); Basophils % 1.1 %; Eosinophils % 12.5 %; Hematocrit 44.3 % (37-53); Lymphocytes # 2.5 10^3/uL (0.8-4.8); Lymphocytes % 31.1 %; Mean Corpuscular HGB Conc 34.5 g/dL (30-55); Mean Corpuscular Hemoglobin 33.8 pg (27-33); Monocytes % 12.1 %; Neutrophils # 3.49 10^3/uL (1.8-7.7); Neutrophils % 42.8 %; Nucleated Red Blood Cells % 0 %; Platelet Count 173 10^3/cmm (157-399); Red Blood Count 4.52 10^6/uL (3.85-5.65); Red Cell Distribution Width 13.6 % (12.1-15.1); White Blood Count 8.16 10^3/uL (3.29-11.43)
[2023-11-04] MEDS: aspirin 81 mg Chew Tablet 324 MG PO (16:34)
[2023-11-04 16:36] VITALS: BP 103/71; PULSE 76; O2SAT 96
[2023-11-04 17:12] LABS: Troponin(5th) Baseline 34 ng/L (0-15)
[2023-11-04 17:42] VITALS: BP 121/72; PULSE 75; O2SAT 96
[2023-11-04 17:49] LABS: Alanine Aminotransferase 148 U/L (0-41); Albumin Level 3.8 g/dL (3.5-5.2); Alkaline Phosphatase 96 U/L (40-130); Anion Gap 18.6 (5-19); Aspartate Amino Transferase 121 U/L (0-40); Blood Urea Nitrogen 27 mg/dL (8-23); Calcium 9.2 mg/dL (8.5-10.5); Carbon Dioxide 22 mmol/L (22-29); Chloride 106 mmol/L (98-107); Creatinine Clr Calc Pharmacy 78.7402; Globulin 3.7 g/dL (1.3-4.6); Glomerular Filtration Rate 75.5 mL/min (90-130); Glucose 98 mg/dL (65-115); Lipase 31 U/L (13-60); Osmolality Calculated 299 mOsm/kg (285-295); Potassium 4.6 mmol/L (3.5-5.1); Sodium 142 mmol/L (136-145); Total Bilirubin 0.5 mg/dL (0.15-1.2); Total Protein 7.5 g/dL (6.6-8.7)
[2023-11-04 18:00] VITALS: BP 131/78; PULSE 68; O2SAT 98
--- NOTE | 2023-11-04 18:00 | ECG_ITS ---
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 Measurements Intervals [place] Rate: 66 P: 50 [place]: 166 QRS: 78 QRSD: 82 T: 78 QT: 410 QTc: 430 Interpretive Statements SINUS RHYTHM Compared to ECG 11/04/2023 15:59:57 No significant changes Electronically Signed On 11-05-2023 10:34:56 CDT by Chau Paulino M.D. [id number]
[2023-11-04 18:45] LABS: Troponin 5 2HR 32.26 ng/L (0-15)
[2023-11-04 18:47] LABS: Troponin 5 2HR Delta -1.74 ABS# (0-10)
[2023-11-04 19:17] VITALS: BP 131/78; PULSE 68; RESP 16; TEMP 36.8; O2SAT 98
== END 2023-11-04 19:17 | disposition home or self-care (01) ==
PROVIDERS: Emergency Provider Emergency Medicine
DX: R07.9 Chest pain, unspecified (principal); Z79.82 Long term (current) use of aspirin; Z72.0 Tobacco use; Z86.19 Personal history of other infectious and parasitic diseases; J44.9 Chronic obstructive pulmonary disease, unspecified; Z86.73 Personal history of transient ischemic attack (TIA), and cerebral infarction without residual deficits
CPT/HCPCS: 36415; 71045; 80053; 83690; 84484; 85025; 93005; 99285

== ENCOUNTER → 2023-11-11 12:51 | Outpatient (BNVA) | payer BC, MEDICAID, SELFPAY | PROVIDERS: Visit Provider Student in an Organized Health Care Education/Training Program | DX: B19.20 Unspecified viral hepatitis C without hepatic coma (principal) | CPT/HCPCS: 36415; 81596; 87806; 87902 ==

== ENCOUNTER 2024-03-02 13:24 | Emergency (ER) | payer BC, MEDICAID, SELFPAY ==
[2024-03-02 13:34] VITALS: BP 170/109; PULSE 87; RESP 18; TEMP 36.7; O2SAT 98; BMI 25.5
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
--- NOTE | 2024-03-02 13:59 | XR_ITS ---
WS: [id number] Exam: XR chest 1V portable [id number] Date/Time of Exam: 03/02/2024 2:00 PM Reason For Exam: cp Lungs are fully expanded. No acute infiltrates are seen. Chronic changes in the bibasal areas. Normal heart size. The mediastinum is normal in contour. Air collection noted beneath the LEFT diaphragm. A lthough this may represent gas in the stomach the possibility of pneumoperitoneum is not excluded. Po sttraumatic degeneration of the LEFT glenohumeral joint. Old fracture with hardware in the proximal L EFT humerus. Recommendations: Flat and erect abdomen visualizing the diaphragms would be recommended for further w ork-up. XR/XR chest 1V portable [id number] IMPRESSION: 1. Air collection beneath the LEFT diaphragm that may represent gas in the stom ach or large bowel however pneumoperitoneum could have this same appearance. Th e chest otherwise shows no acute process.
--- NOTE | 2024-03-02 13:59 | ECG_ITS ---
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
[2024-03-02 14:06] LABS: Basophils # 0.1 10^3/uL (0.0-0.1); Basophils % 1.2 %; Eosinophils # 0.8 10^3/uL (0.0-0.8); Eosinophils % 7.3 %; Hematocrit 47.3 % (37-53); Lymphocytes # 2.3 10^3/uL (0.8-4.8); Lymphocytes % 20.3 %; Mean Corpuscular Hemoglobin 32.8 pg (27-33); Mean Corpuscular Volume 96.3 fl (82-101); Mean Platelet Volume 10.9 fL (7.4-10.4); Monocytes # 1.3 10^3/uL (0.2-0.9); Neutrophils # 6.84 10^3/uL (1.8-7.7); Neutrophils % 59.9 %; Nucleated Red Blood Cells % 0 %; Platelet Count 194 10^3/cmm (157-399); Red Blood Count 4.91 10^6/uL (3.85-5.65); Red Cell Distribution Width 13.2 % (12.1-15.1); White Blood Count 11.43 10^3/uL (3.29-11.43)
[2024-03-02 14:21] LABS: Troponin(5th) Baseline 41 ng/L (0-15)
[2024-03-02 14:24] LABS: Alanine Aminotransferase 25 U/L (0-41); Albumin Level 4.2 g/dL (3.5-5.2); Alkaline Phosphatase 116 U/L (40-130); Anion Gap 15.9 (5-19); Aspartate Amino Transferase 37 U/L (0-40); Blood Urea Nitrogen 18 mg/dL (8-23); Calcium 8.8 mg/dL (8.5-10.5); Carbon Dioxide 26 mmol/L (22-29); Chloride 97 mmol/L (98-107); Creatinine Clr Calc Pharmacy 87.7044; Globulin 4.3 g/dL (1.3-4.6); Glomerular Filtration Rate 85.2 mL/min (90-130); Glucose 84 mg/dL (65-115); Osmolality Calculated 281 mOsm/kg (285-295); Potassium 3.9 mmol/L (3.5-5.1); Sodium 135 mmol/L (136-145); Total Bilirubin 0.4 mg/dL (0.15-1.2); Total Protein 8.5 g/dL (6.6-8.7)
--- NOTE | 2024-03-02 14:24 | PC.PHAR ---
Pt state takes no prescription medications. Removed the following: Albuterol inhaler, aspirin 81mg, Diclofenac Sodium 50mg, Isosorbide mononitrate 30mg er, Mavyret 100-40mg, Meloxicam 15mg, and Ondansetron 4mg.
[2024-03-02 15:10] VITALS: BP 156/92; PULSE 83; RESP 16; O2SAT 96
--- NOTE | 2024-03-02 15:11 | XR_ITS ---
WS: [id number] Exam: XR abdomen min 2V [id number] Date/Time of Exam: 03/02/2024 3:11 PM Reason For Exam: see chest xray Compared to chest radiograph performed on the same day. Left-sided diaphragmatic air collection appears to represent air in the stomach. No pneumoperitoneum is identified. Large amount of retained stool throughout the colon. Signs of prior cholecystectomy. A dvanced degenerative change and dextroscoliosis of the lower thoracic and lumbar spine. A graft noted in the RIGHT common iliac artery. XR/XR abdomen min 2V [id number] IMPRESSION: 1. Previously questioned LEFT subdiaphragmatic air collection appears to repres ent gas in the stomach and also probably the splenic flexure. No pneumoperitone um is noted. 2. Large amount retained stool throughout the large bowel. No acute abdominal f inding.
[2024-03-02 15:40] LABS: Troponin 5 2HR 37.07 ng/L (0-15)
[2024-03-02 15:41] LABS: Troponin 5 2HR Delta -3.93 ABS# (0-10)
[2024-03-02 15:59] VITALS: BP 144/91; PULSE 88; RESP 21; O2SAT 96
[2024-03-02 16:33] VITALS: BP 170/104; PULSE 90; RESP 19; O2SAT 96
[2024-03-02 16:56] VITALS: BP 170/104; PULSE 88; RESP 17; O2SAT 97
== END 2024-03-02 16:56 | disposition home or self-care (01) ==
PROVIDERS: Emergency Provider Emergency Medicine
DX: R07.9 Chest pain, unspecified (principal)
CPT/HCPCS: 71045; 74019; 80053; 84484; 85025; 93005; 99285

== ENCOUNTER 2024-04-14 15:21 | Emergency (ER) | payer BC, MEDICAID, SELFPAY ==
--- NOTE | 2024-04-14 15:24 | XRR_ITS ---
PROCEDURE INFORMATION: Exam: XR Chest Exam date and time: 04/14/2024 3:34 PM Age: 63 years old Clinical indication: Sternal or substernal pain; Additional info: Cp TECHNIQUE: Imaging protocol: Radiologic exam of the chest. Views: 1 view. COMPARISON: CR XR chest 1V portable [id number] 03/02/2024 2:02 PM FINDINGS: Lungs: Unremarkable. No consolidation. Pleural spaces: Unremarkable. No pleural effusion. No pneumothorax. Heart/Mediastinum: Unremarkable. No cardiomegaly. Bones/joints: Intact ORIF hardware in the proximal left humerus. Chronic deformity of the left humeral head. Visualized osseous structures are intact. XR/XR chest 1V portable [id number] IMPRESSION: No acute findings.
[2024-04-14 15:25] VITALS: BP 197/136; PULSE 82; RESP 16; TEMP 36.8; O2SAT 96; BMI 27.4
--- NOTE | 2024-04-14 15:25 | ECG_ITS ---
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 Measurements Intervals [place] Rate: 66 P: 7 SC: 156 QRS: 85 QRSD: 89 T: 81 QT: 399 QTc: 418 Interpretive Statements SINUS RHYTHM Compared to ECG 03/02/2024 13:32:56 No significant changes Electronically Signed On 04-15-2024 12:28:45 INTERSTATE BUS DRIVER by Chau Paulino M.D. [id number]
--- NOTE | 2024-04-14 15:38 | W.ED.CHESTPA ---
HPI - Chest Pain General: Chief Complaint: Chest Pain Stated Complaint: Chest Pain, Bloody nose Time Seen by Provider: 04/14/24 15:24 Source: patient and EMS Mode of arrival: EMS Limitations: no limitations History of Present Illness: 63-year-old male here from care home states started having chest pains roughly an hour ago states he also had a nosebleed states that both is since resolved he had a history of cardiac history in the past. Denies any shortness of breath denies any fever. Associated symptoms: Deny abdominal pain, dyspnea, fever(s), nausea or vomiting Related Data Home Medications Medication Instructions Recorded Confirmed No Known Home Medications 03/02/24 04/14/24 Allergies Allergy/AdvReac Type Severity Reaction Status Date / Time iodine Allergy ALGY-Anaphy Verified 11/11/23 12:54 laxis shellfish derived Allergy ALGY-Anaphy Verified 11/11/23 12:54 laxis Review of Systems Const: Denies: fever(s), chills, body aches or change in appetite ENMT: Reports: epistaxis; Denies: throat pain or dental pain Card: Reports: chest pain Resp: Denies: dyspnea GI: Denies: abdominal pain, nausea, vomiting or diarrhea Musc: Denies: neck pain or back pain Skin/Breast: Denies: rash Neuro: Denies: headache(s) PFSH ED PFSH: Medical History Hepatitis C test positive Methamphetamine use Elevated troponin Transaminitis Hyponatremia Influenza A COPD with acute exacerbation Acute respiratory failure with hypoxemia Irritable bowel syndrome Peripheral vascular disease CVA (cerebral vascular accident) Tobacco dependency Amphetamine use COPD (chronic obstructive pulmonary disease) Osteoarthritis Surgical History History of arthroplasty of left shoulder Family History Other Cancer Stroke Social History Smoking and tobacco/nicotine status: former use of tobacco/nicotine Alcohol intake: never Substance/Drug Use: current Physical Exam Const: COMMON NORMALS: no acute distress, patient oriented x3 and healthy appearing HENMT: COMMON NORMALS: normocephalic and atraumatic HEAD & SCALP: normocephalic and atraumatic OTHER: dried blood to left nare Neck/C-Spine: COMMON NORMALS: full ROM and supple Chest: COMMONS NORMALS: normal inspection of the chest Resp: COMMON NORMALS: normal respiratory effort, No retractions, No use of accessory muscles and clear to auscultation bilaterally AUSCULTATION: clear to auscultation bilaterally Cardio: COMMON NORMALS: regular rate, regular rhythm and No murmurs present (Cardio) RATE: regular rate RHYTHM: regular rhythm Extremity: COMMON NORMALS: normal to inspection and full ROM Neuro: COMMON NORMALS: patient oriented x3, moves all extremities and no focal motor deficits Psych: COMMON NORMALS: mental status grossly normal, Normal thought process present and cooperative THOUGHT PROCESS: Normal thought process present Skin: COMMON NORMALS: no rashes or lesions noted and no wounds GENERAL SKIN EXAM: no rashes or lesions noted Course Vital Signs: Vital signs: Vital Signs Temperature 98.2 F 04/14/24 15:25 Pulse Rate 63 04/14/24 18:30 Respiratory Rate 24 H 04/14/24 18:30 Blood Pressure 143/90 04/14/24 18:30 Pulse Oximetry 97 04/14/24 18:30 Oxygen Delivery Me thod Room Air 04/14/24 17:27 MDM - Chest Pain Medical Decision Making Patient presents here with chest pain since resolved his troponins here are negative he is stable for discharge follow-up with PCP return if worsening he understands agrees to plan. Medical Records I reviewed the patient's medical records. Lab Data I reviewed the patient's lab results. 04/14/24 16:05 04/14/24 16:05 Radiology Impressions Chest X-Ray 04/14/24 15:24 IMPRESSION: No acute findings. Laboratory Results WBC 8.13 10^3/uL (3.29-11.43) 04/14/24 16:05 RBC 5.01 10^6/uL (3.85-5.65) 04/14/24 16:05 Hgb 15.60 g/dL (11.27-16.99) 04/14/24 16:05 Hct 47.5 % (37-53) 04/14/24 16:05 MCV 94.8 fl (82-101) 04/14/24 16:05 MCH 31.1 pg (27-33) 04/14/24 16:05 MCHC 32.8 g/dL (30-55) 04/14/24 16:05 RDW 13.1 % (12.1-15.1) 04/14/24 16:05 Plt Count 181 10^3/cmm (157-399) 04/14/24 16:05 MPV 11.3 fL (7.4-10.4) H 04/14/24 16:05 Neut % (Auto) 52.8 % 04/14/24 16:05 Lymph % (Auto) 27.4 % 04/14/24 16:05 [place] % (Auto) 9.2 % 04/14/24 16:05 Eos % (Auto) 9.2 % 04/14/24 16:05 Baso % (Auto) 1.2 % 04/14/24 16:05 Neut # (Auto) 4.28 10^3/uL (1.8-7.7) 04/14/24 16:05 Lymph # (Auto) 2.2 10^3/uL (0.8-4.8) 04/14/24 16:05 [place] # (Auto) 0.8 10^3/uL (0.2-0.9) 04/14/24 16:05 Eos # (Auto) 0.8 10^3/uL (0.0-0.8) 04/14/24 16:05 Baso # (Auto) 0.1 10^3/uL (0.0-0.1) 04/14/24 16:05 Nucleated RBC % (auto) 0 % 04/14/24 16:05 Nucleated RBCs # 0.0 /100WBC 04/14/24 16:05 Sodium 137 mmol/L (136-145) 04/14/24 16:05 Potassium 4.6 mmol/L (3.5-5.1) 04/14/24 16:05 Chloride 102 mmol/L (98-107) 04/14/24 16:05 Carbon Dioxide 23 mmol/L (22-29) 04/14/24 16:05 Anion Gap 16.6 (5-19) 04/14/24 16:05 BUN 27 mg/dL (8-23) H 04/14/24 16:05 Creatinine 1.0 mg/dL (0.7-1.2) 04/14/24 16:05 GFR Calculation 75.5 mL/min (90-130) L 04/14/24 16:05 Glucose 94 mg/dL (65-115) 04/14/24 16:05 Calculated Osmolality 289 mOsm/kg (285-295) 04/14/24 16:05 Calcium 9.4 mg/dL (8.5-10.5) 04/14/24 16:05 Total Bilirubin 0.3 mg/dL (0.15-1.2) 04/14/24 16:05 AST 27 U/L (0-40) 04/14/24 16:05 ALT 22 U/L (0-41) 04/14/24 16:05 Alkaline Phosphatase 90 U/L (40-130) 04/14/24 16:05 Troponin T Baseline 22 ng/L (0-15) H 04/14/24 16:05 Troponin T 120 Minute 23.38 ng/L (0-15) H 04/14/24 18:38 Delta Troponin T 1.38 ABS# (0-10) 04/14/24 18:38 Total Protein 7.7 g/dL (6.6-8.7) 04/14/24 16:05 Albumin 4.1 g/dL (3.5-5.2) 04/14/24 16:05 Globulin 3.6 g/dL (1.3-4.6) 04/14/24 16:05 Lipase 39 U/L (13-60) 04/14/24 16:05 All radiology interpretation(s) finalized by discharge EKG Data EKG 1: I personally reviewed and interpreted this EKG as follows: EKG interpretation date: 04/14/24 EKG interpretation time: 15:25 Interpretation: nsr hr [address] elevgation qrs 89qtc 412 EKG 2: I personally reviewed and interpreted this EKG as follows: EKG interpretation date: 04/14/24 EKG interpretation time: 17:25 Interpretation: nsr hr [address] elevation qrs 89 qtc 420 Discharge Plan Discharge Patient Disposition: Home Clinical Impression: Chest pain Condition: Stable Prescriptions: No Action No Known Home Medications Discharge Orders: Discharge ED (Routine); Ordered 04/14/24 Ordered By: Walter Alicia Discharge Diet: Advance as tolerated Discharge Activity: Resume usual activity Patient Instructions: Chest Pain (ED) Coding Level of Care Code ED Retail Shift Supervisor for Priyanka Nunez
[2024-04-14 15:57] VITALS: BP 137/93; PULSE 63; RESP 19; O2SAT 97
[2024-04-14 16:18] LABS: Basophils # 0.1 10^3/uL (0.0-0.1); Basophils % 1.2 %; Eosinophils # 0.8 10^3/uL (0.0-0.8); Eosinophils % 9.2 %; Hematocrit 47.5 % (37-53); Lymphocytes # 2.2 10^3/uL (0.8-4.8); Lymphocytes % 27.4 %; Mean Corpuscular HGB Conc 32.8 g/dL (30-55); Mean Corpuscular Hemoglobin 31.1 pg (27-33); Mean Corpuscular Volume 94.8 fl (82-101); Mean Platelet Volume 11.3 fL (7.4-10.4); Monocytes # 0.8 10^3/uL (0.2-0.9); Monocytes % 9.2 %; Neutrophils # 4.28 10^3/uL (1.8-7.7); Neutrophils % 52.8 %; Nucleated Red Blood Cells % 0 %; Platelet Count 181 10^3/cmm (157-399); Red Blood Count 5.01 10^6/uL (3.85-5.65); Red Cell Distribution Width 13.1 % (12.1-15.1); White Blood Count 8.13 10^3/uL (3.29-11.43)
[2024-04-14 16:32] LABS: Alanine Aminotransferase 22 U/L (0-41); Albumin Level 4.1 g/dL (3.5-5.2); Alkaline Phosphatase 90 U/L (40-130); Aspartate Amino Transferase 27 U/L (0-40); Blood Urea Nitrogen 27 mg/dL (8-23); Calcium 9.4 mg/dL (8.5-10.5); Carbon Dioxide 23 mmol/L (22-29); Chloride 102 mmol/L (98-107); Creatinine Clr Calc Pharmacy 73.9247; Globulin 3.6 g/dL (1.3-4.6); Glomerular Filtration Rate 75.5 mL/min (90-130); Glucose 94 mg/dL (65-115); Lipase 39 U/L (13-60); Osmolality Calculated 289 mOsm/kg (285-295); Sodium 137 mmol/L (136-145); Total Bilirubin 0.3 mg/dL (0.15-1.2); Total Protein 7.7 g/dL (6.6-8.7)
[2024-04-14 16:33] LABS: Troponin(5th) Baseline 22 ng/L (0-15)
[2024-04-14 16:39] LABS: Anion Gap 16.6 (5-19); Potassium 4.6 mmol/L (3.5-5.1)
--- NOTE | 2024-04-14 17:25 | ECG_ITS ---
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 Measurements Intervals [place] Rate: 61 P: 69 AL: 176 QRS: 87 QRSD: 89 T: 87 QT: 418 QTc: 422 Interpretive Statements SINUS RHYTHM Compared to ECG 04/14/2024 15:25:59 No significant changes Electronically Signed On 04-15-2024 12:34:41 TELEPHONE CLERK by Chau Paulino M.D. [id number]
[2024-04-14 17:27] VITALS: BP 148/91; PULSE 62; RESP 17; O2SAT 98
[2024-04-14 18:30] VITALS: BP 143/90; PULSE 63; RESP 24; O2SAT 97
[2024-04-14 19:03] LABS: Troponin 5 2HR 23.38 ng/L (0-15); Troponin 5 2HR Delta 1.38 ABS# (0-10)
[2024-04-14 19:15] VITALS: BP 155/104; PULSE 71; O2SAT 99
== END 2024-04-14 19:17 | disposition home or self-care (01) ==
PROVIDERS: Emergency Provider Emergency Medicine
DX: R07.9 Chest pain, unspecified (principal); Z87.891 Personal history of nicotine dependence; J44.9 Chronic obstructive pulmonary disease, unspecified; Z86.73 Personal history of transient ischemic attack (TIA), and cerebral infarction without residual deficits
CPT/HCPCS: 36415; 71045; 80053; 83690; 84484; 85025; 93005; 93010; 99285

== ENCOUNTER 2024-04-21 01:41 | Emergency (ER) | payer BC, MEDICAID, SELFPAY ==
[2024-04-21 01:44] VITALS: BP 147/96; PULSE 70; RESP 18; TEMP 36.6; O2SAT 95; BMI 27.4
--- NOTE | 2024-04-21 01:47 | XRR_ITS ---
PROCEDURE INFORMATION: Exam: XR Chest Exam date and time: 04/21/2024 2:53 AM Age: 63 years old Clinical indication: Pain; Chest pressure; Prior surgery; Surgery date: 6+ months; Surgery type: Left humerus plate; Additional info: Chest pain TECHNIQUE: Imaging protocol: Radiologic exam of the chest. Views: 1 view. COMPARISON: CR (CHEST, ) 04/14/2024 3:34 PM FINDINGS: Lungs: Unremarkable. No consolidation. Pleural spaces: Unremarkable. No pleural effusion. No pneumothorax. Heart/Mediastinum: Unremarkable. No cardiomegaly. Bones/joints: Postoperative changes involve the left proximal humerus with cortical plate and screws in place. Mild degenerative changes involve the thoracic spine XR/XR chest 1V portable [id number] IMPRESSION: No acute findings.
--- NOTE | 2024-04-21 01:49 | W.ED.CHESTPA ---
HPI - Chest Pain General: Chief Complaint: Chest Pain Stated Complaint: CP Time Seen by Provider: 04/21/24 01:44 History of Present Illness: 63-year-old man presents the emergency room with pleuritic chest pain. This been going on today. He says it is worse when he gets cold. He presents from the care home. He has had some cough. He smokes. Vital signs are normal. Related Data Home Medications Medication Instructions Recorded Confirmed No Known Home Medications 03/02/24 04/14/24 Allergies Allergy/AdvReac Type Severity Reaction Status Date / Time iodine Allergy ALGY-Anaphy Verified 04/21/24 01:49 laxis shellfish derived Allergy ALGY-Anaphy Verified 04/21/24 01:49 laxis Review of Systems Narrative: Constitutional symptoms: Negative except as documented in HPI. Skin symptoms: Negative except as documented in HPI. Eye symptoms: Negative except as documented in HPI. ENMT symptoms: Negative except as documented in HPI. Respiratory symptoms: Negative except as documented in HPI. Cardiovascular symptoms: Negative except as documented in HPI. Gastrointestinal symptoms: Negative except as documented in HPI. Genitourinary symptoms: Negative except as documented in HPI. Musculoskeletal symptoms: Negative except as documented in HPI. Neurologic symptoms: Negative except as documented in HPI. Psychiatric symptoms: Negative except as documented in HPI. Endocrine symptoms: Negative except as documented in HPI. [facility] ED PFSH: Medical History Hepatitis C test positive Methamphetamine use Elevated troponin Transaminitis Hyponatremia Influenza A COPD with acute exacerbation Acute respiratory failure with hypoxemia Irritable bowel syndrome Peripheral vascular disease CVA (cerebral vascular accident) Tobacco dependency Amphetamine use COPD (chronic obstructive pulmonary disease) Osteoarthritis Surgical History History of arthroplasty of left shoulder Family History Other Cancer Stroke Social History Smoking and tobacco/nicotine status: former use of tobacco/nicotine Alcohol intake: never Substance/Drug Use: current Physical Exam Narrative: EXAM NARRATIVE: General: Alert, no acute distress. Skin: Warm, dry. Head: Normocephalic, atraumatic. Neck: Supple, trachea midline. Eye: Extraocular movements are intact. Ears, nose, mouth and throat: mucosa moist. Cardiovascular: Regular, Normal peripheral perfusion. Respiratory: Lungs are clear to auscultation, respirations are non-labored, breath sounds are equal, Symmetrical chest wall expansion. Gastrointestinal: Soft, Nontender, Non distended Musculoskeletal: Normal ROM, no deformity. Neurological: Alert and oriented, No focal neurological deficit observed. Psychiatric: Cooperative, appropriate mood & affect. Course Vital Signs: Vital signs: Vital Signs Temperature 97.9 F 04/21/24 01:44 Pulse Rate 70 04/21/24 01:50 Respiratory Rate 18 04/21/24 01:50 Blood Pressure 147/96 04/21/24 01:50 Pulse Oximetry 95 04/21/24 01:50 Oxygen Delivery Me thod Room Air 04/21/24 01:50 MDM - Chest Pain Medical Decision Making Differential diagnosis for patient with chest pain includes but is not limited to and based on the above HPI, review of systems and physical exam: Pneumonia. unstable angina. angina. Acute coronary syndrome / [place]. Pulmonary embolism. Costochondritis / musculoskeletal. Pleurisy. Pericarditis. Esophageal spasm. Pancreatis. Cholecystitis. Orders placed to evaluate differential diagnosis based on the above differential, HPI and physical exam Chest x-ray: No acute process. No infiltrate. No pneumothorax. This was reviewed and interpreted by myself the emergency room physician. I also reviewed the radiology report. There is some hardware in the left shoulder. EKG: Time 1:55 AM. Rate 62 normal sinus rhythm, No ST-T changes, no ectopy, normal OK & QRS intervals, This was reviewed and interpreted by myself the ER physician At 1:58 AM. Lab Review: Laboratory results were reviewed and interpreted by myself the emergency room physician. Troponin is at his baseline at 23. He has had multiple multiple multiple troponins in the past all at around 23 I reviewed the patient's medical record. Reexamination: Patient remained stable. No increased work of breathing. No altered mental status. No focal motor deficits. Assessment and plan: Noncardiac chest pain ?Toradol in the emergency room - Discharged home - Discussed plan with patient. Answered any questions. - Evaluation and treatment of this problem were appropriate in the emergency setting. Lab Data 04/21/24 02:16 04/21/24 02:16 Laboratory Results WBC 8.96 10^3/uL (3.29-11.43) 04/21/24 02:16 RBC 4.89 10^6/uL (3.85-5.65) 04/21/24 02:16 Hgb 15.30 g/dL (11.27-16.99) 04/21/24 02:16 Hct 45.9 % (37-53) 04/21/24 02:16 MCV 93.9 fl (82-101) 04/21/24 02:16 MCH 31.3 pg (27-33) 04/21/24 02:16 MCHC 33.3 g/dL (30-55) 04/21/24 02:16 RDW 13.2 % (12.1-15.1) 04/21/24 02:16 Plt Count 159 10^3/cmm (157-399) 04/21/24 02:16 MPV 11.1 fL (7.4-10.4) H 04/21/24 02:16 Neut % (Auto) 42.5 % 04/21/24 02:16 Lymph % (Auto) 36.3 % 04/21/24 02:16 [place] % (Auto) 9.5 % 04/21/24 02:16 Eos % (Auto) 10.0 % 04/21/24 02:16 Baso % (Auto) 1.5 % 04/21/24 02:16 Neut # (Auto) 3.81 10^3/uL (1.8-7.7) 04/21/24 02:16 Lymph # (Auto) 3.3 10^3/uL (0.8-4.8) 04/21/24 02:16 [place] # (Auto) 0.9 10^3/uL (0.2-0.9) 04/21/24 02:16 Eos # (Auto) 0.9 10^3/uL (0.0-0.8) H 04/21/24 02:16 Baso # (Auto) 0.1 10^3/uL (0.0-0.1) 04/21/24 02:16 Nucleated RBC % (auto) 0 % 04/21/24 02:16 Nucleated RBCs # 0.0 /100WBC 04/21/24 02:16 Sodium 141 mmol/L (136-145) 04/21/24 02:16 Potassium 4.3 mmol/L (3.5-5.1) 04/21/24 02:16 Chloride 101 mmol/L (98-107) 04/21/24 02:16 Carbon Dioxide 27 mmol/L (22-29) 04/21/24 02:16 Anion Gap 17.3 (5-19) 04/21/24 02:16 BUN 28 mg/dL (8-23) H 04/21/24 02:16 Creatinine 0.9 mg/dL (0.7-1.2) 04/21/24 02:16 GFR Calculation 85.2 mL/min (90-130) L 04/21/24 02:16 Glucose 82 mg/dL (65-115) 04/21/24 02:16 Calculated Osmolality 297 mOsm/kg (285-295) H 04/21/24 02:16 Calcium 9.7 mg/dL (8.5-10.5) 04/21/24 02:16 Total Bilirubin 0.4 mg/dL (0.15-1.2) 04/21/24 02:16 AST 26 U/L (0-40) 04/21/24 02:16 ALT 23 U/L (0-41) 04/21/24 02:16 Alkaline Phosphatase 94 U/L (40-130) 04/21/24 02:16 Troponin T Baseline 23 ng/L (0-15) H 04/21/24 02:16 NT-Pro-B Natriuret Pep 133 pg/mL (0-125) H 04/21/24 02:16 Total Protein 7.7 g/dL (6.6-8.7) 04/21/24 02:16 Albumin 4.4 g/dL (3.5-5.2) 04/21/24 02:16 Globulin 3.3 g/dL (1.3-4.6) 04/21/24 02:16 All radiology interpretation(s) finalized by discharge Discharge Plan Discharge Patient Disposition: Home Clinical Impression: Non-cardiac chest pain Condition: Stable Prescriptions: No Action No Known Home Medications Discharge Orders: Discharge ED (Routine); Ordered 04/21/24 Ordered By: Ai Amezquita Discharge Diet: Usual diet Discharge Activity: Increase activity as tolerated Patient Instructions: Noncardiac Chest Pain (ED), Opioid Safety, Pain Management Activity Restrictions/Additional Instructions: Thank you for choosing [facility] for your healthcare needs today. Please realize this is an emergency room and that we are providing you with a medical screening exam and this may not be complete and all inclusive of all the testing and or work up that you may need to determine your ailment or severity of your illness. You have been screened and evaluated and felt safe for discharge. Health conditions do change or evolve sometimes and as such it is important that you follow up with your Primary Doctor to be re checked, 3-5 days is a general good time frame for follow up. You are always welcome to return to the ED for re assessment if your symptoms are worsening or you have new concerns Coding Level of Care Code ED Side Puller for Priyanka Nunez
[2024-04-21 01:50] VITALS: BP 147/96; PULSE 70; RESP 18; O2SAT 95
--- NOTE | 2024-04-21 01:55 | ECG_ITS ---
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 Measurements Intervals [place] Rate: 62 P: 77 CA: 178 QRS: 88 QRSD: 89 T: 85 QT: 417 QTc: 426 Interpretive Statements SINUS RHYTHM Compared to ECG 04/14/2024 17:25:27 No significant changes Electronically Signed On 04-21-2024 17:23:56 UPHOLSTERY CLEANER by Lucrecia Street M.D. [email or web address]
[2024-04-21 02:29] LABS: Basophils # 0.1 10^3/uL (0.0-0.1); Basophils % 1.5 %; Eosinophils # 0.9 10^3/uL (0.0-0.8); Hematocrit 45.9 % (37-53); Lymphocytes # 3.3 10^3/uL (0.8-4.8); Lymphocytes % 36.3 %; Mean Corpuscular HGB Conc 33.3 g/dL (30-55); Mean Corpuscular Hemoglobin 31.3 pg (27-33); Mean Corpuscular Volume 93.9 fl (82-101); Mean Platelet Volume 11.1 fL (7.4-10.4); Monocytes # 0.9 10^3/uL (0.2-0.9); Monocytes % 9.5 %; Neutrophils # 3.81 10^3/uL (1.8-7.7); Neutrophils % 42.5 %; Nucleated Red Blood Cells % 0 %; Platelet Count 159 10^3/cmm (157-399); Red Blood Count 4.89 10^6/uL (3.85-5.65); Red Cell Distribution Width 13.2 % (12.1-15.1); White Blood Count 8.96 10^3/uL (3.29-11.43)
[2024-04-21 02:47] LABS: Troponin(5th) Baseline 23 ng/L (0-15)
[2024-04-21 02:58] LABS: Alanine Aminotransferase 23 U/L (0-41); Albumin Level 4.4 g/dL (3.5-5.2); Alkaline Phosphatase 94 U/L (40-130); Aspartate Amino Transferase 26 U/L (0-40); Blood Urea Nitrogen 28 mg/dL (8-23); Calcium 9.7 mg/dL (8.5-10.5); Carbon Dioxide 27 mmol/L (22-29); Chloride 101 mmol/L (98-107); Creatinine Clr Calc Pharmacy 82.1386; Globulin 3.3 g/dL (1.3-4.6); Glomerular Filtration Rate 85.2 mL/min (90-130); Glucose 82 mg/dL (65-115); NT Pro B Type Natriuretic Pept 133 pg/mL (0-125); Osmolality Calculated 297 mOsm/kg (285-295); Sodium 141 mmol/L (136-145); Total Bilirubin 0.4 mg/dL (0.15-1.2); Total Protein 7.7 g/dL (6.6-8.7)
[2024-04-21 03:00] LABS: Anion Gap 17.3 (5-19); Potassium 4.3 mmol/L (3.5-5.1)
[2024-04-21] MEDS: ketorolac 60 mg/2 mL INJ IM (03:28)
[2024-04-21 03:33] VITALS: BP 155/89; PULSE 70; O2SAT 99
[2024-04-21 03:43] VITALS: BP 155/89; PULSE 70; O2SAT 99
== END 2024-04-21 03:45 | disposition home or self-care (01) ==
PROVIDERS: Emergency Provider Emergency Medicine
DX: R07.89 Other chest pain (principal); Z87.891 Personal history of nicotine dependence; Z86.73 Personal history of transient ischemic attack (TIA), and cerebral infarction without residual deficits; J44.9 Chronic obstructive pulmonary disease, unspecified
CPT/HCPCS: 36415; 71045; 80053; 83880; 84484; 85025; 93005; 96372; 99285; J1885

== ENCOUNTER 2024-04-29 07:20 | Emergency (ER) | payer BC, MEDICAID, SELFPAY ==
[2024-04-29 07:24] VITALS: BP 128/91; PULSE 90; RESP 18; TEMP 36.8; O2SAT 96
[2024-04-29 07:57] VITALS: BP 115/79; PULSE 82; RESP 16; O2SAT 96
[2024-04-29 08:26] LABS: Basophils # 0.1 10^3/uL (0.0-0.1); Basophils % 0.5 %; Eosinophils # 0.3 10^3/uL (0.0-0.8); Eosinophils % 2.5 %; Hematocrit 43.6 % (37-53); Lymphocytes # 1.4 10^3/uL (0.8-4.8); Mean Corpuscular Hemoglobin 31.2 pg (27-33); Mean Corpuscular Volume 94.4 fl (82-101); Monocytes # 0.8 10^3/uL (0.2-0.9); Monocytes % 6.6 %; Neutrophils # 9.66 10^3/uL (1.8-7.7); Neutrophils % 79.1 %; Nucleated Red Blood Cells % 0 %; Platelet Count 147 10^3/cmm (157-399); Red Blood Count 4.62 10^6/uL (3.85-5.65); Red Cell Distribution Width 13.5 % (12.1-15.1); White Blood Count 12.23 10^3/uL (3.29-11.43)
[2024-04-29 08:40] LABS: Alanine Aminotransferase 22 U/L (0-41); Albumin Level 4.2 g/dL (3.5-5.2); Alkaline Phosphatase 105 U/L (40-130); Aspartate Amino Transferase 35 U/L (0-40); Blood Urea Nitrogen 25 mg/dL (8-23); Calcium 9.2 mg/dL (8.5-10.5); Carbon Dioxide 23 mmol/L (22-29); Chloride 102 mmol/L (98-107); Globulin 3.8 g/dL (1.3-4.6); Glomerular Filtration Rate 85.2 mL/min (90-130); Glucose 95 mg/dL (65-115); Osmolality Calculated 288 mOsm/kg (285-295); Sodium 137 mmol/L (136-145); Total Bilirubin 0.8 mg/dL (0.15-1.2)
--- NOTE | 2024-04-29 09:08 | ED_ITS ---
HPI - Seizure 2 General: Chief Complaint: Seizure Stated Complaint: seizure Time Seen by Provider: 04/29/24 08:17 History of Present Illness: HPI Narrative: 63-[facility] Patient was found to have a local business outside reportedly had a seizure. He has a history of hepatitis C with elevated transaminases. Patient also has a history of methamphetamine use. No known history of seizures in the past he is not currently on any medications. Associated symptoms: Deny chest pain, chills or fever(s) Related Data Home Medications Medication Instructions Recorded Confirmed No Known Home Medications 03/02/24 05/02/24 Allergies Allergy/AdvReac Type Severity Reaction Status Date / Time iodine Allergy ALGY-Anaphy Verified 04/21/24 01:49 laxis shellfish derived Allergy ALGY-Anaphy Verified 04/21/24 01:49 laxis Review of Systems 2 Const: Denies: fever(s) or chills Card: Denies: chest pain Resp: Denies: dyspnea GI: Denies: abdominal pain : Denies: dysuria, urinary frequency or urinary urgency Musc: Denies: neck pain or back pain Skin/Breast: Denies: rash PFSH ED 2 PFSH: Medical History Hepatitis C test positive Methamphetamine use Elevated troponin Transaminitis Hyponatremia Influenza A COPD with acute exacerbation Acute respiratory failure with hypoxemia Irritable bowel syndrome Peripheral vascular disease CVA (cerebral vascular accident) Tobacco dependency Amphetamine use COPD (chronic obstructive pulmonary disease) Osteoarthritis Surgical History History of arthroplasty of left shoulder Family History Other Cancer Stroke Social History Smoking and tobacco/nicotine status: former use of tobacco/nicotine Alcohol intake: never Substance/Drug Use: current Physical Exam 2 Const: COMMON NORMALS: no acute distress GENERAL APPEARANCE: cooperative and comfortable ORIENTATION/CONSCIOUSNESS: Yes awake, Yes oriented to person, Yes oriented to place and Yes oriented to time HENMT: COMMON NORMALS: normocephalic, atraumatic and hearing grossly normal bilaterally HEAD & SCALP: normocephalic and atraumatic Resp: COMMON NORMALS: normal respiratory effort, No retractions, No use of accessory muscles and clear to auscultation bilaterally AUSCULTATION: clear to auscultation bilaterally Cardio: COMMON NORMALS: regular rate, regular rhythm and No murmurs present (Cardio) RATE: regular rate RHYTHM: regular rhythm GI: COMMON NORMALS: Soft to palpation and No hepatosplenomegaly present A USCULTATION: Yes normoactive bowel sounds PALPATION: Yes Soft to palpation, No Tenderness to palpation present (GI), No Guarding due to palpation present (GI) and Yes No hepatosplenomegaly present Extremity: COMMON NORMALS: normal to inspection, capillary refill normal, no clubbing, cyanosis or edema, no calf tenderness and no pedal edema Neuro: SENSORIUM/ORIENTATION: Yes oriented to person, Yes oriented to place and Yes oriented to time Skin: COMMON NORMALS: no rashes or lesions noted GENERAL SKIN EXAM: no rashes or lesions noted Course 2 Vital Signs: Vital signs: Vital Signs Temperature 98.3 F 04/29/24 07:24 Pulse Rate 74 04/29/24 10:07 Respiratory Rate 16 04/29/24 07:57 Blood Pressure 141/101 04/29/24 10:07 Pulse Oximetry 98 04/29/24 10:07 Oxygen Delivery Me thod Room Air 04/29/24 07:57 MDM - Seizure MDM Narrative Medical decision making narrative: Patient presents with report of seizures. His lactic acid is mildly elevated he has no signs of infection thank you may have had a seizure. CPK is also slightly elevated. He is feeling fine now has not had any further episodes he did not have much of an postictal episode. Will discharge the patient home. Set him up for an outpatient EEG and follow-up with neurology return if he has further problems. Neurologically intact at time discharge Lab Data 04/29/24 08:18 04/29/24 08:18 Labs: Radiology Impressions Head CT 04/29/24 09:16 IMPRESSION: 1. No evidence of intracranial hemorrhage or mass effect. 2. No acute intracranial findings. Laboratory Results WBC 12.23 10^3/uL (3.29-11.43) H 04/29/24 08:18 Corrected WBC Cancelled 04/29/24 07:54 RBC 4.62 10^6/uL (3.85-5.65) 04/29/24 08:18 Hgb 14.40 g/dL (11.27-16.99) 04/29/24 08:18 Hct 43.6 % (37-53) 04/29/24 08:18 MCV 94.4 fl (82-101) 04/29/24 08:18 MCH 31.2 pg (27-33) 04/29/24 08:18 MCHC 33.0 g/dL (30-55) 04/29/24 08:18 RDW 13.5 % (12.1-15.1) 04/29/24 08:18 Plt Count 147 10^3/cmm (157-399) L 04/29/24 08:18 MPV 11.0 fL (7.4-10.4) H 04/29/24 08:18 Gran % Cancelled 04/29/24 07:54 Neut % (Auto) 79.1 % 04/29/24 08:18 Lymph % (Auto) 11.0 % 04/29/24 08:18 [place] % (Auto) 6.6 % 04/29/24 08:18 Eos % (Auto) 2.5 % 04/29/24 08:18 Baso % (Auto) 0.5 % 04/29/24 08:18 Neut # (Auto) 9.66 10^3/uL (1.8-7.7) H 04/29/24 08:18 Lymph # (Auto) 1.4 10^3/uL (0.8-4.8) 04/29/24 08:18 [place] # (Auto) 0.8 10^3/uL (0.2-0.9) 04/29/24 08:18 Eos # (Auto) 0.3 10^3/uL (0.0-0.8) 04/29/24 08:18 Baso # (Auto) 0.1 10^3/uL (0.0-0.1) 04/29/24 08:18 Absolute Gran (auto) Cancelled 04/29/24 07:54 Nucleated RBC % (auto) 0 % 04/29/24 08:18 Nucleated RBCs # 0.0 /100WBC 04/29/24 08:18 Sodium 137 mmol/L (136-145) 04/29/24 08:18 Potassium 4.0 mmol/L (3.5-5.1) 04/29/24 08:18 Chloride 102 mmol/L (98-107) 04/29/24 08:18 Carbon Dioxide 23 mmol/L (22-29) 04/29/24 08:18 Anion Gap 16.0 (5-19) 04/29/24 08:18 BUN 25 mg/dL (8-23) H 04/29/24 08:18 Creatinine 0.9 mg/dL (0.7-1.2) 04/29/24 08:18 GFR Calculation 85.2 mL/min (90-130) L 04/29/24 08:18 Glucose 95 mg/dL (65-115) 04/29/24 08:18 Calculated Osmolality 288 mOsm/kg (285-295) 04/29/24 08:18 Lactic Acid 1.4 mmol/L (0.5-2.2) 04/29/24 08:18 Calcium 9.2 mg/dL (8.5-10.5) 04/29/24 08:18 Total Bilirubin 0.8 mg/dL (0.15-1.2) 04/29/24 08:18 AST 35 U/L (0-40) 04/29/24 08:18 ALT 22 U/L (0-41) 04/29/24 08:18 Alkaline Phosphatase 105 U/L (40-130) 04/29/24 08:18 Ammonia 51 umol/L (16-60) 04/29/24 09:50 Creatine Kinase 548 U/L (39-308) H* 04/29/24 08:18 Total Protein 8.0 g/dL (6.6-8.7) 04/29/24 08:18 Albumin 4.2 g/dL (3.5-5.2) 04/29/24 08:18 Globulin 3.8 g/dL (1.3-4.6) 04/29/24 08:18 All radiology interpretation(s) finalized by discharge Discharge Plan Discharge Patient Disposition: Home Clinical Impression: Generalized seizure Condition: Stable Prescriptions: No Action No Known Home Medications Discharge Orders: Discharge ED (Routine); Ordered 04/29/24 Ordered By: Dylan Mcknight Discharge Diet: Usual diet Discharge Activity: Increase activity as tolerated Patient Instructions: Opioid Safety, Pain Management Activity Restrictions/Additional Instructions: Thank you for choosing [facility] for your healthcare needs today. It is very important that you follow up as instructed or that you return to the Emergency Department should you have concerns or if your condition changes or worsens in any way. You were seen today after a possible seizure. Your labs do not particularly indicate that you had a seizure. Further evaluation will need to be done. Will set you up for a EEG and neurology consult. We do not recommend starting antiseizure medicines at this time Coding Level of Care Code ED Medical Billing Representative for Priyanka Nunez
--- NOTE | 2024-04-29 09:16 | CT_ITS ---
WS: [id number] CT HEAD TECHNIQUE: Noncontrast CT of the head obtained from the skullbase to the vertex. CLINICAL INFORMATION: trauma COMPARISON: 07/07/2023 DLP: 1093.[address] scans at [facility] use at least one of these dose optimization techniques: automated e xposure control; mA and/or kV adjustment per patient size (includes targeted exams where dose is matc hed to clinical indication); or iterative reconstruction. FINDINGS: No evidence of intracranial hemorrhage or mass effect. Ventricular system and basal cisterns are velarde nt. Mild small vessel changes with mild parenchymal volume loss. No extra-axial fluid collections. No evidence of mass or mass effect. Tiny chronic lacunar infarct LEFT cerebellum. Vascular calcificatio n. Paranasal sinuses and mastoid air cells are well aerated. .Normal visualized soft tissues. CT/CT head wo con* [id number] IMPRESSION: 1. No evidence of intracranial hemorrhage or mass effect. 2. No acute intracranial findings.
[2024-04-29 09:33] LABS: Lactic Sepsis W/Reflex 1.4 mmol/L (0.5-2.2)
[2024-04-29 09:58] LABS: Creatine Phosphokinase 548 U/L (39-308)
[2024-04-29 10:07] VITALS: BP 141/101; PULSE 74; O2SAT 98
[2024-04-29 10:11] LABS: Ammonia 51 umol/L (16-60)
--- NOTE | 2024-05-03 07:48 | DCPLANNER ---
message sent to Neurology
== END 2024-04-29 10:11 | disposition home or self-care (01) ==
PROVIDERS: Emergency Provider Family Medicine
DX: G40.89 Other seizures (principal); Z87.891 Personal history of nicotine dependence; Z86.73 Personal history of transient ischemic attack (TIA), and cerebral infarction without residual deficits; J44.9 Chronic obstructive pulmonary disease, unspecified
CPT/HCPCS: 36415; 70450; 80053; 82140; 82550; 83605; 85025; 99284

== ENCOUNTER 2024-05-02 16:03 | Inpatient (IN) | payer BC, MEDICAID, SELFPAY ==
[2024-05-02 16:03] VITALS: BP 122/73; PULSE 86; RESP 17; TEMP 36.7; O2SAT 93; BMI 25.1
--- NOTE | 2024-05-02 16:24 | XRR_ITS ---
PROCEDURE INFORMATION: Exam: XR Left Shoulder Exam date and time: 05/02/2024 4:36 PM Age: 63 years old Clinical indication: Left; Patient HX: Lt shoulder pain post fall; Additional info: Lt shoulder pain post fallsind TECHNIQUE: Imaging protocol: Radiologic exam of the left shoulder. Views: 2 or more views. COMPARISON: CR (CHEST, ) 04/21/2024 2:53 AM FINDINGS: Bones/joints: Chronic fracture deformity of the proximal humerus. Intact ORIF hardware of the proximal humerus. No acute fracture. Soft tissues: Normal. XR/XR shoulder LT min 2V* [id number] IMPRESSION: No acute findings.
[2024-05-02 17:11] LABS: Basophils # 0.1 10^3/uL (0.0-0.1); Eosinophils # 0.6 10^3/uL (0.0-0.8); Eosinophils % 7.8 %; Hematocrit 40.8 % (37-53); Lymphocytes # 2.4 10^3/uL (0.8-4.8); Lymphocytes % 33.6 %; Mean Corpuscular HGB Conc 33.1 g/dL (30-55); Mean Corpuscular Volume 93.8 fl (82-101); Mean Platelet Volume 10.6 fL (7.4-10.4); Monocytes # 0.8 10^3/uL (0.2-0.9); Monocytes % 11.1 %; Neutrophils # 3.36 10^3/uL (1.8-7.7); Neutrophils % 46.2 %; Nucleated Red Blood Cells % 0 %; Platelet Count 159 10^3/cmm (157-399); Red Blood Count 4.35 10^6/uL (3.85-5.65); Red Cell Distribution Width 13.7 % (12.1-15.1); White Blood Count 7.27 10^3/uL (3.29-11.43)
[2024-05-02 17:34] LABS: Alanine Aminotransferase 25 U/L (0-41); Albumin Level 3.8 g/dL (3.5-5.2); Alkaline Phosphatase 93 U/L (40-130); Anion Gap 16.8 (5-19); Aspartate Amino Transferase 38 U/L (0-40); Blood Urea Nitrogen 29 mg/dL (8-23); Calcium 9.2 mg/dL (8.5-10.5); Carbon Dioxide 23 mmol/L (22-29); Chloride 99 mmol/L (98-107); Creatinine Clr Calc Pharmacy 65.2935; Globulin 3.4 g/dL (1.3-4.6); Glomerular Filtration Rate 61.1 mL/min (90-130); Glucose 154 mg/dL (65-115); Osmolality Calculated 289 mOsm/kg (285-295); Potassium 3.8 mmol/L (3.5-5.1); Sodium 135 mmol/L (136-145); Total Bilirubin 0.4 mg/dL (0.15-1.2); Total Protein 7.2 g/dL (6.6-8.7)
[2024-05-02 17:35] LABS: Acetaminophen < 5.0 ug/mL (10-30); Salicylate < 0.3 mg/dL (3-10)
[2024-05-02 17:36] LABS: Creatine Phosphokinase 491 U/L (39-308)
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
[2024-05-02] MEDS: sodium chloride 0.9% 1,000 ML 999 ML IV (18:04)
[2024-05-02 18:07] LABS: Bilirubin Urine Negative (Negative); Blood Urine Negative (Negative); Glucose Urine UA Negative (Normal); Ketones Urine Trace (Negative); Leukocyte Esterase Urine Negative (Negative); Nitrate Urine Negative (Negative); Protein Urine Negative (Negative); Specific Gravity, Urine 1.023 (1.005-1.030); Urine Appearance Clear (CLEAR); Urine Color Yellow (Yellow); pH Urine 5.5 (5-7)
[2024-05-02 18:11] LABS: Add Urine Microscopic? YES; Bacteria Urine None Seen /hpf; RBC Urine 0-2 /hpf (0-2); Squamous Epithelial Cell Urine 0-5 /hpf (0-5); WBC Urine 0-5 /hpf (0-5)
[2024-05-02 18:22] LABS: Amphetamines Screen Urine Positive (Negative); Barbiturates Screen Urine Negative (Negative); Benzodiazepines Screen Urine Negative (Negative); Cocaine Screen Urine Negative (Negative); Opiate Screen Urine Negative (Negative); PCP Screen Urine Negative (Negative); THC Screen Urine Positive (Negative)
--- NOTE | 2024-05-02 18:53 | PC.NURSE ---
96 hr rights reviewed with pt @[id number] with assistance of [facility] youth officer Romeo Hutchison All education reviewed with patient at this time. No questions or concerns verbalized to this HS. Patient copy was left @bedside with patient. Pt provided a sandwich and soda until dinner tray arrived. No further verbalized needs.
[2024-05-02 19:55] VITALS: BP 129/86; PULSE 81; RESP 16; O2SAT 96
[2024-05-02 20:52] VITALS: BP 132/71; PULSE 95; RESP 18; TEMP 36.9; O2SAT 96
[2024-05-02 22:00] VITALS: BP 132/71; PULSE 95; RESP 18; TEMP 36.9; O2SAT 96
[2024-05-02 23:47] LABS: Creatinine Clr Calc Pharmacy 52.2348; Glomerular Filtration Rate 47.3 mL/min (90-130)
[2024-05-03] MEDS: acetaminophen 325 mg Tablet 650 MG PO (03:41)
[2024-05-03] MEDS: haloperidol 5 mg Tablet PO ×2 (03:42→21:07)
[2024-05-03 06:00] VITALS: RESP 18
--- NOTE | 2024-05-03 06:23 | PC.NURSE ---
Patient refused nurse notified.
[2024-05-03] MEDS: ibuprofen 600 mg Tablet PO ×2 (07:40→21:07)
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
--- NOTE | 2024-05-03 11:08 | PC.PT ---
Patient is independent in NPU with walker. Ambulates at home with two canes. He has a history of frequent falls at home with no change in condition noted. PT not needed at this time.
[2024-05-03 14:00] VITALS: BP 140/92; PULSE 71; RESP 16; TEMP 36.6; O2SAT 95
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
[2024-05-03 19:37] VITALS: BP 121/80; PULSE 81; RESP 16; TEMP 36.9; O2SAT 97
[2024-05-03] MEDS: trazodone 50 mg Tablet PO (21:07)
[2024-05-04 06:00] VITALS: RESP 18
--- NOTE | 2024-05-04 06:29 | PC.NURSE ---
Patient refused nurse was notified.
[2024-05-04] MEDS: hyDROXYzine 25 mg Capsule 50 MG PO ×2 (08:58→20:56)
[2024-05-04] MEDS: acetaminophen 325 mg Tablet 650 MG PO ×2 (08:59→20:55)
[2024-05-04 14:00] VITALS: BP 128/67; PULSE 82; RESP 16; TEMP 36.8; O2SAT 97
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
[2024-05-04] MEDS: nicotine 4 mg lozenge MUCOUS MEM (18:17)
[2024-05-04] MEDS: ibuprofen 600 mg Tablet PO (18:18)
[2024-05-04 20:02] VITALS: BP 119/73; PULSE 83; RESP 18; TEMP 36.9; O2SAT 96
[2024-05-04] MEDS: trazodone 50 mg Tablet PO (20:56)
[2024-05-05 06:00] VITALS: BP 129/81; PULSE 84; RESP 16; TEMP 36.7; O2SAT 97
[2024-05-05] MEDS: hyDROXYzine 25 mg Capsule 50 MG PO (08:13)
[2024-05-05] MEDS: acetaminophen 325 mg Tablet 650 MG PO (08:13)
[2024-05-05] MEDS: nicotine 4 mg lozenge MUCOUS MEM (08:13)
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
[2024-05-05 11:59] VITALS: BP 129/81; PULSE 84; RESP 16; TEMP 36.7; O2SAT 97
== END 2024-05-05 15:12 | disposition home or self-care (01) | DRG 885 ==
LOC: ER 17:51 → NP 17:58
PROVIDERS: Admitting Provider Psychiatry & Neurology Psychiatry; Emergency Provider Emergency Medicine; Visit Provider Psychiatry & Neurology Psychiatry
DX: F29 Unspecified psychosis not due to a substance or known physiological condition (principal); R45.850 Homicidal ideations; F15.10 Other stimulant abuse, uncomplicated; Z87.891 Personal history of nicotine dependence; Z91.141 Patient's other noncompliance with medication regimen due to financial hardship
CPT/HCPCS: 36415; 73030; 80053; 80306; 80307; 81001; 82550; 82565; 85025; 97150; 97165; 99285; J7030

== ENCOUNTER 2024-05-08 05:30 | Emergency (ER) | payer BC, MEDICAID, SELFPAY ==
[2024-05-08 05:35] VITALS: BP 134/94; PULSE 97; RESP 18; TEMP 36.4; O2SAT 94; BMI 19.2
--- NOTE | 2024-05-08 06:07 | W.ED.WEAKNES ---
HPI - Weakness General: Chief complaint: Weakness Stated complaint: WEAKNESS Time Seen by Provider: 05/08/24 05:56 PFSH ED PFSH: Medical History Hepatitis C test positive Methamphetamine use Elevated troponin Transaminitis Hyponatremia Influenza A COPD with acute exacerbation Acute respiratory failure with hypoxemia Irritable bowel syndrome Peripheral vascular disease CVA (cerebral vascular accident) Tobacco dependency Amphetamine use COPD (chronic obstructive pulmonary disease) Osteoarthritis Surgical History History of arthroplasty of left shoulder Family History Other Cancer Stroke Social History Smoking and tobacco/nicotine status: former use of tobacco/nicotine Alcohol intake: never Substance/Drug Use: current Course Vital Signs: Vital signs: Vital Signs Temperature 97.5 F L 05/08/24 05:35 Pulse Rate 108 H 05/08/24 07:07 Respiratory Rate 18 05/08/24 05:35 Blood Pressure 111/60 05/08/24 07:07 Pulse Oximetry 92 05/08/24 07:07 Oxygen Delivery Me thod Room Air 05/08/24 05:35 MDM - Weakness Lab Data 05/08/24 06:30 05/08/24 06:30 Radiology Impressions Chest X-Ray 05/08/24 06:20 IMPRESSION: No acute cardiopulmonary findings. Lumbar Spine CT 05/08/24 06:43 IMPRESSION: No definite acute osseous abnormality. Advanced multilevel degenerative changes of the lumbar spine resulting in varying degrees of neural foraminal narrowing greater at the lower levels. Moderate canal stenosis at L4-L5. Consider follow up with MRI of the lumbar spine for more detailed level by level evaluation. Head CT 05/08/24 06:54 IMPRESSION: No acute intracranial abnormality. Acute on chronic left maxillary sinusitis. Frontal nasal duct pattern acute sinusitis, [id number]. Laboratory Results WBC 8.63 10^3/uL (3.29-11.43) 05/08/24 06:30 RBC 4.60 10^6/uL (3.85-5.65) 05/08/24 06:30 Hgb 14.50 g/dL (11.27-16.99) 05/08/24 06:30 Hct 43.9 % (37-53) 05/08/24 06:30 MCV 95.4 fl (82-101) 05/08/24 06:30 MCH 31.5 pg (27-33) 05/08/24 06:30 MCHC 33.0 g/dL (30-55) 05/08/24 06:30 RDW 14.1 % (12.1-15.1) 05/08/24 06:30 Plt Count 206 10^3/cmm (157-399) 05/08/24 06:30 MPV 10.5 fL (7.4-10.4) H 05/08/24 06:30 Neut % (Auto) 61.9 % 05/08/24 06: Lymph % (Auto) 22.9 % 05/08/24 06:30 [place] % (Auto) 8.1 % 05/08/24 06:30 Eos % (Auto) 5.6 % 05/08/24 06:30 Baso % (Auto) 1.0 % 05/08/24 06:30 Neut # (Auto) 5.34 10^3/uL (1.8-7.7) 05/08/24 06:30 Lymph # (Auto) 2.0 10^3/uL (0.8-4.8) 05/08/24 06:30 [place] # (Auto) 0.7 10^3/uL (0.2-0.9) 05/08/24 06:30 Eos # (Auto) 0.5 10^3/uL (0.0-0.8) 05/08/24 06:30 Baso # (Auto) 0.1 10^3/uL (0.0-0.1) 05/08/24 06:30 Nucleated RBC % (auto) 0 % 05/08/24 06: Nucleated RBCs # 0.0 /100WBC 05/08/24 06:30 Sodium 140 mmol/L (136-145) 05/08/24 06:30 Potassium 4.0 mmol/L (3.5-5.1) 05/08/24 06:30 Chloride 104 mmol/L (98-107) 05/08/24 06:30 Carbon Dioxide 23 mmol/L (22-29) 05/08/24 06:30 Anion Gap 17.0 (5-19) 05/08/24 06:30 BUN 26 mg/dL (8-23) H 05/08/24 06:30 Creatinine 0.9 mg/dL (0.7-1.2) 05/08/24 06:30 GFR Calculation 85.2 mL/min (90-130) L 05/08/24 06:30 Glucose 102 mg/dL (65-115) 05/08/24 06:30 Calculated Osmolality 295 mOsm/kg (285-295) 05/08/24 06:30 Lactic Acid 1.2 mmol/L (0.5-2.2) 05/08/24 06:30 Calcium 9.8 mg/dL (8.5-10.5) 05/08/24 06:30 Magnesium 2.3 mg/dL (1.7-2.3) 05/08/24 06:30 Total Bilirubin 0.6 mg/dL (0.15-1.2) 05/08/24 06:30 AST 48 U/L (0-40) H 05/08/24 06:30 ALT 30 U/L (0-41) 05/08/24 06:30 Alkaline Phosphatase 94 U/L (40-130) 05/08/24 06:30 Creatine Kinase 509 U/L (39-308) H* 05/08/24 06:30 Total Protein 8.3 g/dL (6.6-8.7) 05/08/24 06:30 Albumin 4.1 g/dL (3.5-5.2) 05/08/24 06:30 Globulin 4.2 g/dL (1.3-4.6) 05/08/24 06:30 Urine Color Yellow (Yellow) 05/08/24 07:25 Urine Appearance Clear (CLEAR) 05/08/24 07: Urine pH 6.0 (5-7) 05/08/24 07: Ur Specific [place] 1.019 (1.005-1.030) 05/08/24 07: Urine Protein Negative (Negative) 05/08/24 07: Urine Glucose (UA) Negative (Normal) 05/08/24 07: Urine Ketones Negative (Negative) 05/08/24 07: Urine Blood Negative (Negative) 05/08/24 07:25 Urine Nitrate Negative (Negative) 05/08/24 07:25 Urine Bilirubin Negative (Negative) 05/08/24 07:25 Urine Urobilinogen 1.0 mg/dL (Negative) 05/08/24 07:25 Ur Leukocyte Esterase Negative (Negative) 05/08/24 07:25 Urine RBC 0-2 /hpf (0-2) 05/08/24 07:25 Urine WBC 0-5 /hpf (0-5) 05/08/24 07:25 Ur Squamous Epith Cells 0-5 /hpf (0-5) 05/08/24 07:25 Amorphous Sediment Not Reportable 05/08/24 07:25 Urine Bacteria None seen /hpf (NONE) 05/08/24 07:25 Hyaline Casts 0.40 /lpf 05/08/24 07:25 Urine Opiates Screen Negative ng/mL (Negative) 05/08/24 07:25 Ur Barbiturates Screen Negative ng/mL (Negative) 05/08/24 07:25 Ur Phencyclidine Scrn Negative ng/mL (Negative) 05/08/24 07:25 Ur Amphetamines Screen Positive ng/mL (Negative) H 05/08/24 07:25 U Benzodiazepines Scrn Negative ng/mL (Negative) 05/08/24 07:25 Urine Cocaine Screen Negative ng/mL (Negative) 05/08/24 07:25 U Marijuana (THC) Screen Positive ng/mL (Negative) H 05/08/24 07:25 Coronavirus (PCR) Negative (Negative) 05/08/24 06:58 Influenza A (PCR) Negative (Negative) 05/08/24 06:58 Influenza Type B (PCR) Negative (Negative) 05/08/24 06:58 RSV (PCR) Negative (Negative) 05/08/24 06:58 Discharge Plan Discharge Patient Disposition: Home Clinical Impression: Fall, Transient right leg weakness, Elevated CPK, Methamphetamine abuse Condition: Stable Prescriptions: New cyclobenzaprine 10 mg tablet 10 mg PO TID PRN (Reason: muscle spasm) Qty: 20 0RF diclofenac sodium 75 mg tablet,delayed release (DR/EC) 75 mg PO Q12H PRN (Reason: pain) Qty: 20 0RF Discharge Orders: Discharge ED (Routine); Ordered 05/08/24 Ordered By: Dylan L Horstman Discharge Diet: Usual diet Discharge Activity: Increase activity as tolerated Patient Instructions: Opioid Safety, Pain Management Activity Restrictions/Additional Instructions: Thank you for choosing [facility] for your healthcare needs today. It is very important that you follow up as instructed or that you return to the Emergency Department should you have concerns or if your condition changes or worsens in any way. You are seen in the emergency room after a fall. You are noted to still have a mildly elevated CPK. Suspect this may be related to your methamphetamine use. Recommend not using methamphetamines. You are given diclofenac and Flexeril for muscle ache and pain. Follow-up with your primary care doctor regarding your intermittent leg pain. Coding Level of Care Code ED Photographers' Model for Priyanka Fwd Related Data Previous Rx's Medication Instructions Recorded cyclobenzaprine 10 mg tablet 10 mg PO TID PRN muscle spasm #20 05/08/24 tabs diclofenac sodium 75 mg 75 mg PO Q12H PRN pain #20 tabs 05/08/24 tablet,delayed release Allergies Allergy/AdvReac Type Severity Reaction Status Date / Time iodine Allergy ALGY-Anaphy Verified 04/21/24 01:49 laxis shellfish derived Allergy ALGY-Anaphy Verified 04/21/24 01:49 laxis
--- NOTE | 2024-05-08 06:20 | XRR_ITS ---
PROCEDURE INFORMATION: Exam: XR Chest Exam date and time: 05/08/2024 6:40 AM Age: 63 years old Clinical indication: Patient HX: C/O cough TECHNIQUE: Imaging protocol: Radiologic exam of the chest. Views: 1 view. COMPARISON: CR (CHEST, ) 04/21/2024 2:53 AM FINDINGS: Lungs: No focal consolidation. Pleural spaces: Unremarkable. No pleural effusion. No pneumothorax. Heart/Mediastinum: Unremarkable. No cardiomegaly. Vasculature: Tortuous calcified aorta. Bones/joints: Partially visualized plate and screw fixation of the left humerus. Other findings: Overlying material obscures detailed evaluation. XR/XR chest 1V portable [id number] IMPRESSION: No acute cardiopulmonary findings.
[2024-05-08 06:38] LABS: Basophils # 0.1 10^3/uL (0.0-0.1); Eosinophils # 0.5 10^3/uL (0.0-0.8); Eosinophils % 5.6 %; Hematocrit 43.9 % (37-53); Lymphocytes % 22.9 %; Mean Corpuscular Hemoglobin 31.5 pg (27-33); Mean Corpuscular Volume 95.4 fl (82-101); Mean Platelet Volume 10.5 fL (7.4-10.4); Monocytes # 0.7 10^3/uL (0.2-0.9); Monocytes % 8.1 %; Neutrophils # 5.34 10^3/uL (1.8-7.7); Neutrophils % 61.9 %; Nucleated Red Blood Cells % 0 %; Platelet Count 206 10^3/cmm (157-399); Red Cell Distribution Width 14.1 % (12.1-15.1); White Blood Count 8.63 10^3/uL (3.29-11.43)
--- NOTE | 2024-05-08 06:43 | CTR_ITS ---
PROCEDURE INFORMATION: Exam: CT Lumbar Spine Without Contrast Exam date and time: 05/08/2024 7:03 AM Age: 63 years old Clinical indication: Numbness and weakness; Additional info: B/l lower extremity weakness/numbness TECHNIQUE: Imaging protocol: Computed tomography of the lumbar spine without contrast. Radiation optimization: All CT scans at this facility use at least one of these dose optimization techniques: automated exposure control; mA and/or kV adjustment per patient size (includes targeted exams where dose is matched to clinical indication); or iterative reconstruction. COMPARISON: CT lumbar spine wo con* [id number] 03/15/2018 7:25 PM RADIATION DOSE METRICS: Total DLP (mGy-cm): 493.06 FINDINGS: Bones/joints: Dextroconvex scoliotic curvature of the lumbar spine. Advanced multilevel degenerative disc and facet arthropathy resulting in varying degrees of neural foraminal narrowing which is most prominent at the lower levels. L4-L5 moderate canal stenosis. Other areas of spinal canal stenosis. No definite acute osseous abnormality. Urinary bladder: Distended urinary bladder. Vasculature: Atherosclerosis and infrarenal abdominal aortic aneurysm measuring 3.5 cm. Soft tissues: Unremarkable. CT/CT lumbar spine wo con* [id number] IMPRESSION: No definite acute osseous abnormality. Advanced multilevel degenerative changes of the lumbar spine resulting in varying degrees of neural foraminal narrowing greater at the lower levels. Moderate canal stenosis at L4-L5. Consider follow up with MRI of the lumbar spine for more detailed level by level evaluation.
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
--- NOTE | 2024-05-08 06:54 | CTR_ITS ---
PROCEDURE INFORMATION: Exam: CT Head Without Contrast Exam date and time: 05/08/2024 7:00 AM Age: 63 years old Clinical indication: Injury or trauma; Fall; Blunt trauma (contusions or hematomas); Without loss of consciousness TECHNIQUE: Imaging protocol: Computed tomography of the head without contrast. Radiation optimization: All CT scans at this facility use at least one of these dose optimization techniques: automated exposure control; mA and/or kV adjustment per patient size (includes targeted exams where dose is matched to clinical indication); or iterative reconstruction. COMPARISON: CT head wo con* [id number] 04/29/2024 9:36 AM COMPARISON MORE: CT head wo con* [id number] 07/07/2023 12:50 PM COMPARISON MORE: CT head wo con* [id number] 02/20/2023 10:28 AM RADIATION DOSE METRICS: Total DLP (mGy-cm): 1104.98 FINDINGS: Brain: Mild parenchymal volume loss. Periventricular and subcortical hypodensity, nonspecific, but likely to be chronic small vessel ischemic change in a patient of this age group. Cerebral ventricles: No ventriculomegaly. Paranasal sinuses: Left maxillary wall mucosal thickening with associated hyperostosis. Rightward deviation of the nasal septum. Bilateral anterior ethmoid sinus mucosal thickening, [id number]-[id number]-right. Scant mucosal thickening of the bilateral frontal sinuses, nixl-[id number]-[id number]-right and the frontal nasal ducts Mastoid air cells: Visualized mastoid air cells are well aerated. Bones: See Paranasal sinuses finding. Soft tissues: Unremarkable. CT/CT head wo con* [id number] IMPRESSION: No acute intracranial abnormality. Acute on chronic left maxillary sinusitis. Frontal nasal duct pattern acute sinusitis, [id number]-dxku-right.
[2024-05-08 07:03] LABS: Lactic Sepsis W/Reflex 1.2 mmol/L (0.5-2.2)
[2024-05-08 07:06] LABS: Alanine Aminotransferase 30 U/L (0-41); Albumin Level 4.1 g/dL (3.5-5.2); Alkaline Phosphatase 94 U/L (40-130); Aspartate Amino Transferase 48 U/L (0-40); Blood Urea Nitrogen 26 mg/dL (8-23); Calcium 9.8 mg/dL (8.5-10.5); Carbon Dioxide 23 mmol/L (22-29); Chloride 104 mmol/L (98-107); Globulin 4.2 g/dL (1.3-4.6); Glomerular Filtration Rate 85.2 mL/min (90-130); Glucose 102 mg/dL (65-115); Magnesium 2.3 mg/dL (1.7-2.3); Osmolality Calculated 295 mOsm/kg (285-295); Sodium 140 mmol/L (136-145); Total Bilirubin 0.6 mg/dL (0.15-1.2); Total Protein 8.3 g/dL (6.6-8.7)
[2024-05-08 07:07] VITALS: BP 111/60; PULSE 108; O2SAT 92
[2024-05-08 07:07] LABS: Creatine Phosphokinase 509 U/L (39-308)
[2024-05-08 07:56] LABS: Covid PCR NEGATIVE (Negative); Influenza A NEGATIVE (Negative); Influenza B NEGATIVE (Negative); Respiratory Syncytial Virus Ce NEGATIVE (Negative)
[2024-05-08 08:13] LABS: Bilirubin Urine Negative (Negative); Blood Urine Negative (Negative); Glucose Urine UA Negative (Normal); Ketones Urine Negative (Negative); Leukocyte Esterase Urine Negative (Negative); Nitrate Urine Negative (Negative); Protein Urine Negative (Negative); Specific Gravity, Urine 1.019 (1.005-1.030); Urine Appearance Clear (CLEAR); Urine Color Yellow (Yellow)
[2024-05-08 08:16] LABS: Add Urine Microscopic? YES; Bacteria Urine None Seen /hpf; RBC Urine 0-2 /hpf (0-2); Squamous Epithelial Cell Urine 0-5 /hpf (0-5); WBC Urine 0-5 /hpf (0-5)
[2024-05-08 09:01] LABS: Amphetamines Screen Urine Positive (Negative); Barbiturates Screen Urine Negative (Negative); Benzodiazepines Screen Urine Negative (Negative); Cocaine Screen Urine Negative (Negative); Opiate Screen Urine Negative (Negative); PCP Screen Urine Negative (Negative); THC Screen Urine Positive (Negative)
[2024-05-08] MEDS: cyclobenzaprine 10 mg Tablet 5 MG PO (09:47)
== END 2024-05-08 10:21 | disposition home or self-care (01) ==
PROVIDERS: Family Medicine; Emergency Provider Physician Assistant Medical
DX: R53.1 Weakness (principal); R74.8 Abnormal levels of other serum enzymes; F15.10 Other stimulant abuse, uncomplicated; W19.XXXA Unspecified fall, initial encounter; Z11.52 Encounter for screening for COVID-19; J44.9 Chronic obstructive pulmonary disease, unspecified; Z86.73 Personal history of transient ischemic attack (TIA), and cerebral infarction without residual deficits; Z87.891 Personal history of nicotine dependence; Z59.00 Homelessness unspecified
CPT/HCPCS: 36415; 70450; 71045; 72131; 80053; 80306; 81001; 82550; 83605; 83735; 85025; 87637; 99284

== ENCOUNTER 2024-09-01 14:45 | Emergency (ER) | payer BC, MEDICAID, SELFPAY ==
[2024-09-01 14:49] VITALS: BP 131/90; PULSE 123; RESP 16; TEMP 37.6; O2SAT 99
--- NOTE | 2024-09-01 14:57 | ECG_ITS ---
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 Measurements Intervals [place] Rate: 100 P: 0 AR: 0 QRS: 85 QRSD: 87 T: 79 QT: 319 QTc: 412 Interpretive Statements ATRIAL FIBRILLATION WITH RAPID VENTRICULAR RESPONSE ABNORMAL RHYTHM ECG Compared to ECG 04/21/2024 01:55:41 Sinus rhythm no longer present Electronically Signed On 09-02-2024 18:08:[address] M[address]D. [email or web address] [id number]
--- NOTE | 2024-09-01 15:10 | XRR_ITS ---
PROCEDURE INFORMATION: Exam: XR Chest Exam date and time: 09/01/2024 3:39 PM Age: 64 years old Clinical indication: Cough and dyspnea and shortness of breath; Additional info: Dyspnea/cough TECHNIQUE: Imaging protocol: Radiologic exam of the chest. Views: 1 view. COMPARISON: CR XR chest 1V portable [id number] 05/08/2024 6:40 AM FINDINGS: Lungs: Unremarkable. No consolidation. Pleural spaces: Unremarkable. No pleural effusion. No pneumothorax. Heart/Mediastinum: Unremarkable. No cardiomegaly. Vasculature: Atherosclerotic aortic calcifications. Bones/joints: Partially visualized proximal left humeral screws. XR/XR chest 1V portable [id number] IMPRESSION: No acute cardiopulmonary findings.
[2024-09-01 15:30] LABS: Basophils # 0.1 10^3/uL (0.0-0.1); Basophils % 0.4 %; Eosinophils # 0.2 10^3/uL (0.0-0.8); Eosinophils % 1.2 %; Lymphocytes # 1.1 10^3/uL (0.8-4.8); Mean Corpuscular HGB Conc 33.6 g/dL (30-55); Mean Corpuscular Hemoglobin 31.1 pg (27-33); Mean Corpuscular Volume 92.8 fl (82-101); Mean Platelet Volume 10.3 fL (7.4-10.4); Monocytes # 1.3 10^3/uL (0.2-0.9); Monocytes % 9.9 %; Neutrophils # 10.07 10^3/uL (1.8-7.7); Nucleated Red Blood Cells % 0 %; Platelet Count 219 10^3/cmm (157-399); Red Blood Count 4.85 10^6/uL (3.85-5.65); Red Cell Distribution Width 13.4 % (12.1-15.1); White Blood Count 12.73 10^3/uL (3.29-11.43)
--- NOTE | 2024-09-01 15:35 | ED_ITS ---
Documented by User: Dylan Mcknight DO 09/02/24 06:43 HPI - URI/Sore Throat 2 General: Chief Complaint: Upper Respiratory Infection Stated Complaint: trouble breathing Time Seen by Provider: 09/01/24 15:09 History of Present Illness: 64-year-old male presents emergency room complaining of productive cough of discolored mucus for the last several days. He has been short of breath as well. No vomiting no diarrhea. Denies chest pain low-grade fevers subjectively. No hemoptysis Associated symptoms: Deny abdominal pain, chills, chest pain or fever(s) Related Data Previous Rx's ?Medication ?Instructions ?Recorded levofloxacin 750 mg tablet 750 mg PO DAILY 7 days #7 t abs 09/01/24 Allergies Allergy/AdvReac Type Severity Reaction Status Date / Time iodine Allergy ALGY-Anaphy Verified 04/21/24 01:49 laxis shellfish derived Allergy ALGY-Anaphy Verified 04/21/24 01:49 laxis Review of Systems 2 Const: Denies: fever(s) or chills Card: Denies: chest pain Resp: Denies: dyspnea GI: Denies: abdominal pain : Denies: dysuria, urinary frequency or urinary urgency Musc: Denies: neck pain or back pain Skin/Breast: Denies: rash PFSH ED 2 PFSH: Medical History Hepatitis C test positive Methamphetamine use Elevated troponin Transaminitis Hyponatremia Influenza A COPD with acute exacerbation Acute respiratory failure with hypoxemia Irritable bowel syndrome Peripheral vascular disease CVA (cerebral vascular accident) Tobacco dependency Amphetamine use COPD (chronic obstructive pulmonary disease) Osteoarthritis Surgical History History of arthroplasty of left shoulder Family History Other Cancer Stroke Social History Smoking and tobacco/nicotine status: former use of tobacco/nicotine Alcohol intake: never Substance/Drug Use: current Physical Exam 2 Const: GENERAL APPEARANCE: cooperative ORIENTATION/CONSCIOUSNESS: Yes awake, Yes oriented to person, Yes oriented to place and Yes oriented to time HENMT: COMMON NORMALS: normocephalic, atraumatic and hearing grossly normal bilaterally HEAD & SCALP: normocephalic and atraumatic Resp: COMMON NORMALS: normal respiratory effort, No retractions and No use of accessory muscles AUSCULTATION: rhonchi and wheezes Cardio: COMMON NORMALS: regular rate, regular rhythm and No murmurs present (Cardio) RATE: regular rate RHYTHM: regular rhythm GI: COMMON NORMALS: Soft to palpation and No hepatosplenomegaly present A USCULTATION: Yes normoactive bowel sounds PALPATION: Yes Soft to palpation, No Tenderness to palpation present (GI), No Guarding due to palpation present (GI) and Yes No hepatosplenomegaly present Extremity: COMMON NORMALS: normal to inspection, capillary refill normal, no clubbing, cyanosis or edema, no calf tenderness and no pedal edema Neuro: SENSORIUM/ORIENTATION: Yes oriented to person, Yes oriented to place and Yes oriented to time Skin: COMMON NORMALS: no rashes or lesions noted GENERAL SKIN EXAM: no rashes or lesions noted Course 2 Vital Signs: Vital signs: Vital Signs Temperature 99.6 F 09/01/24 14:49 Pulse Rate 80 09/01/24 18:33 Respiratory Rate 18 09/01/24 17:56 Blood Pressure 172/104 09/01/24 18:33 Pulse Oximetry 94 09/01/24 18:33 Oxygen Delivery Me thod Room Air 09/01/24 17:56 MDM - URI/Sore Throat Medical Decision Making Care signed out to Dr. alvarez at change of shift. See final notes for diagnosis and disposition. Care assumed from Dr. Mcknight. Patient had an abnormal lung exam leading to the diagnosis of community acquired pneumonia. Patient is awaiting repeat lactate before discharge home. Patient's repeat lactate returned to normal. Patient was discharged home with Levaquin with recommend still follow-up with his primary care provider in the next week. Return precautions were discussed and the patient was discharged home in good condition. Medical Records I reviewed the patient's medical records. Lab Data I reviewed the patient's lab results. 09/01/24 15:25 09/01/24 15:25 Radiology Impressions Chest X-Ray 09/01/24 15:10 IMPRESSION: No acute cardiopulmonary findings. Laboratory Results WBC 12.73 10^3/uL (3.29-11.43) H 09/01/24 15:25 RBC 4.85 10^6/uL (3.85-5.65) 09/01/24 15:25 Hgb 15.10 g/dL (11.27-16.99) 09/01/24 15:25 Hct 45.0 % (37-53) 09/01/24 15:25 MCV 92.8 fl (82-101) 09/01/24 15:25 MCH 31.1 pg (27-33) 09/01/24 15: MCHC 33.6 g/dL (30-55) 09/01/24 15:25 RDW 13.4 % (12.1-15.1) 09/01/24 15: Plt Count 219 10^3/cmm (157-399) 09/01/24 15: MPV 10.3 fL (7.4-10.4) 09/01/24 15:25 Neut % (Auto) 79.0 % 09/01/24 15:25 Lymph % (Auto) 9.0 % 09/01/24 15:25 [place] % (Auto) 9.9 % 09/01/24 15:25 Eos % (Auto) 1.2 % 09/01/24 15:25 Baso % (Auto) 0.4 % 09/01/24:25 Neut # (Auto) 10.07 10^3/uL (1.8-7.7) H 09/01/24 15:25 Lymph # (Auto) 1.1 10^3/uL (0.8-4.8) 09/01/24 15:25 [place] # (Auto) 1.3 10^3/uL (0.2-0.9) H 09/01/24 15:25 Eos # (Auto) 0.2 10^3/uL (0.0-0.8) 09/01/24:25 Baso # (Auto) 0.1 10^3/uL (0.0-0.1) 09/01/24 15:25 Nucleated RBC % (auto) 0 % 09/01/24 15:25 Nucleated RBCs # 0.0 /100WBC 09/01/24 15:25 Sodium 133 mmol/L (136-145) L 09/01/24 15:25 Potassium 4.0 mmol/L (3.5-5.1) 09/01/24 15:25 Chloride 96 mmol/L (98-107) L 09/01/24 15:25 Carbon Dioxide 22 mmol/L (22-29) 09/01/24 15:25 Anion Gap 19.0 (5-19) 09/01/24 15:25 BUN 14 mg/dL (8-23) 09/01/24 15: Creatinine 1.0 mg/dL (0.7-1.2) 09/01/24 15:25 GFR Calculation 75.2 mL/min (90-130) L 09/01/24 15:25 Glucose 155 mg/dL (65-115) H 09/01/24 15:25 Calculated Osmolality 280 mOsm/kg (285-295) L 09/01/24 15: Lactic Acid Cancelled 09/01/24 17:19 Lactic Acid (Sepsis) 1.3 mmol/L (0.5-2.2) 09/01/24 17:19 Calcium 8.9 mg/dL (8.5-10.5) 09/01/24 15: Total Bilirubin 0.7 mg/dL (0.15-1.2) 09/01/24 15:25 AST 38 U/L (0-40) 09/01/24 15: ALT 24 U/L (0-41) 09/01/24 15:25 Alkaline Phosphatase 127 U/L (40-130) 09/01/24 15:25 Total Protein 7.7 g/dL (6.6-8.7) 09/01/24 15: Albumin 3.6 g/dL (3.5-5.2) 09/01/24 15:25 Globulin 4.1 g/dL (1.3-4.6) 09/01/24 15:25 Urine Color Yellow (Yellow) 09/01/24 17:30 Urine Appearance Clear (CLEAR) 09/01/24 17: Urine pH 6.5 (5-7) 09/01/24 17: Ur Specific [place] 1.005 (1.005-1.030) 09/01/24 17:30 Urine Protein Negative (Negative) 09/01/24 17: Urine Glucose (UA) Negative (Normal) 09/01/24 17: Urine Ketones Negative (Negative) 09/01/24 17:30 Urine Blood Negative (Negative) 09/01/24 17:30 Urine Nitrate Negative (Negative) 09/01/24 17:30 Urine Bilirubin Negative (Negative) 09/01/24 17:30 Urine Urobilinogen 1.0 mg/dL (Negative) 09/01/24 17:30 Ur Leukocyte Esterase Negative (Negative) 09/01/24 17:30 Urine RBC 0-2 /hpf (0-2) 09/01/24 17:30 Urine WBC 0-5 /hpf (0-5) 09/01/24 17:30 Ur Squamous Epith Cells 0-5 /hpf (0-5) 09/01/24 17:30 Amorphous Sediment Not Reportable 09/01/24 17:30 Urine Bacteria None seen /hpf (NONE) 09/01/24 17:30 Hyaline Casts 0-4 /lpf H 09/01/24 17:30 Ethyl Alcohol < 10 mg/dL (0-10) 09/01/24 15:25 Influenza A (PCR) Negative (Negative) 09/01/24 15:44 Influenza Type B (PCR) Negative (Negative) 09/01/24 15:44 RSV (PCR) Negative (Negative) 09/01/24 15:44 SARS-CoV-2 (PCR) Negative (Negative) 09/01/24 15:44 Discharge Plan Discharge Patient Disposition: Home Clinical Impression: Community acquired pneumonia Qualifiers: Laterality: unspecified laterality Qualified Code(s): J18.9 - Pneumonia, unspecified organism Condition: Stable Prescriptions: New levofloxacin 750 mg tablet 750 mg PO DAILY 7 Days Qty: 7 0RF Discharge Orders: Discharge ED (Routine); Ordered 09/01/24 Ordered By: Richie Law Discharge Diet: Advance as tolerated Discharge Activity: Resume usual activity Patient Instructions: Opioid Safety, Pain Management Activity Restrictions/Additional Instructions: Based on your exam you have a pneumonia. Please take all antibiotics until completely gone. Follow-up with your primary care provider within the next week. Return to the emergency department with any new or worsening symptoms. Print Language: [place] Citizen Coding Level of Care Code ED International Trade Specialist for Priyanka Fwd Documented by User: Richie Alvarez DO 09/01/24 18:23 HPI - URI/Sore Throat 2 General: Chief Complaint: Upper Respiratory Infection Stated Complaint: trouble breathing Time Seen by Provider: 09/01/24 15:09 History of Present Illness: Patient presented with productive cough and shortness of breath. Related Data Previous Rx's ?Medication ?Instructions ?Recorded levofloxacin 750 mg tablet 750 mg PO DAILY 7 days #7 t abs 09/01/24 Allergies Allergy/AdvReac Type Severity Reaction Status Date / Time iodine Allergy ALGY-Anaphy Verified 04/21/24 01:49 laxis shellfish derived Allergy ALGY-Anaphy Verified 04/21/24 01:49 laxis PFSH ED 2 PFSH: Medical History Hepatitis C test positive Methamphetamine use Elevated troponin Transaminitis Hyponatremia Influenza A COPD with acute exacerbation Acute respiratory failure with hypoxemia Irritable bowel syndrome Peripheral vascular disease CVA (cerebral vascular accident) Tobacco dependency Amphetamine use COPD (chronic obstructive pulmonary disease) Osteoarthritis Surgical History History of arthroplasty of left shoulder Family History Other Cancer Stroke Social History Smoking and tobacco/nicotine status: former use of tobacco/nicotine Alcohol intake: never Substance/Drug Use: current Course 2 Vital Signs: Vital signs: Vital Signs Temperature 99.6 F 09/01/24 14:49 Pulse Rate 80 09/01/24 18:33 Respiratory Rate 18 09/01/24 17:56 Blood Pressure 172/104 09/01/24 18:33 Pulse Oximetry 94 09/01/24 18:33 Oxygen Delivery Me thod Room Air 09/01/24 17:56 MDM - URI/Sore Throat Medical Decision Making Care assumed from Dr. Mcknight. Patient had an abnormal lung exam leading to the diagnosis of community acquired pneumonia. Patient is awaiting repeat lactate before discharge home. Patient's repeat lactate returned to normal. Patient was discharged home with Levaquin with recommend still follow-up with his primary care provider in the next week. Return precautions were discussed and the patient was discharged home in good condition. Lab Data 09/01/24 15:25 09/01/24 15:25 Radiology Impressions Chest X-Ray 09/01/24 15:10 IMPRESSION: No acute cardiopulmonary findings. Laboratory Results WBC 12.73 10^3/uL (3.29-11.43) H 09/01/24 15:25 RBC 4.85 10^6/uL (3.85-5.65) 09/01/24 15: Hgb 15.10 g/dL (11.27-16.99) 09/01/24 15: Hct 45.0 % (37-53) 09/01/24 15: MCV 92.8 fl (82-101) 09/01/24 15: MCH 31.1 pg (27-33) 09/01/24 15: MCHC 33.6 g/dL (30-55) 09/01/24 15: RDW 13.4 % (12.1-15.1) 09/01/24 15: Plt Count 219 10^3/cmm (157-399) 09/01/24 15: MPV 10.3 fL (7.4-10.4) 09/01/24 15: Neut % (Auto) 79.0 % 09/01/24 15:25 Lymph % (Auto) 9.0 % 09/01/24 15: [place] % (Auto) 9.9 % 09/01/24 15: Eos % (Auto) 1.2 % 09/01/24 15:25 Baso % (Auto) 0.4 % 09/01/24: Neut # (Auto) 10.07 10^3/uL (1.8-7.7) H 09/01/24 15:25 Lymph # (Auto) 1.1 10^3/uL (0.8-4.8) 09/01/24 15:25 [place] # (Auto) 1.3 10^3/uL (0.2-0.9) H 09/01/24 15:25 Eos # (Auto) 0.2 10^3/uL (0.0-0.8) 09/01/24 15:25 Baso # (Auto) 0.1 10^3/uL (0.0-0.1) 09/01/24 15:25 Nucleated RBC % (auto) 0 % 09/01/24 15:25 Nucleated RBCs # 0.0 /100WBC 09/01/24 15:25 Sodium 133 mmol/L (136-145) L 09/01/24 15:25 Potassium 4.0 mmol/L (3.5-5.1) 09/01/24 15:25 Chloride 96 mmol/L (98-107) L 09/01/24 15:25 Carbon Dioxide 22 mmol/L (22-29) 09/01/24 15:25 Anion Gap 19.0 (5-19) 09/01/24 15:25 BUN 14 mg/dL (8-23) 09/01/24 15:25 Creatinine 1.0 mg/dL (0.7-1.2) 09/01/24 15:25 GFR Calculation 75.2 mL/min (90-130) L 09/01/24 15:25 Glucose 155 mg/dL (65-115) H 09/01/24 15:25 Calculated Osmolality 280 mOsm/kg (285-295) L 09/01/24 15:25 Lactic Acid Cancelled 09/01/24 17:19 Lactic Acid (Sepsis) 1.3 mmol/L (0.5-2.2) 09/01/24 17:19 Calcium 8.9 mg/dL (8.5-10.5) 09/01/24 15:25 Total Bilirubin 0.7 mg/dL (0.15-1.2) 09/01/24 15:25 AST 38 U/L (0-40) 09/01/24 15:25 ALT 24 U/L (0-41) 09/01/24 15:25 Alkaline Phosphatase 127 U/L (40-130) 09/01/24 15:25 Total Protein 7.7 g/dL (6.6-8.7) 09/01/24 15:25 Albumin 3.6 g/dL (3.5-5.2) 09/01/24 15:25 Globulin 4.1 g/dL (1.3-4.6) 09/01/24 15:25 Urine Color Yellow (Yellow) 09/01/24 17:30 Urine Appearance Clear (CLEAR) 09/01/24 17:30 Urine pH 6.5 (5-7) 09/01/24 17:30 Ur Specific [place] 1.005 (1.005-1.030) 09/01/24 17:30 Urine Protein Negative (Negative) 09/01/24 17:30 Urine Glucose (UA) Negative (Normal) 09/01/24 17:30 Urine Ketones Negative (Negative) 09/01/24 17:30 Urine Blood Negative (Negative) 09/01/24 17:30 Urine Nitrate Negative (Negative) 09/01/24 17:30 Urine Bilirubin Negative (Negative) 09/01/24 17:30 Urine Urobilinogen 1.0 mg/dL (Negative) 09/01/24 17:30 Ur Leukocyte Esterase Negative (Negative) 09/01/24 17:30 Urine RBC 0-2 /hpf (0-2) 09/01/24 17:30 Urine WBC 0-5 /hpf (0-5) 09/01/24 17:30 Ur Squamous Epith Cells 0-5 /hpf (0-5) 09/01/24 17:30 Amorphous Sediment Not Reportable 09/01/24 17:30 Urine Bacteria None seen /hpf (NONE) 09/01/24 17:30 Hyaline Casts 0-4 /lpf H 09/01/24 17:30 Ethyl Alcohol < 10 mg/dL (0-10) 09/01/24 15:25 Influenza A (PCR) Negative (Negative) 09/01/24 15:44 Influenza Type B (PCR) Negative (Negative) 09/01/24 15:44 RSV (PCR) Negative (Negative) 09/01/24 15:44 SARS-CoV-2 (PCR) Negative (Negative) 09/01/24 15:44 All radiology interpretation(s) finalized by discharge Discharge Plan Discharge Patient Disposition: Home Clinical Impression: Community acquired pneumonia Qualifiers: Laterality: unspecified laterality Qualified Code(s): J18.9 - Pneumonia, unspecified organism Condition: Stable Prescriptions: New levofloxacin 750 mg tablet 750 mg PO DAILY 7 Days Qty: 7 0RF Discharge Orders: Discharge ED (Routine); Ordered 09/01/24 Ordered By: Richie Law Discharge Diet: Advance as tolerated Discharge Activity: Resume usual activity Patient Instructions: Opioid Safety, Pain Management Activity Restrictions/Additional Instructions: Based on your exam you have a pneumonia. Please take all antibiotics until completely gone. Follow-up with your primary care provider within the next week. Return to the emergency department with any new or worsening symptoms. Print Language: [place] Citizen Coding Level of Care Code ED International Trade Specialist for Priyanka Nunez
[2024-09-01 15:48] LABS: Lactic Sepsis W/Reflex 2.3 mmol/L (0.5-2.2)
[2024-09-01 15:49] LABS: Alanine Aminotransferase 24 U/L (0-41); Albumin Level 3.6 g/dL (3.5-5.2); Alkaline Phosphatase 127 U/L (40-130); Aspartate Amino Transferase 38 U/L (0-40); Blood Urea Nitrogen 14 mg/dL (8-23); Calcium 8.9 mg/dL (8.5-10.5); Carbon Dioxide 22 mmol/L (22-29); Chloride 96 mmol/L (98-107); Creatinine Clr Calc Pharmacy 77.9089; Globulin 4.1 g/dL (1.3-4.6); Glomerular Filtration Rate 75.2 mL/min (90-130); Glucose 155 mg/dL (65-115); Osmolality Calculated 280 mOsm/kg (285-295); Sodium 133 mmol/L (136-145); Total Bilirubin 0.7 mg/dL (0.15-1.2); Total Protein 7.7 g/dL (6.6-8.7)
[2024-09-01 15:53] VITALS: BP 159/96; PULSE 84; RESP 24; O2SAT 92
[2024-09-01] MEDS: methylPREDNISolone sod succ 125 mg/2 mL INJ IVP (16:03)
[2024-09-01] MEDS: levofloxacin-dextrose 5 % 750 MG/150 ML PREMIX 100 MG IV (16:03)
[2024-09-01 16:08] LABS: Alcohol Level < 10 mg/dL (0-10)
[2024-09-01 16:30] LABS: Influenza A NEGATIVE (Negative); Influenza B NEGATIVE (Negative); Respiratory Syncytial Virus Ce NEGATIVE (Negative); SARS-CoV-2 PCR NEGATIVE (Negative)
[2024-09-01 17:15] LABS: Reflex Lactate Order REFLEX LACTIC ORDERD
[2024-09-01 17:30] VITALS: BP 154/89; PULSE 91; O2SAT 93
[2024-09-01 17:41] LABS: Bilirubin Urine Negative (Negative); Blood Urine Negative (Negative); Glucose Urine UA Negative (Normal); Ketones Urine Negative (Negative); Leukocyte Esterase Urine Negative (Negative); Nitrate Urine Negative (Negative); Protein Urine Negative (Negative); Specific Gravity, Urine 1.005 (1.005-1.030); Urine Appearance Clear (CLEAR); Urine Color Yellow (Yellow); pH Urine 6.5 (5-7)
[2024-09-01 17:42] LABS: Lactic Acid level (Lactate) 1.3 mmol/L (0.5-2.2)
[2024-09-01 17:46] LABS: Add Urine Microscopic? YES; Bacteria Urine None Seen /hpf; Hyaline Casts Urine 0-4 /lpf; RBC Urine 0-2 /hpf (0-2); Squamous Epithelial Cell Urine 0-5 /hpf (0-5); WBC Urine 0-5 /hpf (0-5)
[2024-09-01 17:56] VITALS: PULSE 111; RESP 18; O2SAT 94
[2024-09-01] MEDS: ipratropium-albuterol 3 mL Neb INHALATION (17:58)
[2024-09-01 18:00] VITALS: BP 159/88; PULSE 94; O2SAT 93
[2024-09-01 18:33] VITALS: BP 172/104; PULSE 80; O2SAT 94
== END 2024-09-01 18:34 | disposition home or self-care (01) ==
PROVIDERS: Family Medicine; Emergency Provider General Practice
DX: J18.9 Pneumonia, unspecified organism (principal); J44.9 Chronic obstructive pulmonary disease, unspecified; Z86.73 Personal history of transient ischemic attack (TIA), and cerebral infarction without residual deficits
CPT/HCPCS: 36415; 71045; 80053; 80307; 81001; 83605; 85025; 87637; 93005; 94640; 96374; 96375; 99285; J1956; J2919; J7030; J9999

== ENCOUNTER 2024-10-22 14:13 | Emergency (ER) | payer BC, MEDICAID, SELFPAY ==
--- OUTSIDE RECORDS SUMMARY | 2024-10-22 14:17 | XMS_ITS | Patient Health Record ---
Author Organization [facility]ales Billing Info Address [address] [place] [id number] Support Name Relationship Address Phone Xiomy Garza Emergency Contact [address] [place], [place] [phone] Geremias Delatorre Guarantor Unknown [phone] Allergies Allergen (clinical drug ingredient) Drug/Non Drug Allergy documented on EMR Reaction Allergy Type Onset Date Status Shellfish (FN) Shellfish-derived Products shortness of air Drug Allergy Active Reason For Referral No Information Medications Medication SIG (Take, Route, Frequency, Duration) Notes Start Date End Date Status [place] pt. takes 325 mg Active Senna Plus Active Cyclobenzaprine HCl 10 MG as directed Orally Active Mintox Plus 200-200-25 MG 1 tablet as needed Orally Active Gas-X pt. takes 40 mg Active Acetaminophen 325 MG 2 tablets Orally Active Nicotine 21 MG/24HR 1 patch to skin Transdermal Once a day Active Doxycycline Hyclate 100 MG 1 tablet Orally every 12 hrs for 10 day(s) 06/12/2022 Active Multivitamin & Mineral pt. takes 1 tablet Active Albuterol-Ipratropium pt. takes 2.5 mg Active Aspirin 81 MG 1 tablet Orally Active Amoxicillin-Pot Clavulanate 875-125 MG 1 tablet Orally Ac tive Atorvastatin Calcium 40 MG as directed Orally Active Magnesium Hydroxide - 30 mL Orally Active Augmentin 875-125 MG 1 tablet Orally every 12 hrs for 10 day(s) 06/12/2022 Active Immunizations Vaccine Route Administration Date Status Comme nts FLU (Past vaccine of unknown type) Unknown 03/27/2022 A dministered Social History Tobacco Use: Social History Observation Description Date Details (start date - stop date) Current Smoker NA - NA Tobacco Status: Question Answer Notes Patient is a current every day smoker Problems Problem Type SNOMED Code ICD Code Onset Dates Problem Status W/U Status Risk Notes Problem Peripheral vascular disease, unspecified (I73.9) Active confirmed Problem [id number] PAD (peripheral artery disease) (I73.9) Active confirmed Plan Of Treatment Future Test Test Name Order Date US- IVANA LOWER EXTREMITY STUDY, SINGLE(Sc Image-ABILES) ([id number]) 07/10/2022 US- UNILATERAL ILIAC DUPLEX/ UNILATERAL LOWER EXTREMITY DUPLEX (94892, [id number])(ScImage-UIDULED) 07/10/2022 Insurance Providers Payer Name Payer Address Payer Phone Subscriber Number Group Number Insured Name Patient Relationship to Insured Coverage Start Date Coverage End Date [employer] [place] [address] [address] [employer] CLAIM[employer] DEPT [place], [place] [id number] Nandini , Geremias Self - patient is the insured 3 3 Medical (General) History Medical History History ICD Code heart attack seizures stroke infectious disease; hepatitis high cholestrol arthritis blood clots Surgical History Surgery Date(Month/Year) knee surgeries bypass/graft cardiac bypass Hospitalization History Reason Date(Month/Year) blood clot 06/12/2022
[2024-10-22 14:18] VITALS: BP 103/60; PULSE 92; RESP 16; TEMP 36.8; O2SAT 94; BMI 25.5
--- NOTE | 2024-10-22 14:37 | W.ED.EXTPRO ---
Documented by User: BARBARA Levy 10/22/24 15:17 HPI - Extremity Problem General: Chief complaint: Extremity Injury, Lower Stated complaint: leg pain Time Seen by Provider: 10/22/24 14:27 Source: patient Mode of arrival: ambulatory Limitations: no limitations History of Present Illness: Patient is a 64-year-old male who presents to ED today with a complaint of left leg pain. Patient states he has a chronic history of pain in that left leg. He states intermittently he will get muscle cramps in the leg but nothing like I had today . Feels like he had a cramp in the entire extremity that caused him to not be able to walk. Significant other states he was dragging his leg. At time of my examination, cramp has subsided and he was able to ambulate here in the emergency department. He states he normally ambulates with the help of two canes/walking sticks. No numbness, tingling, loss of sensation to the leg. He has not noticed any edema. No color/temperature changes. MD Complaint: extremity pain Onset (ago): hour(s) Pain Consistency: now resolved (cramp resolved; still has pain) Location: left and lower extremity Relieving factors: nothing Exacerbating factors: nothing Associated symptoms: Reports no associated symptoms; Deny chest pain or fever(s) Related Data Allergies Allergy/AdvReac Type Severity Reaction Status Date / Time iodine Allergy ALGY-Anaphy Verified 04/21/24 01:49 laxis shellfish derived Allergy ALGY-Anaphy Verified 04/21/24 01:49 laxis Review of Systems Const: Denies: fever(s), chills, body aches, fatigue or malaise Card: Denies: chest pain Resp: Denies: dyspnea GI: Denies: abdominal pain : Denies: flank pain, dysuria or hematuria Musc: Reports: extremity pain and muscle cramps; Denies: neck pain, back pain, extremity swelling, joint pain, joint swelling, joint redness or muscle weakness Neuro: Denies: numbness in extremities, weakness in extremities or sensory changes [facility] ED PFSH: Medical History Hepatitis C test positive Methamphetamine use Elevated troponin Transaminitis Hyponatremia Influenza A COPD with acute exacerbation Acute respiratory failure with hypoxemia Irritable bowel syndrome Peripheral vascular disease CVA (cerebral vascular accident) Tobacco dependency Amphetamine use COPD (chronic obstructive pulmonary disease) Osteoarthritis Surgical History History of arthroplasty of left shoulder Family History Other Cancer Stroke Social History Smoking and tobacco/nicotine status: former use of tobacco/nicotine Alcohol intake: never Substance/Drug Use: current Physical Exam Const: COMMON NORMALS: no acute distress, average body habitus, patient oriented x3, no limitations, healthy appearing, alert and well nourished Resp: COMMON NORMALS: normal respiratory effort and clear to auscultation bilaterally AUSCULTATION: clear to auscultation bilaterally Cardio: COMMON NORMALS: regular rate and regular rhythm RATE: regular rate RHYTHM: regular rhythm Extremity: COMMON NORMALS: normal to inspection, full ROM, capillary refill normal, no joint enlargement, no clubbing, cyanosis or edema, no calf tenderness and no pedal edema NARRATIVE EXTREMITY EXAM: pt was able to ambulate here in ED at his baseline using his two canes/walking sticks; L LE without edema; no color/temp differences; sensation normal; no calf pain GENERAL: Yes normal exam except as noted Neuro: COMMON NORMALS: patient oriented x3, moves all extremities, no focal motor deficits, no sensory deficits noted and gait normal SENSORIUM/ORIENTATION: Yes alert Course Vital Signs: Vital signs: Vital Signs Temperature 98.2 F 10/22/24 14:18 Pulse Rate 92 10/22/24 14:18 Respiratory Rate 16 10/22/24 14:18 Blood Pressure 103/60 10/22/24 14:18 Pulse Oximetry 94 10/22/24 14:18 Oxygen Delivery Me thod Room Air 10/22/24 14:18 MDM - Extremity (Nontraumatic) Lab Data 10/22/24 14:51 10/22/24 14:51 Laboratory Results WBC 8.43 10^3/uL (3.29-11.43) 10/22/24 14:51 RBC 4.39 10^6/uL (3.85-5.65) 10/22/24 14:51 Hgb 13.60 g/dL (11.27-16.99) 10/22/24 14:51 Hct 41.2 % (37-53) 10/22/24 14:51 MCV 93.8 fl (82-101) 10/22/24 14:51 MCH 31.0 pg (27-33) 10/22/24 14:51 MCHC 33.0 g/dL (30-55) 10/22/24 14:51 RDW 14.6 % (12.1-15.1) 10/22/24 14:51 Plt Count 181 10^3/cmm (157-399) 10/22/24 14:51 MPV 10.7 fL (7.4-10.4) H 10/22/24 14:51 Neut % (Auto) 58.9 % 10/22/24 14:51 Lymph % (Auto) 23.6 % 10/22/24 14:51 [place] % (Auto) 10.6 % 10/22/24 14:51 Eos % (Auto) 5.8 % 10/22/24 14:51 Baso % (Auto) 0.9 % 10/22/24 14:51 Neut # (Auto) 4.96 10^3/uL (1.8-7.7) 10/22/24 14:51 Lymph # (Auto) 2.0 10^3/uL (0.8-4.8) 10/22/24 14:51 [place] # (Auto) 0.9 10^3/uL (0.2-0.9) 10/22/24 14:51 Eos # (Auto) 0.5 10^3/uL (0.0-0.8) 10/22/24 14:51 Baso # (Auto) 0.1 10^3/uL (0.0-0.1) 10/22/24 14:51 Nucleated RBC % (auto) 0 % 10/22/24 14:51 Nucleated RBCs # 0.0 /100WBC 10/22/24 14:51 Sodium 137 mmol/L (136-145) 10/22/24 14:51 Potassium 3.6 mmol/L (3.5-5.1) 10/22/24 14:51 Chloride 101 mmol/L (98-107) 10/22/24 14:51 Carbon Dioxide 23 mmol/L (22-29) 10/22/24 14:51 Anion Gap 16.6 (5-19) 10/22/24 14:51 BUN 19 mg/dL (8-23) 10/22/24 14:51 Creatinine 1.3 mg/dL (0.7-1.2) H 10/22/24 14:51 GFR Calculation 55.6 mL/min (90-130) L 10/22/24 14:51 Glucose 88 mg/dL (65-115) 10/22/24 14:51 Calculated Osmolality 286 mOsm/kg (285-295) 10/22/24 14:51 Calcium 9.3 mg/dL (8.5-10.5) 10/22/24 14:51 Magnesium 2.2 mg/dL (1.7-2.3) 10/22/24 14:51 Total Bilirubin 0.7 mg/dL (0.15-1.2) 10/22/24 14:51 AST 28 U/L (0-40) 10/22/24 14:51 ALT 18 U/L (0-41) 10/22/24 14:51 Alkaline Phosphatase 91 U/L (40-130) 10/22/24 14:51 Total Protein 7.5 g/dL (6.6-8.7) 10/22/24 14:51 Albumin 3.9 g/dL (3.5-5.2) 10/22/24 14:51 Globulin 3.6 g/dL (1.3-4.6) 10/22/24 14:51 Discharge Plan Discharge Patient Disposition: Left Against Medical Advice Clinical Impression: Chronic pain of left lower extremity, Cramp in muscle Condition: Stable Patient Instructions: Muscle Cramp (ED), Patient Portal & Mikaela Instructions Activity Restrictions/Additional Instructions: Patient eloped Print Language: Malagasy Coding Level of Care Code ED Rn Cvicu for Chg Fwd Documented by User: BARBARA Beavers 10/22/24 16:12 HPI - Extremity Problem General: Chief complaint: Extremity Injury, Lower Stated complaint: leg pain Time Seen by Provider: 10/22/24 14:27 Related Data Allergies Allergy/AdvReac Type Severity Reaction Status Date / Time iodine Allergy ALGY-Anaphy Verified 04/21/24 01:49 laxis shellfish derived Allergy ALGY-Anaphy Verified 04/21/24 01:49 laxis [facility] ED PFSH: Medical History Hepatitis C test positive Methamphetamine use Elevated troponin Transaminitis Hyponatremia Influenza A COPD with acute exacerbation Acute respiratory failure with hypoxemia Irritable bowel syndrome Peripheral vascular disease CVA (cerebral vascular accident) Tobacco dependency Amphetamine use COPD (chronic obstructive pulmonary disease) Osteoarthritis Surgical History History of arthroplasty of left shoulder Family History Other Cancer Stroke Social History Smoking and tobacco/nicotine status: former use of tobacco/nicotine Alcohol intake: never Substance/Drug Use: current Course Vital Signs: Vital signs: Vital Signs Temperature 98.2 F 10/22/24 14:18 Pulse Rate 92 10/22/24 14:18 Respiratory Rate 16 10/22/24 14:18 Blood Pressure 103/60 10/22/24 14:18 Pulse Oximetry 94 10/22/24 14:18 Oxygen Delivery Me thod Room Air 10/22/24 14:18 MDM - Extremity (Nontraumatic) Medical Decision Making Went back into discharge patient, and patient was gone. Nurse relates that he was going to take care of his grandkids this afternoon and was ready to go just prior to me going into discharge patient. His creatinine was 1.3, with baseline 0.9?1.0. I suspect his cramping is associated by hypovolemia/dehydration. Given these thoughts, patient was given fluids, and did note with the nurse that he did feel improvement. Otherwise, there was no way for me to let patient know since he eloped. Lab Data 10/22/24 14:51 10/22/24 14:51 Laboratory Results WBC 8.43 10^3/uL (3.29-11.43) 10/22/24 14:51 RBC 4.39 10^6/uL (3.85-5.65) 10/22/24 14:51 Hgb 13.60 g/dL (11.27-16.99) 10/22/24 14:51 Hct 41.2 % (37-53) 10/22/24 14:51 MCV 93.8 fl (82-101) 10/22/24 14:51 MCH 31.0 pg (27-33) 10/22/24 14:51 MCHC 33.0 g/dL (30-55) 10/22/24 14:51 RDW 14.6 % (12.1-15.1) 10/22/24 14:51 Plt Count 181 10^3/cmm (157-399) 10/22/24 14:51 MPV 10.7 fL (7.4-10.4) H 10/22/24 14:51 Neut % (Auto) 58.9 % 10/22/24 14:51 Lymph % (Auto) 23.6 % 10/22/24 14:51 [place] % (Auto) 10.6 % 10/22/24 14:51 Eos % (Auto) 5.8 % 10/22/24 14:51 Baso % (Auto) 0.9 % 10/22/24 14:51 Neut # (Auto) 4.96 10^3/uL (1.8-7.7) 10/22/24 14:51 Lymph # (Auto) 2.0 10^3/uL (0.8-4.8) 10/22/24 14:51 [place] # (Auto) 0.9 10^3/uL (0.2-0.9) 10/22/24 14:51 Eos # (Auto) 0.5 10^3/uL (0.0-0.8) 10/22/24 14:51 Baso # (Auto) 0.1 10^3/uL (0.0-0.1) 10/22/24 14:51 Nucleated RBC % (auto) 0 % 10/22/24 14:51 Nucleated RBCs # 0.0 /100WBC 10/22/24 14:51 Sodium 137 mmol/L (136-145) 10/22/24 14:51 Potassium 3.6 mmol/L (3.5-5.1) 10/22/24 14:51 Chloride 101 mmol/L (98-107) 10/22/24 14:51 Carbon Dioxide 23 mmol/L (22-29) 10/22/24 14:51 Anion Gap 16.6 (5-19) 10/22/24 14:51 BUN 19 mg/dL (8-23) 10/22/24 14:51 Creatinine 1.3 mg/dL (0.7-1.2) H 10/22/24 14:51 GFR Calculation 55.6 mL/min (90-130) L 10/22/24 14:51 Glucose 88 mg/dL (65-115) 10/22/24 14:51 Calculated Osmolality 286 mOsm/kg (285-295) 10/22/24 14:51 Calcium 9.3 mg/dL (8.5-10.5) 10/22/24 14:51 Magnesium 2.2 mg/dL (1.7-2.3) 10/22/24 14:51 Total Bilirubin 0.7 mg/dL (0.15-1.2) 10/22/24 14:51 AST 28 U/L (0-40) 10/22/24 14:51 ALT 18 U/L (0-41) 10/22/24 14:51 Alkaline Phosphatase 91 U/L (40-130) 10/22/24 14:51 Total Protein 7.5 g/dL (6.6-8.7) 10/22/24 14:51 Albumin 3.9 g/dL (3.5-5.2) 10/22/24 14:51 Globulin 3.6 g/dL (1.3-4.6) 10/22/24 14:51 No radiology studies performed this visit Discharge Plan Discharge Patient Disposition: Left Against Medical Advice Clinical Impression: Chronic pain of left lower extremity, Cramp in muscle Condition: Stable Patient Instructions: Muscle Cramp (ED), Patient Portal & Mikaela Instructions Activity Restrictions/Additional Instructions: Patient eloped Print Language: Malagasy Coding Level of Care Code ED Rn Cvicu for Priyanka Nunez
[2024-10-22 15:06] LABS: Hematocrit 41.2 % (37-53); Hemoglobin 13.60 g/dL (11.27-16.99); Mean Corpuscular HGB Conc 33.0 g/dL (30-55); Mean Corpuscular Hemoglobin 31.0 pg (27-33); Mean Corpuscular Volume 93.8 fl (82-101); Nucleated Red Blood Cells % 0 %; Platelet Count 181 10^3/cmm (157-399); Red Blood Count 4.39 10^6/uL (3.85-5.65); White Blood Count 8.43 10^3/uL (3.29-11.43)
[2024-10-22 15:23] LABS: Alanine Aminotransferase 18 U/L (0-41); Albumin Level 3.9 g/dL (3.5-5.2); Alkaline Phosphatase 91 U/L (40-130); Anion Gap 16.6 (5-19); Aspartate Amino Transferase 28 U/L (0-40); Blood Urea Nitrogen 19 mg/dL (8-23); Calcium 9.3 mg/dL (8.5-10.5); Carbon Dioxide 23 mmol/L (22-29); Chloride 101 mmol/L (98-107); Globulin 3.6 g/dL (1.3-4.6); Glucose 88 mg/dL (65-115); Magnesium 2.2 mg/dL (1.7-2.3); Osmolality Calculated 286 mOsm/kg (285-295); Potassium 3.6 mmol/L (3.5-5.1); Sodium 137 mmol/L (136-145); Total Protein 7.5 g/dL (6.6-8.7)
[2024-10-22 15:26] LABS: Creatinine Clr Calc Pharmacy 59.9299
== END 2024-10-22 16:12 | disposition left against medical advice (07) ==
PROVIDERS: Emergency Provider Physician Assistant
DX: M79.605 Pain in left leg (principal); G89.29 Other chronic pain; Z91.041 Radiographic dye allergy status; J44.9 Chronic obstructive pulmonary disease, unspecified; R25.2 Cramp and spasm; Z53.29 Procedure and treatment not carried out because of patient's decision for other reasons
CPT/HCPCS: 36415; 80053; 83735; 85025; 99283

== ENCOUNTER 2024-10-24 01:09 | Emergency (ER) | payer BC, MEDICAID, SELFPAY ==
[2024-10-24 01:13] VITALS: BP 155/93; PULSE 73; RESP 18; TEMP 36.6; O2SAT 98; BMI 18.9
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
[2024-10-24] MEDS: orphenadrine 30 mg/mL Inj 2 mL 60 MG IM (03:33)
[2024-10-24 03:51] VITALS: BP 155/87; PULSE 88; RESP 16; O2SAT 94
== END 2024-10-24 03:51 | disposition home or self-care (01) ==
PROVIDERS: Emergency Provider Emergency Medicine
DX: M79.605 Pain in left leg (principal); M54.50 Low back pain, unspecified; Z59.00 Homelessness unspecified; Z91.041 Radiographic dye allergy status; J44.9 Chronic obstructive pulmonary disease, unspecified; Z86.73 Personal history of transient ischemic attack (TIA), and cerebral infarction without residual deficits; G89.29 Other chronic pain
CPT/HCPCS: 96372; 99284; J1885; J2360; J8540

== ENCOUNTER 2024-12-28 04:25 | Emergency (ER) | payer BC, MEDICAID, SELFPAY ==
[2024-12-28 04:26] VITALS: BP 135/82; PULSE 75; RESP 18; TEMP 36.7; O2SAT 94
--- OUTSIDE RECORDS SUMMARY | 2024-12-28 04:31 | XMS_ITS | Patient Health Record ---
Author Organization [facility] Zabrina morales Billing Info Address [address] [place] [id number] Support Name Relationship Address Phone Xiomy Garza Emergency Contact [address] [place], [place] [phone] Geremias Delatorre Guarantor Unknown [phone] Allergies Allergen (clinical drug ingredient) Drug/Non Drug Allergy documented on EMR Reaction Allergy Type Onset Date Status Shellfish (FN) Shellfish-derived Products shortness of air Drug Allergy Active Reason For Referral No Information Medications Medication SIG (Take, Route, Frequency, Duration) Notes Start Date End Date Status [place] pt. takes 325 mg Active Senna Plus [...] W/U Status Risk Notes Problem Peripheral vascular disease (640943607) Peripheral vascular disease, unspecified (I73.9) Active confirmed Problem [id number] PAD (peripheral artery disease) (I73.9) Active confirmed Plan Of Treatment Future Test Test Name Order Date US- IVANA LOWER EXTREMITY STUDY, SINGLE(Sc Image-ABILES) (09956) 07/10/2022 - UNILATERAL ILIAC DUPLEX/ UNILATERAL LOWER EXTREMITY DUPLEX (51573, 16046)(ScImage-UIDULED) 07/10/2022 Insurance Providers Payer Name Payer Address Payer Phone Subscriber Number Group Number Insured Name Patient Relationship to Insured Coverage Start Date Coverage End Date [employer] [place] [address] [address] [employer] CLAIM[employer] DEPT [place], [place] [id number] Nandini , Geremias Self - patient is the insured 3 3 Medical (General) History Medical History History ICD Code heart attack seizures stroke infectious disease; hepatitis high cholestrol arthritis blood clots Surgical History Surgery Date(Month/Year) cardiac bypass bypass/graft knee surgeries Hospitalization History Reason Date(Month/Year) blood clot 06/12/2022
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
[2024-12-28 04:52] VITALS: BP 135/82; PULSE 76; O2SAT 97
[2024-12-28] MEDS: orphenadrine 30 mg/mL Inj 2 mL 60 MG IM (05:10)
== END 2024-12-28 05:50 | disposition home or self-care (01) ==
PROVIDERS: Emergency Provider Emergency Medicine
DX: G89.29 Other chronic pain (principal); Z87.891 Personal history of nicotine dependence; J44.9 Chronic obstructive pulmonary disease, unspecified; Z86.73 Personal history of transient ischemic attack (TIA), and cerebral infarction without residual deficits
CPT/HCPCS: 96372; 99284; J2360

== ENCOUNTER 2025-03-31 20:35 | Emergency (ER) | payer BC, MEDICAID, SELFPAY ==
[2025-03-31 20:35] VITALS: BP 135/83; PULSE 92; RESP 18; TEMP 36.8; O2SAT 92; BMI 24.8
--- NOTE | 2025-03-31 20:38 | ECG_ITS ---
[facility] Test Date: 2025-03-31 Pat Name: Geremias Delatorre Department: Room: Gender: Male Intelligence Specialist: : [id number] Requested By: Isidra Bullock Order Number: [id number] Reading MD: Measurements Intervals [place] Rate: 91 P: 131 MT: 152 QRS: 134 QRSD: 90 T: 140 QT: 354 QTc: 436 Interpretive Statements SINUS RHYTHM WITH SINUS ARRHYTHMIA ARM LEADS REVERSED [INVERTED P AND QRS IN I] No previous ECG available for comparison [email or web address]
--- OUTSIDE RECORDS SUMMARY | 2025-03-31 20:38 | XMS_ITS ---
Patient Health Record Created on: March 31, 2025 Geremias Delatorre .[id number] : 1960 Sex: Male Author Organization [facility] Zabrina morales Billing Info Address [address] [place] [id number] Phone [phone] Support Name Relationship Address Phone GregXiomy gleason [address] [place], [place] [phone] Greg, Xiomy Sister [address] [place], [place] [phone] Geremias Delatorre Self - patient is the insured [address] [facility] [place] [address] [phone] Allergies Allergen (clinical drug ingredient) Drug/Non Drug Allergy documented on EMR Reaction Allergy Type Onset Date Status Shellfish (FN) Shellfish-derived Products shortness of air Drug Allergy Active Reason For Referral No Information Medications Medication SIG (Take, Route, Frequency, Duration) Notes Start Date End Date Diagnosis (ICD Code) Status Mittie pt. takes 325 mg Active Senna Plus Active Cyclobenzaprine HCl 10 MG Tablet as directed Orally Active Mintox Plus 200-200-25 MG Tablet Chewable 1 tablet as needed Orally Active Gas-X pt. takes 40 mg Active Acetaminophen 325 MG Tablet 2 tablets Orally Active Nicotine 21 MG/24HR Patch 24 Hour 1 patch to skin Transdermal Once a day Active Doxycycline Hyclate 100 MG Tablet 1 tablet Orally every 12 hrs; Duration: 10 day(s) 06/12/2022 Active Multivitamin & Mineral pt. takes 1 tablet Active Albuterol-Ipratropiu m pt. takes 2.5 mg Active Aspirin 81 MG Tablet Delayed Release 1 tablet Orally Acti ve Amoxicillin-Pot Clavulanate 875-125 MG Tablet 1 tablet Orally Active Atorvastatin Calcium 40 MG Tablet as directed Orally Active Magnesium Hydroxide - Powder 30 mL Orally Active Augmentin 875-125 MG Tablet 1 tablet Orally every 12 hrs; Duration: 10 day(s) 06/12/2022 Active Immunizations Status Vaccine Route Administration Date Visit Date Comments Administered FLU (Past vaccine of unknown type) Unknown 03/27/2022 Social History Tobacco Use: Social History Observation Description Date Details (start date - stop date) Current Smoker NA - NA Sex Observation Social History Observation Description Sex Observation Male Social History Social History Social Info Question Answer Notes Tobacco Status: Patient is a current every day smoke r packs per day 0.5 Alcohol Use: Patient does not use alcohol Additional Details Category Social Info Options Details Social History Marital Status: Problems Problem Type SNOMED Code ICD Code Dates Problem Status W/U Status Risk Notes Problem Peripheral vascular disease (418427796) Peripheral vascular disease, unspecified (I73.9) Added On:2022 Active confirmed Problem Peripheral vascular disease (322989892) PAD (peripheral artery disease) (I73.9) Added On:2022 Active confirmed Plan Of Treatment Future Test Test Name Order Date US- IVANA LOWER EXTREMITY STUDY, SINGLE(Sc Image-ABILES) ([id number]) 07/10/2022 US- UNILATERAL ILIAC DUPLEX/ UNILATERAL LOWER EXTREMITY DUPLEX (59529, 41469)(ScImage-UIDULED) IH 07/10/2022 Insurance Providers Payer Name Payer Address Payer Phone Subscriber Number Group Number Insured Name Patient Relationship to Insured Coverage Start Date Coverage End Date [employer] [place] [employer] [address] [address] [employer] CLAIMS [place]PT [place], [place] [id number] Nandini , Geremias Self - patient is the insured 3 3 Medical (General) History Medical History History ICD Code heart attack seizures stroke infectious disease; hepatitis high cholestrol arthritis blood clots Surgical History Surgery Date(Month/Year) knee surgeries bypass/graft cardiac bypass Hospitalization History Reason Date(Month/Year) blood clot 06/12/2022
--- NOTE | 2025-03-31 20:41 | XRR_ITS ---
PROCEDURE INFORMATION: Exam: XR Chest Exam date and time: 03/31/2025 9:25 PM Age: 64 years old Clinical indication: Shortness of breath; Additional info: Short of breath TECHNIQUE: Imaging protocol: Radiologic exam of the chest. Views: 1 view. COMPARISON: CR XR chest 1V portable [id number] 09/01/2024 3:39 PM FINDINGS: Lungs: Unremarkable. No consolidation. Pleural spaces: Unremarkable. No pleural effusion. No pneumothorax. Heart/Mediastinum: Unremarkable. No cardiomegaly. Bones/joints: Moderate thoracic spondylosis. XR/XR chest 1V portable [id number] IMPRESSION: No acute findings.
--- NOTE | 2025-03-31 20:41 | W.ED.CHESTPA ---
HPI - Chest Pain General: Chief Complaint: Chest Pain Stated Complaint: cp/sob Time Seen by Provider: 03/31/25 20:35 History of Present Illness: Patient is 64-year-old gentleman without cardiac history that presents to the emergency room due to chest pain. This is a central chest pain squeezing in nature. He was brought in via EMS. He has never had an ischemic rule out. Associated symptoms: Pain, squeezing, pressure, central area of his chest, shortness of breath, no nausea, no diaphoresis. No family history of heart disease Not on routine medications daily Associated symptoms: Reports dyspnea; Deny abdominal pain, fever(s), nausea or palpitations Related Data Previous Rx's ?Medication ?Instructions ?Recorded cyclobenzaprine 10 mg tablet 10 mg PO Q8H PRN muscle spasm #20 12/28/24 tabs Allergies Allergy/AdvReac Type Severity Reaction Status Date / Time iodine Allergy ALGY-Anaphy Verified 04/21/24 01:49 laxis shellfish derived Allergy ALGY-Anaphy Verified 04/21/24 01:49 laxis Review of Systems General: Reports: 10 or more systems reviewed and unremarkable except in HPI and below Narrative: No recent cold or illness Const: Denies: fever(s), chills, body aches, fatigue or malaise ENMT: Denies: throat pain or nasal discharge Card: Reports: chest pain; Denies: palpitations or irregular heart rhythm Resp: Reports: dyspnea; Denies: non-productive cough GI: Denies: abdominal pain or nausea : Denies: flank pain, dysuria or hematuria Musc: Denies: neck pain or back pain Neuro: Denies: numbness in extremities, weakness in extremities or sensory changes Psych: Denies: anxiety or depression [facility] ED PFSH: Medical History (Updated 03/31/25 @ 22:30 by BARBARA Beavers) Hepatitis C test positive Methamphetamine use Elevated troponin Transaminitis Hyponatremia Influenza A COPD with acute exacerbation Acute respiratory failure with hypoxemia Irritable bowel syndrome Peripheral vascular disease CVA (cerebral vascular accident) Tobacco dependency Amphetamine use COPD (chronic obstructive pulmonary disease) Osteoarthritis Surgical History History of arthroplasty of left shoulder Family History Other Cancer Stroke Social History Smoking and tobacco/nicotine status: former use of tobacco/nicotine Alcohol intake: never Substance/Drug Use: current Physical Exam Const: COMMON NORMALS: no acute distress GENERAL APPEARANCE: cooperative and lethargic; not ill appearing and not frail appearing ORIENTATION/CONSCIOUSNESS: Yes lethargic HENMT: COMMON NORMALS: normocephalic, atraumatic and Normal external nose present HEAD & SCALP: normocephalic and atraumatic FACE & SINUS: normal facial exam and face symmetric NOSE: Normal external nose present Eye: COMMON NORMALS: Equal, round and reactive pupils present and EOMs intact bilaterally PUPIL: Yes Equal, round and reactive pupils present Neck/C-Spine: GENERAL: Yes trachea midline Chest: CHEST: Yes Symmetrical chest wall rise Resp: COMMON NORMALS: normal respiratory effort, No retractions, No use of accessory muscles and clear to auscultation bilaterally AUSCULTATION: clear to auscultation bilaterally Cardio: COMMON NORMALS: regular rate and regular rhythm RATE: regular rate RHYTHM: regular rhythm Extremity: COMMON NORMALS: no pedal edema Neuro: SENSORIUM/ORIENTATION: Yes lethargic SENSORY EXAM: Yes extremities (intact) Psych: COMMON NORMALS: speech normal SPEECH: Yes normal speech Skin: COMMON NORMALS: no rashes or lesions noted GENERAL SKIN EXAM: no rashes or lesions noted Course Vital Signs: Vital signs: Vital Signs Temperature 98.3 F 03/31/25 20:35 Pulse Rate 85 03/31/25 22:31 Respiratory Rate 16 03/31/25 22:31 Blood Pressure 153/87 03/31/25 22:31 Pulse Oximetry 97 03/31/25 22:31 Oxygen Delivery Me thod Room Air 03/31/25 20:35 MDM - Chest Pain Medical Decision Making Patient is a 64-year-old male that comes in with chest pain, squeezing in nature. Initial troponin is negative. EKG does not show any ST segment elevation. Since this occurred within the hour of patient arriving by EMS, he will require the 1 hour repeat troponin. He has received his aspirin 324 mg. Precipitating factors: Homelessness. Patient is ready however to have a primary care physician, and seek appropriate medical attention. Medical Records I reviewed the patient's medical records. Lab Data I reviewed the patient's lab results. 03/31/25 20:21 03/31/25 20:21 Radiology Impressions Chest X-Ray 03/31/25 20:41 IMPRESSION: No acute findings. Laboratory Results WBC 14.58 10^3/uL (3.29-11.43) H 03/31/25 20:21 RBC 4.73 10^6/uL (3.85-5.65) 03/31/25 20:21 Hgb 14.50 g/dL (11.27-16.99) 03/31/25 20:21 Hct 43.8 % (37-53) 03/31/25 20:21 MCV 92.6 fl (82-101) 03/31/25 20:21 MCH 30.7 pg (27-33) 03/31/25 20:21 MCHC 33.1 g/dL (30-55) 03/31/25 20:21 RDW 14.0 % (12.1-15.1) 03/31/25 20:21 Plt Count 185 10^3/cmm (157-399) 03/31/25 20:21 MPV 10.7 fL (7.4-10.4) H 03/31/25 20:21 Neut % (Auto) 72.3 % 03/31/25 20:21 Lymph % (Auto) 14.2 % 03/31/25 20:21 Jenkins % (Auto) 10.4 % 03/31/25 20:21 Eos % (Auto) 2.1 % 03/31/25 20:21 Baso % (Auto) 0.6 % 03/31/25 20:21 Neut # (Auto) 10.55 10^3/uL (1.8-7.7) H 03/31/25 20:21 Lymph # (Auto) 2.1 10^3/uL (0.8-4.8) 03/31/25 20:21 Jenkins # (Auto) 1.5 10^3/uL (0.2-0.9) H 03/31/25 20:21 Eos # (Auto) 0.3 10^3/uL (0.0-0.8) 03/31/25 20:21 Baso # (Auto) 0.1 10^3/uL (0.0-0.1) 03/31/25 20:21 Nucleated RBC % (auto) 0 % 03/31/25 20: Nucleated RBCs # 0.0 /100WBC 03/31/25 20:21 PT 13.40 SECONDS (12.1-14.9) 03/31/25 20:21 INR 0.96 (0.8-1.2) 03/31/25 20:21 Sodium 131 mmol/L (136-145) L 03/31/25 20:21 Potassium 4.6 mmol/L (3.5-5.1) 03/31/25 20:21 Chloride 91 mmol/L (98-107) L 03/31/25 20:21 Carbon Dioxide 26 mmol/L (22-29) 03/31/25 20:21 Anion Gap 18.6 (5-19) 03/31/25 20:21 BUN 21 mg/dL (8-23) 03/31/25 20:21 Creatinine 1.1 mg/dL (0.7-1.2) 03/31/25 20:21 GFR Calculation 67.4 mL/min (90-130) L 03/31/25 20:21 Glucose 106 mg/dL (65-115) 03/31/25 20:21 Calculated Osmolality 275 mOsm/kg (285-295) L 03/31/25 20:21 Calcium 9.2 mg/dL (8.5-10.5) 03/31/25 20:21 Total Bilirubin 0.8 mg/dL (0.15-1.2) 03/31/25 20:21 AST 37 U/L (0-40) 03/31/25 20:21 ALT 22 U/L (0-41) 03/31/25 20:21 Alkaline Phosphatase 112 U/L (40-130) 03/31/25 20:21 Troponin T Baseline 31 ng/L (0-15) H 03/31/25 20:21 Troponin T 60 Minute 29.02 ng/L (0-15) H 03/31/25 21:20 Delta Troponin T -1.98 ABS# (0-10) L 03/31/25 21:20 NT-Pro-B Natriuret Pep 356 pg/mL (0-125) H 03/31/25 20:21 Total Protein 7.4 g/dL (6.6-8.7) 03/31/25 20:21 Albumin 4.4 g/dL (3.5-5.2) 03/31/25 20:21 Globulin 3.0 g/dL (1.3-4.6) 03/31/25 20:21 XR interpretation done by ED provider, pending radiology final review EKG Data EKG 1: Interpretation: Right atrial enlargement, normal sinus, normal axis, isolated ST segments, LVH Discharge Plan Discharge Patient Disposition: Home Clinical Impression: Atypical chest pain Condition: Stable Prescriptions: No Action cyclobenzaprine 10 mg tablet 10 mg PO Q8H PRN (Reason: muscle spasm) Qty: 20 0RF Discharge Orders: Discharge ED (Routine); Ordered 03/31/25 Ordered By: Isidra Bullock Discharge Diet: Low Salt Patient Instructions: Chest Pain (ED), Patient Portal & Mikaela Instructions Activity Restrictions/Additional Instructions: - You have been ruled out from an acute standpoint, this does not mean you do not have blockage, this means you are not having current heart attack - take a baby coated aspirin daily for primary prevention - Case management referral has been made for primary care. -You will need to come back to the ER if you have further chest pain issues Thank you for choosing [facility] for your healthcare needs today. You have been screened and evaluated and felt safe for discharge. Health conditions do change or evolve sometimes and as such it is important that you follow up with your Primary Doctor to be re checked, 3-5 days is a general good time frame for follow up. You are always welcome to return to the ED for re assessment if your symptoms are worsening or you have new concerns Print Language: Yakut Coding Level of Care Code ED Physician Office Specialist for Chg Fwd Heart Score HEART Score Components History: Slightly Suspicous EKG: Normal Age: 45-64 yrs Risk Factors: 1 or 2 Risk Factors Troponin: Baseline Trop 16-45 ng/L HEART Score RESULT HEART Score: 3
[2025-03-31 20:56] LABS: Hematocrit 43.8 % (37-53); Hemoglobin 14.50 g/dL (11.27-16.99); Mean Corpuscular HGB Conc 33.1 g/dL (30-55); Mean Corpuscular Hemoglobin 30.7 pg (27-33); Mean Corpuscular Volume 92.6 fl (82-101); Nucleated Red Blood Cells % 0 %; Platelet Count 185 10^3/cmm (157-399); Red Blood Count 4.73 10^6/uL (3.85-5.65); White Blood Count 14.58 10^3/uL (3.29-11.43)
[2025-03-31 21:06] LABS: INR 0.96 (0.8-1.2); Prothrombin Time 13.40 SECONDS (12.1-14.9)
[2025-03-31 21:11] VITALS: BP 124/81; PULSE 89; RESP 16; O2SAT 94
[2025-03-31 21:18] LABS: Troponin(5th) Baseline 31 ng/L (0-15)
[2025-03-31 21:23] LABS: Alanine Aminotransferase 22 U/L (0-41); Albumin Level 4.4 g/dL (3.5-5.2); Alkaline Phosphatase 112 U/L (40-130); Blood Urea Nitrogen 21 mg/dL (8-23); Calcium 9.2 mg/dL (8.5-10.5); Carbon Dioxide 26 mmol/L (22-29); Chloride 91 mmol/L (98-107); Globulin 3.0 g/dL (1.3-4.6); Glucose 106 mg/dL (65-115); NT Pro B Type Natriuretic Pept 356 pg/mL (0-125); Osmolality Calculated 275 mOsm/kg (285-295); Sodium 131 mmol/L (136-145); Total Protein 7.4 g/dL (6.6-8.7)
[2025-03-31 21:26] LABS: Anion Gap 18.6 (5-19); Aspartate Amino Transferase 37 U/L (0-40); Potassium 4.6 mmol/L (3.5-5.1)
--- NOTE | 2025-03-31 21:42 | ECG_ITS ---
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
[2025-03-31 22:00] VITALS: BP 152/94; PULSE 82; RESP 16; O2SAT 96
[2025-03-31 22:31] VITALS: BP 153/87; PULSE 85; RESP 16; O2SAT 97
== END 2025-03-31 22:41 | disposition home or self-care (01) ==
PROVIDERS: Emergency Provider Physician Assistant
DX: R07.89 Other chest pain (principal); Z87.891 Personal history of nicotine dependence; J44.9 Chronic obstructive pulmonary disease, unspecified; Z86.73 Personal history of transient ischemic attack (TIA), and cerebral infarction without residual deficits
CPT/HCPCS: 36415; 71045; 80053; 83880; 84484; 85025; 85610; 93005; 99285